=== PATIENT | male | born 1960 | race Caucasian/White ===

== ENCOUNTER 2021-06-03 08:17 | Inpatient (IN) ==
[2021-06-03 10:02] LABS: Basophils # (auto) 0.03 K/uL (0-0.2); Basophils % (auto) 0.4 %; Eosinophils # (auto) 0.03 K/uL (0-0.5); Eosinophils % (auto) 0.4 %; Hematocrit (blood only) 39.7 % (42-52); Hemoglobin 13.5 g/dL (14.0-18.0); Immature Granulocytes # (auto) 0.01 K/uL (0.00-0.02); Immature Granulocytes % (auto) 0.1 %; Lymphocytes # (auto) 0.95 K/uL (1.2-3.4); Lymphocytes % (auto) 13.4 %; Mean Corpuscular Hemoglobin 35.6 pg (25-34); Mean Corpuscular Volume 104.7 fL (80-100); Mean Platelet Volume 10.8 fL (7.4-10.4); Monocytes # (auto) 1.04 K/uL (0.11-0.59); Monocytes % (auto) 14.7 %; Neutrophils # (auto) 5.02 K/uL (1.4-6.5); Platelet Count 183 K/uL (130-400); RDW Coefficient of Variation 13.3 % (11.5-14.5); RDW Standard Deviation 51.3 fL (36.4-46.3); Red Blood Count 3.79 M/uL (4.7-6.1); White Blood Count 7.08 K/uL (4.8-10.8)
[2021-06-03 10:17] LABS: INR 1.3 (0.9-1.1); Partial Thromboplastin Ratio 1.1; Partial Thromboplastin Time 28.6 Seconds (21.0-31.0)
[2021-06-03 10:22] LABS: Alanine Aminotransferase 45 U/L (12-78); Albumin Level 2.4 gm/dl (3.4-5.0); Aspartate Aminotransferase 81 U/L (15-37); BUN Creatinine Ratio 15.4 (10-20); Bilirubin Direct 0.8 mg/dl (0-0.2); Blood Urea Nitrogen 12 mg/dl (7-18); Calcium 8.2 mg/dl (8.5-10.1); Carbon Dioxide 26 mmol/L (21-32); Chloride 106 mmol/L (98-107); Est GFR (African American) 115.7 ml/min; Est GFR (Non-African American) 99.9 ml/min; Glucose 106 mg/dl (70-99); Lipase 198 U/L (73-393); Magnesium 1.8 mg/dl (1.8-2.4); Potassium 3.9 mmol/L (3.5-5.1); Sodium 137 mmol/L (136-145)
--- NOTE | 2021-06-03 10:27 | XRay Report ---
XR chest 1V portable HISTORY: Atypical Chest Pain COMPARISON: Chest 12/07/2007. FINDINGS: There are low lung volumes with mild elevation of the right hemidiaphragm. The heart is mil dly enlarged. No focal lung consolidations to suggest pneumonia. No evidence for pulmonary edema. No pleural fusions. No pneumothorax. IMPRESSION: 1. Mild cardiomegaly. 2. Low lung volumes with mild elevation of the right hemidiaphragm. ACT 112: Negative or not required by law. Electronically signed by: Juan Moreno M.D. 06/03/2021 10:25 AM
[2021-06-03 10:30] LABS: Albumin Globulin Ratio 0.5 (0.9-2); Alkaline Phosphatase 136 U/L (45-117); Bilirubin,Total 1.8 mg/dl (0.2-1); Globulin 4.7 gm/dl (2.5-4.0); NT Pro B Type Natriuretic Pept 81 pg/ml (0-900); Phosphorus 3.2 mg/dl (2.5-4.9); Total Protein 7.1 gm/dl (6.4-8.2); Troponin I < 0.015 ng/ml (0-0.045)
[2021-06-03] MEDS ORDERED: OPTIRAY 320 100ml IV ONE (11:02)
--- NOTE | 2021-06-03 11:55 | CT Scan Report ---
CT abd pelvis IV con only CLINICAL HISTORY: abd pain, distension COMPARISON STUDY: April 08, 2007 TECHNIQUE: A dose lowering technique was utilized adhering to the principles of ALARA. CT DOSE: 2063.00 mGy.cm FINDINGS: Lower chest: Limited evaluation of lung bases shows small left pleural effusion associated with atel ectasis at dependent portion of the right lower lobe. 7 mm pulmonary nodule is seen within the right middle lobe (3/1), unclear if was present during 2007 exam because this area was not included in the [id number]. Liver: Interval development of liver cirrhosis. 0.7 cm hypoattenuating lesion in subcapsular aspect o f the segment 4 of the liver is seen. Gallbladder: Is fluid-filled. No definite gallstones. Gallbladder wall is slightly enhancing. Overall evaluation is limited due to ascites. Spleen: Normal in size and attenuation. Pancreas: Unremarkable. Adrenal glands: Unremarkable. Kidneys: There is symmetric renal cortical enhancement. The kidneys are normal in size without hydron ephrosis.Interval development of 2.1 cm slightly hypoattenuating lesion within anterior mid aspect of the right renal cortex shows heterogeneous appearance of fluid attenuation. Previously seen cystic lesion within superior aspect of the right kidney is no longer visualized shoemaker yojana there is small cortical scarring is seen within this region. No evidence of nephrolithiasis. Pelvic viscera: Urinary bladder is partially decompressed with redemonstration of diffuse thickening of its wall. Prostate gland is not significantly enlarged with coarse dystrophic calcification within its parenchyma. Bowel: Small hiatal hernia is seen. Bowel loops are nondilated. Evaluation is significantly limited d ue to lack of oral contrast and ascites. Appendix is not visualized. Peritoneum: There is no free intra-abdominal gas. Interval development of large ascites and diffuse m esenteric edema. There is extension of the intra-abdominal fluid to the right inguinal hernia ostium of the hernia is measuring 2.6 cm in size. Vasculature: Abdominal aorta is normal in caliber with scattered calcifications of its wall. Adenopathy: No definite retroperitoneal lymphadenopathy seen. Mesenteric lymph nodes are not well see n due to ascites. Skeletal structures: Multilevel degenerative changes of the spine. IMPRESSION: 1. Interval development of liver cirrhosis and ascites with significant amount of fluid collection w ithin abdominal cavity. 2. Questionable hypoattenuating lesion within subcapsular aspect of the liver, incompletely evaluate d on current exam. Further evaluation with liver ultrasound on the nonemergency basis might be consid ered. 3. Interval development of hypoattenuating lesion within left kidney, was not seen on prior study in 2006. Further evaluation with renal ultrasound the nonemergency basis might be considered. 4. 7 mm pulmonary nodule within the right middle lobe. Further evaluation with CT of the chest witho ut IV contrast on nonemergency basis is suggested. 5. Fluid-containing right inguinal hernia. 6. Nondilated loops of bowel, evaluation is suboptimal due to ascites and lack of oral contrast. 7. Redemonstration of diffuse thickening of urinary bladder wall. Prostate gland is not significantl y enlarged. Please correlate above-mentioned findings with laboratory markers of cystitis. 8. Atherosclerosis. 9. The rest of findings as above. ACT 112: Positive. There are findings on this exam that require communication between the performing entity and the patient following Patient Test Result Information Act ([place] Act 112) guidelines. The above report was generated using voice recognition software. It may contain grammatical, syntax o r spelling errors. Electronically signed by: Josefina Teixeira DO 06/03/2021 11:53 AM
[2021-06-03 12:45] LABS: Appearance Urine Clear (Clear); Blood Urine Negative (Negative); Color Urine Dark Yellow; Glucose Urine UA Negative (Negative); Ketones Urine Negative (Negative); Leukocyte Esterase Urine Negative (Negative); Nitrite Urine Negative (Negative); Protein Urine Negative (Negative); Specific Gravity Urine > 1.045 (1.000-1.030); Urobilinogen Urine Negative (Negative); pH Urine 7.5 (4.5-7.5)
[2021-06-03 13:00] LABS: Bilirubin Urine 1+ (Negative)
--- NOTE | 2021-06-03 15:13 | Emergency Department Note ---
Impression & Plan Cirrhosis, Ascites, Transaminitis ED Provider Note NAME: ALONDRA NEAL AGE: 61 SEX: M ARRIVES VIA: Walk-In INFORMANT: Patient, ED PROVIDER(S): J Carlos Ellison MD CHIEF COMPLAINT: Abdominal distension PLAN: Disposition: Admit MEDICAL DECISION MAKING: The patient is a pleasant 61-year-old gentleman, Nauruan-speaking mostly [place] gentleman who presents to the emergency department for evaluation of abdominal distention that per the patient's report happened abruptly over the past several weeks. He reports history of drinking alcohol 2 months ago where he would drink 1-2 bottles of wine in several days but has stopped since then. This was in the setting of his passing away at that time. He reports he attempted to set up an appointment for evaluation but was not scheduled for another 2 months. He denies fevers, chills, pain related to his distention, nausea, vomiting or diarrhea. On arrival the patient is no acute distress, afebrile stable vital signs. His abdomen severely distended with notable ascites. No tenderness to palpation. He has mild bilateral lower extremity edema. Mild increased WOB 2/2 mass effect from abdominal distension. EKG without overt acute ischemia. CXR negative for acute cardiopulmonary process. WBC and platelets within normal limits. H/H 13.5/39.7 without prior values for comparison. INR is 1.3. Chemistry without metabolic acidosis. Total bilirubin 1.8 and direct bilirubin 0.8 with AST 81 and ALT 45, suspicious for alcoholic pattern. Troponin negative/undetectable. BNP within normal limits. Lipase is not elevated. TSH within normal limits. UA without convincing evidence of infection. Blood alcohol was undetectable. COVID-[address] of the abdomen pelvis was performed and demonstrates new evidence of cirrhosis with massive ascites. I did meet with the patient and reviewed his visit and results in detail using the [employer] hand sewer. I did recommend admission for further evaluation however he reported that he could not stay today as he had "things to take care of in his home" but will be able to return on Wednesday. I did explain to the patient that it is important that he follow through with prompt evaluation to initiate treatment to address his symptoms. He reported that he would definitely return on Wednesday. We did agree to proceed with paracentesis given his large volume ascites was giving him notable dyspnea and so this was performed per procedure note and 2 L of yellow-clear fluid was removed. Patient tolerated the procedure well and respiratory effort normalized. Fluid analysis sent at pending. Ultimately however upon meeting with the patient prior to final instructions he did agree to stay after we were able to contact his close friend and neighbor who agreed to help with anything he may need if this may facilitate him agreeing to stay in the hospital. The patient asked that he help to close the windows of his house and then agreed to be admitted. Case was discussed with Reese Rocha, with Dr. [facility] hospitalist who will evaluate the patient for admission. Triage Nursing notes reviewed and agree them. Prior medical records reviewed Vital Signs: reviewed and remarkable for no significant abnormalities Differential diagnosis: Appendicitis, testicular torsion, infections, diverticulitis, UTI, obstruction, mesenteric ischemia, aortic pathology, inflammatory bowel disease, renal colic, PUD, pancreatitis, biliary pathology, hernia, volvulus, constipation, as well as other pathologies. ER treatment provided: See below. Diagnostics interpreted by me: ECG: NSR, 92bpm, no ectopy, RBBB, no overt ST elevation or depression. Cardiac Monitoring: An order for continuous cardiac monitoring was placed and demonstrated NSR, 92bpm, no ectopy. Laboratory studies: See below Imaging studies: See below Consultation(s): Reese Rocha, [facility] HPI: The patient is a pleasant 61-year-old gentleman, Nauruan-speaking mostly [place] gentleman who presents to the emergency department for evaluation of abdominal distention that per the patient's report happened abruptly over the past several weeks. He reports history of drinking alcohol 2 months ago where he would drink 1-2 bottles of wine in several days but has stopped since then. This was in the setting of his passing away at that time. He reports he attempted to set up an appointment for evaluation but was not scheduled for another 2 months. He denies fevers, chills, pain related to his distention, nausea, vomiting or diarrhea. ROS: See above HPI for pertinent positives & negatives. A total of 10 systems reviewed and were otherwise negative. PAST MEDICAL HISTORY:See Below PAST SURGICAL HISTORY:See Below FAMILY HISTORY:See Below SOCIAL HISTORY:See Below HOME MEDICATIONS:See Below ALLERGIES:See Below VITALS:See Below PHYSICAL EXAMINATION: GENERAL: Awake, alert, fatigued-appearing, in no distress HENT: Normocephalic, atraumatic. Oropharynx unremarkable. EYES: Normal conjunctiva. Sclera non-icteric. NECK: Supple. No nuchal rigidity. FROM. No JVD. RESPIRATORY: Clear to auscultation. Mildly dyspneic with mild increase WOB secondary to mass-effect from abdominal distention. no acute distress. CARDIAC: Regular rate, normal rhythm. Extremities warm and well perfused. Pulses equal. ABDOMEN: Severely distended with notable ascites. No tenderness to palpation. No rebound or guarding. No masses. RECTAL: Deferred. MUSCULOSKELETAL: Chest examination reveals no tenderness. The back is symmetrical on inspection without obvious abnormality. There is no CVA tenderness to palpation. No joint edema. LOWER EXTREMITIES: Calves are equal size bilaterally and non-tender. 1+ BLE edema. No discoloration. NEURO: Normal sensorium. No sensory or motor deficits noted. SKIN: No rash or jaundice noted. ED COURSE: Procedures: Paracentesis Indication: New large volume ascites. SOB. Verbal consent was obtained after the risks and benefits were explained, including but not limited to headache, bleeding/clotting, scarring, infection, pain, and bone/joint/nerve damage. At this time, the risks of the procedure are less than the risks of NOT performing the procedure. A time out was taken and the correct patient and site identified. The patient was placed in the seated position. Paracentesis site on the right abdomen was identified with static ultrasound and marked. Site was prepped with chlorhexadine and draped in the standard fashion. Site was anesthetized locally with 1% lidocaine without epinephrine. Peritoneal space was entered with paracentesis needle. Sim ultaneously catheter was carefully advanced into the peritoneal space and needle was withdrawn. 2L of yellow-clear ascites fluid was obtained. Catheter was removed. A bandaid was placed. The patient tolerated the procedure well and there were no complications. J Carlos Ellison MD Past Med/Surg History Medical History Alcoholism Anxiety GERD (gastroesophageal reflux disease) HTN (hypertension) Hyperlipidemia NICO (obstructive sleep apnea) Tobacco abuse, in remission Family History Other Heart disease Social History Smoking Status: Unknown if ever smoked Communication Tools: IPad and Language Line Hose Maker Feels Safe at Home: Yes Allergies Allergies Allergy/AdvReac Type Severity Reaction Status Date / Time No Known Allergies Allergy Unknown Verified 06/03/21 10:23 Home Meds Home Medications Medication Instructions Recorded Confirmed aspirin 81 mg tablet 81 mg PO DAILY 06/03/21 06/03/21 lisinopril 40 mg tablet 40 mg PO DAILY 06/03/21 06/03/21 multivitamin 1 tab PO DAILY 06/03/21 06/03/21 rosuvastatin 20 mg tablet 20 mg PO DAILY 06/03/21 06/03/21 spironolactone 25 mg tablet 25 mg PO DAILY 06/03/21 06/03/21 triamterene 37.5 1 tab PO DAILY 06/03/21 06/03/21 mg-hydrochlorothiazide 25 mg tablet Results & Data (ED) Vital Signs Vital Signs - 24 hr 06/03/21 08:20 06/03/21 10:30 06/03/21 10:54 Temperature 36.8 C Temperature Source Temporal Artery Scan Pulse Rate 102 H 91 H 96 H Pulse Rate [Apical] Pulse Rate from SpO2 Sensor 91 H Respiratory Rate 18 25 H Respiratory Effort / Characteristics Respiratory Depth Blood Pressure 161/88 H 141/91 H Blood Pressure [Right Arm] Blood Pressure Mean 112 107 Blood Pressure Mean [Right Arm] Pulse Oximetry 99 97 97 Oxygen Delivery Method Room Air Room Air Room Air Sepsis Recent Fever Within 48 Hours No Sepsis New/Unexplained Change in Mental Status No Sepsis Action Taken by Nursing No Action Required 06/03/21 12:03 06/03/21 12:04 06/03/21 13:00 Temperature Temperature Source Pulse Rate 87 87 Pulse Rate [Apical] 86 Pulse Rate from SpO2 Sensor 86 Respiratory Rate 22 22 28 H Respiratory Effort / Characteristics Respiratory Depth Blood Pressure 148/103 H 137/81 Blood Pressure [Right Arm] 148/103 H Blood Pressure Mean 118 99 Blood Pressure Mean [Right Arm] 118 Pulse Oximetry 99 99 96 Oxygen Delivery Method Room Air Room Air Room Air Sepsis Recent Fever Within 48 Hours Sepsis New/Unexplained Change in Mental Status Sepsis Action Taken by Nursing 06/03/21 13:30 06/03/21 14:00 06/03/21 15:00 Temperature Temperature Source Pulse Rate 92 H 85 Pulse Rate [Apical] 92 H Pulse Rate from SpO2 Sensor Respiratory Rate 24 26 H 22 Respiratory Effort / Characteristics Non-Labored Respiratory Depth Normal Blood Pressure 135/96 133/85 Blood Pressure [Right Arm] 148/98 H Blood Pressure Mean 109 101 Blood Pressure Mean [Right Arm] 114 Pulse Oximetry 95 97 Oxygen Delivery Method Room Air Room Air Sepsis Recent Fever Within 48 Hours Sepsis New/Unexplained Change in Mental Status Sepsis Action Taken by Nursing 06/03/21 18:06 06/03/21 19:00 06/03/21 21:01 Temperature Temperature Source Pulse Rate 90 Pulse Rate [Apical] Pulse Rate from SpO2 Sensor Respiratory Rate 18 Respiratory Effort / Characteristics Respiratory Depth Blood Pressure 131/97 129/93 Blood Pressure [Right Arm] 124/87 Blood Pressure Mean 108 Blood Pressure Mean [Right Arm] 99 Pulse Oximetry 99 Oxygen Delivery Method Room Air Sepsis Recent Fever Within 48 Hours Sepsis New/Unexplained Change in Mental Status Sepsis Action Taken by Nursing Laboratory Data Attestation: I reviewed the patient's lab results. Result diagrams: 06/03/21 09:50 06/03/21 09:50 Lab Results 06/03/21 06/03/21 06/03/21 Range/Units 09:50 09:50 09:50 WBC 7.08 (4.8-10.8) K/uL RBC 3.79 L (4.7-6.1) M/uL Hgb 13.5 L (14.0-18.0) g/dL Hct 39.7 L (42-52) % MCV 104.7 H (80-100) fL MCH 35.6 H (25-34) pg MCHC 34.0 (32-36) g/dL RDW Std Deviation 51.3 H (36.4-46.3) fL RDW Coeff of Claire 13.3 (11.5-14.5) % Plt Count 183 (130-400) K/uL MPV 10.8 H (7.4-10.4) fL Immature Gran % (Auto) 0.1 % Neut % (Auto) 71.0 % Lymph % (Auto) 13.4 % [place] % (Auto) 14.7 % Eos % (Auto) 0.4 % Baso % (Auto) 0.4 % Neut # (Auto) 5.02 (1.4-6.5) K/uL Lymph # (Auto) 0.95 L (1.2-3.4) K/uL [place] # (Auto) 1.04 H (0.11-0.59) K/uL Eos # (Auto) 0.03 (0-0.5) K/uL Baso # (Auto) 0.03 (0-0.2) K/uL Immature Gran # (Auto) 0.01 (0.00-0.02) K/uL PT 13.0 H (9.0-12.0) Seconds INR 1.3 H (0.9-1.1) APTT 28.6 (21.0-31.0) Seconds PTT Ratio 1.1 Sodium 137 (136-145) mmol/L Potassium 3.9 (3.5-5.1) mmol/L Chloride 106 (98-107) mmol/L Carbon Dioxide 26 (21-32) mmol/L Anion Gap 5.0 (3-11) BUN 12 (7-18) mg/dl Creatinine 0.76 (0.6-1.4) mg/dl Est Cr Clr Drug Dosing Not Reportable Est GFR ( Amer) 115.7 ml/min Est GFR (Non-Af Amer) 99.9 ml/min BUN/Creatinine Ratio 15.4 (10-20) Glucose 106 H (70-99) mg/dl Calcium 8.2 L (8.5-10.1) mg/dl Phosphorus 3.2 (2.5-4.9) mg/dl Magnesium 1.8 (1.8-2.4) mg/dl Total Bilirubin 1.8 H (0.2-1) mg/dl Direct Bilirubin 0.8 H (0-0.2) mg/dl AST 81 H (15-37) U/L ALT 45 (12-78) U/L Alkaline Phosphatase 136 H (45-117) U/L Troponin I < 0.015 (0-0.045) ng/ml NT-Pro-B Natriuret Pep 81 (0-900) pg/ml Total Protein 7.1 (6.4-8.2) gm/dl Albumin 2.4 L (3.4-5.0) gm/dl Globulin 4.7 H (2.5-4.0) gm/dl Albumin/Globulin Ratio 0.5 L (0.9-2) Lipase 198 (73-393) U/L TSH 1.560 (0.300-4.500) uIu/ml Urine Color Urine Appearance (Clear) Urine pH (4.5-7.5) Ur Specific [place] (1.000-1.030) Urine Protein (Negative) Urine Glucose (UA) (Negative) Urine Ketones (Negative) Urine Blood (Negative) Urine Nitrite (Negative) Urine Bilirubin (Negative) Urine Urobilinogen (Negative) Ur Leukocyte Esterase (Negative) Fluid Neutrophils % % Fluid Lymphocytes % % Fluid Eosinophils % % Fluid Basophils % % Fluid Meso/Macro/[place] % % Fluid Comment Peritoneal Color Peritoneal Appearance Peritoneal WBC (0-300) /ul Peritoneal RBC /uL Peritoneal Other Cells % Peritoneal Tot Protein g/dl Peritoneal Albumin g/dl Peritoneal LDH U/L Peritoneal Glucose mg/dl Ethyl Alcohol mg/dL (0-3) mg/dl COVID-19 Eval Order SARS-CoV-2 (PCR) (Negative) 06/03/21 06/03/21 06/03/21 Range/Units 09:50 09:50 09:57 WBC (4.8-10.8) K/uL RBC (4.7-6.1) M/uL Hgb (14.0-18.0) g/dL Hct (42-52) % MCV (80-100) fL MCH (25-34) pg MCHC (32-36) g/dL RDW Std Deviation (36.4-46.3) fL RDW Coeff of Claire (11.5-14.5) % Plt Count (130-400) K/uL MPV (7.4-10.4) fL Immature Gran % (Auto) % Neut % (Auto) % Lymph % (Auto) % [place] % (Auto) % Eos % (Auto) % Baso % (Auto) % Neut # (Auto) (1.4-6.5) K/uL Lymph # (Auto) (1.2-3.4) K/uL [place] # (Auto) (0.11-0.59) K/uL Eos # (Auto) (0-0.5) K/uL Baso # (Auto) (0-0.2) K/uL Immature Gran # (Auto) (0.00-0.02) K/uL PT (9.0-12.0) Seconds INR (0.9-1.1) APTT (21.0-31.0) Seconds PTT Ratio Sodium (136-145) mmol/L Potassium (3.5-5.1) mmol/L Chloride (98-107) mmol/L Carbon Dioxide (21-32) mmol/L Anion Gap (3-11) BUN (7-18) mg/dl Creatinine (0.6-1.4) mg/dl Est Cr Clr Drug Dosing Est GFR ( Amer) ml/min Est GFR (Non-Af Amer) ml/min BUN/Creatinine Ratio (10-20) Glucose (70-99) mg/dl Calcium (8.5-10.1) mg/dl Phosphorus (2.5-4.9) mg/dl Magnesium (1.8-2.4) mg/dl Total Bilirubin (0.2-1) mg/dl Direct Bilirubin (0-0.2) mg/dl AST (15-37) U/L ALT (12-78) U/L Alkaline Phosphatase (45-117) U/L Troponin I (0-0.045) ng/ml NT-Pro-B Natriuret Pep (0-900) pg/ml Total Protein (6.4-8.2) gm/dl Albumin (3.4-5.0) gm/dl Globulin (2.5-4.0) gm/dl Albumin/Globulin Ratio (0.9-2) Lipase (73-393) U/L TSH (0.300-4.500) uIu/ml Urine Color Urine Appearance (Clear) Urine pH (4.5-7.5) Ur Specific [place] (1.000-1.030) Urine Protein (Negative) Urine Glucose (UA) (Negative) Urine Ketones (Negative) Urine Blood (Negative) Urine Nitrite (Negative) Urine Bilirubin (Negative) Urine Urobilinogen (Negative) Ur Leukocyte Esterase (Negative) Fluid Neutrophils % % Fluid Lymphocytes % % Fluid Eosinophils % % Fluid Basophils % % Fluid Meso/Macro/[place] % % Fluid Comment Peritoneal Color Peritoneal Appearance Peritoneal WBC (0-300) /ul Peritoneal RBC /uL Peritoneal Other Cells % Peritoneal Tot Protein g/dl Peritoneal Albumin g/dl Peritoneal LDH U/L Peritoneal Glucose mg/dl Ethyl Alcohol mg/dL < 3.0 (0-3) mg/dl COVID-19 Eval Order Covid19 at [facility] SARS-CoV-2 (PCR) NEGATIVE (Negative) 06/03/21 06/03/21 06/03/21 Range/Units 12:30 16:30 16:30 WBC (4.8-10.8) K/uL RBC (4.7-6.1) M/uL Hgb (14.0-18.0) g/dL Hct (42-52) % MCV (80-100) fL MCH (25-34) pg MCHC (32-36) g/dL RDW Std Deviation (36.4-46.3) fL RDW Coeff of Claire (11.5-14.5) % Plt Count (130-400) K/uL MPV (7.4-10.4) fL Immature Gran % (Auto) % Neut % (Auto) % Lymph % (Auto) % [place] % (Auto) % Eos % (Auto) % Baso % (Auto) % Neut # (Auto) (1.4-6.5) K/uL Lymph # (Auto) (1.2-3.4) K/uL [place] # (Auto) (0.11-0.59) K/uL Eos # (Auto) (0-0.5) K/uL Baso # (Auto) (0-0.2) K/uL Immature Gran # (Auto) (0.00-0.02) K/uL PT (9.0-12.0) Seconds INR (0.9-1.1) APTT (21.0-31.0) Seconds PTT Ratio Sodium (136-145) mmol/L Potassium (3.5-5.1) mmol/L Chloride (98-107) mmol/L Carbon Dioxide (21-32) mmol/L Anion Gap (3-11) BUN (7-18) mg/dl Creatinine (0.6-1.4) mg/dl Est Cr Clr Drug Dosing Est GFR ( Amer) ml/min Est GFR (Non-Af Amer) ml/min BUN/Creatinine Ratio (10-20) Glucose (70-99) mg/dl Calcium (8.5-10.1) mg/dl Phosphorus (2.5-4.9) mg/dl Magnesium (1.8-2.4) mg/dl Total Bilirubin (0.2-1) mg/dl Direct Bilirubin (0-0.2) mg/dl AST (15-37) U/L ALT (12-78) U/L Alkaline Phosphatase (45-117) U/L Troponin I (0-0.045) ng/ml NT-Pro-B Natriuret Pep (0-900) pg/ml Total Protein (6.4-8.2) gm/dl Albumin (3.4-5.0) gm/dl Globulin (2.5-4.0) gm/dl Albumin/Globulin Ratio (0.9-2) Lipase (73-393) U/L TSH (0.300-4.500) uIu/ml Urine Color Dark Yellow Urine Appearance Clear (Clear) Urine pH 7.5 (4.5-7.5) Ur Specific [place] > 1.045 H (1.000-1.030) Urine Protein Negative (Negative) Urine Glucose (UA) Negative (Negative) Urine Ketones Negative (Negative) Urine Blood Negative (Negative) Urine Nitrite Negative (Negative) Urine Bilirubin 1+ H (Negative) Urine Urobilinogen Negative (Negative) Ur Leukocyte Esterase Negative (Negative) Fluid Neutrophils % 25 % Fluid Lymphocytes % 42 % Fluid Eosinophils % 0 % Fluid Basophils % 0 % Fluid Meso/Macro/[place] % 33 % Fluid Comment Peritoneal Color YELLOW Peritoneal Appearance CLEAR Peritoneal WBC 495 H (0-300) /ul Peritoneal RBC < 3000 /uL Peritoneal Other Cells 0.0 % Peritoneal Tot Protein 2.0 g/dl Peritoneal Albumin 0.9 g/dl Peritoneal LDH 97 U/L Peritoneal Glucose 108 mg/dl Ethyl Alcohol mg/dL (0-3) mg/dl COVID-19 Eval Order SARS-CoV-2 (PCR) (Negative) Administered Medications Discontinued Medications Ioversol (Optiray 320 100ml) 93 ml IV ONCE ONE Stop: 06/03/21 11:03 Last Admin: 06/03/21 11:02 Dose: 93 ml Documented by: [id number] Imaging Data Radiologist's Impression: Abdomen/Pelvis CT 06/03/21 09:31 CT abd pelvis IV con only CLINICAL HISTORY: abd pain, distension COMPARISON STUDY: April 08, 2007 TECHNIQUE: A dose lowering technique was utilized adhering to the principles of ALARA. CT DOSE: 2063.00 mGy.cm FINDINGS: Lower chest: Limited evaluation of lung bases shows small left pleural effusion associated with atelectasis at dependent portion of the right lower lobe. 7 mm pulmonary nodule is seen within the right middle lobe (3/1), unclear if was present during 2007 exam because this area was not included in the [id number]. Liver: Interval development of liver cirrhosis. 0.7 cm hypoattenuating lesion in subcapsular aspect of the segment 4 of the liver is seen. Gallbladder: Is fluid-filled. No definite gallstones. Gallbladder wall is slightly enhancing. Overall evaluation is limited due to ascites. Spleen: Normal in size and attenuation. Pancreas: Unremarkable. Adrenal glands: Unremarkable. Kidneys: There is symmetric renal cortical enhancement. The kidneys are normal in size without hydronephrosis.Interval development of 2.1 cm slightly hypoattenuating lesion within anterior mid aspect of the right renal cortex shows heterogeneous appearance of fluid attenuation. Previously seen cystic lesion within superior aspect of the right kidney is no longer visualized however there is small cortical scarring is seen within this region. No evidence of nephrolithiasis. Pelvic viscera: Urinary bladder is partially decompressed with redemonstration of diffuse thickening of its wall. Prostate gland is not significantly enlarged with coarse dystrophic calcification within its parenchyma. Bowel: Small hiatal hernia is seen. Bowel loops are nondilated. Evaluation is significantly limited due to lack of oral contrast and ascites. Appendix is not visualized. Peritoneum: There is no free intra-abdominal gas. Interval development of large ascites and diffuse mesenteric edema. There is extension of the intra-abdominal fluid to the right inguinal hernia ostium of the hernia is measuring 2.6 cm in size. Vasculature: Abdominal aorta is normal in caliber with scattered calcifications of its wall. Adenopathy: No definite retroperitoneal lymphadenopathy seen. Mesenteric lymph nodes are not well seen due to ascites. Skeletal structures: Multilevel degenerative changes of the spine. IMPRESSION: 1. Interval development of liver cirrhosis and ascites with significant amount of fluid collection within abdominal cavity. 2. Questionable hypoattenuating lesion within subcapsular aspect of the liver, incompletely evaluated on current exam. Further evaluation with liver ultrasound on the nonemergency basis might be considered. 3. Interval development of hypoattenuating lesion within left kidney, was not seen on prior study in 2007. Further evaluation with renal ultrasound the nonemergency basis might be considered. 4. 7 mm pulmonary nodule within the right middle lobe. Further evaluation with CT of the chest without IV contrast on nonemergency basis is suggested. 5. Fluid-containing right inguinal hernia. 6. Nondilated loops of bowel, evaluation is suboptimal due to ascites and lack of oral contrast. 7. Redemonstration of diffuse thickening of urinary bladder wall. Prostate gland is not significantly enlarged. Please correlate above-mentioned findings with laboratory markers of cystitis. 8. Atherosclerosis. 9. The rest of findings as above. ACT 112: Positive. There are findings on this exam that require communication between the performing entity and the patient following Patient Test Result Information Act ([place] Act 112) guidelines. The above report was generated using voice recognition software. It may contain grammatical, syntax or spelling errors. Electronically signed by: Josefina Teixeira DO 06/03/2021 11:53 AM Chest X-Ray 06/03/21 09:31 XR chest 1V portable HISTORY: Atypical Chest Pain COMPARISON: Chest 12/07/2007. FINDINGS: There are low lung volumes with mild elevation of the right hem idiaphragm. The heart is mildly enlarged. No focal lung consolidations to suggest pneumonia. No evidence for pulmonary edema. No pleural fusions. No pneumothorax. IMPRESSION: 1. Mild cardiomegaly. 2. Low lung volumes with mild elevation of the right hemidiaphragm. ACT 112: Negative or not required by law. Electronically signed by: Juan Moreno M.D. 06/03/2021 10:25 AM Discharge Plan Visit Data Chief Complaint: Abdominal Pain Stated Complaint: FLUID IN ABDOMEN ED Provider: J Carlos Ellison Discharge Problem: Cirrhosis Patient Disposition: Admitted As Inpatient Condition: Good Prescriptions Prescriptions: No Action multivitamin Tablet 1 tab PO DAILY RF: 0 spironolactone 25 mg tablet 25 mg PO DAILY RF: 0 triamterene-hydrochlorothiazid 37.5-25 mg tablet 1 tab PO DAILY RF: 0 aspirin 81 mg Tablet 81 mg PO DAILY RF: 0 lisinopril 40 mg tablet 40 mg PO DAILY RF: 0 rosuvastatin 20 mg tablet 20 mg PO DAILY RF: 0
[2021-06-03 17:33] LABS: Glucose Peritoneal Fluid 108 mg/dl
[2021-06-03 17:39] LABS: LDH Peritoneal Fluid 97 U/L
[2021-06-03 17:43] LABS: Albumin Peritoneal Fluid 0.9 g/dl
--- NOTE | 2021-06-03 18:56 | History & Physical Report ---
Date of Service June 03, 2021 Assessment & Plan (1) Cirrhosis: History of Present Illness Chief Complaint: Distended abdomen Primary Care Provider: Jovani Chávez MD From ER [id number] male, Tongan-speaking mostly gentleman who presents emergency department for evaluation of abdominal distention that per the patient's report happened abruptly over the past several weeks. He reports history of drinking alcohol 2 months ago where he would drink 1-2 bottles of wine in several days but has stopped since then. This was in the setting of his passing away at that time. He reports he attempted to set up an appointment for evaluation but was not scheduled for another 2 months. He denies fevers, chills, pain related to his distention, nausea, vomiting or diarrhea. He had a paracentesis given his massive ascites was giving him notable dyspnea and so this was performed 2 L of yellow cloudy fluid was removed. PMH-HTN, HLD, Obesity, Alcohol Abuse PSH- Soc- FH- Allergies Allergy/AdvReac Type Severity Reaction Status Date / Time No Known Allergies Allergy Unknown Verified 06/03/21 10:23 Home Medications Medication Instructions Recorded Confirmed Type aspirin 81 mg tablet 81 mg PO DAILY 06/03/21 06/03/21 History lisinopril 40 mg tablet 40 mg PO DAILY 06/03/21 06/03/21 History multivitamin 1 tab PO DAILY 06/03/21 06/03/21 History rosuvastatin 20 mg tablet 20 mg PO DAILY 06/03/21 06/03/21 History spironolactone 25 mg tablet 25 mg PO DAILY 06/03/21 06/03/21 History triamterene 37.5 1 tab PO DAILY 06/03/21 06/03/21 History mg-hydrochlorothiazide 25 mg tablet Past Med/Surg History Medical History Anxiety GERD (gastroesophageal reflux disease) Family History Other Heart disease Social History Smoking Status: Unknown if ever smoked 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 Appetite is Normal Physical Exam Physical Exam: Physical Exam Gen-AAO x 3, NAD, Afebrile Head-NCAT, EOMI, PERRLA, Anicteric Sclera, No Posterior Pharyngeal Erythema Neck-Supple, No JVD, No Thyromegaly, No Masses, No LAD, No Bruits Lungs-Clear to Auscultation Bilaterally, No Rales, No Rhonchi, No Wheezing, No Crepitus Chest-No S4, +S1, +S2, No S3, No Murmurs, No Rubs, No Gallops, No Ectopy Abdomen-Soft, Bowel Sounds Present, Non Tender, Non Distended, No Hepatomegaly, No Splenomegaly, No Palpable Masses, No Rebound, No Rigidity, No Guarding Musculoskeletal-Full Range of Motion Bilaterally, No CVAT Extremities-No Cyanosis, No Clubbing, No Edema Nuero-Cranial Nerves II-XII grossly intact, Motor WNL, DTRs WNL, Strength WNL, Non Focal Psych-Normal Mood Results & Data Results & Data ([facility]) Vital Signs (Past 12 Hours) Vital Signs Temp Pulse Pulse Resp BP BP Pulse Ox 06/03/21 18:06 90 18 131/97 99 06/03/21 15:00 92 H 22 148/98 H 97 06/03/21 14:00 85 26 H 133/85 95 06/03/21 13:30 92 H 24 135/96 06/03/21 13:00 87 28 H 137/81 96 06/03/21 12:04 86 22 148/103 H 99 06/03/21 12:03 87 22 148/103 H 99 06/03/21 10:54 96 H 97 06/03/21 10:30 91 H 25 H 141/91 H 97 06/03/21 08:20 36.8 C 102 H 18 161/88 H 99 Laboratory Results Allergies No Known Allergies Allergy (Unknown, Verified 06/03/21 10:23) Height/Weight/Isolation Weight 124 kg Chemistry 06/03/21 09:50 Sodium 137 Potassium 3.9 Chloride 106 Carbon Dioxide 26 Anion Gap 5.0 BUN 12 Creatinine 0.76 Glucose 106 H Urinalysis 06/03/21 12:30 Urine Color Dark Yellow Urine Appearance Clear Urine pH 7.5 Ur Specific [place] > 1.045 H Urine Protein Negative Urine Glucose (UA) Negative Urine Ketones Negative Urine Blood Negative Urine Nitrite Negative Urine Bilirubin 1+ H Microbiology 06/03/21 16:30 Peritoneal Fluid Gram Stain - Pending 06/03/21 16:30 Peritoneal Fluid Aerobic and Anaerobic Culture - Pending Code Status & VTE Plan Code Status full VTE Prophylaxis Plan VTE Prophylaxis will be ordered: Yes (1) Cirrhosis Ascites presence: with ascites Hepatic cirrhosis type: unspecified hepatic cirrhosis Qualified Code(s): K74.60 - Unspecified cirrhosis of liver; R18.8 - Other ascites
[2021-06-03 19:17] LABS: Appearance Peritoneal Fluid CLEAR; Basophils, Fluid 0 %; Color Peritoneal Fluid YELLOW; Eosinophils, Fluid 0 %; Lymphocytes, Fluid 42 %; Mono,Macrophage,Mesothelial 33 %; Neutrophils, Fluid 25 %; RBC Peritoneal Fluid (A) < 3000 /uL; WBC Peritoneal Fluid (A) 495 /ul (0-300)
--- NOTE | 2021-06-03 20:08 | History & Physical Report ---
Date of Service June 03, 2021 Assessment & Plan (1) Cirrhosis: (2) Elevated LFTs: (3) NICO (obstructive sleep apnea): (4) Anxiety: (5) GERD (gastroesophageal reflux disease): (6) HTN (hypertension): (7) Alcoholism: (8) Depression: (9) Tobacco abuse, in remission: Plan: On alcohol withdrawal precautions, gastroenterology evaluation, hepatitis panel in the morning, follow-up paracentesis in the morning, subcu Lovenox overnight, continue outpatient medications where appropriate. History of Present Illness Chief Complaint: Abdominal pain and distention Primary Care Provider: Jovani Chávez MD From ER [id number] male, Norwegian-speaking mostly gentleman who presents emergency department for evaluation of abdominal distention that per the patient's report happened abruptly over the past several weeks. He reports history of drinking alcohol 2 months ago where he would drink 1-2 bottles of wine in several days but has stopped since then. This was in the setting of his passing away at that time. He reports he attempted to set up an appointment for evaluation but was not scheduled for another 2 months. He denies fevers, chills, pain related to his distention, nausea, vomiting or diarrhea. He had a paracentesis given his massive ascites was giving him notable dyspnea and so this was performed 2 L of yellow cloudy fluid was removed. 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 FH-his mother and father of old age, he has 1 brother and unsure of his health, he has 1 daughter who is healthy Allergies Allergy/AdvReac Type Severity Reaction Status Date / Time No Known Allergies Allergy Unknown Verified 06/03/21 10:23 Home Medications Medication Instructions Recorded Confirmed Type aspirin 81 mg tablet 81 mg PO DAILY 06/03/21 06/03/21 History lisinopril 40 mg tablet 40 mg PO DAILY 06/03/21 06/03/21 History multivitamin 1 tab PO DAILY 06/03/21 06/03/21 History rosuvastatin 20 mg tablet 20 mg PO DAILY 06/03/21 06/03/21 History spironolactone 25 mg tablet 25 mg PO DAILY 06/03/21 06/03/21 History triamterene 37.5 1 tab PO DAILY 06/03/21 06/03/21 History mg-hydrochlorothiazide 25 mg tablet Past Med/Surg History Medical History Anxiety GERD (gastroesophageal reflux disease) Family History Other Heart disease Social History Smoking Status: Unknown if ever smoked 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 Appetite is Normal Physical Exam Physical Exam: Physical Exam Gen-AAO x 3, NAD, Afebrile, Norwegian-speaking only Head-NCAT, EOMI, PERRLA, Anicteric Sclera, No Posterior Pharyngeal Erythema Neck-Supple, No JVD, No Thyromegaly, No Masses, No LAD, No Bruits Lungs-Clear to Auscultation Bilaterally, No Rales, No Rhonchi, No Wheezing, No Crepitus Chest-No S4, +S1, +S2, No S3, No Murmurs, No Rubs, No Gallops, No Ectopy Abdomen-firm, Bowel Sounds Present, mildly tender tender, Distended, No Palpable Masses, No Rebound, No Rigidity, No Guarding Musculoskeletal-Full Range of Motion Bilaterally, No CVAT Extremities-No Cyanosis, No Clubbing, No Edema Nuero-Cranial Nerves II-XII grossly intact, Motor WNL, DTRs WNL, Strength WNL, Non Focal Psych-Normal Mood Results & Data Results & Data ([facility]) Vital Signs (Past 12 Hours) Vital Signs Temp Pulse Pulse Resp BP BP Pulse Ox 06/03/21 19:00 124/87 06/03/21 18:06 90 18 131/97 99 06/03/21 15:00 92 H 22 148/98 H 97 06/03/21 14:00 85 26 H 133/85 95 06/03/21 13:30 92 H 24 135/96 06/03/21 13:00 87 28 H 137/81 96 06/03/21 12:04 86 22 148/103 H 99 06/03/21 12:03 87 22 148/103 H 99 06/03/21 10:54 96 H 97 06/03/21 10:30 91 H 25 H 141/91 H 97 06/03/21 08:20 36.8 C 102 H 18 161/88 H 99 Laboratory Results Current Diagnoses Unspecified cirrhosis of liver (06/03/21) Other ascites (06/03/21) Allergies No Known Allergies Allergy (Unknown, Verified 06/03/21 10:23) Height/Weight/Isolation Weight 124 kg Chemistry 06/03/21 09:50 Sodium 137 Potassium 3.9 Chloride 106 Carbon Dioxide 26 Anion Gap 5.0 BUN 12 Creatinine 0.76 Glucose 106 H Urinalysis 06/03/21 12:30 Urine Color Dark Yellow Urine Appearance Clear Urine pH 7.5 Ur Specific [place] > 1.045 H Urine Protein Negative Urine Glucose (UA) Negative Urine Ketones Negative Urine Blood Negative Urine Nitrite Negative Urine Bilirubin 1+ H Microbiology 06/03/21 16:30 Peritoneal Fluid Gram Stain - Pending 06/03/21 16:30 Peritoneal Fluid Aerobic and Anaerobic Culture - Pending Diagnostic Findings CT Abd IMPRESSION: 1. Interval development of liver cirrhosis and ascites with significant amount of fluid collection within abdominal cavity. 2. Questionable hypoattenuating lesion within subcapsular aspect of the liver, incompletely evaluated on current exam. Further evaluation with liver ultrasound on the nonemergency basis might be considered. 3. Interval development of hypoattenuating lesion within left kidney, was not seen on prior study in 2006. Further evaluation with renal ultrasound the nonemergency basis might be considered. 4. 7 mm pulmonary nodule within the right middle lobe. Further evaluation with CT of the chest without IV contrast on nonemergency basis is suggested. 5. Fluid-containing right inguinal hernia. 6. Nondilated loops of bowel, evaluation is suboptimal due to ascites and lack of oral contrast. 7. Redemonstration of diffuse thickening of urinary bladder wall. Prostate gland is not significantly enlarged. Please correlate above-mentioned findings with laboratory markers of cystitis. 8. Atherosclerosis. Code Status & VTE Plan VTE Prophylaxis Plan VTE Prophylaxis will be ordered: Yes (1) Cirrhosis Ascites presence: with ascites Hepatic cirrhosis type: unspecified hepatic cirrhosis Qualified Code(s): K74.60 - Unspecified cirrhosis of liver; R18.8 - Other ascites
[2021-06-03] MEDS ORDERED: GABAPENTIN 600MG ALCOHOL WITHDRAWAL LOAD PO STA (20:11)
[2021-06-03] MEDS ORDERED: THIAMINE HCL 100 MG in SODIUM CHLORIDE 0.9% 50 ML IV SCH (21:21)
[2021-06-03] MEDS ORDERED: ONDANSETRON INJ 2 MG/ML 2 ML VIAL IV PRN (21:21)
[2021-06-03] MEDS ORDERED: FOLIC ACID 1 MG in SYRINGE 9.8 ML IV SCH (21:21)
[2021-06-03] MEDS ORDERED: POLYETHYLENE (MIRALAX) 17 GM PACK PO PRN (21:21)
[2021-06-03] MEDS ORDERED: GABAPENTIN 600 MG TAB PO STA (21:31)
[2021-06-03] MEDS: PATIENT'S HEIGHT AND/OR WEIGHT NEEDED SCH (22:40)
[2021-06-03] MEDS: THIAMINE HCL 100 MG TAB PO SCH (22:52)
[2021-06-03] MEDS: FOLIC ACID 1 MG TAB PO SCH (22:53)
[2021-06-03] MEDS: ENOXAPARIN INJ 40 MG/0.4 ML SYR SQ SCH (22:53)
[2021-06-04] MEDS: PATIENT'S HEIGHT AND/OR WEIGHT NEEDED SCH ×3 (01:06→01:08)
--- NOTE | 2021-06-04 05:42 | Electrocardiogram Report ---
Test Reason : Blood Pressure : / mmHG Vent. Rate : 092 BPM Atrial Rate : 092 BPM P-R Int : 152 ms QRS Dur : 132 ms QT Int : 412 ms P-R-T Axes : -04 -23 011 degrees QTc Int : 509 ms Normal sinus rhythm Right bundle branch block Inferior infarct , age undetermined Abnormal ECG When compared with ECG of 07-DEC-2007 16:49, Right bundle branch block is now Present Inferior infarct is now Present Confirmed by Yassine Bonilla ([id number]) on 06/04/2021 5:42:42 AM Referred By: REFERRED SELF Confirmed By:Yassine Bonilla
[2021-06-04] MEDS: GABAPENTIN 100 MG CAP PO SCH ×2 (06:37→11:51)
[2021-06-04 07:23] LABS: Hematocrit (blood only) 37.9 % (42-52); Hemoglobin 12.8 g/dL (14.0-18.0); Mean Corpuscular Hemoglobin 35.3 pg (25-34); Mean Corpuscular Hgb Conc 33.8 g/dL (32-36); Mean Corpuscular Volume 104.4 fL (80-100); Mean Platelet Volume 10.4 fL (7.4-10.4); Platelet Count 184 K/uL (130-400); RDW Coefficient of Variation 13.5 % (11.5-14.5); RDW Standard Deviation 50.7 fL (36.4-46.3); Red Blood Count 3.63 M/uL (4.7-6.1); White Blood Count 7.32 K/uL (4.8-10.8)
[2021-06-04 07:37] LABS: INR 1.3 (0.9-1.1)
[2021-06-04] MEDS: THIAMINE HCL 100 MG TAB PO SCH (07:39)
[2021-06-04] MEDS: FOLIC ACID 1 MG TAB PO SCH (07:39)
[2021-06-04 07:57] LABS: Albumin Level 2.2 gm/dl (3.4-5.0); BUN Creatinine Ratio 20.6 (10-20); Calcium 8.1 mg/dl (8.5-10.1); Creatinine Clr Calc Pharmacy 162.6 ml/min; Est GFR (African American) 121.9 ml/min; Est GFR (Non-African American) 105.2 ml/min; Potassium 4.2 mmol/L (3.5-5.1)
[2021-06-04 08:01] LABS: Albumin Globulin Ratio 0.5 (0.9-2); Bilirubin,Total 1.6 mg/dl (0.2-1); Globulin 4.4 gm/dl (2.5-4.0); Total Protein 6.6 gm/dl (6.4-8.2)
--- NOTE | 2021-06-04 09:39 | Gastrointestinal Consultation ---
Date of Consultation June 04, 2021 Assessment & Plan (1) Elevated LFTs: 61 year old male admitted with ascites, abd pain, imaging consistent with cirrhosis ?liver lesion. He notes daily ETOH use, wine 1-2 bottles. Limited support system in the states, just passed from [place], [place] of the country MELD labs Check AFP ABD US OP Liver serology OP EGD Low NA diet, less than 2 g Diagnostic and therapeutic paracentesis no more than 5L before discharge Send cell count, culture, cytology, albumin and protein ETOH cessation ETOH withdrawal protocol No NSAIDs Less than 2 G tylenol Thank you for allowing us to participate in the care of this patient. Please call with any acute changes, questions or concerns. Please see addendum below with additional recommendation from my supervising physician. (2) Cirrhosis: Supervising Physician Co-Signing Physician Notes Consult for cirrhosis and ascites s/p 2 liter tap without sbp. Etiology is likely from alcohol. PE - well nourished male in nad, heent - perrla, abd- obese soft MELD is 10 (TB 1.6, CR 0.7, INR 1.3, NA 137) Agree with further plan of care as per Chel's plan of care. History of Present Illness Reason for Consultation: cirrhosis Requesting Physician: Huan Attending Physician: Liza Pressley, DO History of Present Illness 61 year old [facility] speaking male w/ history of HTN, dyslipidemia admitted w/ abd distention, abd pain x 1-2 weeks. GI asked to evaluate as imaging concerning with cirrhosis. Pt was seen and evaluated. Initial consultation was started with capacity planner services but connect was lost about after 10 minutes and we completed consultation in Spanish. Notes in the past he was told by his PCP he has had liver issues but was never told he had cirrhosis. He denies a family history of liver disease. passed 2 months ago. Has a friend in town but no other support system. Daughter and other family live out of [place]. + ETOH 1-2 bottles of wine daily No liquor No IV/IN drug use CTAP 2020: Interval development of liver cirrhosis and ascites with significant amount of fluid collection within abdominal cavity. Questionable hypoattenuating lesion within subcapsular aspect of the liver, incompletely evaluated on current exam. Further evaluation with liver ultrasound on the nonemergency basis might be considered. Interval development of hypoattenuating lesion within left kidney, was not seen on prior study in 2006. Further evaluation with renal ultrasound the nonemergency basis might be considered. 7 mm pulmonary nodule within the right middle lobe. Further evaluation with CT of the chest without IV contrast on nonemergency basis is suggested. Fluid-containing right inguinal hernia. Nondilated loops of bowel, evaluation is suboptimal due to ascites and lack of oral contrast.Redemonstration of diffuse thickening of urinary bladder wall. Prostate gland is not significantly enlarged. Please correlate above- mentioned findings with laboratory markers of cystitis.Atherosclerosis. The rest of findings as above. Allergies Allergy/AdvReac Type Severity Reaction Status Date / Time No Known Allergies Allergy Unknown Verified 06/03/21 10:23 Home Medications Medication Instructions Recorded Confirmed Type aspirin 81 mg tablet 81 mg PO DAILY 06/03/21 06/03/21 History lisinopril 40 mg tablet 40 mg PO DAILY 06/03/21 06/03/21 History multivitamin 1 tab PO DAILY 06/03/21 06/03/21 History rosuvastatin 20 mg tablet 20 mg PO DAILY 06/03/21 06/03/21 History spironolactone 25 mg tablet 25 mg PO DAILY 06/03/21 06/03/21 History triamterene 37.5 1 tab PO DAILY 06/03/21 06/03/21 History mg-hydrochlorothiazide 25 mg tablet Patient History Medical History Alcoholism Anxiety GERD (gastroesophageal reflux disease) HTN (hypertension) Hyperlipidemia NICO (obstructive sleep apnea) Tobacco abuse, in remission Family History Other Heart disease Social History Smoking Status: Current every day smoker Cigarettes Per Day: 1 pack over 3-4 days; Second Hand Exposure: No; Do You Dip or Chew Tobacco: No; Tobacco Cessation Education Requested by Patient: No Hx Alcohol Use: Yes Alcohol type: wine Hx Substance Use: No Preferred Language: Montenegrin Communication Ability: Effective Communication Tools: IPad and Language Line Coverstitch Machine Operator Coverstitch Machine Operator Required: Yes Current Living Situation: Alone Other Information That Helps Us Care for You: No Feels Safe at Home: Yes Safety Concerns: Feels Safe At This Time Assistive Devices: Glasses Review of Systems Review of Systems: All systems reviewed & are unremarkable except as noted in HPI & below Physical Exam Constitutional: well developed and well nourished; no acute distress Respiratory: normal respiratory effort, lungs clear to auscultation Cardiovascular: Rate/Rhythm: regular rate and regular rhythm Gastrointestinal (Abdomen): Inspection/Auscultation: abdomen normal to inspection, + abdomen distended and normal bowel sounds; no abdominal edema Skin: no rashes, warm and dry Results & Data ([facility]) Vital Signs (Past 12 Hours) Vital Signs Temp Pulse Pulse Resp BP Pulse Ox 06/04/21 07:41 36.8 C 73 18 120/77 98 06/04/21 03:30 74 20 134/87 98 06/04/21 03:18 88 22 98 06/04/21 01:54 100 H 06/03/21 23:00 81 26 H 97 06/03/21 22:29 36.8 C 81 18 160/94 H 97 Laboratory Results 06/04/21 06/04/21 06/04/21 Range/Units 07:02 07:02 07:02 WBC (4.8-10.8) K/uL RBC (4.7-6.1) M/uL Hgb (14.0-18.0) g/dL Hct (42-52) % MCV (80-100) fL MCH (25-34) pg MCHC (32-36) g/dL RDW Std Deviation (36.4-46.3) fL RDW Coeff of Claire (11.5-14.5) % Plt Count (130-400) K/uL MPV (7.4-10.4) fL Immature Gran % (Auto) % Neut % (Auto) % Lymph % (Auto) % [place] % (Auto) % Eos % (Auto) % Baso % (Auto) % Neut # (Auto) (1.4-6.5) K/uL Lymph # (Auto) (1.2-3.4) K/uL [place] # (Auto) (0.11-0.59) K/uL Eos # (Auto) (0-0.5) K/uL Baso # (Auto) (0-0.2) K/uL Immature Gran # (Auto) (0.00-0.02) K/uL PT (9.0-12.0) Seconds INR (0.9-1.1) APTT (21.0-31.0) Seconds PTT Ratio Sodium 137 (136-145) mmol/L Potassium 4.2 (3.5-5.1) mmol/L Chloride 107 (98-107) mmol/L Carbon Dioxide 26 (21-32) mmol/L Anion Gap 4.0 (3-11) BUN 14 (7-18) mg/dl Creatinine 0.67 (0.6-1.4) mg/dl Est Cr Clr Drug Dosing 162.6 Est GFR ( Amer) 121.9 ml/min Est GFR (Non-Af Amer) 105.2 ml/min BUN/Creatinine Ratio 20.6 H (10-20) Glucose 96 (70-99) mg/dl Calcium 8.1 L (8.5-10.1) mg/dl Phosphorus (2.5-4.9) mg/dl Magnesium (1.8-2.4) mg/dl Total Bilirubin 1.6 H (0.2-1) mg/dl Direct Bilirubin (0-0.2) mg/dl AST 61 H (15-37) U/L ALT 40 (12-78) U/L Alkaline Phosphatase 114 (45-117) U/L Troponin I (0-0.045) ng/ml NT-Pro-B Natriuret Pep (0-900) pg/ml Total Protein 6.6 (6.4-8.2) gm/dl Albumin 2.2 L (3.4-5.0) gm/dl Globulin 4.4 H (2.5-4.0) gm/dl Albumin/Globulin Ratio 0.5 L (0.9-2) Lipase (73-393) U/L TSH (0.300-4.500) uIu/ml Urine Color Urine Appearance (Clear) Urine pH (4.5-7.5) Ur Specific [place] (1.000-1.030) Urine Protein (Negative) Urine Glucose (UA) (Negative) Urine Ketones (Negative) Urine Blood (Negative) Urine Nitrite (Negative) Urine Bilirubin (Negative) Urine Urobilinogen (Negative) Ur Leukocyte Esterase (Negative) Fluid Neutrophils % % Fluid Lymphocytes % % Fluid Eosinophils % % Fluid Basophils % % Fluid Meso/Macro/[place] % % Fluid Comment Peritoneal Color Peritoneal Appearance Peritoneal WBC (0-300) /ul Peritoneal RBC /uL Peritoneal Other Cells % Peritoneal Tot Protein g/dl Peritoneal Albumin g/dl Peritoneal LDH U/L Peritoneal Glucose mg/dl Ethyl Alcohol mg/dL (0-3) mg/dl COVID-19 Eval Order SARS-CoV-2 (PCR) (Negative) Hepatitis A IgM Ab Pending Hep Bs Antigen Pending Hep B Core IgM Ab Pending Hepatitis C Antibody Pending 06/04/21 06/04/21 06/03/21 Range/Units 07:02 07:02 16:30 WBC 7.32 (4.8-10.8) K/uL RBC 3.63 L (4.7-6.1) M/uL Hgb 12.8 L (14.0-18.0) g/dL Hct 37.9 L (42-52) % MCV 104.4 H (80-100) fL MCH 35.3 H (25-34) pg MCHC 33.8 (32-36) g/dL RDW Std Deviation 50.7 H (36.4-46.3) fL RDW Coeff of Claire 13.5 (11.5-14.5) % Plt Count 184 (130-400) K/uL MPV 10.4 (7.4-10.4) fL Immature Gran % (Auto) % Neut % (Auto) % Lymph % (Auto) % [place] % (Auto) % Eos % (Auto) % Baso % (Auto) % Neut # (Auto) (1.4-6.5) K/uL Lymph # (Auto) (1.2-3.4) K/uL [place] # (Auto) (0.11-0.59) K/uL Eos # (Auto) (0-0.5) K/uL Baso # (Auto) (0-0.2) K/uL Immature Gran # (Auto) (0.00-0.02) K/uL PT 13.0 H (9.0-12.0) Seconds INR 1.3 H (0.9-1.1) APTT (21.0-31.0) Seconds PTT Ratio Sodium (136-145) mmol/L Potassium (3.5-5.1) mmol/L Chloride (98-107) mmol/L Carbon Dioxide (21-32) mmol/L Anion Gap (3-11) BUN (7-18) mg/dl Creatinine (0.6-1.4) mg/dl Est Cr Clr Drug Dosing Est GFR ( Amer) ml/min Est GFR (Non-Af Amer) ml/min BUN/Creatinine Ratio (10-20) Glucose (70-99) mg/dl Calcium (8.5-10.1) mg/dl Phosphorus (2.5-4.9) mg/dl Magnesium (1.8-2.4) mg/dl Total Bilirubin (0.2-1) mg/dl Direct Bilirubin (0-0.2) mg/dl AST (15-37) U/L ALT (12-78) U/L Alkaline Phosphatase (45-117) U/L Troponin I (0-0.045) ng/ml NT-Pro-B Natriuret Pep (0-900) pg/ml Total Protein (6.4-8.2) gm/dl Albumin (3.4-5.0) gm/dl Globulin (2.5-4.0) gm/dl Albumin/Globulin Ratio (0.9-2) Lipase (73-393) U/L TSH (0.300-4.500) uIu/ml Urine Color Urine Appearance (Clear) Urine pH (4.5-7.5) Ur Specific [place] (1.000-1.030) Urine Protein (Negative) Urine Glucose (UA) (Negative) Urine Ketones (Negative) Urine Blood (Negative) Urine Nitrite (Negative) Urine Bilirubin (Negative) Urine Urobilinogen (Negative) Ur Leukocyte Esterase (Negative) Fluid Neutrophils % % Fluid Lymphocytes % % Fluid Eosinophils % % Fluid Basophils % % Fluid Meso/Macro/[place] % % Fluid Comment Peritoneal Color Peritoneal Appearance Peritoneal WBC (0-300) /ul Peritoneal RBC /uL Peritoneal Other Cells % Peritoneal Tot Protein g/dl Peritoneal Albumin g/dl Peritoneal LDH 97 U/L Peritoneal Glucose 108 mg/dl Ethyl Alcohol mg/dL (0-3) mg/dl COVID-19 Eval Order SARS-CoV-2 (PCR) (Negative) Hepatitis A IgM Ab Hep Bs Antigen Hep B Core IgM Ab Hepatitis C Antibody 06/03/21 06/03/21 06/03/21 Range/Units 16:30 12:30 09:57 WBC (4.8-10.8) K/uL RBC (4.7-6.1) M/uL Hgb (14.0-18.0) g/dL Hct (42-52) % MCV (80-100) fL MCH (25-34) pg MCHC (32-36) g/dL RDW Std Deviation (36.4-46.3) fL RDW Coeff of Claire (11.5-14.5) % Plt Count (130-400) K/uL MPV (7.4-10.4) fL Immature Gran % (Auto) % Neut % (Auto) % Lymph % (Auto) % [place] % (Auto) % Eos % (Auto) % Baso % (Auto) % Neut # (Auto) (1.4-6.5) K/uL Lymph # (Auto) (1.2-3.4) K/uL [place] # (Auto) (0.11-0.59) K/uL Eos # (Auto) (0-0.5) K/uL Baso # (Auto) (0-0.2) K/uL Immature Gran # (Auto) (0.00-0.02) K/uL PT (9.0-12.0) Seconds INR (0.9-1.1) APTT (21.0-31.0) Seconds PTT Ratio Sodium (136-145) mmol/L Potassium (3.5-5.1) mmol/L Chloride (98-107) mmol/L Carbon Dioxide (21-32) mmol/L Anion Gap (3-11) BUN (7-18) mg/dl Creatinine (0.6-1.4) mg/dl Est Cr Clr Drug Dosing Est GFR ( Amer) ml/min Est GFR (Non-Af Amer) ml/min BUN/Creatinine Ratio (10-20) Glucose (70-99) mg/dl Calcium (8.5-10.1) mg/dl Phosphorus (2.5-4.9) mg/dl Magnesium (1.8-2.4) mg/dl Total Bilirubin (0.2-1) mg/dl Direct Bilirubin (0-0.2) mg/dl AST (15-37) U/L ALT (12-78) U/L Alkaline Phosphatase (45-117) U/L Troponin I (0-0.045) ng/ml NT-Pro-B Natriuret Pep (0-900) pg/ml Total Protein (6.4-8.2) gm/dl Albumin (3.4-5.0) gm/dl Globulin (2.5-4.0) gm/dl Albumin/Globulin Ratio (0.9-2) Lipase (73-393) U/L TSH (0.300-4.500) uIu/ml Urine Color Dark Yellow Urine Appearance Clear (Clear) Urine pH 7.5 (4.5-7.5) Ur Specific [place] > 1.045 H (1.000-1.030) Urine Protein Negative (Negative) Urine Glucose (UA) Negative (Negative) Urine Ketones Negative (Negative) Urine Blood Negative (Negative) Urine Nitrite Negative (Negative) Urine Bilirubin 1+ H (Negative) Urine Urobilinogen Negative (Negative) Ur Leukocyte Esterase Negative (Negative) Fluid Neutrophils % 25 % Fluid Lymphocytes % 42 % Fluid Eosinophils % 0 % Fluid Basophils % 0 % Fluid Meso/Macro/[place] % 33 % Fluid Comment Peritoneal Color YELLOW Peritoneal Appearance CLEAR Peritoneal WBC 495 H (0-300) /ul Peritoneal RBC < 3000 /uL Peritoneal Other Cells 0.0 % Peritoneal Tot Protein 2.0 g/dl Peritoneal Albumin 0.9 g/dl Peritoneal LDH U/L Peritoneal Glucose mg/dl Ethyl Alcohol mg/dL < 3.0 (0-3) mg/dl COVID-19 Eval Order SARS-CoV-2 (PCR) (Negative) Hepatitis A IgM Ab Hep Bs Antigen Hep B Core IgM Ab Hepatitis C Antibody 06/03/21 06/03/21 06/03/21 Range/Units 09:50 09:50 09:50 WBC (4.8-10.8) K/uL RBC (4.7-6.1) M/uL Hgb (14.0-18.0) g/dL Hct (42-52) % MCV (80-100) fL MCH (25-34) pg MCHC (32-36) g/dL RDW Std Deviation (36.4-46.3) fL RDW Coeff of Claire (11.5-14.5) % Plt Count (130-400) K/uL MPV (7.4-10.4) fL Immature Gran % (Auto) % Neut % (Auto) % Lymph % (Auto) % [place] % (Auto) % Eos % (Auto) % Baso % (Auto) % Neut # (Auto) (1.4-6.5) K/uL Lymph # (Auto) (1.2-3.4) K/uL [place] # (Auto) (0.11-0.59) K/uL Eos # (Auto) (0-0.5) K/uL Baso # (Auto) (0-0.2) K/uL Immature Gran # (Auto) (0.00-0.02) K/uL PT (9.0-12.0) Seconds INR (0.9-1.1) APTT (21.0-31.0) Seconds PTT Ratio Sodium 137 (136-145) mmol/L Potassium 3.9 (3.5-5.1) mmol/L Chloride 106 (98-107) mmol/L Carbon Dioxide 26 (21-32) mmol/L Anion Gap 5.0 (3-11) BUN 12 (7-18) mg/dl Creatinine 0.76 (0.6-1.4) mg/dl Est Cr Clr Drug Dosing Not Reportable Est GFR ( Amer) 115.7 ml/min Est GFR (Non-Af Amer) 99.9 ml/min BUN/Creatinine Ratio 15.4 (10-20) Glucose 106 H (70-99) mg/dl Calcium 8.2 L (8.5-10.1) mg/dl Phosphorus 3.2 (2.5-4.9) mg/dl Magnesium 1.8 (1.8-2.4) mg/dl Total Bilirubin 1.8 H (0.2-1) mg/dl Direct Bilirubin 0.8 H (0-0.2) mg/dl AST 81 H (15-37) U/L ALT 45 (12-78) U/L Alkaline Phosphatase 136 H (45-117) U/L Troponin I < 0.015 (0-0.045) ng/ml NT-Pro-B Natriuret Pep 81 (0-900) pg/ml Total Protein 7.1 (6.4-8.2) gm/dl Albumin 2.4 L (3.4-5.0) gm/dl Globulin 4.7 H (2.5-4.0) gm/dl Albumin/Globulin Ratio 0.5 L (0.9-2) Lipase 198 (73-393) U/L TSH 1.560 (0.300-4.500) uIu/ml Urine Color Urine Appearance (Clear) Urine pH (4.5-7.5) Ur Specific [place] (1.000-1.030) Urine Protein (Negative) Urine Glucose (UA) (Negative) Urine Ketones (Negative) Urine Blood (Negative) Urine Nitrite (Negative) Urine Bilirubin (Negative) Urine Urobilinogen (Negative) Ur Leukocyte Esterase (Negative) Fluid Neutrophils % % Fluid Lymphocytes % % Fluid Eosinophils % % Fluid Basophils % % Fluid Meso/Macro/[place] % % Fluid Comment Peritoneal Color Peritoneal Appearance Peritoneal WBC (0-300) /ul Peritoneal RBC /uL Peritoneal Other Cells % Peritoneal Tot Protein g/dl Peritoneal Albumin g/dl Peritoneal LDH U/L Peritoneal Glucose mg/dl Ethyl Alcohol mg/dL (0-3) mg/dl COVID-19 Eval Order Covid19 at [facility] SARS-CoV-2 (PCR) NEGATIVE (Negative) Hepatitis A IgM Ab Hep Bs Antigen Hep B Core IgM Ab Hepatitis C Antibody 06/03/21 06/03/21 Range/Units 09:50 09:50 WBC 7.08 (4.8-10.8) K/uL RBC 3.79 L (4.7-6.1) M/uL Hgb 13.5 L (14.0-18.0) g/dL Hct 39.7 L (42-52) % MCV 104.7 H (80-100) fL MCH 35.6 H (25-34) pg MCHC 34.0 (32-36) g/dL RDW Std Deviation 51.3 H (36.4-46.3) fL RDW Coeff of Claire 13.3 (11.5-14.5) % Plt Count 183 (130-400) K/uL MPV 10.8 H (7.4-10.4) fL Immature Gran % (Auto) 0.1 % Neut % (Auto) 71.0 % Lymph % (Auto) 13.4 % [place] % (Auto) 14.7 % Eos % (Auto) 0.4 % Baso % (Auto) 0.4 % Neut # (Auto) 5.02 (1.4-6.5) K/uL Lymph # (Auto) 0.95 L (1.2-3.4) K/uL [place] # (Auto) 1.04 H (0.11-0.59) K/uL Eos # (Auto) 0.03 (0-0.5) K/uL Baso # (Auto) 0.03 (0-0.2) K/uL Immature Gran # (Auto) 0.01 (0.00-0.02) K/uL PT 13.0 H (9.0-12.0) Seconds INR 1.3 H (0.9-1.1) APTT 28.6 (21.0-31.0) Seconds PTT Ratio 1.1 Sodium (136-145) mmol/L Potassium (3.5-5.1) mmol/L Chloride (98-107) mmol/L Carbon Dioxide (21-32) mmol/L Anion Gap (3-11) BUN (7-18) mg/dl Creatinine (0.6-1.4) mg/dl Est Cr Clr Drug Dosing Est GFR ( Amer) ml/min Est GFR (Non-Af Amer) ml/min BUN/Creatinine Ratio (10-20) Glucose (70-99) mg/dl Calcium (8.5-10.1) mg/dl Phosphorus (2.5-4.9) mg/dl Magnesium (1.8-2.4) mg/dl Total Bilirubin (0.2-1) mg/dl Direct Bilirubin (0-0.2) mg/dl AST (15-37) U/L ALT (12-78) U/L Alkaline Phosphatase (45-117) U/L Troponin I (0-0.045) ng/ml NT-Pro-B Natriuret Pep (0-900) pg/ml Total Protein (6.4-8.2) gm/dl Albumin (3.4-5.0) gm/dl Globulin (2.5-4.0) gm/dl Albumin/Globulin Ratio (0.9-2) Lipase (73-393) U/L TSH (0.300-4.500) uIu/ml Urine Color Urine Appearance (Clear) Urine pH (4.5-7.5) Ur Specific [place] (1.000-1.030) Urine Protein (Negative) Urine Glucose (UA) (Negative) Urine Ketones (Negative) Urine Blood (Negative) Urine Nitrite (Negative) Urine Bilirubin (Negative) Urine Urobilinogen (Negative) Ur Leukocyte Esterase (Negative) Fluid Neutrophils % % Fluid Lymphocytes % % Fluid Eosinophils % % Fluid Basophils % % Fluid Meso/Macro/[place] % % Fluid Comment Peritoneal Color Peritoneal Appearance Peritoneal WBC (0-300) /ul Peritoneal RBC /uL Peritoneal Other Cells % Peritoneal Tot Protein g/dl Peritoneal Albumin g/dl Peritoneal LDH U/L Peritoneal Glucose mg/dl Ethyl Alcohol mg/dL (0-3) mg/dl COVID-19 Eval Order SARS-CoV-2 (PCR) (Negative) Hepatitis A IgM Ab Hep Bs Antigen Hep B Core IgM Ab Hepatitis C Antibody (1) Cirrhosis Ascites presence: with ascites Hepatic cirrhosis type: unspecified hepatic cirrhosis Qualified Code(s): K74.60 - Unspecified cirrhosis of liver; R18.8 - Other ascites
[2021-06-04 10:52] LABS: Hepatitis B Surf Ag Rflx Conf Neg (Neg)
[2021-06-04 11:20] LABS: Hepatitis C IgG 13Yrs+Old_Rflx Neg (Neg)
--- NOTE | 2021-06-04 18:36 | Hospitalist Progress Note ---
Date of Service June 04, 2021 Assessment & Plan (1) Alcoholic cirrhosis of liver with ascites: Plan: Heavy drinker, new onset cirrhosis with ascites. S/p 2L paracentesis, SBP ruled out. Give Lasic IV tonight and start oral diruretic therapy in am. Will discuss discharge plans with GI in am. No evidence of encephalopathy. (2) Elevated LFTs: Plan: 2/2 above (3) NICO (obstructive sleep apnea): (4) HTN (hypertension): Plan: at goal , cont current therapy (5) Obesity: (6) DVT prophylaxis: Plan: Lovenox Full Dispo-to home when swelling and labwork improves. Liza Pressley DO [facility] Hospitalist Plan: Hepatic cyst and interval development of a hypoattenuating lesion seen within the left kidney, which was not present on the 2006 study. Repeat renal ultrasound was recommended nonurgently. 7 mm pulmonary nodule within the right middle lobe. Further evaluation with CT of the chest without IV contrast on nonemergency basis is suggested. Admission and Anticipated Discharge Date Admission Date: June 03, 2021 Subjective 61 yo obese man presents with 20kg weight gain over the past 6 weeks. Found to have new onset cirrhosis and ascites. s/p 2L tap, SBP ruled out feels swollen today but denies SOB, cough deneis abdominal pain tolerating PO Entire visit was translated through a video-assisted Italian technical customer support specialist. Review of Systems Review of Systems: At least ten systems were reviewed and negative except as indicated in HPI above. Physical Exam Physical Exam: CONSTITUTIONAL: obese, vitals as above, generally well- appearing EYES: normal conjunctivae, no scleral icterus ENT: external ear and nose normal, MMM NECK: trachea midline RESPIRATORY: clear to auscultation bilaterally, no crackles, rales or wheezes, normal respiratory effort CARDIOVASCULAR: regular rate and rhythm, S1 and 2 heard without murmurs, gallops or rubs, no JVD, no peripheral edema, no carotid bruits CHEST: inspection of chest was normal GASTROINTESTINAL: soft, nontender, protuberant, no guarding, +fluid wave MUSCULOSKELETAL: strength 5/5 throughout, head is normocephalic and atraumatic, neck supple, normal palpation of chest wall without tenderness SKIN: warm and dry, tight swollen skin with trace edema bilaterally NEUROLOGIC: CN 2-12 grossly intact, no sensory deficit, normal cognition, normal speech, no tremor PSYCHIATRIC: alert cooperative and oriented to person, place and time. Results & Data Results & Data ([facility]) Vital Signs (Past 12 Hours) Vital Signs Temp Pulse Pulse Resp BP Pulse Ox 06/04/21 15:34 36.6 C 88 18 129/84 98 06/04/21 14:57 76 06/04/21 11:35 37.5 C 82 20 145/92 H 98 06/04/21 07:41 36.8 C 73 18 120/77 98 Laboratory Results Short CBC 06/04/21 Range/Units 07:02 WBC 7.32 (4.8-10.8) K/uL Hgb 12.8 L (14.0-18.0) g/dL Hct 37.9 L (42-52) % Plt Count 184 (130-400) K/uL BMP 06/04/21 07:02 Sodium 137 Potassium 4.2 Chloride 107 Carbon Dioxide 26 BUN 14 Creatinine 0.67 Glucose 96 Calcium 8.1 L Liver Function 06/04/21 Range/Units 07:02 Total Bilirubin 1.6 H (0.2-1) mg/dl AST 61 H (15-37) U/L ALT 40 (12-78) U/L Alkaline Phosphatase 114 (45-117) U/L Albumin 2.2 L (3.4-5.0) gm/dl Medications Administered Current Inpatient Medications Enoxaparin Sodium (Enoxaparin Inj 40 Mg/0.4 Ml Syr) 40 mg SQ Q24H MARIELLA Stop: 07/03/21 21:59 Last Admin: 06/03/21 22:53 Dose: 40 mg Documented by: Folic Acid (Folic Acid 1 Mg Tab) 1 mg PO QAM MARIELLA Stop: 07/03/21 21:59 Last Admin: 06/04/21 07:39 Dose: 1 mg Documented by: Gabapentin (Gabapentin 600 Mg Tab) 600 mg PO Q24H MARIELLA Stop: 06/05/21 12:01 Gabapentin (Gabapentin 400 Mg Cap) 400 mg PO Q24H MARIELLA Stop: 06/06/21 12:01 Gabapentin (Gabapentin 100 Mg Cap) 200 mg PO Q24H MARIELLA Stop: 06/07/21 12:01 Ondansetron HCl (Ondansetron Inj 2 Mg/Ml 2 Ml Vial) 4 mg IV Q6H PRN PRN Reason: Nausea Stop: 07/03/21 21:20 Polyethylene Glycol (Polyethylene (Miralax) 17 Gm Pack) 17 gm PO DAILY PRN PRN Reason: Constipation Stop: 07/03/21 21:20 Thiamine HCl (Thiamine Hcl 100 Mg Tab) 100 mg PO [facility] Stop: 07/03/21 21:59 Last Admin: 06/04/21 07:39 Dose: 100 mg Documented by:
[2021-06-04] MEDS ORDERED: FUROSEMIDE 20 MG in SYRINGE 0 ML IV ONE (20:30)
[2021-06-04] MEDS: MAGNESIUM OXIDE 400 MG TAB PO SCH (21:01)
[2021-06-04] MEDS ORDERED: MoRPHine SULFATE 2 MG/ML CARP IV STA (21:13)
[2021-06-04] MEDS: ENOXAPARIN INJ 40 MG/0.4 ML SYR SQ SCH (21:35)
[2021-06-05 02:51] LABS: Hepatitis A Antibody IgM NON-REACTIVE (NON-REACTIVE); Hepatitis B Core Antibody IgM NON-REACTIVE (NON-REACTIVE)
[2021-06-05 06:44] LABS: Hematocrit (blood only) 36.3 % (42-52); Hemoglobin 12.3 g/dL (14.0-18.0); Mean Corpuscular Hemoglobin 35.1 pg (25-34); Mean Corpuscular Hgb Conc 33.9 g/dL (32-36); Mean Corpuscular Volume 103.7 fL (80-100); Mean Platelet Volume 10.2 fL (7.4-10.4); Platelet Count 175 K/uL (130-400); RDW Coefficient of Variation 13.4 % (11.5-14.5); White Blood Count 7.15 K/uL (4.8-10.8)
[2021-06-05 07:17] LABS: INR 1.3 (0.9-1.1); Prothrombin Time 13.2 Seconds (9.0-12.0)
[2021-06-05 07:20] LABS: Albumin Level 2.1 gm/dl (3.4-5.0); BUN Creatinine Ratio 21.2 (10-20); Creatinine Clr Calc Pharmacy 166.9 ml/min; Est GFR (African American) 123.4 ml/min; Est GFR (Non-African American) 106.5 ml/min
[2021-06-05 07:25] LABS: Albumin Globulin Ratio 0.5 (0.9-2); Bilirubin,Total 1.3 mg/dl (0.2-1); Globulin 4.1 gm/dl (2.5-4.0); Total Protein 6.2 gm/dl (6.4-8.2)
--- NOTE | 2021-06-05 08:02 | Ultrasound Report ---
ABDOMINAL ULTRASOUND, RIGHT UPPER QUADRANT HISTORY: Abnormal CT. re-evaluate liver lesion. COMPARISON: Abdomen and pelvis CT 06/03/2021. FINDINGS: Pancreas: Obscured by overlying bowel gas. Liver: Nodular contour to the liver consistent with cirrhosis. Heterogeneous echotexture. An 8 mm cys t within the liver corresponds to the CT abnormality. Gallbladder: Diffusely thickened gallbladder wall. Trace sludge suggested within the gallbladder. No gallstones. Negative sonographic Jones's sign. CBD: 4 mm. Right kidney: No hydronephrosis. A 1.2 cm lower pole cyst. Miscellaneous: Moderate ascites. IMPRESSION: 1. Cirrhotic liver with moderate ascites. 2. 8 mm cyst within the liver which corresponds to the CT abnormality. 3. Diffusely thickened gallbladder wall with trace sludge. This is likely due to the patient's edemat ous state. ACT 112: Negative or not required by law. Electronically signed by: Juan Moreno M.D. 06/05/2021 8:01 AM
[2021-06-05] MEDS: MAGNESIUM OXIDE 400 MG TAB PO SCH (08:09)
[2021-06-05] MEDS: FOLIC ACID 1 MG TAB PO SCH (08:09)
[2021-06-05] MEDS: THIAMINE HCL 100 MG TAB PO SCH (08:09)
[2021-06-05] MEDS ORDERED: SPIRONOLACTONE 100 MG TAB PO SCH (09:00)
[2021-06-05] MEDS ORDERED: FUROSEMIDE 40 MG TAB PO SCH (09:00)
[2021-06-05] MEDS ORDERED: GABAPENTIN 600 MG TAB PO SCH (12:00)
--- NOTE | 2021-06-05 15:22 | Discharge Summary ---
Date of Service June 05, 2021 Admission HPI Per Admitting Provider From ER [id number] male, [place]-speaking mostly gentleman who presents emergency department for evaluation of abdominal distention that per the patient's report happened abruptly over the past several weeks. He reports history of drinking alcohol 2 months ago where he would drink 1-2 bottles of wine in several days but has stopped since then. This was in the setting of his passing away at that time. He reports he attempted to set up an appointment for evaluation but was not scheduled for another 2 months. He denies fevers, chills, pain related to his distention, nausea, vomiting or diarrhea. He had a paracentesis given his massive ascites was giving him notable dyspnea and so this was performed 2 L of yellow cloudy fluid was removed. 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 FH-his mother and father of old age, he has 1 brother and unsure of his health, he has 1 daughter who is healthy Admission Exam Per Admitting Provider Physical Exam Gen-AAO x 3, NAD, Afebrile, [place]ian-speaking only Head-NCAT, EOMI, PERRLA, Anicteric Sclera, No Posterior Pharyngeal Erythema Neck-Supple, No JVD, No Thyromegaly, No Masses, No LAD, No Bruits Lungs-Clear to Auscultation Bilaterally, No Rales, No Rhonchi, No Wheezing, No Crepitus Chest-No S4, +S1, +S2, No S3, No Murmurs, No Rubs, No Gallops, No Ectopy Abdomen-firm, Bowel Sounds Present, mildly tender tender, Distended, No Palpable Masses, No Rebound, No Rigidity, No Guarding Musculoskeletal-Full Range of Motion Bilaterally, No CVAT Extremities-No Cyanosis, No Clubbing, No Edema Nuero-Cranial Nerves II-XII grossly intact, Motor WNL, DTRs WNL, Strength WNL, Non Focal Psych-Normal Mood Principal Diagnosis Decompensated new onset cirrhosis Alcohol abuse Tobacco use Discharge Exam CONSTITUTIONAL: obese, vitals as above, generally well-appearing EYES: normal conjunctivae, no scleral icterus ENT: external ear and nose normal, MMM NECK: trachea midline RESPIRATORY: clear to auscultation bilaterally, no crackles, rales or wheezes, normal respiratory effort CARDIOVASCULAR: regular rate and rhythm, S1 and 2 heard without murmurs, gallops or rubs, no JVD, no peripheral edema, no carotid bruits CHEST: inspection of chest was normal GASTROINTESTINAL: soft, nontender, protuberant, no guarding, +fluid wave MUSCULOSKELETAL: strength 5/5 throughout, head is normocephalic and atraumatic, neck supple, normal palpation of chest wall without tenderness SKIN: warm and dry, tight swollen skin with trace edema bilaterally NEUROLOGIC: CN 2-12 grossly intact, no sensory deficit, normal cognition, normal speech, no tremor PSYCHIATRIC: alert cooperative and oriented to person, place and time. Discharge Data Allergies Allergy/AdvReac Type Severity Reaction Status Date / Time No Known Allergies Allergy Unknown Verified 06/03/21 10:23 Consultations 06/03/21 18:03 ED Decision to Admit Stat 06/03/21 21:21 Consult Gastroenterology Routine Ordered Studies Laboratory Results WBC 7.15 K/uL (4.8-10.8) 06/05/21 06:34 RBC 3.50 M/uL (4.7-6.1) L 06/05/21 06:34 Hgb 12.3 g/dL (14.0-18.0) L 06/05/21 06:34 Hct 36.3 % (42-52) L 06/05/21 06:34 MCV 103.7 fL (80-100) H 06/05/21 06:34 MCH 35.1 pg (25-34) H 06/05/21 06:34 MCHC 33.9 g/dL (32-36) 06/05/21 06:34 RDW Std Deviation 50.0 fL (36.4-46.3) H 06/05/21 06:34 RDW Coeff of Claire 13.4 % (11.5-14.5) 06/05/21 06:34 Plt Count 175 K/uL (130-400) 06/05/21 06:34 MPV 10.2 fL (7.4-10.4) 06/05/21 06:34 Immature Gran % (Auto) 0.1 % 06/03/21 09:50 Neut % (Auto) 71.0 % 06/03/21 09:50 Lymph % (Auto) 13.4 % 06/03/21 09:50 [place] % (Auto) 14.7 % 06/03/21 09:50 Eos % (Auto) 0.4 % 06/03/21 09:50 Baso % (Auto) 0.4 % 06/03/21 09:50 Neut # (Auto) 5.02 K/uL (1.4-6.5) 06/03/21 09:50 Lymph # (Auto) 0.95 K/uL (1.2-3.4) L 06/03/21 09:50 [place] # (Auto) 1.04 K/uL (0.11-0.59) H 06/03/21 09:50 Eos # (Auto) 0.03 K/uL (0-0.5) 06/03/21 09:50 Baso # (Auto) 0.03 K/uL (0-0.2) 06/03/21 09:50 Immature Gran # (Auto) 0.01 K/uL (0.00-0.02) 06/03/21 09:50 PT 13.2 Seconds (9.0-12.0) H 06/05/21 06:34 INR 1.3 (0.9-1.1) H 06/05/21 06:34 APTT 28.6 Seconds (21.0-31.0) 06/03/21 09:50 PTT Ratio 1.1 06/03/21 09:50 Sodium 138 mmol/L (136-145) 06/05/21 06:34 Potassium 4.0 mmol/L (3.5-5.1) 06/05/21 06:34 Chloride 108 mmol/L (98-107) H 06/05/21 06:34 Carbon Dioxide 25 mmol/L (21-32) 06/05/21 06:34 Anion Gap 5.0 (3-11) 06/05/21 06:34 BUN 14 mg/dl (7-18) 06/05/21 06:34 Creatinine 0.65 mg/dl (0.6-1.4) 06/05/21 06:34 Est Cr Clr Drug Dosing 166.9 ml/min 06/05/21 06:34 Est GFR ( Amer) 123.4 ml/min 06/05/21 06:34 Est GFR (Non-Af Amer) 106.5 ml/min 06/05/21 06:34 BUN/Creatinine Ratio 21.2 (10-20) H 06/05/21 06:34 Glucose 94 mg/dl (70-99) 06/05/21 06:34 Calcium 8.0 mg/dl (8.5-10.1) L 06/05/21 06:34 Phosphorus 3.2 mg/dl (2.5-4.9) 06/03/21 09:50 Magnesium 1.8 mg/dl (1.8-2.4) 06/03/21 09:50 Total Bilirubin 1.3 mg/dl (0.2-1) H 06/05/21 06:34 Direct Bilirubin 0.8 mg/dl (0-0.2) H 06/03/21 09:50 AST 48 U/L (15-37) H 06/05/21 06:34 ALT 35 U/L (12-78) 06/05/21 06:34 Alkaline Phosphatase 111 U/L (45-117) 06/05/21 06:34 Ammonia 64.0 umol/L (11-32) H 06/05/21 06:34 Troponin I < 0.015 ng/ml (0-0.045) 06/03/21 09:50 NT-Pro-B Natriuret Pep 59 pg/ml (0-900) 06/05/21 06:34 Total Protein 6.2 gm/dl (6.4-8.2) L 06/05/21 06:34 Albumin 2.1 gm/dl (3.4-5.0) L 06/05/21 06:34 Globulin 4.1 gm/dl (2.5-4.0) H 06/05/21 06:34 Albumin/Globulin Ratio 0.5 (0.9-2) L 06/05/21 06:34 Lipase 198 U/L (73-393) 06/03/21 09:50 TSH 1.560 uIu/ml (0.300-4.500) 06/03/21 09:50 Urine Color Dark Yellow 06/03/21 12:30 Urine Appearance Clear (Clear) 06/03/21 12:30 Urine pH 7.5 (4.5-7.5) 06/03/21 12:30 Ur Specific [place] > 1.045 (1.000-1.030) H 06/03/21 12:30 Urine Protein Negative (Negative) 06/03/21 12:30 Urine Glucose (UA) Negative (Negative) 06/03/21 12:30 Urine Ketones Negative (Negative) 06/03/21 12:30 Urine Blood Negative (Negative) 06/03/21 12:30 Urine Nitrite Negative (Negative) 06/03/21 12:30 Urine Bilirubin 1+ (Negative) H 06/03/21 12:30 Urine Urobilinogen Negative (Negative) 06/03/21 12:30 Ur Leukocyte Esterase Negative (Negative) 06/03/21 12:30 Fluid Neutrophils % 25 % 06/03/21 16:30 Fluid Lymphocytes % 42 % 06/03/21 16:30 Fluid Eosinophils % 0 % 06/03/21 16:30 Fluid Basophils % 0 % 06/03/21 16:30 Fluid Meso/Macro/[place] % 33 % 06/03/21 16:30 Fluid Comment 06/03/21 16:30 Peritoneal Color YELLOW 06/03/21 16:30 Peritoneal Appearance CLEAR 06/03/21 16:30 Peritoneal WBC 495 /ul (0-300) H 06/03/21 16:30 Peritoneal RBC < 3000 /uL 06/03/21 16:30 Peritoneal Other Cells 0.0 % 06/03/21 16:30 Peritoneal Tot Protein 2.0 g/dl 06/03/21 16:30 Peritoneal Albumin 0.9 g/dl 06/03/21 16:30 Peritoneal LDH 97 U/L 06/03/21 16:30 Peritoneal Glucose 108 mg/dl 06/03/21 16:30 Ethyl Alcohol mg/dL < 3.0 mg/dl (0-3) 06/03/21 09:57 COVID-19 Eval Order Covid19 at [facility] 06/03/21 09:50 SARS-CoV-2 (PCR) NEGATIVE (Negative) 06/03/21 09:50 Hepatitis A IgM Ab NON-REACTIVE (NON-REACTIVE) 06/04/21 07:02 Hep Bs Antigen Neg (Neg) 06/04/21 07:02 Hep B Core IgM Ab NON-REACTIVE (NON-REACTIVE) 06/04/21 07:02 Hepatitis C Antibody Neg (Neg) 06/04/21 07:02 First/Repeat Specimen Cancelled 06/05/21 06:34 Gestational Age Cancelled 06/05/21 06:34 Estimated Delivery Date Cancelled 06/05/21 06:34 Est Date Determined By Cancelled 06/05/21 06:34 Maternal Race Cancelled 06/05/21 06:34 Maternal Weight Cancelled 06/05/21 06:34 Maternal Diabetes Cancelled 06/05/21 06:34 Number of Fetuses Cancelled 06/05/21 06:34 Maternal Scrn Egg Donor Cancelled 06/05/21 06:34 Donor Age or Cancelled 06/05/21 06:34 AFP Triple Screen Cancelled 06/05/21 06:34 Prev Trisomy 21 Preg Cancelled 06/05/21 06:34 Maternal Serum AFP Cancelled 06/05/21 06:34 AFP MoM Cancelled 06/05/21 06:34 Maternal AFP Interp Cancelled 06/05/21 06:34 Family History NTD Cancelled 06/05/21 06:34 NTD Risk Assessment Cancelled 06/05/21 06:34 Maternal Scrn Comment Cancelled 06/05/21 06:34 Impressions Abdomen/Pelvis CT 06/03/21 09:31 CT abd pelvis IV con only CLINICAL HISTORY: abd pain, distension COMPARISON STUDY: April 08, 2007 TECHNIQUE: A dose lowering technique was utilized adhering to the principles of ALARA. CT DOSE: 2063.00 mGy.cm FINDINGS: Lower chest: Limited evaluation of lung bases shows small left pleural effusion associated with atelectasis at dependent portion of the right lower lobe. 7 mm pulmonary nodule is seen within the right middle lobe (3/1), unclear if was present during 2006 exam because this area was not included in the [id number]. Liver: Interval development of liver cirrhosis. 0.7 cm hypoattenuating lesion in subcapsular aspect of the segment 4 of the liver is seen. Gallbladder: Is fluid-filled. No definite gallstones. Gallbladder wall is slightly enhancing. Overall evaluation is limited due to ascites. Spleen: Normal in size and attenuation. Pancreas: Unremarkable. Adrenal glands: Unremarkable. Kidneys: There is symmetric renal cortical enhancement. The kidneys are normal in size without hydronephrosis.Interval development of 2.1 cm slightly hypo attenuating lesion within anterior mid aspect of the right renal cortex shows heterogeneous appearance of fluid attenuation. Previously seen cystic lesion within superior aspect of the right kidney is no longer visualized however there is small cortical scarring is seen within this region. No evidence of nephrolithiasis. Pelvic viscera: Urinary bladder is partially decompressed with redemonstration of diffuse thickening of its wall. Prostate gland is not significantly enlarged with coarse dystrophic calcification within its parenchyma. Bowel: Small hiatal hernia is seen. Bowel loops are nondilated. Evaluation is significantly limited due to lack of oral contrast and ascites. Appendix is not visualized. Peritoneum: There is no free intra-abdominal gas. Interval development of large ascites and diffuse mesenteric edema. There is extension of the intra-abdominal fluid to the right inguinal hernia ostium of the hernia is measuring 2.6 cm in size. Vasculature: Abdominal aorta is normal in caliber with scattered calcifications of its wall. Adenopathy: No definite retroperitoneal lymphadenopathy seen. Mesenteric lymph nodes are not well seen due to ascites. Skeletal structures: Multilevel degenerative changes of the spine. IMPRESSION: 1. Interval development of liver cirrhosis and ascites with significant amount of fluid collection within abdominal cavity. 2. Questionable hypoattenuating lesion within subcapsular aspect of the liver, incompletely evaluated on current exam. Further evaluation with liver ultrasound on the nonemergency basis might be considered. 3. Interval development of hypoattenuating lesion within left kidney, was not seen on prior study in 2006. Further evaluation with renal ultrasound the nonemergency basis might be considered. 4. 7 mm pulmonary nodule within the right middle lobe. Further evaluation with CT of the chest without IV contrast on nonemergency basis is suggested. 5. Fluid-containing right inguinal hernia. 6. Nondilated loops of bowel, evaluation is suboptimal due to ascites and lack of oral contrast. 7. Redemonstration of diffuse thickening of urinary bladder wall. Prostate gland is not significantly enlarged. Please correlate above-mentioned findings with laboratory markers of cystitis. 8. Atherosclerosis. 9. The rest of findings as above. ACT 112: Positive. There are findings on this exam that require communication between the performing entity and the patient following Patient Test Result Information Act ([place] Act 112) guidelines. The above report was generated using voice recognition software. It may contain grammatical, syntax or spelling errors. Electronically signed by: Josefina Teixeira DO 06/03/2021 11:53 AM Chest X-Ray 06/03/21 09:31 XR chest 1V portable HISTORY: Atypical Chest Pain COMPARISON: Chest 12/07/2007. FINDINGS: There are low lung volumes with mild elevation of the right hemidiaphragm. The heart is mildly enlarged. No focal lung consolidations to suggest pneumonia. No evidence for pulmonary edema. No pleural fusions. No pneumothorax. IMPRESSION: 1. Mild cardiomegaly. 2. Low lung volumes with mild elevation of the right hemidiaphragm. ACT 112: Negative or not required by law. Electronically signed by: Juan Moreno M.D. 06/03/2021 10:25 AM Liver Ultrasound 06/04/21 20:15 ABDOMINAL ULTRASOUND, RIGHT UPPER QUADRANT HISTORY: Abnormal CT. re-evaluate liver lesion. COMPARISON: Abdomen and pelvis CT 06/03/2021. FINDINGS: Pancreas: Obscured by overlying bowel gas. Liver: Nodular contour to the liver consistent with cirrhosis. Heterogeneous echotexture. An 8 mm cyst within the liver corresponds to the CT abnormality. Gallbladder: Diffusely thickened gallbladder wall. Trace sludge suggested within the gallbladder. No gallstones. Negative sonographic Jones's sign. CBD: 4 mm. Right kidney: No hydronephrosis. A 1.2 cm lower pole cyst. Miscellaneous: Moderate ascites. IMPRESSION: 1. Cirrhotic liver with moderate ascites. 2. 8 mm cyst within the liver which corresponds to the CT abnormality. 3. Diffusely thickened gallbladder wall with trace sludge. This is likely due to the patient's edematous state. ACT 112: Negative or not required by law. Electronically signed by: Juan Moreno M.D. 06/05/2021 8:01 AM Hospital Course (1) Alcoholic cirrhosis of liver with ascites: (2) Elevated LFTs: 2/2 above (3) HTN (hypertension): at goal , cont current therapy (4) Obesity: Heavy drinker, Admitted with new onset new onset cirrhosis with ascites. S/p 2L paracentesis, SBP ruled out. CT a/p revealed a liver and kidney cyst and pulmonary nodule-all of which should be followed up as outpatient. Confirmed hepatic cyst on RUQ ultrasound. Echo performed with final reading pending at discharge. He was started on lasix IV for diuresis with improvement clinically and improvement in total bilirubin and LFT levels. INR 1.3. He was discharged on Lasix 40mg daily and spironolactone 100mg PO daily with close followup with primary care for labwork. AFP was pending at time of discharge. All evaluations were performed with the help of a [place] foreclosure field inspector. He verbalized understanding of the importance of strict alcohol cessation at this point. Discharged in stable condition with close primary care followup. Total Time Total Time Spent Total Time Spent (In Minutes): 45 mins Discharge Plan Discharge Items Patient Disposition: Home - Self-Care Reason For Visit: NEW CIRRHOSIS DX, ASCITES Discharge Diagnosis: Decompensated new onset cirrhosis Alcohol abuse Tobacco use Condition on Discharge: Good Activity: Resume your previous activity Non-emergency contact: Primary Care Provider Call non-emergency contact if: you have any medication questions, your symptoms worsen, your pain is not controlled and your pain is worsening Follow-up/Referrals: Jovani Chávez MD [Primary Care Provider] - (Date & Time 06/12/2021 10:40 AM Provider Jovani Chávez MD Department [facility] ) Diet: Low Sodium (2gm) Diet Comment: HIGH PROTEIN, LOW SALT DIET, KEEP FLUIDS RESTRICTED TO <1800ML DAILY Addtl Attending Provider Instructions: Please take all medications as instructed on discharge list below. You are being given two diuretic medications to take together (anytime) once per day. These will make you urinate, but this sensation should calm down over a few days. Please ensure you follow-up wtih Dr. Chávez at the appointment time above so he can order non-fasting blood work to monitor your kidney function and electrolytes. These things can change after starting these medications. As we discussed, in cirrhosis, it is important to have two bowel movements daily. Please use magnesium supplementation or the lactulose provided to achieve this goal. This will help you maintain a normal ammonia level which can build up in cirrhosis. You underwent a liver ultrasound that confirmed a liver cyst. Please discuss further workup of this with Dr. Chávez on follow up. You underwent a heart ultrasound during this admission, also called an echocardiogram. The formal reading on this was not done prior to your discharge. Please touch base with Dr. Chávez regarding the result of this test. You had bloodwork performed, a tumor marker called AFP, which was pending at the time of your discharge. Please touch base with Dr. Chávez regarding the result of this test. It is recommended that you follow-up with [facility] within the next couple of months to monitor how you are doing on the treatment regimen for your liver. Complete alcohol cessation is imperative for good health moving forward!. Please also consider quitting tobacco. It was a pleasure taking care of you! Please call if you have any questions or problems. You can reach a [facility] hospitalist on duty at [facility] 24 hours a day by calling [phone]. Take care of yourself. Liza Pressley, DO [facility] Hospitalist Pending Studies at Discharge: Yes Studies:: AFB, cardiac echo Stand-Alone Forms: My [facility], Smoking Cessation Medications and DC Order Prescriptions: New spironolactone 100 mg Tablet 100 mg PO QAM Qty: 30 RF: 0 furosemide 40 mg Tablet 40 mg PO QAM Qty: 30 RF: 0 lactulose 10 gram/15 mL solution 10 g PO DAILY PRN (Reason: if less than 2 bowel movements daily) Qty: 473 RF: 0 Continued multivitamin Tablet 1 tab PO DAILY RF: 0 aspirin 81 mg Tablet 81 mg PO DAILY RF: 0 lisinopril 40 mg tablet 40 mg PO DAILY RF: 0 rosuvastatin 20 mg tablet 20 mg PO DAILY RF: 0 Discontinued spironolactone 25 mg tablet 25 mg PO DAILY RF: 0 triamterene-hydrochlorothiazid 37.5-25 mg tablet 1 tab PO DAILY RF: 0 Discharge Orders: Discharge Order (Routine); Ordered 06/05/21 Ordered By: Liza Pressley Admission Data Admit Date/Time: 06/03/21 18:25 Attending Provider: Liza Pressley Admit Provider: [place] Primary Care Provider: Jovani Chávez Other Providers: [place] ; Tavo Berry Other Interventions: Discharge Summary Assessment (RN) Last Done: 06/05/21 15:36
[2021-06-06] MEDS ORDERED: GABAPENTIN 400 MG CAP PO SCH (12:00)
[2021-06-07] MEDS ORDERED: GABAPENTIN 100 MG CAP PO SCH (12:00)
== END 2021-06-05 15:45 | disposition home or self-care (01) | DRG 434 ==
LOC: ED 08:17 → SUATTDRO 18:25 → 2N 18:25

== ENCOUNTER 2021-12-28 15:16 | Inpatient (IN) ==
[2021-12-28] MEDS ORDERED: MoRPHine SULFATE 4 MG/ML 1 ML CARP\\VIAL ONE (15:50)
[2021-12-28] MEDS ORDERED: SODIUM CHLORIDE 0.9% 1000ML 1,000 ML IV STA (15:56)
[2021-12-28] MEDS ORDERED: SODIUM CHLORIDE 0.9% 500 ML IV STA (15:56)
[2021-12-28 16:10] LABS: Basophils # (auto) 0.05 K/uL (0-0.2); Basophils % (auto) 0.5 %; Eosinophils # (auto) 0.12 K/uL (0-0.5); Eosinophils % (auto) 1.2 %; Hematocrit (blood only) 46.5 % (42-52); Hemoglobin 16.7 g/dL (14.0-18.0); Immature Granulocytes # (auto) 0.02 K/uL (0.00-0.02); Immature Granulocytes % (auto) 0.2 %; Lymphocytes # (auto) 1.37 K/uL (1.2-3.4); Lymphocytes % (auto) 13.5 %; Mean Corpuscular Hemoglobin 34.9 pg (25-34); Mean Corpuscular Hgb Conc 35.9 g/dL (32-36); Mean Corpuscular Volume 97.1 fL (80-100); Mean Platelet Volume 9.9 fL (7.4-10.4); Monocytes # (auto) 1.27 K/uL (0.11-0.59); Monocytes % (auto) 12.5 %; Neutrophils # (auto) 7.29 K/uL (1.4-6.5); Neutrophils % (auto) 72.1 %; Platelet Count 145 K/uL (130-400); RDW Coefficient of Variation 14.9 % (11.5-14.5); RDW Standard Deviation 52.9 fL (36.4-46.3); Red Blood Count 4.79 M/uL (4.7-6.1); White Blood Count 10.12 K/uL (4.8-10.8)
[2021-12-28 16:14] LABS: iSTAT Creatinine 1.3 mg/dl (0.6-1.3); iSTAT Hemoglobin 17.3 g/dl (14.0-18.0); iSTAT Ionized Calcium 1.19 mmol/l (1.12-1.32); iSTAT Potassium 4.3 mmol/L (3.3-5.0)
[2021-12-28] MEDS ORDERED: OPTIRAY 320 100ml IV ONE (16:19)
[2021-12-28 16:29] LABS: Alanine Aminotransferase 37 U/L (7-52); Albumin Globulin Ratio 1.2 (0.9-2); Albumin Level 4.2 gm/dl (3.4-5.0); Alkaline Phosphatase 133 U/L (34-104); Anion Gap 13 (3-11); Aspartate Aminotransferase 40 U/L (13-39); Bilirubin,Total 1.7 mg/dl (0.2-1.0); Blood Urea Nitrogen 24 mg/dl (6-23); Calcium 10.1 mg/dl (8.5-10.1); Carbon Dioxide 20 mmol/L (21-32); Chloride 105 mmol/L (98-107); Creatinine Clr Calc Pharmacy 75.5 ml/min; Est GFR (African American) 67.3 ml/min; Est GFR (Non-African American) 58.1 ml/min; Globulin 3.5 gm/dl (2.5-4.0); Glucose 114 mg/dl (70-99(Fasting)); Lipase 33 U/L (11-82); Potassium 4.3 mmol/L (3.5-5.1); Sodium 138 mmol/L (136-145); Total Protein 7.7 gm/dl (6.0-8.3)
[2021-12-28 16:32] LABS: Troponin I < 0.03 ng/ml (0-0.04)
[2021-12-28] MEDS: HYDROmorphone INJ 0.5 MG/0.5 ML SYR IV PRN ×4 (16:51→20:07)
--- NOTE | 2021-12-28 16:57 | CT Scan Report ---
CT abd pelvis IV con only CLINICAL HISTORY: diffuse abd pain, hx of recent TIPs, cr 1.3. Cirrhosis. TECHNIQUE: Helical axial images of the abdomen and pelvis were obtained and displayed. Automated dose lowering techniques and/or adjustment according to patient size were utilized for this exam. This e xam was performed with intravenous contrast. COMPARISON: Comparison is made to CT abdomen pelvis 06/03/2021 FINDINGS: Lower chest: Cardiomegaly is again noted. Liver: Nodular contour of the liver is seen compatible with cirrhosis. A TIPS shunt is seen. Gallbladder and biliary tree: No calcified gallstones. Normal caliber wall. No intra- or extrahepatic biliary ductal dilation. Pancreas: Unremarkable, no focal lesions. Spleen: Unremarkable. Adrenals: Unremarkable. Kidneys and ureters: Multiple renal cysts are seen bilaterally. Bladder: Unremarkable. Reproductive organs: Prostatic calcifications are seen which may represent prior hemorrhage or granul omatous disease. Bowel: Diverticulosis is seen without evidence of diverticulitis. The appendix is normal. There is a loop of bowel in the previously noted right inguinal hernia. There is mild bowel wall thickening. No evidence of obstruction is seen. Lymph nodes Retroperitoneal: Subcentimeter shay hepatis nodes are noted. Mesenteric: Unremarkable. Pelvic: Unremarkable. Peritoneum: A small amount of ascites is seen. Vessels: Atherosclerotic calcifications are seen. Abdominal wall: Right inguinal hernia now contains a loop of bowel in addition to fluid. As mentioned above, there is prominence of the bowel wall. Bones: Degenerative changes in the visualized spine. IMPRESSION: 1. In the interval, a loop of bowel has entered the right inguinal hernia. There is bowel wall thick ening and questionable vascular prominence. Although there is no obstruction, an ischemic process can not be excluded, correlation with physical exam is suggested. 2. Cirrhosis and small ascites. TIPS shunt is in place. ACT 112: Negative or not required by law. Electronically signed by: Martell Zaldivar M.D. 12/28/2021 4:55 PM
[2021-12-28 17:34] LABS: Appearance Urine Clear (Clear); Bacteria Urine Automated 2+ (Negative); Bilirubin Urine Negative (Negative); Blood Urine Negative (Negative); Color Urine Yellow; Epithelial Cell Urine Auto 0-5 /lpf (0-5); Glucose Urine UA Negative (Negative); Ketones Urine Negative (Negative); Leukocyte Esterase Urine Trace (Negative); Nitrite Urine Negative (Negative); Protein Urine Negative (Negative); RBC Urine Automated 0-4 /hpf (0-4); Specific Gravity Urine 1.024 (1.000-1.030); Urobilinogen Urine Negative (Negative)
[2021-12-28 18:04] LABS: INR 1.2 (0.9-1.1); Prothrombin Time 12.8 Seconds (9.0-12.0)
--- NOTE | 2021-12-28 18:27 | Emergency Department Note ---
Impression & Plan Incarcerated right inguinal hernia, Generalized abdominal pain, Anticoagulated, Abdominal ascites ED Provider Note INFORMANT: Patient ED PROVIDER(S): Bjorn Vazquez MD CHIEF COMPLAINT: Abdominal pain PLAN: Disposition: Admitted to the OR Condition: Good Outpatient prescription management: none Referral: None MEDICAL DECISION MAKING: Patient presented with acute abdominal pain. Translating service was utilized to help facilitate the evaluation. Patient was treated with IV morphine for symptom control. He received Zofran as well. He was hydrated. I-STAT was performed and was unremarkable. Patient was sent for CT imaging and this was concerning for possible incarceration of right inguinal hernia with findings concerning for vascular compromise. I did attempt reduction at the bedside despite multiple doses of morphine and Dilaudid his pain was still significant. A lactate did return elevated which raises concerns for vascular compromise of the hernia even more. I placed a consultation with Dr. Sewell of general surgery. We did discuss the need for possible emergency surgery and he asked for the patient's anticoagulation to be reversed. I did discuss this with Dr. Jarquin of anticoagulation. She did recommend 2000 units of Kcentra to be given on-call to the OR. The patient was evaluated by Dr. Sewell in the emergency department. He did agree for the need for emergency surgery due to the incarcerated inguinal hernia. Triage Nursing notes reviewed and agree them. Vital Signs: reviewed and remarkable for no significant abnormalities Differential diagnosis: Appendicitis, testicular torsion, infections, diverticulitis, UTI, obstruction, mesenteric ischemia, aortic pathology, inflammatory bowel disease, renal colic, PUD, pancreatitis, biliary pathology, hernia, complication of TIPS, SBP, volvulu s, constipation, as well as other pathologies. Diagnostics interpreted by me: ECG: Twelve-lead ECG reveals a normal sinus rhythm at 77 bpm. Right bundle branch block is present. No ST elevation or depression. No PACs or PVCs. Cardiac Monitoring: Cardiac monitoring ordered by me: The patient was placed on continuous cardiac monitoring and observed. It revealed a normal sinus rhythm at 78 beats per minute without ectopy or evidence of dysrhythmia. Imaging studies: CT scan of the abdomen pelvis is concerning for possible incarceration right inguinal hernia. Mild ascites noted. Note definite bowel obstruction appreciated. I refer you to the EMR for further details. HPI: The patient is a 61 year old male who presents to the Emergency Room with complaints of abdominal pain and nausea. This started a few hours ago and is worsening. The patient also notes the following associated symptoms, pain in the right groin. Patient has a history of umbilical and inguinal hernia was evaluated this week at [facility] for treatment. Patient notes the groin hernia would get larger with standing and then go down. It feels very swollen today and has not gone down. The patient has found norelieving factors. Current pain is rated as 10/10. Patient recently had a TIPS procedure approximately 10 days ago. pt denies LOC, headache, fevers, chills, diaphoresis, visual changes, neck pain, chest pain, breathing difficulties, vomiting, back pain, melena, hematochezia, urinary symptoms, numbness, weakness, lymphadenopathy, rash, or other complaints. ROS: See above HPI for pertinent positives & negatives. A total of 10 systems reviewed and were otherwise negative. PAST MEDICAL HISTORY:See Below , cirrhosis PAST SURGICAL HISTORY:See Below, TIPS procedure FAMILY HISTORY:See Below SOCIAL HISTORY:See Below, smoker HOME MEDICATIONS:See Below ALLERGIES:See Below VITALS:See Below PHYSICAL EXAMINATION: GENERAL: Awake, alert, very uncomfortable-appearing, in moderate distress HENT: Normocephalic, atraumatic. Oropharynx unremarkable. EYES: Normal conjunctiva. Sclera non-icteric. NECK: Inspection normal. Non-tender. Supple. No nuchal rigidity. FROM. No masses. RESPIRATORY: Clear to auscultation. No wheezes. No rales. Normal respiratory effort. CARDIAC: Normal rate. Normal rhythm. No murmurs. No rubs. Extremities warm and well perfused. Pulses equal. No JVD. GI: Soft, non-distended. Generalized tenderness to palpation. No rebound or guarding. Reducible umbilical hernia present. There is a large nonreducible right inguinal hernia present which extends into the scrotum RECTAL: Deferred. MUSCULOSKELETAL: Atraumatic. Chest examination reveals no tenderness. The back is symmetrical on inspection without obvious abnormality. There is no CVA tenderness to palpation. No joint edema. LOWER EXTREMITIES: Calves are equal size bilaterally and non-tender. No edema. No discoloration. NEURO: Normal sensorium. No sensory or motor deficits noted. SKIN: No rash or jaundice noted. CRITICAL CARE: I have personally spent greater than 35 minutes of critical care time in the direct management of this patient. This includes bedside care, interpretation of diagnostic studies, and testing, discussion with consultants, patient, and other required patient management activities. These minutes are in excess of all separately billable procedures. Bjorn Vazquez MD Past Med/Surg History Medical History (Updated 12/28/21 @ 20:47 by Juan Gibson MD) Anxiety Cirrhosis GERD (gastroesophageal reflux disease) Hyperlipidemia Hypertension Right bundle branch block Surgical History History of colonoscopy x3 History of surgery of liver TIPS procedure 12/19/2021 History of surgery on arm torn ligament repair History of varicose vein stripping Family History Other Heart disease Social History Smoking Status: Current every day smoker Tobacco Type: Cigarettes Cigarettes Per Day: 3; Second Hand Exposure: No; Hx Alcohol Use: No Hx Substance Use: No Preferred Language: Moroccan Communication Ability: Effective Communication Tools: IPad Chief Clerk Required: No Beliefs That Will Affect Care: None marital status: Current Living Situation: Alone Feels Safe at Home: Yes Assistive Devices: None and Glasses Allergies Allergies Allergy/AdvReac Type Severity Reaction Status Date / Time No Known Allergies Allergy Unknown Verified 12/28/21 17:37 Home Meds Home Medications Medication Instructions Recorded Confirmed multivitamin 1 tab PO DAILY 06/03/21 12/28/21 diclofenac sodium 1 % topical gel 2 g TOPICAL QID PRN 07/04/21 12/28/21 albumin, human 25 % 25 % 25 g IV WK 12/28/21 12/28/21 intravenous solution furosemide 40 mg tablet 40 mg PO BID 12/28/21 12/28/21 lactulose 10 gram/15 mL oral 15 ml PO TID 12/28/21 12/28/21 solution rosuvastatin 20 mg tablet 20 mg PO DAILY 12/28/21 12/28/21 spironolactone 100 mg tablet 100 mg PO BID 12/28/21 12/28/21 Previous Rx's Medication Instructions Recorded apixaban 2.5 mg tablet (Eliquis) 2.5 mg PO BID #60 tab 07/08/21 Results & Data (ED) Vital Signs Vital Signs - 24 hr 12/28/21 15:24 12/28/21 15:35 12/28/21 15:40 Temperature 36.5 C Temperature Source Oral Pulse Rate 77 76 78 Pulse Rate from SpO2 Sensor 76 Respiratory Rate 12 20 17 Respiratory Effort / Characteristics Non-Labored Spontaneous Respiratory Depth Normal Respiratory Pattern Regular Blood Pressure 139/75 Blood Pressure Mean 96 Blood Pressure Position Sitting Pulse Oximetry 100 100 Oxygen Delivery Method Room Air Room Air Room Air Sepsis Recent Fever Within 48 Hours No Sepsis New/Unexplained Change in Mental Status No Sepsis Action Taken by Nursing No Action Required 12/28/21 15:50 12/28/21 16:00 12/28/21 16:08 Temperature Temperature Source Pulse Rate 78 78 Pulse Rate from SpO2 Sensor 78 Respiratory Rate 16 15 Respiratory Effort / Characteristics Respiratory Depth Respiratory Pattern Blood Pressure 141/71 H Blood Pressure Mean 94 Blood Pressure Position Pulse Oximetry 97 Oxygen Delivery Method Room Air Room Air Room Air Sepsis Recent Fever Within 48 Hours Sepsis New/Unexplained Change in Mental Status Sepsis Action Taken by Nursing 12/28/21 16:10 12/28/21 16:26 12/28/21 16:27 Temperature Temperature Source Pulse Rate 78 81 81 Pulse Rate from SpO2 Sensor 78 81 81 Respiratory Rate 16 21 15 Respiratory Effort / Characteristics Respiratory Depth Respiratory Pattern Blood Pressure 145/77 H Blood Pressure Mean 99 Blood Pressure Position Pulse Oximetry 100 100 100 Oxygen Delivery Method Room Air Room Air Room Air Sepsis Recent Fever Within 48 Hours Sepsis New/Unexplained Change in Mental Status Sepsis Action Taken by Nursing 12/28/21 16:30 12/28/21 16:40 12/28/21 16:50 Temperature Temperature Source Pulse Rate 80 80 81 Pulse Rate from SpO2 Sensor 80 80 81 Respiratory Rate 18 25 H 18 Respiratory Effort / Characteristics Respiratory Depth Respiratory Pattern Blood Pressure 139/77 Blood Pressure Mean 97 Blood Pressure Position Pulse Oximetry 99 100 100 Oxygen Delivery Method Room Air Room Air Room Air Sepsis Recent Fever Within 48 Hours Sepsis New/Unexplained Change in Mental Status Sepsis Action Taken by Nursing 12/28/21 17:00 12/28/21 17:10 12/28/21 17:20 Temperature Temperature Source Pulse Rate 81 81 83 Pulse Rate from SpO2 Sensor 80 81 84 Respiratory Rate 20 18 18 Respiratory Effort / Characteristics Respiratory Depth Respiratory Pattern Blood Pressure 138/73 Blood Pressure Mean 94 Blood Pressure Position Pulse Oximetry 99 100 99 Oxygen Delivery Method Room Air Room Air Room Air Sepsis Recent Fever Within 48 Hours Sepsis New/Unexplained Change in Mental Status Sepsis Action Taken by Nursing 12/28/21 17:30 12/28/21 17:40 12/28/21 17:50 Temperature Temperature Source Pulse Rate 84 83 82 Pulse Rate from SpO2 Sensor 83 83 83 Respiratory Rate 18 16 16 Respiratory Effort / Characteristics Respiratory Depth Respiratory Pattern Blood Pressure 141/83 H Blood Pressure Mean 102 Blood Pressure Position Pulse Oximetry 98 99 97 Oxygen Delivery Method Room Air Room Air Room Air Sepsis Recent Fever Within 48 Hours Sepsis New/Unexplained Change in Mental Status Sepsis Action Taken by Nursing 12/28/21 18:00 12/28/21 18:10 12/28/21 18:20 Temperature Temperature Source Pulse Rate 82 85 81 Pulse Rate from SpO2 Sensor 82 85 82 Respiratory Rate 15 16 13 Respiratory Effort / Characteristics Respiratory Depth Respiratory Pattern Blood Pressure 134/72 Blood Pressure Mean 92 Blood Pressure Position Pulse Oximetry 97 96 99 Oxygen Delivery Method Room Air Room Air Room Air Sepsis Recent Fever Within 48 Hours Sepsis New/Unexplained Change in Mental Status Sepsis Action Taken by Nursing 12/28/21 18:30 12/28/21 18:40 12/28/21 18:50 Temperature Temperature Source Pulse Rate 88 88 85 Pulse Rate from SpO2 Sensor 89 Respiratory Rate 20 15 14 Respiratory Effort / Characteristics Respiratory Depth Respiratory Pattern Blood Pressure 144/88 H Blood Pressure Mean 106 Blood Pressure Position Pulse Oximetry 100 Oxygen Delivery Method Room Air Room Air Room Air Sepsis Recent Fever Within 48 Hours Sepsis New/Unexplained Change in Mental Status Sepsis Action Taken by Nursing 12/28/21 19:00 12/28/21 19:01 12/28/21 19:10 Temperature Temperature Source Pulse Rate 84 83 80 Pulse Rate from SpO2 Sensor Respiratory Rate 13 13 14 Respiratory Effort / Characteristics Respiratory Depth Respiratory Pattern Blood Pressure 119/74 Blood Pressure Mean 89 Blood Pressure Position Pulse Oximetry Oxygen Delivery Method Room Air Room Air Room Air Sepsis Recent Fever Within 48 Hours Sepsis New/Unexplained Change in Mental Status Sepsis Action Taken by Nursing 12/28/21 19:20 12/28/21 19:30 12/28/21 19:40 Temperature Temperature Source Pulse Rate 78 82 78 Pulse Rate from SpO2 Sensor Respiratory Rate 12 16 23 Respiratory Effort / Characteristics Respiratory Depth Respiratory Pattern Blood Pressure 114/72 Blood Pressure Mean 86 Blood Pressure Position Pulse Oximetry Oxygen Delivery Method Room Air Room Air Room Air Sepsis Recent Fever Within 48 Hours Sepsis New/Unexplained Change in Mental Status Sepsis Action Taken by Nursing 12/28/21 19:50 12/28/21 20:00 12/28/21 20:10 Temperature Temperature Source Pulse Rate 76 78 78 Pulse Rate from SpO2 Sensor Respiratory Rate 12 12 12 Respiratory Effort / Characteristics Respiratory Depth Respiratory Pattern Blood Pressure 113/59 L Blood Pressure Mean 77 Blood Pressure Position Pulse Oximetry Oxygen Delivery Method Room Air Room Air Room Air Sepsis Recent Fever Within 48 Hours Sepsis New/Unexplained Change in Mental Status Sepsis Action Taken by Nursing 12/28/21 20:20 Temperature Temperature Source Pulse Rate Pulse Rate from SpO2 Sensor Respiratory Rate Respiratory Effort / Characteristics Respiratory Depth Respiratory Pattern Blood Pressure Blood Pressure Mean Blood Pressure Position Pulse Oximetry Oxygen Delivery Method Room Air Sepsis Recent Fever Within 48 Hours Sepsis New/Unexplained Change in Mental Status Sepsis Action Taken by Nursing Laboratory Data Result diagrams: 12/28/21 16:00 12/28/21 16:00 Lab Results 12/28/21 12/28/21 12/28/21 Range/Units 16:00 16:00 16:00 WBC 10.12 (4.8-10.8) K/uL RBC 4.79 (4.7-6.1) M/uL Hgb 16.7 (14.0-18.0) g/dL POC Hgb (14.0-18.0) g/dl Hct 46.5 (42-52) % POC Hct (42-52) % MCV 97.1 (80-100) fL MCH 34.9 H (25-34) pg MCHC 35.9 (32-36) g/dL RDW Std Deviation 52.9 H (36.4-46.3) fL RDW Coeff of Claire 14.9 H (11.5-14.5) % Plt Count 145 (130-400) K/uL MPV 9.9 (7.4-10.4) fL Immature Gran % (Auto) 0.2 % Neut % (Auto) 72.1 % Lymph % (Auto) 13.5 % [place] % (Auto) 12.5 % Eos % (Auto) 1.2 % Baso % (Auto) 0.5 % Neut # (Auto) 7.29 H (1.4-6.5) K/uL Lymph # (Auto) 1.37 (1.2-3.4) K/uL [place] # (Auto) 1.27 H (0.11-0.59) K/uL Eos # (Auto) 0.12 (0-0.5) K/uL Baso # (Auto) 0.05 (0-0.2) K/uL Immature Gran # (Auto) 0.02 (0.00-0.02) K/uL PT Cancelled INR Cancelled POC Sodium (135-144) mmol/L Sodium 138 (136-145) mmol/L POC Potassium (3.3-5.0) mmol/L Potassium 4.3 (3.5-5.1) mmol/L POC Chloride (101-112) mmol/L Chloride 105 (98-107) mmol/L Carbon Dioxide 20 L (21-32) mmol/L POC Total CO2 (24-31) mmol/L Anion Gap 13 H (3-11) POC Anion Gap (16-25) mmol/L POC BUN (7-18) mg/dl BUN 24 H (6-23) mg/dl Creatinine 1.33 (0.6-1.4) mg/dl POC Creatinine (0.6-1.3) mg/dl Est Cr Clr Drug Dosing 75.5 ml/min Est GFR ( Amer) 67.3 ml/min Est GFR (Non-Af Amer) 58.1 ml/min BUN/Creatinine Ratio 18.0 (10-20) Glucose 114 H (70-99(Fasting)) mg/dl POC Glucose (other) (70-99) mg/dl Lactate (0.4-2.0) mmol/L Calcium 10.1 (8.5-10.1) mg/dl POC Ioniz Calcium Nohelia (1.12-1.32) mmol/l Total Bilirubin 1.7 H (0.2-1.0) mg/dl AST 40 H (13-39) U/L ALT 37 (7-52) U/L Alkaline Phosphatase 133 H (34-104) U/L Troponin I < 0.03 (0-0.04) ng/ml Total Protein 7.7 (6.0-8.3) gm/dl Albumin 4.2 (3.4-5.0) gm/dl Globulin 3.5 (2.5-4.0) gm/dl Albumin/Globulin Ratio 1.2 (0.9-2) Lipase 33 (11-82) U/L Urine Color Urine Appearance (Clear) Urine pH (4.5-7.5) Ur Specific [place] (1.000-1.030) Urine Protein (Negative) Urine Glucose (UA) (Negative) Urine Ketones (Negative) Urine Blood (Negative) Urine Nitrite (Negative) Urine Bilirubin (Negative) Urine Urobilinogen (Negative) Ur Leukocyte Esterase (Negative) Urine WBC (Auto) (0-5) /hpf Urine RBC (Auto) (0-4) /hpf U Hyaline Cast (Auto) (0-5) /lpf U Epithel Cells (Auto) (0-5) /lpf Urine Bacteria (Auto) (Negative) SARS-CoV-2, RNA, NAAT (NEGATIVE) 12/28/21 12/28/21 12/28/21 Range/Units 16:00 17:18 17:45 WBC (4.8-10.8) K/uL RBC (4.7-6.1) M/uL Hgb (14.0-18.0) g/dL POC Hgb 17.3 (14.0-18.0) g/dl Hct (42-52) % POC Hct 51 (42-52) % MCV (80-100) fL MCH (25-34) pg MCHC (32-36) g/dL RDW Std Deviation (36.4-46.3) fL RDW Coeff of Claire (11.5-14.5) % Plt Count (130-400) K/uL MPV (7.4-10.4) fL Immature Gran % (Auto) % Neut % (Auto) % Lymph % (Auto) % [place] % (Auto) % Eos % (Auto) % Baso % (Auto) % Neut # (Auto) (1.4-6.5) K/uL Lymph # (Auto) (1.2-3.4) K/uL [place] # (Auto) (0.11-0.59) K/uL Eos # (Auto) (0-0.5) K/uL Baso # (Auto) (0-0.2) K/uL Immature Gran # (Auto) (0.00-0.02) K/uL PT INR POC Sodium 141 (135-144) mmol/L Sodium (136-145) mmol/L POC Potassium 4.3 (3.3-5.0) mmol/L Potassium (3.5-5.1) mmol/L POC Chloride 107 (101-112) mmol/L Chloride (98-107) mmol/L Carbon Dioxide (21-32) mmol/L POC Total CO2 22 L (24-31) mmol/L Anion Gap (3-11) POC Anion Gap 17.0 (16-25) mmol/L POC BUN 29 H (7-18) mg/dl BUN (6-23) mg/dl Creatinine (0.6-1.4) mg/dl POC Creatinine 1.3 (0.6-1.3) mg/dl Est Cr Clr Drug Dosing ml/min Est GFR ( Amer) ml/min Est GFR (Non-Af Amer) ml/min BUN/Creatinine Ratio (10-20) Glucose (70-99(Fasting)) mg/dl POC Glucose (other) 117 H (70-99) mg/dl Lactate (0.4-2.0) mmol/L Calcium (8.5-10.1) mg/dl POC Ioniz Calcium Nohelia 1.19 (1.12-1.32) mmol/l Total Bilirubin (0.2-1.0) mg/dl AST (13-39) U/L ALT (7-52) U/L Alkaline Phosphatase (34-104) U/L Troponin I (0-0.04) ng/ml Total Protein (6.0-8.3) gm/dl Albumin (3.4-5.0) gm/dl Globulin (2.5-4.0) gm/dl Albumin/Globulin Ratio (0.9-2) Lipase (11-82) U/L Urine Color Yellow Urine Appearance Clear (Clear) Urine pH 6.0 (4.5-7.5) Ur Specific [place] 1.024 (1.000-1.030) Urine Protein Negative (Negative) Urine Glucose (UA) Negative (Negative) Urine Ketones Negative (Negative) Urine Blood Negative (Negative) Urine Nitrite Negative (Negative) Urine Bilirubin Negative (Negative) Urine Urobilinogen Negative (Negative) Ur Leukocyte Esterase Trace H (Negative) Urine WBC (Auto) 1-5 (0-5) /hpf Urine RBC (Auto) 0-4 (0-4) /hpf U Hyaline Cast (Auto) 1-5 (0-5) /lpf U Epithel Cells (Auto) 0-5 (0-5) /lpf Urine Bacteria (Auto) 2+ H (Negative) SARS-CoV-2, RNA, NAAT NEGATIVE (NEGATIVE) 12/28/21 12/28/21 Range/Units 17:46 17:46 WBC (4.8-10.8) K/uL RBC (4.7-6.1) M/uL Hgb (14.0-18.0) g/dL POC Hgb (14.0-18.0) g/dl Hct (42-52) % POC Hct (42-52) % MCV (80-100) fL MCH (25-34) pg MCHC (32-36) g/dL RDW Std Deviation (36.4-46.3) fL RDW Coeff of Claire (11.5-14.5) % Plt Count (130-400) K/uL MPV (7.4-10.4) fL Immature Gran % (Auto) % Neut % (Auto) % Lymph % (Auto) % [place] % (Auto) % Eos % (Auto) % Baso % (Auto) % Neut # (Auto) (1.4-6.5) K/uL Lymph # (Auto) (1.2-3.4) K/uL [place] # (Auto) (0.11-0.59) K/uL Eos # (Auto) (0-0.5) K/uL Baso # (Auto) (0-0.2) K/uL Immature Gran # (Auto) (0.00-0.02) K/uL PT 12.8 H INR 1.2 H POC Sodium (135-144) mmol/L Sodium (136-145) mmol/L POC Potassium (3.3-5.0) mmol/L Potassium (3.5-5.1) mmol/L POC Chloride (101-112) mmol/L Chloride (98-107) mmol/L Carbon Dioxide (21-32) mmol/L POC Total CO2 (24-31) mmol/L Anion Gap (3-11) POC Anion Gap (16-25) mmol/L POC BUN (7-18) mg/dl BUN (6-23) mg/dl Creatinine (0.6-1.4) mg/dl POC Creatinine (0.6-1.3) mg/dl Est Cr Clr Drug Dosing ml/min Est GFR ( Amer) ml/min Est GFR (Non-Af Amer) ml/min BUN/Creatinine Ratio (10-20) Glucose (70-99(Fasting)) mg/dl POC Glucose (other) (70-99) mg/dl Lactate 2.1 H* (0.4-2.0) mmol/L Calcium (8.5-10.1) mg/dl POC Ioniz Calcium Nohelia (1.12-1.32) mmol/l Total Bilirubin (0.2-1.0) mg/dl AST (13-39) U/L ALT (7-52) U/L Alkaline Phosphatase (34-104) U/L Troponin I (0-0.04) ng/ml Total Protein (6.0-8.3) gm/dl Albumin (3.4-5.0) gm/dl Globulin (2.5-4.0) gm/dl Albumin/Globulin Ratio (0.9-2) Lipase (11-82) U/L Urine Color Urine Appearance (Clear) Urine pH (4.5-7.5) Ur Specific [place] (1.000-1.030) Urine Protein (Negative) Urine Glucose (UA) (Negative) Urine Ketones (Negative) Urine Blood (Negative) Urine Nitrite (Negative) Urine Bilirubin (Negative) Urine Urobilinogen (Negative) Ur Leukocyte Esterase (Negative) Urine WBC (Auto) (0-5) /hpf Urine RBC (Auto) (0-4) /hpf U Hyaline Cast (Auto) (0-5) /lpf U Epithel Cells (Auto) (0-5) /lpf Urine Bacteria (Auto) (Negative) SARS-CoV-2, RNA, NAAT (NEGATIVE) Administered Medications Hydromorphone HCl (Hydromorphone Inj 0.5 Mg/0.5 Ml Syr) 0.5 mg IV Q15M PRN PRN Reason: Pain Stop: 01/11/22 15:55 Last Admin: 12/28/21 20:07 Dose: 0.5 mg Documented by: [id number] Admin: 12/28/21 18:29 Dose: 0.5 mg Documented by: [id number] Admin: 12/28/21 17:21 Dose: 0.5 mg Documented by: [id number] Admin: 12/28/21 16:51 Dose: 0.5 mg Documented by: [id number] Sodium Chloride (Nss 1000ml) 1,000 mls @ 125 mls/hr IV .Q8H STA Stop: 12/28/21 23:55 Last Admin: 12/28/21 17:24 Dose: 125 mls/hr Documented by: [id number] Discontinued Medications Sodium Chloride (Nss) 500 mls @ 999 mls/hr IV .Q31M STA Stop: 12/28/21 16:26 Last Infusion: 12/28/21 17:35 Dose: 0 mls/hr Documented by: [id number] Admin: 12/28/21 16:51 Dose: 999 mls/hr Documented by: [id number] Cefazolin Sodium (Ancef 2000mg) 2,000 mg in 15 mls @ 3.75 mls/min IV ONCE ONE Stop: 12/28/21 21:20 Last Admin: 12/28/21 21:05 Dose: 3.75 mls/min Documented by: [id number] Ioversol (Optiray 320 100ml) 95 ml IV ONCE ONE Stop: 12/28/21 16:20 Last Admin: 12/28/21 16:20 Dose: 95 ml Documented by: [id number] Morphine Sulfate (Morphine Sulfate 4 Mg/Ml 1 Ml Carp\Vial) Confirm Administered Dose 4 mg .ROUTE .STK-MED ONE Stop: 12/28/21 15:51 Last Admin: 12/28/21 15:52 Dose: 4 mg Documented by: [id number] Imaging Data Radiologist's Impression: Abdomen/Pelvis CT 12/28/21 16:09 CT abd pelvis IV con only CLINICAL HISTORY: diffuse abd pain, hx of recent TIPs, cr 1.3. Cirrhosis. TECHNIQUE: Helical axial images of the abdomen and pelvis were obtained and di splayed. Automated dose lowering techniques and/or adjustment according to patient size were utilized for this exam. This exam was performed with intravenous contrast. COMPARISON: Comparison is made to CT abdomen pelvis 06/03/2021 FINDINGS: Lower chest: Cardiomegaly is again noted. Liver: Nodular contour of the liver is seen compatible with cirrhosis. A TIPS shunt is seen. Gallbladder and biliary tree: No calcified gallstones. Normal caliber wall. No intra- or extrahepatic biliary ductal dilation. Pancreas: Unremarkable, no focal lesions. Spleen: Unremarkable. Adrenals: Unremarkable. Kidneys and ureters: Multiple renal cysts are seen bilaterally. Bladder: Unremarkable. Reproductive organs: Prostatic calcifications are seen which may represent prior hemorrhage or granulomatous disease. Bowel: Diverticulosis is seen without evidence of diverticulitis. The appendix is normal. There is a loop of bowel in the previously noted right inguinal hernia. There is mild bowel wall thickening. No evidence of obstruction is seen. Lymph nodes Retroperitoneal: Subcentimeter shay hepatis nodes are noted. Mesenteric: Unremarkable. Pelvic: Unremarkable. Peritoneum: A small amount of ascites is seen. Vessels: Atherosclerotic calcifications are seen. Abdominal wall: Right inguinal hernia now contains a loop of bowel in addition to fluid. As mentioned above, there is prominence of the bowel wall. Bones: Degenerative changes in the visualized spine. IMPRESSION: 1. In the interval, a loop of bowel has entered the right inguinal hernia. There is bowel wall thickening and questionable vascular prominence. Although there is no obstruction, an ischemic process cannot be excluded, correlation with physical exam is suggested. 2. Cirrhosis and small ascites. TIPS shunt is in place. ACT 112: Negative or not required by law. Electronically signed by: Martell Zaldivar M.D. 12/28/2021 4:55 PM Discharge Plan Visit Data Chief Complaint: Nausea ED Provider: Bjorn Vazquez Discharge Problem: Incarcerated right inguinal hernia, Generalized abdominal pain, Anticoagulated, Abdominal ascites Discharge Instructions Interventions: ED Discharge Assessment Last Done: 12/28/21 20:20
[2021-12-28] MEDS ORDERED: PROTHROMBIN COMP CONC- KCENTRA 2,000 UNITS in SYRINGE 0 ML IV STA (18:30)
[2021-12-28] MEDS ORDERED: DC ALL ANTICOAGULANTS ONE (18:30)
[2021-12-28] MEDS ORDERED: PROTHROMBIN COMP CONC- KCENTRA 2,000 UNITS in SYRINGE 0 ML IV SCH (18:30)
--- NOTE | 2021-12-28 19:27 | History & Physical Report ---
Date of Service December 28, 2021 Assessment & Plan (1) Alcoholic cirrhosis of liver with ascites: Plan: Admit to surgery keep n.p.o. 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 to reverse this Plan on open right inguinal hernia repair, possible mesh, possible bowel resection, possible laparotomy Consent was obtained risks were discussed including bleeding, infection, recurrence, chronic pain, seroma/hematoma formation, anastomotic leak He is at high risk for complications due to his liver cirrhosis and being on anticoagulation (2) Incarcerated right inguinal hernia: (3) Anticoagulated: History of Present Illness Chief Complaint: Right groin pain Primary Care Provider: Jovani Chávez MD This is a 61-year-old male presents the emergency department with a known right inguinal hernia that became more painful after lunch today. He is Malagasy- speaking and the HPI was taken using a multimedia coordinator. He states after eating lunch today he had worsening swelling and pain in his right groin. He denies any nausea and vomiting. He had a bowel movement yesterday and is not currently passing any flatus. He did have a TIPS procedure for his cirrhosis 10 days ago and had a paracentesis draining 800 cc of ascites 2 days ago. He rates the pain as 8 out of 10 with radiation into the scrotum worse with palpation relieved by nothing. He denies any hernia repair in the past. He does take Eliquis twice daily. He is a current drinker and smoker drinking 1-2 alcoholic beverages daily. Allergies Allergy/AdvReac Type Severity Reaction Status Date / Time No Known Allergies Allergy Unknown Verified 12/28/21 17:37 Home Medications Medication Instructions Recorded Confirmed Type multivitamin 1 tab PO DAILY 06/03/21 12/28/21 History diclofenac sodium 1 % topical gel 2 g TOPICAL QID PRN 07/04/21 12/28/21 History apixaban 2.5 mg tablet (Eliquis) 2.5 mg PO BID #60 tab 07/08/21 12/28/21 Rx albumin, human 25 % 25 % 25 g IV WK 12/28/21 12/28/21 History intravenous solution furosemide 40 mg tablet 40 mg PO BID 12/28/21 12/28/21 History lactulose 10 gram/15 mL oral 15 ml PO TID 12/28/21 12/28/21 History solution rosuvastatin 20 mg tablet 20 mg PO DAILY 12/28/21 12/28/21 History spironolactone 100 mg tablet 100 mg PO BID 12/28/21 12/28/21 History Past Med/Surg History Medical History Anxiety Cirrhosis GERD (gastroesophageal reflux disease) Hyperlipidemia Hypertension Surgical History History of colonoscopy x3 History of surgery of liver TIPS procedure 12/19/2021 History of surgery on arm torn ligament repair History of varicose vein stripping Family History Other Heart disease Social History Smoking Status: Current every day smoker Tobacco Type: Cigarettes Cigarettes Per Day: 3; Second Hand Exposure: No; Hx Alcohol Use: No Hx Substance Use: No Preferred Language: Malagasy Communication Ability: Effective Communication Tools: IPad Experimental Welder Required: No Beliefs That Will Affect Care: None marital status: Current Living Situation: Alone Feels Safe at Home: Yes Assistive Devices: None and Glasses Review of Systems Constitutional: no fever and no chills Eyes: no blind spots and no worsening vision Ear, Nose, Mouth, Throat: no ear pain and no hearing loss Respiratory: no cough and no dyspnea Cardiovascular: no chest pain and no dyspnea on exertion Gastrointestinal: + abdominal pain and + constipation; no nausea, no vomiting and no melena Genitourinary: no dysuria Musculoskeletal: no back pain and no neck pain Integumentary: no acne, no boil and no non-healing lesions Neurologic: no headache(s) Psychiatric: no behavioral changes and no depression Hematologic / Lymphatic: Positive Eliquis Physical Exam Constitutional: WD/WN, vitals as above Eyes: PERRL, conjunctivae normal, anicteric sclerae ENMT: external ear and nose normal, oropharynx normal Neck: trachea midline, no thyromegaly Respiratory: normal respiratory effort, lungs clear to auscultation Cardiovascular: RRR, no murmur, no edema Gastrointestinal (Abdomen): Inspection/Auscultation: + visible herniation; + abdomen abnormal to inspection and abdomen not distended Percussion/Palpation: + abdomen tender (Right inguinal region), abdomen soft and + hernia (Incarcerated right inguinal without skin changes) Musculoskeletal: no cyanosis or clubbing, extremities motor strength 5/5 Skin: no rashes, warm and dry Neurologic: PERRL, EOMI, accommodation nl, no face palsy, no dysarthria Psychiatric: A+Ox3, euthymic affect Results & Data Results & Data ([facility]) Vital Signs (Past 12 Hours) Vital Signs Temp Pulse Resp BP Pulse Ox 12/28/21 18:30 88 20 144/88 H 100 12/28/21 18:20 81 13 99 12/28/21 18:10 85 16 96 12/28/21 18:00 82 15 134/72 97 12/28/21 17:50 82 16 97 12/28/21 17:40 83 16 99 12/28/21 17:30 84 18 141/83 H 98 12/28/21 17:20 83 18 99 12/28/21 17:10 81 18 100 12/28/21 17:00 81 20 138/73 99 12/28/21 16:50 81 18 100 12/28/21 16:40 80 25 H 100 12/28/21 16:30 80 18 139/77 99 12/28/21 16:27 81 15 145/77 H 100 12/28/21 16:26 81 21 100 12/28/21 16:10 78 16 100 12/28/21 16:00 78 15 141/71 H 97 12/28/21 15:50 78 16 12/28/21 15:40 78 17 12/28/21 15:35 76 20 100 12/28/21 15:24 36.5 C 77 12 139/[address] abd pelvis IV con only CLINICAL HISTORY: diffuse abd pain, hx of recent TIPs, cr 1.3. Cirrhosis. TECHNIQUE: Helical axial images of the abdomen and pelvis were obtained and displayed. Automated dose lowering techniques and/or adjustment according to patient size were utilized for this exam. This exam was performed with intravenous contrast. COMPARISON: Comparison is made to CT abdomen pelvis 06/03/2021 FINDINGS: Lower chest: Cardiomegaly is again noted. Liver: Nodular contour of the liver is seen compatible with cirrhosis. A TIPS shunt is seen. Gallbladder and biliary tree: No calcified gallstones. Normal caliber wall. No intra- or extrahepatic biliary ductal dilation. Pancreas: Unremarkable, no focal lesions. Spleen: Unremarkable. Adrenals: Unremarkable. Kidneys and ureters: Multiple renal cysts are seen bilaterally. Bladder: Unremarkable. Reproductive organs: Prostatic calcifications are seen which may represent prior hemorrhage or granulomatous disease. Bowel: Diverticulosis is seen without evidence of diverticulitis. The appendix is normal. There is a loop of bowel in the previously noted right inguinal hernia. There is mild bowel wall thickening. No evidence of obstruction is seen. Lymph nodes Retroperitoneal: Subcentimeter shay hepatis nodes are noted. Mesenteric: Unremarkable. Pelvic: Unremarkable. Peritoneum: A small amount of ascites is seen. Vessels: Atherosclerotic calcifications are seen. Abdominal wall: Right inguinal hernia now contains a loop of bowel in addition to fluid. As mentioned above, there is prominence of the bowel wall. Bones: Degenerative changes in the visualized spine. IMPRESSION: 1. In the interval, a loop of bowel has entered the right inguinal hernia. There is bowel wall thickening and questionable vascular prominence. Although there is no obstruction, an ischemic process cannot be excluded, correlation with physical exam is suggested. 2. Cirrhosis and small ascites. TIPS shunt is in place. PG Care Time/CCT Total # of Minutes Spent Total Time Spent with Patient: Total time spent is greater than 50% in coordination of care (as documented) at patient's floor/unit and/or counseling patient: Coding Level of Care Code 90420 Initial Inpt Care Lvl 3 Diagnoses Alcoholic cirrhosis of liver with ascites K70.31 Incarcerated right inguinal hernia K40.30 Anticoagulated Z79.01
[2021-12-28] MEDS ORDERED: BUPIVACAINE/EPINEPHRINE 0.25% 1:200,000 30 ML VIAL ONE (19:56)
[2021-12-28] MEDS ORDERED: fentaNYL citrate 100 MCG/2 ML VIAL ONE (20:17)
[2021-12-28] MEDS ORDERED: PROPOFOL IV EMULSION 10 MG/ML 20 ML VIAL IV ONE (20:17)
[2021-12-28] MEDS ORDERED: ROCURONIUM BROMIDE 10 MG/ML 5 ML VIAL IV ONE (20:22)
[2021-12-28] MEDS ORDERED: SUCCINYLCHOLINE CHLORIDE 20 MG/ML 10 ML VIAL IV ONE (20:22)
[2021-12-28] MEDS ORDERED: ONDANSETRON INJ 2 MG/ML 2 ML VIAL ONE (20:23)
[2021-12-28] MEDS ORDERED: NEOSTIGMINE METHYLSULFATE 1 MG/ML 10ML VIAL ONE (20:23)
[2021-12-28] MEDS ORDERED: DEXAMETHASONE SOD INJ 4 MG/ML VIAL ONE (20:23)
[2021-12-28] MEDS ORDERED: GLYCOPYRROLATE 0.2 MG/ML VIAL ONE (20:23)
[2021-12-28] MEDS ORDERED: LIDOCAINE 2% 2 ML VIAL/AMP(20MG/ML) INFIL ONE (20:23)
[2021-12-28] MEDS ORDERED: ePHEDrine sulfate 50 MG/ML AMP IV PRN (20:42)
[2021-12-28] MEDS ORDERED: ATROPINE SULFATE 0.1 MG/ML 10ML SYR IV PRN (20:42)
[2021-12-28] MEDS ORDERED: HYDROmorphone INJ 1 MG/ML SYRINGE IV PRN (20:42)
[2021-12-28] MEDS ORDERED: LABETALOL HCL IV 5 MG/ML 20ML IV PRN (20:42)
[2021-12-28] MEDS ORDERED: MEPERIDINE HCL 25 MG/ML CARP/VIAL IV PRN (20:42)
[2021-12-28] MEDS ORDERED: ONDANSETRON INJ 2 MG/ML 2 ML VIAL IV PRN (20:42)
[2021-12-28] MEDS ORDERED: PHENYLEPHRINE 100MCG/ML 5ML SYR IV PRN (20:42)
[2021-12-28] MEDS ORDERED: fentaNYL citrate 100 MCG/2 ML VIAL IV PRN (20:42)
--- NOTE | 2021-12-28 20:46 | Anesthesiology Consultation ---
Date of Service December 28, 2021 Assessment & Plan (1) Encounter for pre-operative examination: Chart Review Chart Review: Acceptable Risk for Surgery (necessary) and Patient NOT seen in Pre Admission Testing Consults Requested none History Surgery Operation Date: 12/28/21 19:00 Proposed Procedures p Incarcerated Right Inguinal Hernia Repair, possible bowel resection, possible mesh - Ezequiel Sewell, Height/Weight Height: 6 ft 1 in Weight: 103.2 kg Allergies Allergy/AdvReac Type Severity Reaction Status Date / Time No Known Allergies Allergy Unknown Verified 12/28/21 17:37 Medications Home Medications Medication Instructions Recorded Confirmed Last Taken multivitamin 1 tab PO DAILY 06/03/21 12/28/21 12/25/21 09:00 diclofenac sodium 1 % topical gel 2 g TOPICAL QID PRN 07/04/21 12/28/21 Unknown apixaban 2.5 mg tablet (Eliquis) 2.5 mg PO BID #60 tab 07/08/21 12/28/21 12/25/21 09:00 albumin, human 25 % 25 % 25 g IV WK 12/28/21 12/28/21 Unknown intravenous solution furosemide 40 mg tablet 40 mg PO BID 12/28/21 12/28/21 Unknown lactulose 10 gram/15 mL oral 15 ml PO TID 12/28/21 12/28/21 Unknown solution rosuvastatin 20 mg tablet 20 mg PO DAILY 12/28/21 12/28/21 Unknown spironolactone 100 mg tablet 100 mg PO BID 12/28/21 12/28/21 Unknown Active Medications Generic Name Dose Route Start Last Admin Trade Name Freq PRN Reason Stop Dose Admin Hydromorphone HCl 0.5 mg 12/28/21 15:56 12/28/21 20:07 Hydromorphone Inj 0.5 Mg/0.5 Ml Syr IV 01/11/22 15:55 0.5 mg Q15M PRN Administration Pain Sodium Chloride 1,000 mls @ 125 mls/hr 12/28/21 15:56 12/28/21 17:24 Nss 1000ml IV 12/28/21 23:55 125 mls/hr .Q8H STA Administration NPO Date Last Intake of Fluids: 12/28/21 Time Last Intake of Fluids: 04:00 Date Last Intake of Solids: 12/28/21 Time Last Intake of Solids: 04:00 Past Medical History Medical History (Updated 12/28/21 @ 20:47 by Juan Gibson MD) Anxiety Cirrhosis GERD (gastroesophageal reflux disease) Hyperlipidemia Hypertension Right bundle branch block Past Family History Family History Other Heart disease Past Surgical History Surgical History History of colonoscopy x3 History of surgery of liver TIPS procedure 12/19/2021 History of surgery on arm torn ligament repair History of varicose vein stripping Social History Smoking Status: Current every day smoker tobacco type: cigarettes Smoking cigarettes per day: 3 Hx Alcohol Use: No Alcohol type: wine alcohol intake frequency: a few times a week Hx Substance Use: No Physical Exam Vital Signs Last Vital Signs Temp 36.5 C 12/28/21 15:24 Pulse 78 12/28/21 20:10 Resp 12 12/28/21 20:10 BP 113/59 L 12/28/21 20:00 Pulse Ox 100 12/28/21 18:30 Testing Laboratory Results 12/28/21 16:00 12/28/21 16:00 PT 12.8 Seconds (9.0-12.0) H 12/28/21 17:46 INR 1.2 (0.9-1.1) H 12/28/21 17:46 Urine Color Yellow 12/28/21 17:18 Urine Appearance Clear (Clear) 12/28/21 17:18 Urine pH 6.0 (4.5-7.5) 12/28/21 17:18 Ur Specific Dillon 1.024 (1.000-1.030) 12/28/21 17:18 Urine Protein Negative (Negative) 12/28/21 17:18 Urine Glucose (UA) Negative (Negative) 12/28/21 17:18 Urine Ketones Negative (Negative) 12/28/21 17:18 Urine Nitrite Negative (Negative) 12/28/21 17:18 Ur Leukocyte Esterase Trace (Negative) H 12/28/21 17:18 Urine WBC (Auto) 1-5 /hpf (0-5) 12/28/21 17:18 Urine RBC (Auto) 0-4 /hpf (0-4) 12/28/21 17:18 U Hyaline Cast (Auto) 1-5 /lpf (0-5) 12/28/21 17:18 U Epithel Cells (Auto) 0-5 /lpf (0-5) 12/28/21 17:18 Urine Bacteria (Auto) 2+ (Negative) H 12/28/21 17:18 12/28/21 16:00 POC Glucose (other) 117 H Electrocardiogram Date: 12/28/21 Findings: + NSR @ (77) and + RBBB Other Testing CT abd pelvis IV con only CLINICAL HISTORY: diffuse abd pain, hx of recent TIPs, cr 1.3. Cirrhosis. TECHNIQUE: Helical axial images of the abdomen and pelvis were obtained and displayed. Automated dose lowering techniques and/or adjustment according to patient size were utilized for this exam. This exam was performed with intra venous contrast. COMPARISON: Comparison is made to CT abdomen pelvis 06/03/2021 FINDINGS: Lower chest: Cardiomegaly is again noted. Liver: Nodular contour of the liver is seen compatible with cirrhosis. A TIPS shunt is seen. Gallbladder and biliary tree: No calcified gallstones. Normal caliber wall. No intra- or extrahepatic biliary ductal dilation. Pancreas: Unremarkable, no focal lesions. Spleen: Unremarkable. Adrenals: Unremarkable. Kidneys and ureters: Multiple renal cysts are seen bilaterally. Bladder: Unremarkable. Reproductive organs: Prostatic calcifications are seen which may represent prior hemorrhage or granulomatous disease. Bowel: Diverticulosis is seen without evidence of diverticulitis. The appendix is normal. There is a loop of bowel in the previously noted right inguinal hernia. There is mild bowel wall thickening. No evidence of obstruction is seen. Lymph nodes Retroperitoneal: Subcentimeter shay hepatis nodes are noted. Mesenteric: Unremarkable. Pelvic: Unremarkable. Peritoneum: A small amount of ascites is seen. Vessels: Atherosclerotic calcifications are seen. Abdominal wall: Right inguinal hernia now contains a loop of bowel in addition to fluid. As mentioned above, there is prominence of the bowel wall. Bones: Degenerative changes in the visualized spine. IMPRESSION: 1. In the interval, a loop of bowel has entered the right inguinal hernia. There is bowel wall thickening and questionable vascular prominence. Although there is no obstruction, an ischemic process cannot be excluded, correlation with physical exam is suggested. 2. Cirrhosis and small ascites. TIPS shunt is in place. ACT 112: Negative or not required by law. Electronically signed by: Martell Zaldivar M.D. 12/28/2021 4:55 PM
[2021-12-28] MEDS ORDERED: ceFAZolin 330 MG/ML 1 GM VIAL ONE (21:05)
[2021-12-28] MEDS ORDERED: ceFAZolin 2000MG 2,000 MG/15 ML SYR IV ONE (21:17)
[2021-12-28] MEDS ORDERED: PHENYLEPHRINE 100MCG/ML 5ML SYR ONE (21:23)
[2021-12-28] MEDS ORDERED: ePHEDrine sulfate 50 MG/ML SYR ONE (21:24)
--- NOTE | 2021-12-28 23:00 | Post Operative Brief Note ---
PG Immediate Post Op with CF Date of Surgery December 28, 2021 Pre & Post Diagnosis Operation Date: 12/28/21 19:00 Pre-Op Diagnosis: Incarcerated right inguinal hernia Post-Op Diagnosis: Incarcerated right inguinal hernia I identified the patient and participated in the time-out.: Yes Procedure Operation Date: 12/28/21 19:00 Actual Procedures p Open Incarcerated Right inguinal hernia repair with mesh (Right) - Ezequiel Sewell DO Surgeon Ezequiel Sewell DO Deputy Bailiff Rico Kat PA-C Estimated Blood Loss 20 Findings See Below Large incarcerated indirect right inguino-scrotal hernia Specimens Specimen Description: permanent specimen: A) Cord Lipoma B) Hernia Sac Drains Grire Catheter Anesthesia Type General Complications none Disposition Disposition: Recovery Room
--- NOTE | 2021-12-28 23:01 | History & Physical Report ---
Date of Service December 28, 2021 Assessment & Plan (1) Incarcerated right inguinal hernia: Plan: Status post emergent repair Patient slightly uncomfortable postop. alcoholic cirrhosis status post TIPS, no overt decompensation hypertension, stable hyperlipidemia on statin Rx lung nodule, stable size at 7 mm per outpatient pulmonology note from last year. History superficial DVT on Eliquis (patient has completed more than 1 year of treatment, treatment initiated July 2020) prediabetes, hemoglobin A1c of 6.2 2018 chronic venous insufficiency on diuretic Rx ongoing tobacco abuse GMF Postop hernia repair management as per general surgery Hold home diuretic until patient euvolemic, gentle IV hydration Consider discontinuing Eliquis on discharge given completed duration of treatment of more than 1 year (Will request AM provider to discuss with patient PCP.) Update hemoglobin A1c Nicotine patch as needed DVT prophylaxis. SCDs as per postop orders Recommend Lovenox 40 mg subcutaneous daily if Eliquis not to be restarted after discussion with patient's PCP. Full code Text document was generated using [employer] voice recognition software. It may contain grammatical or spelling errors. Kindly contact undersigned for clarification of any documentation item in question. History of Present Illness Chief Complaint: Abdominal pain Primary Care Provider: Jovani Chávez MD History obtained from General Surgery provider and records. Limited history from patient secondary to postop sedation and language barrier. Medical history significant for alcoholic cirrhosis status post TIPS, hypertension, hyperlipidemia, lung nodule, history superficial DVT on Eliquis, prediabetes, chronic venous insufficiency, past alcohol abuse, ongoing tobacco abuse. Last confinement [facility] December 2021 for overnight observation post elective TIPS procedure by IR. 4-month history of right-sided groin pain and swelling. Large right inguinal hernia on PCP exam. Patient seen by G surgery outpatient last week for evaluation of right inguinal and umbilical hernia. Lumps reducible at time of exam. Hernia repair at tertiary center recommended only on emergent basis such as incarceration due to patient's comorbidities as per documentation. Today, patient noted worsening right inguinal hernia pain after lunch. Last BM was yesterday. Patient consulted ER for worsening symptoms. Patient underwent emergent surgery for incarcerated right inguinal hernia. Kcentra administered preop prior to surgery in light of Eliquis intake. Hospitalist service requested to admit patient by General Surgery postop due to patient's chronic medical conditions. Patient unable to answer questions regarding chest pain, shortness of breath, new cough symptoms. Medical History as above Extensive superficial venous thrombus left graft saphenous vein during [facility] ER visit July 2021. No prior clot history as per records. Patient discharged on Eliquis Rx. 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 Allergies Allergy/AdvReac Type Severity Reaction Status Date / Time No Known Allergies Allergy Unknown Verified 12/28/21 17:37 Home Medications Medication Instructions Recorded Confirmed Type multivitamin 1 tab PO DAILY 06/03/21 12/28/21 History diclofenac sodium 1 % topical gel 2 g TOPICAL QID PRN 07/04/21 12/28/21 History apixaban 2.5 mg tablet (Eliquis) 2.5 mg PO BID #60 tab 07/08/21 12/28/21 Rx albumin, human 25 % 25 % 25 g IV WK 12/28/21 12/28/21 History intravenous solution furosemide 40 mg tablet 40 mg PO BID 12/28/21 12/28/21 History lactulose 10 gram/15 mL oral 15 ml PO TID 12/28/21 12/28/21 History solution rosuvastatin 20 mg tablet 20 mg PO DAILY 12/28/21 12/28/21 History spironolactone 100 mg tablet 100 mg PO BID 12/28/21 12/28/21 History Past Med/Surg History Medical History (Updated 12/28/21 @ 20:47 by Juan Gibson MD) Anxiety Cirrhosis GERD (gastroesophageal reflux disease) Hyperlipidemia Hypertension Right bundle branch block Surgical History History of colonoscopy x3 History of surgery of liver TIPS procedure 12/19/2021 History of surgery on arm torn ligament repair History of varicose vein stripping Family History Other Heart disease Social History Smoking Status: Current every day smoker Tobacco Type: Cigarettes Cigarettes Per Day: 3; Second Hand Exposure: No; Hx Alcohol Use: No Hx Substance Use: No Preferred Language: Nepalese Communication Ability: Effective Communication Tools: IPad Lesson Instructor Required: No Beliefs That Will Affect Care: None marital status: Current Living Situation: Alone Feels Safe at Home: Yes Assistive Devices: None and Glasses Review of Systems Review of Systems: Could not be reliably obtained secondary to sedation Physical Exam Physical Exam: GENERAL: uncomfortable, obese, obtunded, no respiratory distress SKIN: Normal color, warm HEENT: [place] palpebral conjunctivae, no ptosis, dry buccal mucosa NECK : Supple, short neck, no tenderness CHEST : Decreased breath sounds, occasional expiratory wheezes, no tenderness HEART : RRR, no obvious murmurs ABDOMEN: Some distention, minimal RLQ tenderness EXTREMITIES : Minimal LE swelling, no LE tenderness,no other conspicuous defo rmities noted NEUROLOGIC : Obtunded, no facial asymmetry, no other gross focality Results & Data Results & Data ([facility]) Vital Signs (Past 12 Hours) Vital Signs Temp Pulse Resp BP Pulse Ox 12/28/21 20:10 78 12 12/28/21 20:00 78 12 113/59 L 12/28/21 19:50 76 12 12/28/21 19:40 78 23 12/28/21 19:30 82 16 114/72 12/28/21 19:20 78 12 12/28/21 19:10 80 14 12/28/21 19:01 83 13 119/74 12/28/21 19:00 84 13 12/28/21 18:50 85 14 12/28/21 18:40 88 15 12/28/21 18:30 88 20 144/88 H 100 12/28/21 18:20 81 13 99 12/28/21 18:10 85 16 96 12/28/21 18:00 82 15 134/72 97 12/28/21 17:50 82 16 97 12/28/21 17:40 83 16 99 12/28/21 17:30 84 18 141/83 H 98 12/28/21 17:20 83 18 99 12/28/21 17:10 81 18 100 12/28/21 17:00 81 20 138/73 99 12/28/21 16:50 81 18 100 12/28/21 16:40 80 25 H 100 12/28/21 16:30 80 18 139/77 99 12/28/21 16:27 81 15 145/77 H 100 12/28/21 16:26 81 21 100 12/28/21 16:10 78 16 100 12/28/21 16:00 78 15 141/71 H 97 12/28/21 15:50 78 16 12/28/21 15:40 78 17 12/28/21 15:35 76 20 100 12/28/21 15:24 36.5 C 77 12 139/75 100 Laboratory Results Laboratory Results WBC 10.12 K/uL (4.8-10.8) 12/28/21 16:00 RBC 4.79 M/uL (4.7-6.1) 12/28/21 16:00 Hgb 16.7 g/dL (14.0-18.0) 12/28/21 16:00 POC Hgb 17.3 g/dl (14.0-18.0) 12/28/21 16:00 Hct 46.5 % (42-52) 12/28/21 16:00 POC Hct 51 % (42-52) 12/28/21 16:00 MCV 97.1 fL (80-100) 12/28/21 16:00 MCH 34.9 pg (25-34) H 12/28/21 16:00 MCHC 35.9 g/dL (32-36) 12/28/21 16:00 RDW Std Deviation 52.9 fL (36.4-46.3) H 12/28/21 16:00 RDW Coeff of Claire 14.9 % (11.5-14.5) H 12/28/21 16:00 Plt Count 145 K/uL (130-400) 12/28/21 16:00 MPV 9.9 fL (7.4-10.4) 12/28/21 16:00 Immature Gran % (Auto) 0.2 % 12/28/21 16:00 Neut % (Auto) 72.1 % 12/28/21 16:00 Lymph % (Auto) 13.5 % 12/28/21 16:00 Jones % (Auto) 12.5 % 12/28/21 16:00 Eos % (Auto) 1.2 % 12/28/21 16:00 Baso % (Auto) 0.5 % 12/28/21 16:00 Neut # (Auto) 7.29 K/uL (1.4-6.5) H 12/28/21 16:00 Lymph # (Auto) 1.37 K/uL (1.2-3.4) 12/28/21 16:00 Jones # (Auto) 1.27 K/uL (0.11-0.59) H 12/28/21 16:00 Eos # (Auto) 0.12 K/uL (0-0.5) 12/28/21 16:00 Baso # (Auto) 0.05 K/uL (0-0.2) 12/28/21 16:00 Immature Gran # (Auto) 0.02 K/uL (0.00-0.02) 12/28/21 16:00 PT 12.8 Seconds (9.0-12.0) H 12/28/21 17:46 INR 1.2 (0.9-1.1) H 12/28/21 17:46 POC Sodium 141 mmol/L (135-144) 12/28/21 16:00 Sodium 138 mmol/L (136-145) 12/28/21 16:00 POC Potassium 4.3 mmol/L (3.3-5.0) 12/28/21 16:00 Potassium 4.3 mmol/L (3.5-5.1) 12/28/21 16:00 POC Chloride 107 mmol/L (101-112) 12/28/21 16:00 Chloride 105 mmol/L (98-107) 12/28/21 16:00 Carbon Dioxide 20 mmol/L (21-32) L 12/28/21 16:00 POC Total CO2 22 mmol/L (24-31) L 12/28/21 16:00 Anion Gap 13 (3-11) H 12/28/21 16:00 POC Anion Gap 17.0 mmol/L (16-25) 12/28/21 16:00 POC BUN 29 mg/dl (7-18) H 12/28/21 16:00 BUN 24 mg/dl (6-23) H 12/28/21 16:00 Creatinine 1.33 mg/dl (0.6-1.4) 12/28/21 16:00 POC Creatinine 1.3 mg/dl (0.6-1.3) 12/28/21 16:00 Est Cr Clr Drug Dosing 75.5 ml/min 12/28/21 16:00 Est GFR ( Amer) 67.3 ml/min 12/28/21 16:00 Est GFR (Non-Af Amer) 58.1 ml/min 12/28/21 16:00 BUN/Creatinine Ratio 18.0 (10-20) 12/28/21 16:00 Glucose 114 mg/dl (70-99(Fasting)) H 12/28/21 16:00 POC Glucose (other) 117 mg/dl (70-99) H 12/28/21 16:00 Lactate 2.1 mmol/L (0.4-2.0) H* 12/28/21 17:46 Calcium 10.1 mg/dl (8.5-10.1) 12/28/21 16:00 POC Ioniz Calcium [place]hel[place] 1.19 mmol/l (1.12-1.32) 12/28/21 16:00 Total Bilirubin 1.7 mg/dl (0.2-1.0) H 12/28/21 16:00 AST 40 U/L (13-39) H 12/28/21 16:00 ALT 37 U/L (7-52) 12/28/21 16:00 Alkaline Phosphatase 133 U/L (34-104) H 12/28/21 16:00 Troponin I < 0.03 ng/ml (0-0.04) 12/28/21 16:00 Total Protein 7.7 gm/dl (6.0-8.3) 12/28/21 16:00 Albumin 4.2 gm/dl (3.4-5.0) 12/28/21 16:00 Globulin 3.5 gm/dl (2.5-4.0) 12/28/21 16:00 Albumin/Globulin Ratio 1.2 (0.9-2) 12/28/21 16:00 Lipase 33 U/L (11-82) 12/28/21 16:00 Urine Color Yellow 12/28/21 17:18 Urine Appearance Clear (Clear) 12/28/21 17:18 Urine pH 6.0 (4.5-7.5) 12/28/21 17:18 Ur Specific [place] 1.024 (1.000-1.030) 12/28/21 17:18 Urine Protein Negative (Negative) 12/28/21 17:18 Urine Glucose (UA) Negative (Negative) 12/28/21 17:18 Urine Ketones Negative (Negative) 12/28/21 17:18 Urine Blood Negative (Negative) 12/28/21 17:18 Urine Nitrite Negative (Negative) 12/28/21 17:18 Urine Bilirubin Negative (Negative) 12/28/21 17:18 Urine Urobilinogen Negative (Negative) 12/28/21 17:18 Ur Leukocyte Esterase Trace (Negative) H 12/28/21 17:18 Urine WBC (Auto) 1-5 /hpf (0-5) 12/28/21 17:18 Urine RBC (Auto) 0-4 /hpf (0-4) 12/28/21 17:18 U Hyaline Cast (Auto) 1-5 /lpf (0-5) 12/28/21 17:18 U Epithel Cells (Auto) 0-5 /lpf (0-5) 12/28/21 17:18 Urine Bacteria (Auto) 2+ (Negative) H 12/28/21 17:18 SARS-CoV-2, RNA, NAAT NEGATIVE (NEGATIVE) 12/28/21 17:45 Impressions Abdomen/Pelvis CT 12/28/21 16:09 CT abd pelvis IV con only CLINICAL HISTORY: diffuse abd pain, hx of recent TIPs, cr 1.3. Cirrhosis. TECHNIQUE: Helical axial images of the abdomen and pelvis were obtained and displayed. Automated dose lowering techniques and/or adjustment according to patient size were utilized for this exam. This exam was performed with intravenous contrast. COMPARISON: Comparison is made to CT abdomen pelvis 06/03/2021 FINDINGS: Lower chest: Cardiomegaly is again noted. Liver: Nodular contour of the liver is seen compatible with cirrhosis. A TIPS shunt is seen. Gallbladder and biliary tree: No calcified gallstones. Normal caliber wall. No intra- or extrahepatic biliary ductal dilation. Pancreas: Unremarkable, no focal lesions. Spleen: Unremarkable. Adrenals: Unremarkable. Kidneys and ureters: Multiple renal cysts are seen bilaterally. Bladder: Unremarkable. Reproductive organs: Prostatic calcifications are seen which may represent prior hemorrhage or granulomatous disease. Bowel: Diverticulosis is seen without evidence of diverticulitis. The appendix is normal. There is a loop of bowel in the previously noted right inguinal hernia. There is mild bowel wall thickening. No evidence of obstruction is seen. Lymph nodes Retroperitoneal: Subcentimeter shay hepatis nodes are noted. Mesenteric: Unremarkable. Pelvic: Unremarkable. Peritoneum: A small amount of ascites is seen. Vessels: Atherosclerotic calcifications are seen. Abdominal wall: Right inguinal hernia now contains a loop of bowel in addition to fluid. As mentioned above, there is prominence of the bowel wall. Bones: Degenerative changes in the visualized spine. IMPRESSION: 1. In the interval, a loop of bowel has entered the right inguinal hernia. There is bowel wall thickening and questionable vascular prominence. Although there is no obstruction, an ischemic process cannot be excluded, correlation with physical exam is suggested. 2. Cirrhosis and small ascites. TIPS shunt is in place. ACT 112: Negative or not required by law. Electronically signed by: Martell Zaldivar M.D. 12/28/2021 4:55 PM Diagnostic Findings Chest x-ray as per my interpretation atelectasis
--- NOTE | 2021-12-28 23:02 | Operative Report ---
PG Post Operative Report Pre & Post Diagnosis Operation Date: 12/28/21 19:00 Pre-Op Diagnosis: Incarcerated right inguinal hernia Post-Op Diagnosis: Incarcerated Indirect right inguino-scrotal hernia I identified the patient and participated in the time-out.: Yes Procedure Operation Date: 12/28/21 19:00 Actual Procedures p Open Incarcerated Right inguinal hernia repair with mesh (Right) - Ezequiel Sewell DO Surgeon Ezequiel Sewell DO Soldering Machine Feeder Rico Kat PA-C Estimated Blood Loss 20 Findings See Below Large Incarcerated Right indirect inguino-scrotal hernia Specimens Cord lipoma and hernia sac to pathology Drains None Anesthesia Type General Complications none Disposition Disposition: Recovery Room Indications 61 yo male with history of cirrhosis with an incarcerated right inguinal hernia Description of Procedure The patient was brought to the operating room and placed in the supine position. At this time he underwent General endotracheal anesthesia without any problems. His right groin was prepped and draped in the usual sterile fashion. He was given appropriate pre-operative antibiotics. His right inguinal hernia had spontaneously reduced upon induction of general anesthesia. A timeout was called. The procedure was verified as Open right inguinal hernia repair, possib le mesh, possible bowel resection, possible laparotomy. Surgical, anesthesia and nursing teams agreed and the procedure was begun. Using the traditional landmarks of the ASIS and pubic tubercle, a transverse incision was made over the midportion of the inguinal canal using a #15 blade scalpel after injection of 0.25% Marcaine with epinephrine to anesthetize the skin. The incision was carried down the the external oblique aponeurosis with electrocautery which was cleared off of any tissue. The external oblique aponeurosis was then incised using a #15 blade scalpel and opened inferiomedially through the external inguinal ring with Metzenbaum scissors taking care not to injure the ilioinguinal nerve. It was then opened superiolaterally as well. The posterior aspect of the external oblique was cleared bluntly and the spermatic cord was encircled at the pubic tubercle with a [place] drain. At this time a a large indirect inguinal scrotal hernia was noted. This was bluntly from the cord structures. The distal end of the hernia sac was then transected using electrocautery and left in place. Straw-colored ascites was then suctioned out of the hernia sac as thoroughly as possible. A high ligation of the remaining hernia sac was performed using an 0 Vicryl suture. The hernia sac was then passed off the specimen. A cord lipoma was excised and tied off using 2-0 Vicr yl, then passed off as specimen. A flat keyhole mesh was then sutured to the pubic tubercle medially, shelving edge of the inguinal ligament inferiorly and the conjoint tendon superiorly using simple interrupted 2-0 PDS. The tails of the mesh were loosely overlapped recreating the internal inguinal ring leaving adequate room for the cord structures to pass. The Maggie drain was removed. The incision was irrigated until clear. Hemostasis was achieved using electrocautery. Hemostasis was complete. At this time the external oblique aponeurosis was closed using a running 2-0 Vicryl taking care not to injure any structures beneath. Dinh's fascia was closed using interrupted 3-0 Vicryl and the skin was closed using 4-0 Monocryl in a running subcuticular fashion. Needle and sponge counts were correct x 2. Steri-strips and dressing were applied. Gentle traction was placed on the testicle to ensure its location in the scrotum. The patient was then awakened from anesthesia having remained stable throughout the entire case and transported to PACU in stable condition. The physician civil engineering assistant was present and scrubbed for the entirety of the case. He was essential in positioning prepping and draping the patient, retraction and exposure, closure of the incision and placement of the dressing. I attest to the content of the Intraoperative Record and any orders documented therein. Any exceptions are noted below.
[2021-12-28] MEDS ORDERED: LACTATED RINGER'S 1,000 ML IV SCH (23:16)
[2021-12-28] MEDS ORDERED: LACTATED RINGER'S 1,000 ML IV ONE (23:17)
[2021-12-28] MEDS ORDERED: XOPENEX/ATROVENT 1.25mg/0.5MG NEB COMBO NEB STA (23:41)
[2021-12-28] MEDS ORDERED: LEVALBUTEROL 1.25MG/0.5ML NEB INH STA (23:54)
[2021-12-28] MEDS ORDERED: IPRATROPIUM BROMIDE NEB SOLN 0.02% 2.5 ML VIAL INH STA (23:54)
--- NOTE | 2021-12-29 00:14 | Anesthesiology Progress Note ---
Date of Service December 29, 2021 Anesthesia Post Procedure Vital Signs Vital Signs: Temp Pulse Pulse Resp BP BP Pulse Ox 12/28/21 23:50 36.0 C L 86 13 128/75 98 12/28/21 23:45 35.7 C L 80 10 L 105/66 99 12/28/21 23:40 35.9 C L 68 12 132/82 99 12/28/21 23:35 70 11 L 141/72 H 98 12/28/21 23:30 85 12 134/87 97 12/28/21 23:25 78 10 L 135/83 100 12/28/21 23:20 35.4 C L 63 16 134/85 99 12/28/21 23:15 35.4 C L 85 12 137/77 99 12/28/21 20:10 78 12 12/28/21 20:00 78 12 113/59 L 12/28/21 19:50 76 12 12/28/21 19:40 78 23 12/28/21 19:30 82 16 114/72 12/28/21 19:20 78 12 12/28/21 19:10 80 14 12/28/21 19:01 83 13 119/74 12/28/21 19:00 84 13 12/28/21 18:50 85 14 12/28/21 18:40 88 15 12/28/21 18:30 88 20 144/88 H 100 12/28/21 18:20 81 13 99 12/28/21 18:10 85 16 96 12/28/21 18:00 82 15 134/72 97 12/28/21 17:50 82 16 97 12/28/21 17:40 83 16 99 12/28/21 17:30 84 18 141/83 H 98 12/28/21 17:20 83 18 99 12/28/21 17:10 81 18 100 12/28/21 17:00 81 20 138/73 99 12/28/21 16:50 81 18 100 12/28/21 16:40 80 25 H 100 12/28/21 16:30 80 18 139/77 99 12/28/21 16:27 81 15 145/77 H 100 12/28/21 16:26 81 21 100 12/28/21 16:10 78 16 100 12/28/21 16:00 78 15 141/71 H 97 12/28/21 15:50 78 16 03/27/22 15:40 78 17 12/28/21 15:35 76 20 100 12/28/21 15:24 36.5 C 77 12 139/75 100 Pain Intensity Abdomen: Pain Intensity: 2 Transfer of Care Handoff Completed per policy Notes Mental Status: alert / awake / arousable Patient Amnestic to Procedure: Yes Nausea / Vomiting: adequately controlled Pain: adequately controlled Airway Patency, RR, SpO2: stable & adequate BP & HR: stable & adequate Hydration State: stable & adequate Anesthetic Complications: no major complications apparent and Pt Satisfied with anesthetic care
[2021-12-29] MEDS ORDERED: ACETAMINOPHEN 325 MG TAB PO PRN (00:42)
[2021-12-29] MEDS ORDERED: ONDANSETRON INJ 2 MG/ML 2 ML VIAL IV PRN (00:42)
[2021-12-29] MEDS ORDERED: MoRPHine SULFATE 4 MG/ML 1 ML CARP\\VIAL IV PRN (00:42)
[2021-12-29 01:03] LABS: Basophils # (auto) 0.02 K/uL (0-0.2); Basophils % (auto) 0.2 %; Eosinophils # (auto) 0.01 K/uL (0-0.5); Eosinophils % (auto) 0.1 %; Hematocrit (blood only) 41.5 % (42-52); Hemoglobin 14.7 g/dL (14.0-18.0); Immature Granulocytes # (auto) 0.03 K/uL (0.00-0.02); Immature Granulocytes % (auto) 0.2 %; Lymphocytes # (auto) 0.55 K/uL (1.2-3.4); Lymphocytes % (auto) 4.2 %; Mean Corpuscular Hemoglobin 34.4 pg (25-34); Mean Corpuscular Hgb Conc 35.4 g/dL (32-36); Mean Corpuscular Volume 97.2 fL (80-100); Mean Platelet Volume 9.2 fL (7.4-10.4); Monocytes # (auto) 0.38 K/uL (0.11-0.59); Monocytes % (auto) 2.9 %; Neutrophils % (auto) 92.4 %; Platelet Count 126 K/uL (130-400); RDW Coefficient of Variation 14.8 % (11.5-14.5); RDW Standard Deviation 52.3 fL (36.4-46.3); Red Blood Count 4.27 M/uL (4.7-6.1); White Blood Count 13.09 K/uL (4.8-10.8)
[2021-12-29] MEDS ORDERED: traMADol HCL 50 MG TABLET PO PRN (01:10)
[2021-12-29] MEDS ORDERED: PROMETHAZINE HCL 12.5 MG in SODIUM CHLORIDE 0.9% 50 ML IV PRN (01:11)
[2021-12-29 01:22] LABS: Albumin Globulin Ratio 1.2 (0.9-2); Albumin Level 3.5 gm/dl (3.4-5.0); BUN Creatinine Ratio 21.6 (10-20); Bilirubin,Total 1.4 mg/dl (0.2-1.0); Calcium 9.5 mg/dl (8.5-10.1); Creatinine Clr Calc Pharmacy 90.4 ml/min; Est GFR (African American) 83.8 ml/min; Est GFR (Non-African American) 72.3 ml/min; Potassium 4.9 mmol/L (3.5-5.1); Total Protein 6.5 gm/dl (6.0-8.3)
--- NOTE | 2021-12-29 07:05 | XRay Report ---
XR chest 1V portable HISTORY: 61 years-old Male wheeze acute shortness of breath COMPARISON: CT abdomen and pelvis of same day, chest radiograph 08/27/2021 TECHNIQUE: Portable AP view of the chest FINDINGS: The cardiac silhouette is enlarged. No pneumothorax, pleural effusion, airspace consolidation or over t pulmonary edema. The bones of the chest appear grossly intact. IMPRESSION: No acute process. ACT 112: Negative or not required by law. The above report was generated using voice recognition software. It may contain grammatical, syntax o r spelling errors. Electronically signed by: Jm Blair M.D. 12/29/2021 7:04 AM
[2021-12-29 07:34] LABS: Estimated Average Glucose 120 mg/dl; Hemoglobin A1C 5.8 % (4.5-5.6)
[2021-12-29] MEDS: MULTIVITAMIN TAB PO SCH (08:32)
[2021-12-29] MEDS ORDERED: ROSUVASTATIN CALCIUM 20 MG TAB PO SCH (09:00)
[2021-12-29 09:25] LABS: BUN Creatinine Ratio 20.7 (10-20); Calcium 9.2 mg/dl (8.5-10.1); Est GFR (African American) 75.5 ml/min; Est GFR (Non-African American) 65.1 ml/min; Potassium 4.8 mmol/L (3.5-5.1)
--- NOTE | 2021-12-29 09:28 | Surgery Progress Note ---
Date of Service December 29, 2021 Assessment & Plan (1) Incarcerated right inguinal hernia: Plan: POD 1 hernia repair advance diet po analgesics continue to hold Eliquis seen with Dr. Sewell Admission and Anticipated Discharge Date Admission Date: December 28, 2021 Supervising Physician Co-Signing Physician Notes I personally saw and examined the patient with Lusi Fabian PA-C and agree with the assessment and plan. 61-year-old male postoperative day 1 open right inguinal hernia repair for incarcerated inguinal hernia, history of liver cirrhosis status post TIPS 2 weeks ago He is doing well postoperatively and tolerating clears Can advance diet as tolerated as there was no signs of obstruction on CT or in the operating room Continue to hold Eliquis for now If he continues to progress well he may be stable for discharge tomorrow Subjective no c/o Physical Exam Gastrointestinal (Abdomen): Inspection/Auscultation: + abdominal surgical incision (clean, dry dressing); abdomen not distended Results & Data ([facility]) Vital Signs (Past 12 Hours) Vital Signs Temp Pulse Pulse Resp BP Pulse Ox 12/29/21 07:50 36.7 C 77 18 103/66 97 12/29/21 03:31 36.8 C 79 20 106/67 96 12/29/21 02:29 36.5 C 80 16 99/64 L 97 12/29/21 01:40 76 14 104/68 96 12/29/21 01:03 36.7 C 83 20 108/69 96 12/29/21 00:30 36.8 C 85 12 114/71 98 12/28/21 23:55 36.1 C L 61 12 119/75 12/28/21 23:50 36.0 C L 86 13 128/75 98 12/28/21 23:45 35.7 C L 80 10 L 105/66 99 12/28/21 23:40 35.9 C L 68 12 132/82 99 12/28/21 23:35 70 11 L 141/72 H 98 12/28/21 23:30 85 12 134/87 97 12/28/21 23:25 78 10 L 135/83 100 12/28/21 23:20 35.4 C L 63 16 134/85 99 12/28/21 23:15 35.4 C L 85 12 137/77 99 PG Care Time/CCT Total # of Minutes Spent Total Time Spent with Patient: Total time spent is greater than 50% in coordination of care (as documented) at patient's floor/unit and/or counseling patient: Coding Level of Care Code None Diagnoses Incarcerated right inguinal hernia K40.30
[2021-12-29] MEDS: oxyCODONE HCL IR 5 MG TAB (IMMEDIATE RELEASE) PO PRN ×3 (11:41→22:02)
--- NOTE | 2021-12-29 12:16 | Electrocardiogram Report ---
Test Reason : Blood Pressure : / mmHG Vent. Rate : 077 BPM Atrial Rate : 077 BPM P-R Int : 178 ms QRS Dur : 140 ms QT Int : 468 ms P-R-T Axes : 012 -11 034 degrees QTc Int : 529 ms Normal sinus rhythm Right bundle branch block Abnormal ECG When compared with ECG of 07-JUL-2021 19:50, QRS duration has increased Borderline criteria for Lateral infarct are no longer Present Criteria for Inferior infarct are no longer Present Confirmed by Uche Bella ([id number]) on 12/29/2021 12:15:52 PM Referred By: REFERRED SELF Confirmed By:Uche Bella
--- NOTE | 2021-12-29 16:06 | Hospitalist Progress Note ---
Date of Service December 29, 2021 Assessment & Plan (1) Incarcerated right inguinal hernia: Plan: 61-year-old gentleman with PMH of hernia repair, alcoholic cirrhosis s/p TIPS (December 2021), HTN, HLD, lung nodule, superficial DVT on eliquis, prediabetes, chronic venous insufficiency s/p varicose vein surgery, past alcohol use, ongoing tobacco abuse presented to our ED 12/28 w/ c/o worsening right inguinal hernia pain after lunch. He is being managed for the following: #. Incarcerated indirect right inguino - scrotal hernia 4-month history of right-sided groin pain and swelling. Large right inguinal hernia on PCP exam. [place] [facility] [place] for evaluation of right inguinal and umbilical hernia --> reducible at the time per records. Presented with worsening right inguinal hernia pain after lunch on the day of arrival. Kcentra administered preop prior to surgery in light of Eliquis intake. Status post emergent open incarcerated right inguinal hernia repair with mesh by Dr. Ezequiel Sewell on 12/28/21. Postop hernia repair management as per general surgery --> Pain Mx, Diet, Anticoagulation. Pt reports pain under control, no BM after Sx. Reports eating Ok Caution w/ BP meds. Monitor vitals. #. Other chronic medical conditions: alcoholic cirrhosis status post TIPS (no overt decompensation), HTN, HLD, Lung nodule, Pre diabetes, Ongoing tobacco use C/w or resume home meds as and when appropriate lung nodule, stable size at 7 mm per outpatient pulmonology note from last year. Nicotine patch as needed SSI insulin when appropriate. #. History superficial DVT On Eliquis for around 5 months (07/2021) Resume eliquis when cleared by Sx. DVT prophylaxis. SCDs, Eliquis when cleared by Sx. Full code Disposition: likely zhang, when cleared by Surgery. Admission and Anticipated Discharge Date Admission Date: December 28, 2021 Subjective Patient seen and examined as a follow-up of incarcerated indirect right inguinal scrotal hernia status post open incarcerated right inguinal hernia repair with mesh by Dr. Ezequiel Sewell on 12/28/21. Patient was sitting up in bed, on room air, NAD, no new acute events overnight. Patient denies moving bowel after the surgery, reports eating okay, reports belly pain under control, denies headache/dizziness/chest pain/palpitation/acute changes in his bladder habits/other review of symptoms. Physical Exam Physical Exam: GENERAL: Alert and oriented x3. NAD, on RA. HEENT: No pallor, no icterus. Pupils equal, round and reactive to light. Oral mucosa moist. NECK: No JVD, no neck masses. HEART: S1 and S2 heard. Regular rate and rhythm. No murmur, no gallop. RESPIRATORY SYSTEM: Normal AP diameter. No accessory muscle use. No wheezing, no crackles. ABDOMEN: Soft, bowel sounds present, nontender, no distention. Umbilical hernia noted, clean dressing w/o soakage. CENTRAL NERVOUS SYSTEM: No facial droop. Speech is clear. Obeys simple commands. Moves extremities. EXTREMITIES: No edema, BLE Chr skin changes Results & Data Results & Data ([facility]) Vital Signs (Past 12 Hours) Vital Signs Temp Pulse Resp BP Pulse Ox 12/29/21 14:37 36.7 C 84 17 96/55 L 97 12/29/21 11:44 36.7 C 83 17 103/64 98 12/29/21 07:50 36.7 C 77 18 103/66 97
[2021-12-29] MEDS ORDERED: SODIUM CHLORIDE 0.9% 1000ML 1,000 ML IV ONE (19:22)
[2021-12-30] MEDS: oxyCODONE HCL IR 5 MG TAB (IMMEDIATE RELEASE) PO PRN ×3 (03:36→19:26)
[2021-12-30 07:38] LABS: Hematocrit (blood only) 35.5 % (42-52); Hemoglobin 12.2 g/dL (14.0-18.0); Mean Corpuscular Hemoglobin 33.3 pg (25-34); Mean Corpuscular Hgb Conc 34.4 g/dL (32-36); Mean Platelet Volume 9.7 fL (7.4-10.4); Platelet Count 111 K/uL (130-400); RDW Coefficient of Variation 14.7 % (11.5-14.5); RDW Standard Deviation 52.2 fL (36.4-46.3); Red Blood Count 3.66 M/uL (4.7-6.1); White Blood Count 15.12 K/uL (4.8-10.8)
[2021-12-30 08:08] LABS: BUN Creatinine Ratio 26.5 (10-20); Calcium 8.8 mg/dl (8.5-10.1); Creatinine Clr Calc Pharmacy 98.4 ml/min; Est GFR (African American) 92.8 ml/min; Est GFR (Non-African American) 80.1 ml/min; Magnesium 1.6 mg/dl (1.7-2.4); Phosphorus 3.8 mg/dl (2.5-4.9); Potassium 4.4 mmol/L (3.5-5.1)
[2021-12-30] MEDS: ROSUVASTATIN CALCIUM 10 MG TAB PO SCH (08:21)
[2021-12-30] MEDS: MULTIVITAMIN TAB PO SCH (08:21)
[2021-12-30] MEDS: MAGNESIUM SULFATE / D5W 1 GM/100 ML BAG IV SCH ×2 (09:30→11:35)
--- NOTE | 2021-12-30 09:36 | Surgery Progress Note ---
Date of Service December 30, 2021 Assessment & Plan (1) Incarcerated right inguinal hernia: Plan: Doing well postoperatively and tolerating a diet His pain is controlled He is stable for discharge home and can resume his Eliquis tomorrow morning He will follow-up with me in 2 weeks (2) Anticoagulated: (3) Abdominal ascites: Admission and Anticipated Discharge Date Admission Date: December 28, 2021 Subjective Patient seen and examined. He is eating without issue. Pain under control. Afebrile. Review of Systems Constitutional: no fever and no chills Eyes: no blind spots and no worsening vision Ear, Nose, Mouth, Throat: no ear pain and no hearing loss Respiratory: no cough and no dyspnea Cardiovascular: no chest pain and no dyspnea on exertion Gastrointestinal: + abdominal pain and + constipation; no nausea, no vomiting and no melena Genitourinary: no dysuria Musculoskeletal: no back pain and no neck pain Integumentary: no acne, no boil and no non-healing lesions Neurologic: no headache(s) Psychiatric: no behavioral changes and no depression Hematologic / Lymphatic: Positive Eliquis Physical Exam Gastrointestinal (Abdomen): Inspection/Auscultation: + abdominal surgical incision (clean, dry dressing); abdomen not distended Results & Data ([facility]) Vital Signs (Past 12 Hours) Vital Signs Temp Pulse Resp BP Pulse Ox 12/30/21 07:30 36.6 C 82 22 95/59 L 98 12/29/21 22:03 37.2 C 81 16 97/58 L 96 PG Care Time/CCT Total # of Minutes Spent Total Time Spent with Patient: Total time spent is greater than 50% in coordination of care (as documented) at patient's floor/unit and/or counseling patient: Coding Level of Care Code None Diagnoses Incarcerated right inguinal hernia K40.30 Anticoagulated Z79.01 Abdominal ascites R18.8
[2021-12-30] MEDS ORDERED: LACTULOSE SYRUP 20 GM/30 ML UDC PO ONE (12:31)
--- NOTE | 2021-12-30 13:45 | Hospitalist Progress Note ---
Date of Service December 30, 2021 Assessment & Plan (1) Incarcerated right inguinal hernia: Plan: 61-year-old gentleman with PMH of hernia repair, alcoholic cirrhosis s/p TIPS (December 2021), HTN, HLD, lung nodule, superficial DVT on eliquis, prediabetes, chronic venous insufficiency s/p varicose vein surgery, past alcohol use, ongoing tobacco abuse presented to our ED 12/28 w/ c/o worsening right inguinal hernia pain after lunch. He is being managed for the following: #. Incarcerated indirect right inguino - scrotal hernia 4-month history of right-sided groin pain and swelling. Large right inguinal hernia on PCP exam. [place] [facility] [place] for evaluation of right inguinal and umbilical hernia --> reducible at the time per records. Presented with worsening right inguinal hernia pain after lunch on the day of arrival. Kcentra administered preop prior to surgery in light of Eliquis intake. Status post emergent open incarcerated right inguinal hernia repair with mesh by Dr. Ezequiel Sewell on 12/28/21. Postop hernia repair management as per general surgery --> Pain Mx, Diet.OK to DC from their POV, resume anticoagulation zhang AM, f/u w/ them in 2 weeks. Pt reports pain under control, no BM after Sx. Reports eating Ok. Resuming home lactulose. Caution w/ BP meds. Monitor vitals. BP running on lower side. WBC elevated but procal negative, f/u CBC tomorrow. Pt afebrile continue to monitor, reassess tomorrow. #. Other chronic medical conditions: alcoholic cirrhosis status post TIPS (no overt decompensation), HTN, HLD, Lung nodule, Pre diabetes, Ongoing tobacco use C/w or resume home meds as and when appropriate lung nodule, stable size at 7 mm per outpatient pulmonology note from last year. Nicotine patch as needed SSI insulin when appropriate. #. History superficial DVT On Eliquis for around 5 months (07/2021) Resume eliquis tomorrow AM per Sx. DVT prophylaxis. SCDs, Eliquis when cleared by Sx. Full code Disposition: Likely DC zhang. Admission and Anticipated Discharge Date Admission Date: December 28, 2021 Subjective Patient seen and examined as a follow-up of incarcerated indirect right inguinal scrotal hernia status post open incarcerated right inguinal hernia repair with mesh by Dr. Ezequiel Sewell on 12/28/21. Patient was sitting up in bed, on room air, NAD, no new acute events overnight. Patient denies moving bowel after the surgery, reports eating okay, reports belly pain under control and is exacerbated by movement, denies headache/dizziness/chest pain/palpitation/acute changes in his bladder habits/other review of symptoms. Pt is running low blood pressure, his aldactone and lasix not able to be resumed so far. His eliquis to be resumed tomorrow per Sx. Pt asking for "liquid laxative" he takes at home. Will start his home lactulose. Talked with patient via fire patrol for around more than 20 minutes, answered all questions and he voiced understanding and agreeable to plan of care. Physical Exam Physical Exam: GENERAL: Alert and oriented x3. NAD, on RA. HEENT: No pallor, no icterus. Pupils equal, round and reactive to light. Oral mucosa moist. NECK: No JVD, no neck masses. HEART: S1 and S2 heard. Regular rate and rhythm. No murmur, no gallop. RESPIRATORY SYSTEM: Normal AP diameter. No accessory muscle use. No wheezing, no crackles. ABDOMEN: Soft, bowel sounds present, nontender, no distention. Umbilical hernia noted, clean dressing w/o soakage lower belly noted. Tender in the operative area. CENTRAL NERVOUS SYSTEM: No facial droop. Speech is clear. Obeys simple commands. Moves extremities. EXTREMITIES: No edema, BLE Chr skin changes Results & Data Results & Data ([facility]) Vital Signs (Past 12 Hours) Vital Signs Temp Pulse Resp BP Pulse Ox 12/30/21 07:30 36.6 C 82 22 95/59 L 98
[2021-12-30] MEDS: POLYETHYLENE (MIRALAX) 17 GM PACK PO SCH (13:50)
[2021-12-30] MEDS: LACTULOSE SYRUP 10 GM/15 ML BTL 960 ML PO SCH ×2 (14:40→19:50)
[2021-12-31] MEDS: oxyCODONE HCL IR 5 MG TAB (IMMEDIATE RELEASE) PO PRN ×3 (02:50→17:50)
[2021-12-31 07:57] LABS: Hematocrit (blood only) 35.3 % (42-52); Hemoglobin 12.5 g/dL (14.0-18.0); Mean Corpuscular Hemoglobin 34.1 pg (25-34); Mean Corpuscular Hgb Conc 35.4 g/dL (32-36); Mean Corpuscular Volume 96.2 fL (80-100); Mean Platelet Volume 9.8 fL (7.4-10.4); Platelet Count 120 K/uL (130-400); RDW Coefficient of Variation 14.9 % (11.5-14.5); RDW Standard Deviation 52.2 fL (36.4-46.3); Red Blood Count 3.67 M/uL (4.7-6.1); White Blood Count 13.29 K/uL (4.8-10.8)
[2021-12-31 08:26] LABS: BUN Creatinine Ratio 24.7 (10-20); Calcium 8.6 mg/dl (8.5-10.1); Creatinine Clr Calc Pharmacy 107.9 ml/min; Est GFR (African American) 103.8 ml/min; Est GFR (Non-African American) 89.5 ml/min; Magnesium 1.7 mg/dl (1.7-2.4); Potassium 4.2 mmol/L (3.5-5.1)
[2021-12-31] MEDS: LACTULOSE SYRUP 10 GM/15 ML BTL 960 ML PO SCH (11:22)
[2021-12-31] MEDS: MULTIVITAMIN TAB PO SCH (11:22)
[2021-12-31] MEDS: ROSUVASTATIN CALCIUM 10 MG TAB PO SCH (11:23)
[2021-12-31] MEDS: POLYETHYLENE (MIRALAX) 17 GM PACK PO SCH (11:23)
--- NOTE | 2021-12-31 11:47 | Surgery Progress Note ---
Date of Service December 31, 2021 Assessment & Plan (1) Incarcerated right inguinal hernia: Plan: POD#3 WBC 13 (15), VSS, afebrile Incision c/d/i Tolerating diet. Pain controlled Okay for discharge from our standpoint to home May resume Eliquis today F/U in clinic w/ Dr. Sewell in 1-2 weeks Pt seen/examined with Dr. Sewell Admission and Anticipated Discharge Date Admission Date: December 28, 2021 Subjective Patient feeling well. Using master scheduler. Tolerating diet, pain controlled. Physical Exam Physical Exam: awake/alert Gastrointestinal (Abdomen): incision c/d/i, no signs of infection. Results & Data ([facility]) Vital Signs (Past 12 Hours) Vital Signs Temp Pulse Resp BP Pulse Ox 12/31/21 07:43 36.6 C 72 16 105/66 97 PG Care Time/CCT Total # of Minutes Spent Total Time Spent with Patient: Total time spent is greater than 50% in coordination of care (as documented) at patient's floor/unit and/or counseling patient: Coding Level of Care Code None Diagnoses Incarcerated right inguinal hernia K40.30
[2021-12-31] MEDS ORDERED: LACTULOSE SYRUP 10 GM/15 ML BTL 960 ML PO SCH (14:00)
[2021-12-31] MEDS ORDERED: AMOXICILLIN 500 MG CAP PO SCH (15:00)
--- NOTE | 2021-12-31 15:42 | Hospitalist Progress Note ---
Date of Service December 31, 2021 Assessment & Plan (1) Incarcerated right inguinal hernia: Plan: 61-year-old gentleman with PMH of hernia repair, alcoholic cirrhosis s/p TIPS (December 2021), HTN, HLD, lung nodule, superficial DVT on eliquis, prediabetes, chronic venous insufficiency s/p varicose vein surgery, past alcohol use, ongoing tobacco abuse presented to our ED 12/28 w/ c/o worsening right inguinal hernia pain after lunch. He is being managed for the following: #. Incarcerated indirect right inguino - scrotal hernia - s/p emergent open incarcerated right inguinal hernia repair with mesh by Dr. Ezequiel Sewell on 12/28/21. Kcentra administered preop prior to surgery in light of Eliquis intake. - Seen by surgery- doing well, okay for discharge from surgical point- okay to resume eliquis. Activities per surgery. #. Alcoholic cirrhosis status post TIPS (no overt decompensation)- states he gets regular paracentesis. On lasix and aldactone. On lactulose which has been resumed. Will resume lasix and aldactone at lower dose with hold parameters as allowed by BP # Lung nodule- lung nodule, stable size at 7 mm per outpatient pulmonology note from last year. #. History superficial DVT- on eliquis since 07/2021. F/u with PCP for further management # Enterococcal UTI- sensitive to Pcn. Will start on amoxcillin D1/7. DVT prophylaxis. Eliquis Full code Disposition: Pending OT evaluation. Patient lives by himself at home. Admission and Anticipated Discharge Date Admission Date: December 28, 2021 Subjective Seen and examined at bedside with help of [place] pharmaceutical analyst over iPad. Pain is controlled. He is concerned if he has any infection. He states he has been ambulating okay but he can not put the socks on. He has not tried to dress or undress himself. He lives by himself at home after his a year ago from cancer. Tolerating regular diet without issues. Having regular bowel movements. No nausea, vomiting or fever. Physical Exam Physical Exam: General: Lying comfortably in bed, not in distress, on room air HEENT: EOMI, GENESIS, MMM Chest: Clear breath sounds bilaterally, no wheezes or crackles CVS: Regular rate and rhythm, normal heart sounds, no murmur Abdomen: Soft, non tender, not distended, normal bowel sounds, umbilical hernia + Right groin incision dry intact with some dry blood stain- no signs of infection Neuro: Awake, alert, oriented, conversing well, non focal Extremities: No cyanosis, clubbing or edema Results & Data Results & Data ([facility]) Vital Signs (Past 12 Hours) Vital Signs Temp Pulse Resp BP BP Pulse Ox 12/31/21 15:01 36.8 C 80 18 98/64 L 98 12/31/21 07:43 36.6 C 72 16 105/66 97 Laboratory Results Short CBC 12/31/21 Range/Units 07:35 WBC 13.29 H (4.8-10.8) K/uL Hgb 12.5 L (14.0-18.0) g/dL Hct 35.3 L (42-52) % Plt Count 120 L (130-400) K/uL BMP 12/31/21 07:35 Sodium 132 L Potassium 4.2 Chloride 104 Carbon Dioxide 23 BUN 23 Creatinine 0.93 Glucose 121 H Calcium 8.6 Medications Administered Current Inpatient Medications Acetaminophen (Acetaminophen 325 Mg Tab) 325 mg PO Q6H PRN PRN Reason: Mild Pain Stop: 01/28/22 00:41 Last Admin: 12/29/21 19:47 Dose: 325 mg Documented by: Amoxicillin (Amoxicillin 500 Mg Cap) 500 mg PO BIDM [facility] Stop: 01/05/22 14:59 Promethazine HCl 12.5 mg/ (Sodium Chloride) 50.5 mls @ 202 mls/hr IV Q6H PRN PRN Reason: Nausea And Vomiting Stop: 01/28/22 01:10 Lactulose (Lactulose Syrup 10 Gm/15 Ml Btl 960 Ml) 15 gm PO TID [facility] Stop: 01/29/22 13:59 Last Admin: 12/31/21 14:40 Dose: 15 gm Documented by: Morphine Sulfate (Morphine Sulfate 4 Mg/Ml 1 Ml Carp\Vial) 3 mg IV Q3H PRN PRN Reason: Pain Stop: 01/12/22 00:41 Multivitamins (Multivitamin Tab) 1 tab PO DAILY MARIELLA Stop: 01/28/22 08:59 Last Admin: 12/31/21 11:22 Dose: 1 tab Documented by: Ondansetron HCl (Ondansetron Inj 2 Mg/Ml 2 Ml Vial) 4 mg IV Q6H PRN PRN Reason: Nausea And Vomiting Stop: 01/28/22 00:41 Oxycodone HCl (Oxycodone Hcl Ir 5 Mg Tab (Immediate Release)) 5 mg PO Q4H PRN PRN Reason: Pain Stop: 01/12/22 09:23 Last Admin: 12/31/21 11:25 Dose: 5 mg Documented by: Polyethylene Glycol (Polyethylene (Miralax) 17 Gm Pack) 17 gm PO DAILY MARIELLA Stop: 01/29/22 12:44 Last Admin: 12/31/21 11:23 Dose: 17 gm Documented by: Rosuvastatin Calcium (Rosuvastatin Calcium 10 Mg Tab) 20 mg PO DAILY MARIELLA Stop: 01/29/22 08:59 Last Admin: 12/31/21 11:23 Dose: 20 mg Documented by: Tramadol HCl (Tramadol Hcl 50 Mg Tablet) 25 - 50 mg PO Q4H PRN PRN Reason: Pain Stop: 01/28/22 01:09 Last Admin: 12/29/21 08:32 Dose: 50 mg Documented by:
[2021-12-31] MEDS ORDERED: FUROSEMIDE 20 MG TAB PO SCH (17:00)
--- NOTE | 2021-12-31 17:51 | Discharge Summary ---
Date of Service December 31, 2021 Admission HPI Per Admitting Provider History obtained from General Surgery provider and records. Limited history from patient secondary to postop sedation and language barrier. Medical history significant for alcoholic cirrhosis status post TIPS, hyperten jose, hyperlipidemia, lung nodule, history superficial DVT on Eliquis, prediabetes, chronic venous insufficiency, past alcohol abuse, ongoing tobacco abuse. Last confinement [facility] December 2021 for overnight observation post elective TIPS procedure by IR. 4-month history of right-sided groin pain and swelling. Large right inguinal hernia on PCP exam. Patient seen by G surgery outpatient last week for evaluation of right inguinal and umbilical hernia. Lumps reducible at time of exam. Hernia repair at tertiary center recommended only on emergent basis such as incarceration due to patient's comorbidities as per documentation. Today, patient noted worsening right inguinal hernia pain after lunch. Last BM was yesterday. Patient consulted ER for worsening symptoms. Patient underwent emergent surgery for incarcerated right inguinal hernia. Kcentra administered preop prior to surgery in light of Eliquis intake. Hospitalist service requested to admit patient by General Surgery postop due to patient's chronic medical conditions. Patient unable to answer questions regarding chest pain, shortness of breath, new cough symptoms. Medical History as above Extensive superficial venous thrombus left graft saphenous vein during [facility] ER visit July 2021. No prior clot history as per records. Patient discharged on Eliquis Rx. 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 Admission Exam Per Admitting Provider GENERAL: uncomfortable, obese, obtunded, no respiratory distress SKIN: Normal color, warm HEENT: [place] palpebral conjunctivae, no ptosis, dry buccal mucosa NECK : Supple, short neck, no tenderness CHEST : Decreased breath sounds, occasional expiratory wheezes, no tenderness HEART : RRR, no obvious murmurs ABDOMEN: Some distention, minimal RLQ tenderness EXTREMITIES : Minimal LE swelling, no LE tenderness,no other conspicuous deformities noted NEUROLOGIC : Obtunded, no facial asymmetry, no other gross focality Principal Diagnosis Incarcerated indirect right inguinal hernia Discharge Exam General: Lying comfortably in bed, not in distress, on room air HEENT: EOMI, GENESIS, MMM Chest: Clear breath sounds bilaterally, no wheezes or crackles CVS: Regular rate and rhythm, normal heart sounds, no murmur Abdomen: Soft, non tender, not distended, normal bowel sounds, umbilical hernia + Right groin incision dry intact with some dry blood stain- no signs of infection Neuro: Awake, alert, oriented, conversing well, non focal Extremities: No cyanosis, clubbing or edema Discharge Data Allergies Allergy/AdvReac Type Severity Reaction Status Date / Time No Known Allergies Allergy Unknown Verified 12/28/21 17:37 Consultations 12/28/21 18:54 ED Decision to Admit Stat 12/29/21 10:34 Consult General Surgery Routine Procedures Performed Operation Date: 12/28/21 19:00 Actual Procedures p Incarcerated Right Inguinal Hernia Repair with mesh(Right) - Ezequiel Sewell, Ordered Studies 12/28/21 16:09 CT abd pelvis IV con only Stat Hospital Course (1) Incarcerated right inguinal hernia: 61-year-old gentleman with PMH of hernia repair, alcoholic cirrhosis s/p TIPS (December 2021), HTN, HLD, lung nodule, superficial DVT on eliquis, prediabetes, chronic venous insufficiency s/p varicose vein surgery, past alcohol use, ongoing tobacco abuse presented to our ED 12/28 w/ c/o worsening right inguinal hernia pain after lunch. He was managed for the following: #. Incarcerated indirect right inguino - scrotal hernia - s/p emergent open incarcerated right inguinal hernia repair with mesh by Dr. Ezequiel Sewell on 12/28/21. Kcentra administered preop prior to surgery in light of Eliquis intake. - Seen by surgery- doing well, okay for discharge from surgical point- okay to resume eliquis. Activities per surgery. Tolerating diet well, had BM, ambulating without issues. F/u with surgery in 2 weeks. #. Alcoholic cirrhosis status post TIPS (no overt decompensation)- states he gets regular paracentesis. Continue home lactulose, lasix, aldactone. F/u with his planning associate # Lung nodule- lung nodule, stable size at 7 mm per outpatient pulmonology note from last year.F/u with pulmonology #. History superficial DVT- on eliquis since 07/2021. Continue. F/u with PCP for further management # Enterococcal UTI- sensitive to Pcn. Being discharged on a course of amoxcillin. Patient has been ambulating fine without issues. Consulted OT but patient was anxious to leave and did not want to wait for OT. He is also not sure if he would want people coming at his home and is concerned about cost too. He states he has neighbors and friends who will help him with his groceries, meals and other help as needed while he recovers from his surgery. He is comfortable and stable for discharge. Total Time Total Time Spent Total Time Spent (In Minutes): 45 Discharge Plan Discharge Items Patient Disposition: Home - Self-Care Reason For Visit: HERNIA Discharge Diagnosis: Repair incarcerated right inguinal hernia Activity: As commented below Lifting: No more than 10 pounds Bathing Comment: ok to shower Exercise/Sports: Wait until after follow-up appointment Driving/Machine Use: in 1 week Non-emergency contact: Surgeon Call non-emergency contact if: you have any medication questions, your pain is not controlled, you have a fever, your temperature is above 101.5 and your wound has increased redness Follow-up/Referrals: Ezequiel Sewell DO [Physician] - 01/12/22 8:30 am (Please call to make an appointment in 2 weeks) Jovani Chávez MD [Primary Care Provider] - 01/05/22 9:00 am (Date & Time 01/05/2022 9:00 AM Provider Jovani Chávez MD Department Family Practice [facility] ) Diet: Regular Addtl Attending Provider Instructions: We have started you on amoxicillin twice daily for the urine infection. cupola tapper from the pharmacy. You can resume your home medications from tomorrow Follow up with the surgeon and family doctor Pending Studies at Discharge: No Stand-Alone Forms: My [employer], Smoking Cessation Medications and DC Order Prescriptions: New oxycodone-acetaminophen [Percocet] 5-325 mg tablet 1 - 2 tab PO Q4H PRN (Reason: pain, initial therapy, max 6 daily) Qty: 15 RF: 0 amoxicillin 875 mg tablet 875 mg PO BID Qty: 14 RF: 0 Continued diclofenac sodium 1 % Gel 2 g TOPICAL QID PRN (Reason: Pain) RF: 0 albumin, human 25 % 25 % Parenteral Solution 25 g IV WK RF: 0 rosuvastatin 20 mg Tablet 20 mg PO DAILY RF: 0 furosemide 40 mg tablet 40 mg PO BID RF: 0 spironolactone 100 mg tablet 100 mg PO BID RF: 0 lactulose 10 gram/15 mL solution 15 ml PO TID RF: 0 multivitamin Tablet 1 tab PO DAILY RF: 0 Eliquis 2.5 mg tablet 2.5 mg PO BID Qty: 60 RF: 0 Discharge Orders: Discharge Order (Routine); Ordered 12/31/21 Ordered By: Zheng Knott Admission Data Admit Date/Time: 12/28/21 23:05 Attending Provider: Ezequiel Sewell Admit Provider: Harman Burkett Primary Care Provider: Jovani Chávez Other Providers: Zheng Knott
[2021-12-31] MEDS ORDERED: SPIRONOLACTONE 25 MG TAB PO SCH (21:00)
[2021-12-31] MEDS ORDERED: APIXABAN 2.5 MG TAB PO SCH (21:00)
== END 2021-12-31 18:50 | disposition home or self-care (01) | DRG 351 ==
LOC: ED 15:16 → ASU 20:20 → 3N 23:05 → SUATTDRO 23:05 → 3N 12-30 20:16

== ENCOUNTER 2023-11-11 22:48 | Inpatient (IN) ==
[2023-11-12 00:11] LABS: INR 1.2 (0.9-1.1); Partial Thromboplastin Time 28 Seconds (21-31); Prothrombin Time 13.5 Seconds (9.0-12.0)
[2023-11-12 00:20] LABS: Albumin Globulin Ratio 0.9 (0.9-2); Albumin Level 2.8 gm/dl (3.4-5.0); Basophils # (auto) 0.06 K/uL (0.00-0.20); Basophils % (auto) 0.7 %; Bilirubin,Total 2.2 mg/dl (0.2-1.0); Calcium 8.4 mg/dl (8.6-10.3); Creatinine Clr Calc Pharmacy 110.4 ml/min; Eosinophils # (auto) 0.02 K/uL (0.00-0.50); Eosinophils % (auto) 0.2 %; Est GFR (African American) 106.5 ml/min; Est GFR (Non-African American) 91.9 ml/min; Globulin 3.2 gm/dl (2.5-4.0); Hematocrit (blood only) 22.9 % (42.0-52.0); Hemoglobin 7.6 g/dl (14.0-18.0); Immature Granulocytes # (auto) 0.03 K/uL (0.01-0.20); Immature Granulocytes % (auto) 0.3 %; Lymphocytes # (auto) 0.65 K/uL (1.20-3.40); Lymphocytes % (auto) 7.5 %; Magnesium 1.9 mg/dl (1.7-2.4); Mean Corpuscular Hemoglobin 37.4 pg (25.0-34.0); Mean Corpuscular Hgb Conc 33.2 g/dL (32.0-36.0); Mean Corpuscular Volume 112.8 fL (80.0-100.0); Mean Platelet Volume 9.7 fL (9.4-12.4); Monocytes # (auto) 0.68 K/uL (0.11-0.59); Monocytes % (auto) 7.9 %; Neutrophils # (auto) 7.17 K/uL (1.40-6.50); Neutrophils % (auto) 83.4 %; Platelet Count 161 K/uL (130-400); Potassium 3.9 mmol/L (3.5-5.1); RDW Coefficient of Variation 15.4 % (11.5-14.5); Red Blood Count 2.03 M/uL (4.70-6.10); White Blood Count 8.61 K/ul (4.8-10.8)
[2023-11-12 00:29] LABS: Troponin I High Sensitivity 56.5 pg/ml (0-20)
[2023-11-12] MEDS ORDERED: SODIUM CHLORIDE 0.9% 250 ML IV PRN (00:29)
[2023-11-12 00:36] LABS: Thyroid Stimulating Hormone 0.725 uIu/ml (0.300-4.500)
[2023-11-12 00:43] LABS: Macrocytosis Present
[2023-11-12] MEDS: cefTRIAXone SODIUM 2,000 MG/50 ML BAG IV STA (02:05)
[2023-11-12] MEDS: THIAMINE HCL 100 MG in SYRINGE 9 ML IV STA (02:19)
[2023-11-12] MEDS: PANTOprazole 80 MG in DEXTROSE 5% 100 ML IV STA (02:20)
[2023-11-12] MEDS: LACTULOSE SYRUP 30 GM/45 ML UDP PO STA ×2 (02:52→05:48)
[2023-11-12 02:54] LABS: Troponin I High Sensitivity 91.6 pg/ml (0-20)
--- NOTE | 2023-11-12 03:52 | CT Scan Report ---
Exam(s): CT HEAD Without Contrast EXAM: CT Head Without Intravenous Contrast CLINICAL HISTORY: Reason for exam: trauma. TECHNIQUE: Axial computed tomography images of the head/brain without intravenous contrast. CTDI is 37.32 mGy and DLP is 624.41 mGy-cm. Automated exposure control was utilized for the study. A dose lowering technique was utilized adhering to the principles of ALARA. COMPARISON: Comparison made to prior head CT from October 22, 2023. FINDINGS: Brain: Unremarkable. No hemorrhage. No significant white matter disease. No edema. There is a tiny calcification in a right posterior frontal lobe sulcus. Ventricles: Moderate ventriculomegaly Bones/joints: Unremarkable. No acute fracture. Soft tissues: Unremarkable. Sinuses: Unremarkable as visualized. No acute sinusitis. Mastoid air cells: Unremarkable as visualized. No mastoid effusion. IMPRESSION: No evidence of acute intracranial pathology. Electronically signed by: Griselda Lozano MD 11/12/23 03:51 AM
--- NOTE | 2023-11-12 04:12 | History & Physical Report ---
Date of Service November 12, 2023 Assessment & Plan (1) Decompensated hepatic cirrhosis: Plan: hx alcoholic cirrhosis status post TIPS Hepatic encephalopathy UGIB, PUD/GERD/ portal hypertensive gastropathy as per records Acute on chronic anemia secondary to UGIB Troponin elevation secondary to illness, tachycardia on admission Abdominal distention/pain rule out SBP, pancreatitis hypertension, BP on the lower side hyperlipidemia on statin Rx Alcoholic hepatitis, good prognosis with computed Maddrey DF score of 9 point History superficial DVT on Eliquis DM2 diet-controlled, well-controlled as of hemoglobin A1c of 5.04 April 2023 Functional disability, patient neighbors have concerns regarding patient ability to live independently ongoing tobacco/alcohol abuse. Medical telemetry Facilitate lactulose IV PPI for UGIB Add NSAID to patient allergy list IV ceftriaxone for SBP prophylaxis in the setting of UGIB in a cirrhotic patient GI consult re: UGIB, hepatic encephalopathy N.p.o. until patient seen by GI in anticipation of endoscopy. Follow H&H, transfuse PRBC if hemoglobin less than 7 and or for symptomatic anemia CT abdomen pelvis Re: Abdominal distention/pain in a cirrhotic patient Diagnostic/therapeutic paracentesis if ascites noted on exam Follow troponin, TTE if with progression CARMELA S at risk protocol, DT precautions ISS BG goal 1 10-1 40, update hemoglobin A1c PT OT eval once medically stable Social service re: possible placement if patient amenable Important for patient to understand with help of [place] precision layout worker importance of alcohol cessation, requisite care for chronic liver disease, likely need for supervised care on discharge. Palliative care consultation to discuss goals of care may be an option if patient refuses to comply with recommendations. Nicotine patch as needed DVT prophylaxis. SCDs RE UGIB Full code Text document was generated using [employer] voice recognition software. It may contain grammatical or spelling errors. Kindly contact undersigned for clarification of any documentation item in question. History of Present Illness Chief Complaint: Confusion as per patient neighbor Primary Care Provider: Jovani Chávez MD History obtained from patient neighbors, ED provider and records. Limited history from patient secondary to patient confusion and language barrier. Medical history significant for alcoholic cirrhosis status post TIPS, PUD/GERD as per records, hypertension, hyperlipidemia, NICO, lung nodule, past history superficial DVT status post Eliquis, DM2 diet-controlled, chronic venous insufficiency, chronic anemia (baseline hemoglobin 9-10 following [facility] confinement last month), ongoing tobacco/alcohol abuse. Last [facility] confinement December 2021 for incarcerated right inguinal hernia status post surgery. Recent [facility] [place] October 23-2023 under Trauma Surgery service for multiple left rib fractures/head trauma/right periorbital hematoma/thoracolumbar compression fracture/right humeral fracture secondary to fall at home in the setting of alcohol abuse following [facility] ER transfer. No operative intervention for bony injuries. Sling recommended for right shoulder injury. Brimonidine recommended by ophthalmology service for elevated IOP of the right eye posttrauma. P Patient completed amoxicillin Rx for Enterococcus UTI. Outpatient [facility] PCP follow-up last November 02. Patient mentioned dark tarry stools as per documentation. Patient unable to follow-up with [facility] specialist due to lack of transportation. PCP to arrange for follow-up with local specialists. Outpatient case packer and sealer recommended home health due to patient having no one to help him at home. Office of Aging quality audit representative present during visit due to concerns for patient need for protective services. Patient complaining of achy abdominal pain since last week as per neighbor. Increasing abdominal distention as per neighbor. Not sure if patient taking ibuprofen prescribed by PCP. Patient falling at home as per neighbor. Patient noted to be increasingly confused the last couple of days. Neighbor not sure if patient taking home meds like he should. Patient found by neighbor at home last night on the ground. Patient lethargic. Patient unable to answer questions regarding headache, chest pain, SOB, abdominal pain. Heme positive melanotic stools documented at the ER. 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, [employer] of [employer] [facility], lives alone, closest family is neighbor Allergies Allergy/AdvReac Type Severity Reaction Status Date / Time ibuprofen AdvReac Intermediate ugib Verified 11/12/23 05:57 Home Medications Medication Instructions Recorded Confirmed Type diclofenac sodium 1 % topical gel 2 - 4 g topical QID PRN Pain 07/04/21 11/12/23 History lactulose 10 gram/15 mL oral 15 ml PO TID 12/28/21 11/12/23 History solution sildenafil 100 mg tablet 50 - 100 mg PO DAILY PRN Sexual 10/22/23 11/12/23 History Activity bacitracin zinc 500 unit/gram 1 applic topical DAILY 11/12/23 11/12/23 History topical ointment brimonidine 0.2 % eye drops 1 drp OPR BID 11/12/23 11/12/23 History carisoprodol 350 mg tablet 350 mg PO Q6H PRN MUSCLE SPASMS 11/12/23 11/12/23 History docusate sodium 100 mg capsule 100 mg PO BID 11/12/23 11/12/23 History ibuprofen 600 mg tablet 600 mg PO TID 11/12/23 11/12/23 History oxycodone 5 mg tablet 5 mg PO Q4H PRN Pain 11/12/23 11/12/23 History pantoprazole 20 mg tablet,delayed 20 mg PO DAILY 11/12/23 11/12/23 History release vit no.95-ferrous 1 tab PO DAILY 11/12/23 11/12/23 History fumarate 28 mg-folic acid 800 mcg tablet () Past Med/Surg History Medical History Right bundle branch block Hypertension Hyperlipidemia Depression Alcoholism Tobacco abuse, in remission HTN (hypertension) NICO (obstructive sleep apnea) GERD (gastroesophageal reflux disease) Anxiety Elevated LFTs Anxiety GERD (gastroesophageal reflux disease) Cirrhosis Surgical History H/O right inguinal hernia repair (12/28/21) Open Incarcerated Right inguinal hernia repair with mesh (Right) - Ezequiel Sewell DO 12/28/2021 History of varicose vein stripping History of surgery on arm torn ligament repair History of colonoscopy x3 History of surgery of liver TIPS procedure 12/19/2021 Family History Other Heart disease Social History Smoking Status: Current every day smoker Tobacco Type: Cigarettes Cigarettes Per Day: 4; Second Hand Exposure: No; Do You Dip or Chew Tobacco: No; Hx Alcohol Use: Yes Alcohol type: wine Hx Substance Use: No Preferred Language: Rwandan Communication Ability: Effective Communication Tools: IPad Locker Attendant Required: Yes Beliefs That Will Affect Care: None marital status: Current Living Situation: Alone Feels Safe at Home: Yes Safety Concerns: Feels Safe At This Time Assistive Devices: None Review of Systems Review of Systems: Could not be reliably obtained secondary to obtunded state Physical Exam Physical Exam: GENERAL: obese, obtunded, no respiratory distress SKIN: Pallor, warm HEENT: Pale palpebral conjunctivae, no ptosis, dry buccal mucosa NECK : Supple, short neck, no tenderness CHEST : Decreased breath sounds, minimal left chest wall tenderness tenderness HEART : RRR, no obvious murmurs ABDOMEN: Some distention, minimal epigastric tenderness EXTREMITIES : Minimal LE swelling, no LE tenderness, RUE sling NEUROLOGIC : Obtunded, no facial asymmetry, gait and stance not assessed Results & Data Results & Data Vital Signs (Past 12 Hours) Vital Signs Temp Pulse Pulse Resp BP BP Pulse Ox 11/12/23 03:32 80 11/12/23 03:30 79 23 108/59 L 100 11/12/23 03:00 98 H 19 134/68 100 11/12/23 02:30 84 16 116/61 98 11/12/23 02:13 81 16 106/65 100 11/12/23 02:00 87 15 99 11/12/23 02:00 81 20 99 11/12/23 01:00 85 14 96 11/12/23 00:17 88 20 125/73 99 11/12/23 00:16 95 H 16 125/73 100 11/11/23 23:52 94 H 16 100 11/11/23 23:52 100 11/11/23 23:33 82 11/11/23 23:02 36.8 C 18 113/64 96 11/11/23 22:42 108 H 20 99 O2 Del Method 11/12/23 03:32 11/12/23 03:30 11/12/23 03:00 11/12/23 02:30 11/12/23 02:13 11/12/23 02:00 11/12/23 02:00 Room Air 11/12/23 01:00 11/12/23 00:17 Room Air 11/12/23 00:16 11/11/23 23:52 Room Air 11/11/23 23:52 Room Air 11/11/23 23:33 11/11/23 23:02 Room Air 11/11/23 22:42 Room Air Laboratory Results Laboratory Results WBC 8.61 K/ul (4.8-10.8) 11/11/23 23:20 RBC 2.03 M/uL (4.70-6.10) L 11/11/23 23:20 Hgb 7.6 g/dl (14.0-18.0) L 11/11/23 23:20 Hct 22.9 % (42.0-52.0) L 11/11/23 23:20 MCV 112.8 fL (80.0-100.0) H 11/11/23 23:20 MCH 37.4 pg (25.0-34.0) H 11/11/23 23:20 MCHC 33.2 g/dL (32.0-36.0) 11/11/23 23:20 RDW Std Deviation 64.0 fL (36.4-46.3) H 11/11/23 23:20 RDW Coeff of Claire 15.4 % (11.5-14.5) H 11/11/23 23:20 Plt Count 161 K/uL (130-400) 11/11/23 23:20 MPV 9.7 fL (9.4-12.4) 11/11/23 23:20 Immature Gran % (Auto) 0.3 % 11/11/23 23:20 Neut % (Auto) 83.4 % 11/11/23 23:20 Lymph % (Auto) 7.5 % 11/11/23 23:20 Harmon % (Auto) 7.9 % 11/11/23 23:20 Eos % (Auto) 0.2 % 11/11/23 23:20 Baso % (Auto) 0.7 % 11/11/23 23:20 Neut # (Auto) 7.17 K/uL (1.40-6.50) H 11/11/23 23:20 Lymph # (Auto) 0.65 K/uL (1.20-3.40) L 11/11/23 23:20 Harmon # (Auto) 0.68 K/uL (0.11-0.59) H 11/11/23 23:20 Eos # (Auto) 0.02 K/uL (0.00-0.50) 11/11/23 23:20 Baso # (Auto) 0.06 K/uL (0.00-0.20) 11/11/23 23:20 Immature Gran # (Auto) 0.03 K/uL (0.01-0.20) 11/11/23 23:20 Macrocytosis Present 11/11/23 23:20 PT 13.5 Seconds (9.0-12.0) H 11/11/23 23:20 INR 1.2 (0.9-1.1) H 11/11/23 23:20 APTT 28 Seconds (21-31) 11/11/23 23:20 PTT Ratio 1.0 11/11/23 23:20 Sodium 137 mmol/L (136-145) 11/11/23 23:20 Potassium 3.9 mmol/L (3.5-5.1) 11/11/23 23:20 Chloride 108 mmol/L (98-107) H 11/11/23 23:20 Carbon Dioxide 19 mmol/L (21-32) L 11/11/23 23:20 Anion Gap 10 (3-11) 11/11/23 23:20 BUN 18 mg/dl (6-23) 11/11/23 23:20 Creatinine 0.90 mg/dl (0.6-1.4) 11/11/23 23:20 Est Cr Clr Drug Dosing 110.4 ml/min 11/11/23 23:20 Est GFR ( Amer) 106.5 ml/min 11/11/23 23:20 Est GFR (Non-Af Amer) 91.9 ml/min 11/11/23 23:20 BUN/Creatinine Ratio 20.0 (10-20) 11/11/23 23:20 Glucose 130 mg/dl (70-99(Fasting)) H 11/11/23 23:20 Calcium 8.4 mg/dl (8.6-10.3) L 11/11/23 23:20 Magnesium 1.9 mg/dl (1.7-2.4) 11/11/23 23:20 Total Bilirubin 2.2 mg/dl (0.2-1.0) H 11/11/23 23:20 AST 45 U/L (13-39) H 11/11/23 23:20 ALT 31 U/L (7-52) 11/11/23 23:20 Alkaline Phosphatase 133 U/L (34-104) H 11/11/23 23:20 Ammonia 149.0 umol/L (18-72) H 11/12/23 02:10 Total Creatine Kinase 107 U/L (30-223) 11/11/23 23:20 Troponin I High Sens 91.6 pg/ml (0-20) H* D 11/12/23 02:10 Total Protein 6.0 gm/dl (6.0-8.3) 11/11/23 23:20 Albumin 2.8 gm/dl (3.4-5.0) L 11/11/23 23:20 Globulin 3.2 gm/dl (2.5-4.0) 11/11/23 23:20 Albumin/Globulin Ratio 0.9 (0.9-2) 11/11/23 23:20 TSH 0.725 uIu/ml (0.300-4.500) 11/11/23 23:20 Ethyl Alcohol mg/dL < 10.0 mg/dl (<10.0) 11/12/23 02:10 Blood Type O Positive 11/11/23 23:20 Antibody Screen NEGATIVE 11/11/23 23:20 Crossmatch See Detail 11/11/23 23:[address] 11/12/23 01:17 Exam(s): CT HEAD Without Contrast EXAM: CT Head Without Intravenous Contrast CLINICAL HISTORY: Reason for exam: trauma. TECHNIQUE: Axial computed tomography images of the head/brain without intravenous contrast. CTDI is 37.32 mGy and DLP is 624.41 mGy-cm. Automated exposure control was utilized for the study. A dose lowering technique was utilized adhering to the principles of ALARA. COMPARISON: Comparison made to prior head CT from October 22, 2023. FINDINGS: Brain: Unremarkable. No hemorrhage. No significant white matter disease. No edema. There is a tiny calcification in a right posterior frontal lobe sulcus. Ventricles: Moderate ventriculomegaly Bones/joints: Unremarkable. No acute fracture. Soft tissues: Unremarkable. Sinuses: Unremarkable as visualized. No acute sinusitis. Mastoid air cells: Unremarkable as visualized. No mastoid effusion. IMPRESSION: No evidence of acute intracranial pathology. Electronically signed by: Griselda Lozano MD 11/12/23 03:51 AM Diagnostic Findings EKG as per my interpretation : Rate 90, NSR, normal axis, RBBB, T wave abnormalities inferior leads
[2023-11-12] MEDS ORDERED: PROMETHAZINE HCL 12.5 MG in SODIUM CHLORIDE 0.9% 50 ML IV PRN (04:19)
[2023-11-12] MEDS: OPTIRAY 320 500ml IV ONE (04:40)
--- NOTE | 2023-11-12 04:49 | Emergency Department Note ---
Impression & Plan AMS (altered mental status), Fall ED Provider Note CHIEF COMPLAINT: Syncope, found down HISTORY OF PRESENT ILLNESS: This 63-year-old male patient past medical history of recent fall with rib fractures and right humeral head fracture, transferred to [facility] and admitted. Patient discharged home to self. Presents to the emergency department after being found down. The patient did not require any CPR or medications. He is awake, but not cooperative with speech or assembler tester. He does speak Venezuelan primarily. He does live at home by himself, neighbors with the first to find him. REVIEW OF SYSTEMS: A review of systems was performed with positives and pertinent negatives listed in the history of present illness. 10 systems were reviewed and are otherwise negative. ALLERGIES: see below MEDICATIONS: see below PMH: see below SOCIAL HISTORY: see below DDx: Marianela-Whitten tear, esophagitis, peptic ulcer disease, variceal bleed, gastritis, as well as other pathologies. PHYSICAL EXAM: Vital signs reviewed. General: Well-appearing 63-year-old male, in no significant distress. HEENT: No scleral icterus, PERRLA, neck supple. moist mucous membranes Cardiovascular: Regular rate and rhythm, no extra sounds. Pulmonary: Clear to auscultation bilaterally, normal work of breathing. Abdomen: Soft, nontender, nondistended, positive bowel sounds. Musculoskeletal: Right arm malpositioned in a sling. Atraumatic, no peripheral edema. Rectal: Grossly positive blood with small clots. Normal rectal mucosa Neurologic: Patient somnolent but arousable. Speaks in Venezuelan, but seems to respond to Swiss. Does not converse with the [place]an assembler tester. Cranial nerves II through XII are grossly intact. Withdraws to painful stimuli. Skin: Warm, dry, no rash EMERGENCY DEPARTMENT COURSE/MDM: This patient was evaluated and appeared to be in no significant distress. IV access was obtained and laboratory work was drawn. The patient was placed on the telemetry monitor and noted to be in a NSR. Patient was very difficult to examine, seemingly not responding verbally. It is difficult to know if this is related to his speech/language issue or medical etiology such as an intracranial process or metabolic derangement. The language line was used for interpretation however patient was only intermittently responding. CT imaging of the head was performed and is negative for acute intracranial process. Patient's laboratory work is notable for a hemoglobin of 7.6. Stool guaiac was performed and is positive. Patient was typed and crossed for 2 units of PRBCs to hold. Case was discussed with Dr. Francois of the hospitalist service for further management. MONITORING: Patient was placed on the telemetry monitor and noted to be in normal sinus rhythm at 84 bpm. EKG: To my interpretation reveals normal sinus rhythm [address] segments. Right bundle branch block with QTc of 533. No PVC, no PAC. RADIOLOGY: Chest x-ray to my interpretation reveals no focal lung consolidation or failure. Possible cardiomegaly. Otherwise refer to radiology's over read. Head CT to my interpretation reveals no evidence of acute intracranial abnormality. Otherwise defer to radiology's over read. DISPOSITION: Admission Past Med/Surg History Medical History Right bundle branch block Hypertension Hyperlipidemia Depression Alcoholism Tobacco abuse, in remission HTN (hypertension) NICO (obstructive sleep apnea) GERD (gastroesophageal reflux disease) Anxiety Elevated LFTs Anxiety GERD (gastroesophageal reflux disease) Cirrhosis Surgical History H/O right inguinal hernia repair (12/28/21) Open Incarcerated Right inguinal hernia repair with mesh (Right) - Ezequiel Sewell, 12/28/2021 History of varicose vein stripping History of surgery on arm torn ligament repair History of colonoscopy x3 History of surgery of liver TIPS procedure 12/19/2021 Family History Other Heart disease Social History Smoking Status: Current every day smoker Tobacco Type: Cigarettes Cigarettes Per Day: 4; Second Hand Exposure: No; Do You Dip or Chew Tobacco: No; Hx Alcohol Use: Yes Alcohol type: wine Hx Substance Use: No Preferred Language: Venezuelan Communication Ability: Effective Communication Tools: Other 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: Yes Beliefs That Will Affect Care: None marital status: Current Living Situation: Alone Feels Safe at Home: Yes Safety Concerns: Feels Safe At This Time Assistive Devices: None Allergies Allergies Allergy/AdvReac Type Severity Reaction Status Date / Time ibuprofen AdvReac Intermediate ugib Verified 11/12/23 05:57 Home Meds Home Medications Medication Instructions Recorded Confirmed diclofenac sodium 1 % topical gel 2 - 4 g topical QID PRN Pain 07/04/21 11/12/23 lactulose 10 gram/15 mL oral 15 ml PO TID 12/28/21 11/12/23 solution sildenafil 100 mg tablet 50 - 100 mg PO DAILY PRN Sexual 10/22/23 11/12/23 Activity bacitracin zinc 500 unit/gram 1 applic topical DAILY 11/12/23 11/12/23 topical ointment brimonidine 0.2 % eye drops 1 drp OPR BID 11/12/23 11/12/23 carisoprodol 350 mg tablet 350 mg PO Q6H PRN MUSCLE SPASMS 11/12/23 11/12/23 docusate sodium 100 mg capsule 100 mg PO BID 11/12/23 11/12/23 ibuprofen 600 mg tablet 600 mg PO TID 11/12/23 11/12/23 oxycodone 5 mg tablet 5 mg PO Q4H PRN Pain 11/12/23 11/12/23 pantoprazole 20 mg tablet,delayed 20 mg PO DAILY 11/12/23 11/12/23 release vit no.95-ferrous 1 tab PO DAILY 11/12/23 11/12/23 fumarate 28 mg-folic acid 800 mcg tablet () Results & Data (ED) Vital Signs Vital Signs - 24 hr 11/11/23 22:42 11/11/23 23:02 11/11/23 23:33 Temperature 36.8 C Temperature Source Oral Pulse Rate 82 Pulse Rate [Apical] 108 H Pulse Rate from SpO2 Sensor Pulse Rhythm Respiratory Rate 20 18 Respiratory Effort / Characteristics Non-Labored Spontaneous Non-Labored Spontaneous Respiratory Depth Normal Normal Respiratory Pattern Regular Blood Pressure 113/64 Blood Pressure [Right Arm] Blood Pressure Mean 80 Blood Pressure Mean [Right Arm] Pulse Oximetry 99 96 Oxygen Delivery Method Room Air Room Air Sepsis Recent Fever Within 48 Hours No Sepsis New/Unexplained Change in Mental Status Yes Sepsis Action Taken by Nursing No Action Required 11/11/23 23:52 11/11/23 23:52 11/12/23 00:16 Temperature Temperature Source Pulse Rate 94 H 95 H Pulse Rate [Apical] Pulse Rate from SpO2 Sensor 95 H Pulse Rhythm Regular Respiratory Rate 16 16 Respiratory Effort / Characteristics Respiratory Depth Respiratory Pattern Blood Pressure 125/73 Blood Pressure [Right Arm] Blood Pressure Mean 90 Blood Pressure Mean [Right Arm] Pulse Oximetry 100 100 100 Oxygen Delivery Method Room Air Room Air Sepsis Recent Fever Within 48 Hours Sepsis New/Unexplained Change in Mental Status Sepsis Action Taken by Nursing 11/12/23 00:17 11/12/23 01:00 11/12/23 02:00 Temperature Temperature Source Pulse Rate 85 Pulse Rate [Apical] 88 81 Pulse Rate from SpO2 Sensor 85 Pulse Rhythm Respiratory Rate 20 14 20 Respiratory Effort / Characteristics Non-Labored Spontaneous Non-Labored Spontaneous Respiratory Depth Normal Normal Respiratory Pattern Blood Pressure Blood Pressure [Right Arm] 125/73 Blood Pressure Mean Blood Pressure Mean [Right Arm] 90 Pulse Oximetry 99 96 99 Oxygen Delivery Method Room Air Room Air Sepsis Recent Fever Within 48 Hours Sepsis New/Unexplained Change in Mental Status Sepsis Action Taken by Nursing 11/12/23 02:00 11/12/23 02:13 11/12/23 02:30 Temperature Temperature Source Pulse Rate 87 81 84 Pulse Rate [Apical] Pulse Rate from SpO2 Sensor 85 81 83 Pulse Rhythm Respiratory Rate 15 16 16 Respiratory Effort / Characteristics Respiratory Depth Respiratory Pattern Blood Pressure 106/65 116/61 Blood Pressure [Right Arm] Blood Pressure Mean 78 79 Blood Pressure Mean [Right Arm] Pulse Oximetry 99 100 98 Oxygen Delivery Method Sepsis Recent Fever Within 48 Hours Sepsis New/Unexplained Change in Mental Status Sepsis Action Taken by Nursing 11/12/23 03:00 11/12/23 03:30 11/12/23 03:32 Temperature Temperature Source Pulse Rate 98 H 79 80 Pulse Rate [Apical] Pulse Rate from SpO2 Sensor 99 H 79 Pulse Rhythm Respiratory Rate 19 23 Respiratory Effort / Characteristics Respiratory Depth Respiratory Pattern Blood Pressure 134/68 108/59 L Blood Pressure [Right Arm] Blood Pressure Mean 90 75 Blood Pressure Mean [Right Arm] Pulse Oximetry 100 100 Oxygen Delivery Method Sepsis Recent Fever Within 48 Hours Sepsis New/Unexplained Change in Mental Status Sepsis Action Taken by Shelter Medications Current Medication List: was personally reviewed by me Laboratory Data Attestation: I reviewed the patient's lab results. 11/15/23 05:27 11/15/23 05:27 Lab Results 11/11/23 11/12/23 Range/Units 23:20 02:10 WBC 8.61 (4.8-10.8) K/ul RBC 2.03 L (4.70-6.10) M/uL Hgb 7.6 L (14.0-18.0) g/dl Hct 22.9 L (42.0-52.0) % MCV 112.8 H (80.0-100.0) fL MCH 37.4 H (25.0-34.0) pg MCHC 33.2 (32.0-36.0) g/dL RDW Std Deviation 64.0 H (36.4-46.3) fL RDW Coeff of Claire 15.4 H (11.5-14.5) % Plt Count 161 (130-400) K/uL MPV 9.7 (9.4-12.4) fL Immature Gran % (Auto) 0.3 % Neut % (Auto) 83.4 % Lymph % (Auto) 7.5 % Irion % (Auto) 7.9 % Eos % (Auto) 0.2 % Baso % (Auto) 0.7 % Neut # (Auto) 7.17 H (1.40-6.50) K/uL Lymph # (Auto) 0.65 L (1.20-3.40) K/uL Irion # (Auto) 0.68 H (0.11-0.59) K/uL Eos # (Auto) 0.02 (0.00-0.50) K/uL Baso # (Auto) 0.06 (0.00-0.20) K/uL Immature Gran # (Auto) 0.03 (0.01-0.20) K/uL Macrocytosis Present PT 13.5 H (9.0-12.0) Seconds INR 1.2 H (0.9-1.1) APTT 28 (21-31) Seconds PTT Ratio 1.0 Sodium 137 (136-145) mmol/L Potassium 3.9 (3.5-5.1) mmol/L Chloride 108 H (98-107) mmol/L Carbon Dioxide 19 L (21-32) mmol/L Anion Gap 10 (3-11) BUN 18 (6-23) mg/dl Creatinine 0.90 (0.6-1.4) mg/dl Est Cr Clr Drug Dosing 110.4 ml/min Est GFR ( Amer) 106.5 ml/min Est GFR (Non-Af Amer) 91.9 ml/min BUN/Creatinine Ratio 20.0 (10-20) Glucose 130 H (70-99(Fasting)) mg/dl Calcium 8.4 L (8.6-10.3) mg/dl Magnesium 1.9 (1.7-2.4) mg/dl Total Bilirubin 2.2 H (0.2-1.0) mg/dl AST 45 H (13-39) U/L ALT 31 (7-52) U/L Alkaline Phosphatase 133 H (34-104) U/L Ammonia 149.0 H (18-72) umol/L Total Creatine Kinase 107 170 (30-223) U/L Troponin I High Sens 56.5 H* 91.6 H* D (0-20) pg/ml Total Protein 6.0 (6.0-8.3) gm/dl Albumin 2.8 L (3.4-5.0) gm/dl Globulin 3.2 (2.5-4.0) gm/dl Albumin/Globulin Ratio 0.9 (0.9-2) Lipase 17 (11-82) U/L TSH 0.725 (0.300-4.500) uIu/ml Ethyl Alcohol mg/dL < 10.0 (<10.0) mg/dl Blood Type O Positive Antibody Screen NEGATIVE Crossmatch See Detail Administered Medications Acetaminophen (Acetaminophen 500 Mg Tab) 500 mg PO Q6H PRN PRN Reason: fever/pain Stop: 12/12/23 04:18 Last Admin: 11/14/23 16:05 Dose: 500 mg Documented By: Admin: 11/13/23 11:29 Dose: 500 mg Documented By: TERRI Bacitracin (Bacitracin Oint 14 Gm Tube) 1 appln TOP DAILY [facility] Stop: 12/12/23 08:59 Last Admin: 11/14/23 08:43 Dose: 1 appln Documented By: Admin: 11/13/23 08:02 Dose: 1 appln Documented By: Admin: 11/12/23 07:54 Dose: 1 appln Documented By: FRANCES Brimonidine Tartrate (Brimonidine Tartrate 0.2% 5ml) 1 drops OPR BID [facility] Stop: 12/12/23 08:59 Last Admin: 11/14/23 19:57 Dose: 1 drops Documented By: Admin: 11/14/23 08:43 Dose: 1 drops Documented By: Admin: 11/13/23 20:45 Dose: 1 drops Documented By: Admin: 11/13/23 08:01 Dose: 1 drops Documented By: Admin: 11/12/23 21:37 Dose: 1 drops Documented By: Admin: 11/12/23 07:53 Dose: 1 drops Documented By: FRANCES Docusate Sodium (Docusate Sodium 100 Mg Cap) 100 mg PO BID [facility] Stop: 12/12/23 08:59 Last Admin: 11/14/23 19:57 Dose: 100 mg Documented By: Admin: 11/14/23 08:45 Dose: Not Given Documented By: Admin: 11/13/23 20:46 Dose: Not Given Documented By: Admin: 11/13/23 08:01 Dose: 100 mg Documented By: Admin: 11/12/23 21:37 Dose: 100 mg Documented By: Admin: 11/12/23 08:09 Dose: Not Given Documented By: FRANCES Folic Acid (Folic Acid 1 Mg Tab) 1 mg PO QAM [facility] Stop: 12/12/23 08:59 Last Admin: 11/14/23 08:44 Dose: 1 mg Documented By: Admin: 11/13/23 08:01 Dose: 1 mg Documented By: Admin: 11/12/23 08:09 Dose: Not Given Documented By: FRANCES Ceftriaxone Sodium 2,000 mg/ (Dextrose) 50 mls @ 100 mls/hr IV Q24H MARIELLA; Protocol Stop: 11/23/23 05:59 Last Infusion: 11/15/23 06:07 Dose: Infused Documented By: Admin: 11/15/23 05:31 Dose: 100 mls/hr Documented By: Infusion: 11/14/23 06:32 Dose: Infused Documented By: Admin: 11/14/23 05:55 Dose: 100 mls/hr Documented By: Infusion: 11/13/23 07:41 Dose: Infused Documented By: Admin: 11/13/23 06:32 Dose: 100 mls/hr Documented By: ENRIKE Octreotide Acetate 500 mcg/ (Sodium Chloride) 100.5 mls @ 10.05 mls/hr IV .Q10H [facility] Stop: 12/12/23 11:59 Last Admin: 11/15/23 02:36 Dose: 50.25 mcg/hr, 10.1 mls/hr Documented By: Infusion: 11/15/23 02:36 Dose: Infused Documented By: Admin: 11/14/23 16:50 Dose: 50.25 mcg/hr, 10.1 mls/hr Documented By: Infusion: 11/14/23 16:48 Dose: Infused Documented By: Admin: 11/14/23 06:31 Dose: 50.25 mcg/hr, 10.1 mls/hr Documented By: Infusion: 11/14/23 06:31 Dose: Infused Documented By: Admin: 11/13/23 22:34 Dose: 50.25 mcg/hr, 10.1 mls/hr Documented By: Infusion: 11/13/23 22:34 Dose: Infused Documented By: Admin: 11/13/23 13:32 Dose: 50.25 mcg/hr, 10.1 mls/hr Documented By: Infusion: 11/13/23 10:30 Dose: Infused Documented By: Admin: 11/13/23 00:34 Dose: 50 mcg/hr, 10.1 mls/hr Documented By: Infusion: 11/13/23 00:34 Dose: Infused Documented By: Admin: 11/12/23 14:59 Dose: 50 mcg/hr, 10.1 mls/hr Documented By: ABBY Pantoprazole Sodium 40 mg/ (Dextrose) 100 mls @ 20 mls/hr IV Q5H [facility] Stop: 12/13/23 18:59 Last Admin: 11/15/23 05:32 Dose: 8 mg/hr, 20 mls/hr Documented By: Infusion: 11/15/23 05:28 Dose: Infused Documented By: Admin: 11/15/23 00:28 Dose: 8 mg/hr, 20 mls/hr Documented By: Infusion: 11/15/23 00:28 Dose: Infused Documented By: Admin: 11/14/23 19:59 Dose: 8 mg/hr, 20 mls/hr Documented By: Infusion: 11/14/23 19:59 Dose: Infused Documented By: Admin: 11/14/23 15:57 Dose: 8 mg/hr, 20 mls/hr Documented By: Infusion: 11/14/23 15:14 Dose: Infused Documented By: Admin: 11/14/23 09:31 Dose: 8 mg/hr, 20 mls/hr Documented By: Infusion: 11/14/23 09:31 Dose: Infused Documented By: Admin: 11/14/23 04:40 Dose: 8 mg/hr, 20 mls/hr Documented By: Infusion: 11/14/23 04:40 Dose: Infused Documented By: Admin: 11/14/23 00:03 Dose: 8 mg/hr, 20 mls/hr Documented By: Infusion: 11/14/23 00:03 Dose: Infused Documented By: Admin: 11/13/23 20:35 Dose: 8 mg/hr, 20 mls/hr Documented By: CHARIS Insulin Aspart (Insulin Aspart Per Unit Charge) 0 units SC ACHS [facility] Stop: 12/13/23 18:14 Last Admin: 11/14/23 21:13 Dose: Not Given Documented By: Admin: 11/14/23 17:46 Dose: Not Given Documented By: Admin: 11/14/23 12:39 Dose: Not Given Documented By: Admin: 11/14/23 08:42 Dose: 2 units Documented By: TERRI Co-signed By: YANG Admin: 11/13/23 20:47 Dose: Not Given Documented By: CHARIS Co-signed By: RON Admin: 11/13/23 18:23 Dose: Not Given Documented By: TERRI Lactulose (Lactulose Syrup 30 Gm/45 Ml Udp) 30 gm PO TID [facility] Stop: 12/12/23 08:59 Last Admin: 11/14/23 19:58 Dose: 30 gm Documented By: Admin: 11/14/23 15:57 Dose: 30 gm Documented By: Admin: 11/14/23 08:44 Dose: 30 gm Documented By: Admin: 11/13/23 20:45 Dose: Not Given Documented By: Admin: 11/13/23 13:36 Dose: Not Given Documented By: Admin: 11/13/23 08:02 Dose: 30 gm Documented By: Admin: 11/12/23 21:37 Dose: 30 gm Documented By: Admin: 11/12/23 15:00 Dose: 30 gm Documented By: Admin: 11/12/23 09:10 Dose: 30 gm Documented By: FRANCES Magnesium Oxide (Magnesium Oxide 400 Mg Tab) 400 mg PO BID [facility] Stop: 12/14/23 08:59 Last Admin: 11/14/23 19:57 Dose: 400 mg Documented By: Admin: 11/14/23 11:05 Dose: 400 mg Documented By: TERRI Multivitamins (Multivitamin Tab) 1 tab PO QAM [facility] Stop: 12/12/23 08:59 Last Admin: 11/14/23 08:44 Dose: 1 tab Documented By: Admin: 11/13/23 08:01 Dose: 1 tab Documented By: Admin: 11/12/23 08:09 Dose: Not Given Documented By: FRANCES Oxycodone HCl (Oxycodone Hcl Ir 5 Mg Tab (Immediate Release)) 5 mg PO Q4H PRN PRN Reason: Pain Stop: 11/26/23 04:18 Last Admin: 11/14/23 04:49 Dose: 5 mg Documented By: Admin: 11/13/23 18:23 Dose: 5 mg Documented By: TERRI Rifaximin (Rifaximin 550 Mg Tablet) 550 mg PO BID [facility] Stop: 12/13/23 20:59 Last Admin: 11/14/23 19:58 Dose: 550 mg Documented By: Admin: 11/14/23 08:45 Dose: 550 mg Documented By: Admin: 11/13/23 20:43 Dose: 550 mg Documented By: CHARIS Thiamine HCl (Thiamine Hcl 100 Mg Tab) 100 mg PO QAM [facility] Stop: 12/13/23 08:59 Last Admin: 11/14/23 08:44 Dose: 100 mg Documented By: Admin: 11/13/23 08:01 Dose: 100 mg Documented By: TERRI Discontinued Medications Ceftriaxone Sodium (Rocephin) 2,000 mg in 50 mls @ 100 mls/hr IV NOW STA Stop: 11/12/23 02:16 Last Infusion: 11/12/23 02:23 Dose: Infused Documented By: Admin: 11/12/23 02:05 Dose: 100 mls/hr Documented By: GREY Pantoprazole Sodium 80 mg/ (Dextrose) 120 mls @ 480 mls/hr IV ONE STA Stop: 11/12/23 02:01 Last Infusion: 11/12/23 02:40 Dose: Infused Documented By: Admin: 11/12/23 02:20 Dose: 480 mls/hr Documented By: LUIS Thiamine HCl 100 mg/ Syringe 10 mls @ 2 mls/min IV NOW STA Stop: 11/12/23 01:58 Last Admin: 11/12/23 02:19 Dose: 2 mls/min Documented By: LUIS Lorazepam 1 mg/ Syringe 1 mls @ 2 mls/min IV ONE PRN; Protocol PRN Reason: EtoH Withdrawal AWSS 6-10 Last Admin: 11/12/23 07:53 Dose: 2 mls/min Documented By: FRANCES Albumin Human (Albumin 25%) 25 gm in 100 mls @ 50 mls/hr IV ONE STA Stop: 11/12/23 06:24 Last Infusion: 11/12/23 07:37 Dose: Infused Documented By: Admin: 11/12/23 05:48 Dose: 50 mls/hr Documented By: DONNA Pantoprazole Sodium 40 mg/ (Syringe) 10 mls @ 5 mls/min IV BID [facility] Stop: 12/12/23 08:59 Last Admin: 11/13/23 13:32 Dose: Not Given Documented By: Admin: 11/12/23 21:38 Dose: 5 mls/min Documented By: Admin: 11/12/23 09:10 Dose: 5 mls/min Documented By: FRANCES Pantoprazole Sodium 80 mg/ (Dextrose) 120 mls @ 480 mls/hr IV NOW ONE Stop: 11/13/23 18:59 Last Infusion: 11/13/23 22:30 Dose: Infused Documented By: Admin: 11/13/23 19:36 Dose: 480 mls/hr Documented By: TERRI Magnesium Sulfate/Dextrose (Magnesium Sulfate / D5w) 1 gm in 100 mls @ 50 mls/hr IV ONE ONE Stop: 11/14/23 10:52 Last Infusion: 11/14/23 13:40 Dose: Infused Documented By: Admin: 11/14/23 11:06 Dose: 50 mls/hr Documented By: TERRI Insulin Aspart (Insulin Aspart Per Unit Charge) 0 units SC Q6 [facility] Stop: 12/12/23 05:59 Last Admin: 11/13/23 17:50 Dose: Not Given Documented By: Admin: 11/13/23 13:37 Dose: 3 units Documented By: TERRI Co-signed By: EMY Admin: 11/13/23 06:36 Dose: Not Given Documented By: Admin: 11/13/23 00:33 Dose: Not Given Documented By: Admin: 11/12/23 18:18 Dose: Not Given Documented By: Admin: 11/12/23 12:04 Dose: Not Given Documented By: Admin: 11/12/23 06:00 Dose: Not Given Documented By: DONNA Co-signed By: PEARL Ioversol (Optiray 320 500ml) 100 ml IV ONCE ONE Stop: 11/12/23 04:40 Last Admin: 11/12/23 04:40 Dose: 82 ml Documented By: KAREN Lactulose (Lactulose Syrup 30 Gm/45 Ml Udp) 30 gm PO NOW STA Stop: 11/12/23 02:36 Last Admin: 11/12/23 02:52 Dose: 30 gm Documented By: GREY Lactulose (Lactulose Syrup 30 Gm/45 Ml Udp) 30 gm PO NOW STA Stop: 11/12/23 04:19 Last Admin: 11/12/23 05:48 Dose: 30 gm Documented By: DONNA Lactulose (Lactulose 200gm/700ml Wtr Enema) 200 gm TX Q8H [facility] Stop: 12/12/23 09:29 Last Admin: 11/13/23 10:30 Dose: Not Given Documented By: Admin: 11/13/23 01:47 Dose: Not Given Documented By: Admin: 11/12/23 18:18 Dose: 200 gm Documented By: Admin: 11/12/23 10:36 Dose: Not Given Documented By: FRANCES Pantoprazole Sodium (Pantoprazole 40 Mg Tab) 40 mg PO DAILY [facility] Stop: 12/12/23 08:59 Last Admin: 11/13/23 08:01 Dose: 40 mg Documented By: Admin: 11/12/23 07:54 Dose: Not Given Documented By: FRANCES Imaging Data Radiologist's Impression: Head CT 11/12/23 01:17 Exam(s): CT HEAD Without Contrast EXAM: CT Head Without Intravenous Contrast CLINICAL HISTORY: Reason for exam: trauma. TECHNIQUE: Axial computed tomography images of the head/brain without intravenous contrast. CTDI is 37.32 mGy and DLP is 624.41 mGy-cm. Automated exposure control was utilized for the study. A dose lowering technique was utilized adhering to the principles of ALARA. COMPARISON: Comparison made to prior head CT from October 22, 2023. FINDINGS: Brain: Unremarkable. No hemorrhage. No significant white matter disease. No edema. There is a tiny calcification in a right posterior frontal lobe sulcus. Ventricles: Moderate ventriculomegaly Bones/joints: Unremarkable. No acute fracture. Soft tissues: Unremarkable. Sinuses: Unremarkable as visualized. No acute sinusitis. Mastoid air cells: Unremarkable as visualized. No mastoid effusion. IMPRESSION: No evidence of acute intracranial pathology. Electronically signed by: Griselda Lozano MD 11/12/23 03:51 AM CXR IMPRESSION: 1. Cardiomegaly without acute process. 2. Partially imaged comminuted and displaced right humeral fracture redemonstrated. Discharge Plan Visit Data Chief Complaint: Fall ED Provider: Tere Pereyra Discharge Problem: AMS (altered mental status), Fall Patient Disposition: Admitted As Inpatient Discharge Instructions Interventions: ED Discharge Assessment Last Done: 11/12/23 05:40 Discharge Problem: AMS (altered mental status) Qualifiers: Altered mental status type: somnolence Qualified Code(s): R40.0 - Somnolence Fall Qualifiers: Encounter type: initial encounter Qualified Code(s): W19.XXXA - Unspecified fall, initial encounter
[2023-11-12] MEDS ORDERED: DEXTROSE 50% 50 ML SYRINGE IV PRN (05:38)
[2023-11-12] MEDS ORDERED: GLUCOSE 40% GEL 15 GM TUBE PO PRN (05:38)
[2023-11-12] MEDS ORDERED: GLUCAGON FOR INJ 1 MG VIAL SQ PRN (05:38)
[2023-11-12] MEDS ORDERED: CARBOHYDRATES FOR HYPOGLYCEMIA PO PRN (05:38)
[2023-11-12] MEDS ORDERED: GLUCOSE 10 TAB/TUBE PO PRN (05:38)
[2023-11-12] MEDS: ALBUMIN 25% 25 GM/100 ML VIAL IV STA (05:48)
[2023-11-12] MEDS: INSULIN ASPART PER UNIT CHARGE SC SCH (06:00)
[2023-11-12 06:41] LABS: Albumin Globulin Ratio 0.9 (0.9-2); Albumin Level 2.5 gm/dl (3.4-5.0); BUN Creatinine Ratio 23.7 (10-20); Bilirubin,Total 1.8 mg/dl (0.2-1.0); Creatinine Clr Calc Pharmacy 130.7 ml/min; Est GFR (African American) 114.1 ml/min; Est GFR (Non-African American) 98.5 ml/min; Globulin 2.9 gm/dl (2.5-4.0); Potassium 3.7 mmol/L (3.5-5.1); Total Protein 5.4 gm/dl (6.0-8.3)
[2023-11-12 06:47] LABS: Hematocrit (blood only) 20.6 % (42.0-52.0); Mean Platelet Volume 9.9 fL (9.4-12.4); Platelet Count 155 K/uL (130-400); RDW Standard Deviation 59.6 fL (36.4-46.3); Red Blood Count 1.89 M/uL (4.70-6.10); White Blood Count 7.99 K/ul (4.8-10.8)
[2023-11-12 06:50] LABS: Troponin I High Sensitivity 91.9 pg/ml (0-20)
--- NOTE | 2023-11-12 06:56 | XRay Report ---
XR chest 1V not portable HISTORY: 63 years-old Male Weakness acute weakness. Acute chest trauma status post fall COMPARISON: 10/22/2023 TECHNIQUE: AP view of the chest FINDINGS: Partially imaged comminuted and displaced right proximal humeral fracture redemonstrated. Cardiomedia stinal and hilar silhouettes are unchanged. No pneumothorax, pleural effusion or airspace consolidati on. Bones appear otherwise grossly intact. IMPRESSION: 1. Cardiomegaly without acute process. 2. Partially imaged comminuted and displaced right humeral fracture redemonstrated. ACT 112: Negative or not required by law. The above report was generated using voice recognition software. It may contain grammatical, syntax o r spelling errors. Electronically signed by: Jm Blair M.D. 11/12/2023 6:54 AM
--- NOTE | 2023-11-12 06:58 | CT Scan Report ---
Exam(s): CT ABDOMEN + PELVIS With Contrast IV Amt: 82 ML OPTIRAY 320 EXAM: CT Abdomen and Pelvis With Intravenous Contrast CLINICAL HISTORY: Reason for exam: abd pain. TECHNIQUE: Axial computed tomography images of the abdomen and pelvis with intravenous contrast. CTDI is 38.87 mGy and DLP is 2039.97 mGy-cm. Automated exposure control was utilized for the study. A dose lowering technique was utilized adhering to the principles of ALARA. CONTRAST: Patient received 82 ML OPTIRAY 320 of IV contrast COMPARISON: CT Abdomen Pelvis dated 10/22/2023, CT Abdomen Pelvis dated june 23 2023 FINDINGS: Lung bases: Unremarkable. No mass. No consolidation. ABDOMEN: Liver: Cirrhotic morphology of the liver. TIPS in situ. Gallbladder and bile ducts: Unremarkable. No calcified stones. No ductal dilation. Pancreas: Unremarkable. No mass. No ductal dilation. Spleen: Unremarkable. No splenomegaly. Adrenals: Unremarkable. No mass. Kidneys and ureters: Unremarkable. No solid mass. No hydronephrosis. Stomach and bowel: No evidence of bowel obstruction. Colonic diverticulosis. No evidence of diverticulitis. PELVIS: Appendix: Normal appendix. Bladder: Unremarkable. No mass. Reproductive: Prostatic calcifications. ABDOMEN and PELVIS: Intraperitoneal space: Unremarkable. No free air. No significant fluid collection. Bones/joints: T11 and L1 compression fractures, unchanged from prior study March 22, 2024, but new from prior study June 23, 2023. Consider collation of point tenderness. There is further concern, consider MRI. No dislocation. Soft tissues: Diastases recti with midline fat-containing umbilical hernia. Vasculature: Atherosclerotic disease. No abdominal aortic aneurysm. Lymph nodes: Unremarkable. No enlarged lymph nodes. IMPRESSION: 1. Cirrhotic morphology of the liver. TIPS in situ. 2. T11 and L1 compression fractures, unchanged from prior study March 22, 2024, but new from prior study June 23, 2023. Consider collation of point tenderness. There is further concern, consider MRI. 3. No other acute findings. 4. Incidental findings as described. Electronically signed by: Lloyd Hernandez MD 11/12/23 06:58 AM
[2023-11-12 07:32] LABS: Base Excess VBG -2.8 mEq/L; HCO3 VBG 20 mmol/L; Oxygen Saturation VBG 85.9 %; PCO2 VBG 27 mmHg (38-50); PO2 VBG 52 mmHg; pH VBG 7.48 (7.36-7.41)
[2023-11-12 07:35] LABS: Basophils % (auto) 1.3 %; Eosinophils # (auto) 0.09 K/uL (0.00-0.50); Eosinophils % (auto) 1.1 %; Immature Granulocytes # (auto) 0.09 K/uL (0.01-0.20); Immature Granulocytes % (auto) 1.1 %; Lymphocytes # (auto) 1.41 K/uL (1.20-3.40); Lymphocytes % (auto) 17.6 %; Monocytes # (auto) 0.88 K/uL (0.11-0.59); Neutrophils # (auto) 5.42 K/uL (1.40-6.50); Neutrophils % (auto) 67.9 %; Polychromasia 1+
[2023-11-12] MEDS: oxyCODONE HCL IR 5 MG TAB (IMMEDIATE RELEASE) PO PRN (07:52)
[2023-11-12] MEDS: BRIMONIDINE TARTRATE 0.2% 5ML OPR SCH (07:53)
[2023-11-12] MEDS: MULTIVITAMIN TAB PO SCH (07:53)
[2023-11-12] MEDS: FOLIC ACID 1 MG TAB PO SCH (07:53)
[2023-11-12] MEDS: DOCUSATE SODIUM 100 MG CAP PO SCH (07:53)
[2023-11-12] MEDS: LORazepam 1 MG in SYRINGE 0.5 ML IV PRN (07:53)
[2023-11-12] MEDS: PANTOprazole 40 MG TAB PO SCH (07:54)
[2023-11-12] MEDS: BACITRACIN OINT 14 GM TUBE TOP SCH (07:54)
[2023-11-12] MEDS ORDERED: BACITRACIN OINT 14 GM TUBE TOP SCH (09:00)
[2023-11-12] MEDS: PANTOprazole 40 MG in SYRINGE 0 ML IV SCH (09:10)
[2023-11-12] MEDS: LACTULOSE SYRUP 30 GM/45 ML UDP PO SCH (09:10)
--- NOTE | 2023-11-12 09:11 | Gastrointestinal Consultation ---
Date of Consultation November 12, 2023 Assessment & Plan (1) Decompensated hepatic cirrhosis: (2) AMS (altered mental status): (3) Anemia: Pt is a 63 yo male w ETOH cirrhosis (MELD 11), complicated by refractory ascites s/p TIPS placement who was brought to ED after found on ground at home. He displayed DT symptoms, w AMS. He was found to be anemic w heme positive stools on exam but no longer having overt gi bleeding symptoms since admission. - Lactulose enema q8h SD - If awake and alert, may resume PO Lactulose (titrate dose for goal BM 3-5x a day),xifaxan 550mg BID - IVF support - Protonix 40mg IV BID - Octreotide IV gtt - Ceftriaxone 1g IV - Given AMS, no next of kin, DTs, and no overt GI bleeding, will defer EGD exam at this time. Continue to monitor, transfuse w PRBC for goal Hgb >7. Supervising Physician Co-Signing Physician Notes I saw and evaluated the patient, we were asked to see this patient as he presented with confusion, patient does have a known history of cirrhosis and required TIPS placement for control of refractory ascites. The patient did suffer from a fracture after a fall and was treated at [facility], discharge medications did include use of narcotics. Today the patient is unable to give much historical information as he does appear to be somulent. Patient was reported to have heme positive stools but there is no reported melena after presentation to the hospital. There is also been no report of hematemesis coffee-ground emesis or hematochezia. Given this and his present mental status we will hold on endoscopic evaluation as it does not appear that he has overt gastrointestinal bleeding. Recommendations No plan for urgent endoscopy Treat encephalopathy with lactulose enemas, rifaximin 550 mg twice daily and oral lactulose Octreotide drip for 72 hours Broad-spectrum antibiotic 40 mg twice daily History of Present Illness Reason for Consultation: UGI bleed, hepatic encephalopathy Requesting Physician: Dr. Blaire Garcia Attending Physician: Dr. Janel Khalil History of Present Illness Pt is stuporous, mumbling words and would not follow command. Japanese slumber room attendant used. Per RN, he was having DT symptoms and just received Ativan 1mg. Chart reviewed as below: Pt w PMHx of ETOH cirrhosis complicated by ascites s/p TIPS, PUD, GERD, HTN, HLD, NICO, DVT previously on Eliquis, DM II, venous insufficiency, chronic anemia, lung nodule, tobacco and ETOH abuses. He was ground into ED after found on the ground by neighbor. He had been c/o achy abd pain and also became increasing confused & lethargic. He was recently admitted at [facility] s/p fall w multiple ribs fracture, head trauma, periorbital hematoma, thoracolumbar compression fracture, R humerus fracture. Labs showed anemia w Hgb of 7 (baseline 12). Stools heme positive but no further melena per RN nor hematemesis/coffee ground emesis. Plt 155, INR 1.2. LFTs: Tbili 1.8, AST 43, ALT 27, Alk phos 116, Ammonia 149, Lipase 17, Troponin 17, ETOH <10. Last EGD 09/2023: esophagitis, portal hypertensive gastropathy CXR: 1. Cardiomegaly without acute process. 2. Partially imaged comminuted and displaced right humeral fracture redemonstrated. Head CT: negative Abd/pelvis CT: 1. Cirrhotic morphology of the liver. TIPS in situ. 2. T11 and L1 compression fractures, unchanged from prior study March 22, 2024, but new from prior study June 23, 2023. Consider collation of point tenderness. There is further concern, consider MRI. 3. No other acute findings. Allergies Allergy/AdvReac Type Severity Reaction Status Date / Time ibuprofen AdvReac Intermediate ugib Verified 11/12/23 05:57 Home Medications Medication Instructions Recorded Confirmed Type diclofenac sodium 1 % topical gel 2 - 4 g topical QID PRN Pain 07/04/21 11/12/23 History lactulose 10 gram/15 mL oral 15 ml PO TID 12/28/21 11/12/23 History solution sildenafil 100 mg tablet 50 - 100 mg PO DAILY PRN Sexual 10/22/23 11/12/23 History Activity bacitracin zinc 500 unit/gram 1 applic topical DAILY 11/12/23 11/12/23 History topical ointment brimonidine 0.2 % eye drops 1 drp OPR BID 11/12/23 11/12/23 History carisoprodol 350 mg tablet 350 mg PO Q6H PRN MUSCLE SPASMS 11/12/23 11/12/23 History docusate sodium 100 mg capsule 100 mg PO BID 11/12/23 11/12/23 History ibuprofen 600 mg tablet 600 mg PO TID 11/12/23 11/12/23 History oxycodone 5 mg tablet 5 mg PO Q4H PRN Pain 11/12/23 11/12/23 History pantoprazole 20 mg tablet,delayed 20 mg PO DAILY 11/12/23 11/12/23 History release vit no.95-ferrous 1 tab PO DAILY 11/12/23 11/12/23 History fumarate 28 mg-folic acid 800 mcg tablet () Patient History Medical History Right bundle branch block Hypertension Hyperlipidemia Depression Alcoholism Tobacco abuse, in remission HTN (hypertension) NICO (obstructive sleep apnea) GERD (gastroesophageal reflux disease) Anxiety Elevated LFTs Anxiety GERD (gastroesophageal reflux disease) Cirrhosis Surgical History H/O right inguinal hernia repair (12/28/21) Open Incarcerated Right inguinal hernia repair with mesh (Right) - Ezequiel Sewell, DO 12/28/2021 History of varicose vein stripping History of surgery on arm torn ligament repair History of colonoscopy x3 History of surgery of liver TIPS procedure 12/19/2021 Family History Other Heart disease Social History Smoking Status: Current every day smoker Tobacco Type: Cigarettes Cigarettes Per Day: 4; Second Hand Exposure: No; Do You Dip or Chew Tobacco: No; Hx Alcohol Use: Yes Alcohol type: wine Hx Substance Use: No Preferred Language: Japanese Communication Ability: Effective Communication Tools: IPad Clinical Laboratory Director Required: Yes Beliefs That Will Affect Care: None marital status: Current Living Situation: Alone Feels Safe at Home: Yes Safety Concerns: Feels Safe At This Time Assistive Devices: None Review of Systems Review of Systems: Unobtainable due to cognitive status and Unobtainable due to reduced consciousness Physical Exam Constitutional: + altered mental status and + lethargic ENMT: external ear and nose normal, oropharynx normal Respiratory: Diminished lung sounds Cardiovascular: RRR, no murmur, no edema Gastrointestinal (Abdomen): normal bowel sounds, soft, nontender, no hepatosplenomegaly Skin: no rashes, warm and dry no jaundice Psychiatric: Stuporous, confusd Lymphatic: no lymphedema Results & Data Vital Signs (Past 12 Hours) Vital Signs Temp Pulse Pulse Resp BP BP Pulse Ox 11/12/23 08:36 84 11/12/23 06:07 77 16 133/85 98 11/12/23 03:32 80 11/12/23 03:30 79 23 108/59 L 100 11/12/23 03:00 98 H 19 134/68 100 11/12/23 02:30 84 16 116/61 98 11/12/23 02:13 81 16 106/65 100 11/12/23 02:00 87 15 99 11/12/23 02:00 81 20 99 11/12/23 01:00 85 14 96 11/12/23 00:17 88 20 125/73 99 11/12/23 00:16 95 H 16 125/73 100 11/11/23 23:52 94 H 16 100 11/11/23 23:52 100 11/11/23 23:33 82 11/11/23 23:02 36.8 C 18 113/64 96 11/11/23 22:42 108 H 20 99 O2 Del Method 11/12/23 08:36 11/12/23 06:07 Room Air 11/12/23 03:32 11/12/23 03:30 11/12/23 03:00 11/12/23 02:30 11/12/23 02:13 11/12/23 02:00 11/12/23 02:00 Room Air 11/12/23 01:00 11/12/23 00:17 Room Air 11/12/23 00:16 11/11/23 23:52 Room Air 11/11/23 23:52 Room Air 11/11/23 23:33 11/11/23 23:02 Room Air 11/11/23 22:42 Room Air Laboratory Results Laboratory Results - last 24 hr 11/11/23 11/12/23 11/12/23 23:20 02:10 05:39 WBC 8.61 7.99 RBC 2.03 L 1.89 L Hgb 7.6 L 7.0 L Hct 22.9 L 20.6 L* MCV 112.8 H 109.0 H MCH 37.4 H 37.0 H MCHC 33.2 34.0 RDW Std Deviation 64.0 H 59.6 H RDW Coeff of Claire 15.4 H 15.0 H Plt Count 161 155 MPV 9.7 9.9 Immature Gran % (Auto) 0.3 1.1 Neut % (Auto) 83.4 67.9 Lymph % (Auto) 7.[address] [facility] % (Auto) 7.9 11.0 Eos % (Auto) 0.2 1.1 Baso % (Auto) 0.7 1.3 Neut # (Auto) 7.17 H 5.42 Lymph # (Auto) 0.[address] [facility] # (Auto) 0.68 H 0.88 H Eos # (Auto) 0.02 0.09 Baso # (Auto) 0.06 0.10 Immature Gran # (Auto) 0.03 0.09 Polychromasia 1+ Macrocytosis Present PT 13.5 H INR 1.2 H APTT 28 PTT Ratio 1.0 VBG pH VBG pCO2 VBG pO2 VBG HCO3 VBG O2 Saturation VBG Base Excess Sodium 137 139 Potassium 3.9 3.7 Chloride 108 H 112 H Carbon Dioxide 19 L 21 Anion Gap 10 6 BUN 18 18 Creatinine 0.90 0.76 Est Cr Clr Drug Dosing 110.4 130.7 Est GFR ( Amer) 106.5 114.1 Est GFR (Non-Af Amer) 91.9 98.5 BUN/Creatinine Ratio 20.0 23.7 H Glucose 130 H 123 H POC Glucose Estimat Average Glucose Hemoglobin A1c Calcium 8.4 L 8.0 L Magnesium 1.9 Total Bilirubin 2.2 H 1.8 H AST 45 H 43 H ALT 31 27 Alkaline Phosphatase 133 H 116 H Ammonia 149.0 H Total Creatine Kinase 107 170 Troponin I High Sens 56.5 H* 91.6 H* D 91.9 H* Total Protein 6.0 5.4 L Albumin 2.8 L 2.5 L Globulin 3.2 2.9 Albumin/Globulin Ratio 0.9 0.9 Lipase 17 TSH 0.725 Ethyl Alcohol mg/dL < 10.0 Blood Type O Positive Antibody Screen NEGATIVE Crossmatch See Detail 11/12/23 11/12/23 11/12/23 05:51 07:22 07:26 WBC RBC Hgb Hct MCV MCH MCHC RDW Std Deviation RDW Coeff of Claire Plt Count MPV Immature Gran % (Auto) Neut % (Auto) Lymph % (Auto) [facility] % (Auto) Eos % (Auto) Baso % (Auto) Neut # (Auto) Lymph # (Auto) [facility] # (Auto) Eos # (Auto) Baso # (Auto) Immature Gran # (Auto) Polychromasia Macrocytosis PT INR APTT PTT Ratio VBG pH 7.48 H VBG pCO2 27 L VBG pO2 52 VBG HCO3 20 VBG O2 Saturation 85.9 VBG Base Excess -2.8 Sodium Potassium Chloride Carbon Dioxide Anion Gap BUN Creatinine Est Cr Clr Drug Dosing Est GFR ( Amer) Est GFR (Non-Af Amer) BUN/Creatinine Ratio Glucose POC Glucose 139 H 138 H Estimat Average Glucose Pending Hemoglobin A1c Pending Calcium Magnesium Total Bilirubin AST ALT Alkaline Phosphatase Ammonia Total Creatine Kinase Troponin I High Sens Total Protein Albumin Globulin Albumin/Globulin Ratio Lipase TSH Ethyl Alcohol mg/dL Blood Type Antibody Screen Crossmatch Diagnostic Findings Exam(s): CT ABDOMEN + PELVIS With Contrast IV Amt: 82 ML OPTIRAY 320 EXAM: CT Abdomen and Pelvis With Intravenous Contrast CLINICAL HISTORY: Reason for exam: abd pain. TECHNIQUE: Axial computed tomography images of the abdomen and pelvis with intravenous contrast. CTDI is 38.87 mGy and DLP is 2039.97 mGy-cm. Automated exposure control was utilized for the study. A dose lowering technique was utilized adhering to the principles of ALARA. CONTRAST: Patient received 82 ML OPTIRAY 320 of IV contrast COMPARISON: CT Abdomen Pelvis dated 10/22/2023, CT Abdomen Pelvis dated june 23 2023 FINDINGS: Lung bases: Unremarkable. No mass. No consolidation. ABDOMEN: Liver: Cirrhotic morphology of the liver. TIPS in situ. Gallbladder and bile ducts: Unremarkable. No calcified stones. No ductal dilation. Pancreas: Unremarkable. No mass. No ductal dilation. Spleen: Unremarkable. No splenomegaly. Adrenals: Unremarkable. No mass. Kidneys and ureters: Unremarkable. No solid mass. No hydronephrosis. Stomach and bowel: No evidence of bowel obstruction. Colonic diverticulosis. No evidence of diverticulitis. PELVIS: Appendix: Normal appendix. Bladder: Unremarkable. No mass. Reproductive: Prostatic calcifications. ABDOMEN and PELVIS: Intraperitoneal space: Unremarkable. No free air. No significant fluid collection. Bones/joints: T11 and L1 compression fractures, unchanged from prior study March 22, 2024, but new from prior study June 23, 2023. Consider collation of point tenderness. There is further concern, consider MRI. No dislocation. Soft tissues: Diastases recti with midline fat-containing umbilical hernia. Vasculature: Atherosclerotic disease. No abdominal aortic aneurysm. Lymph nodes: Unremarkable. No enlarged lymph nodes. IMPRESSION: 1. Cirrhotic morphology of the liver. TIPS in situ. 2. T11 and L1 compression fractures, unchanged from prior study March 22, 2024, but new from prior study June 23, 2023. Consider collation of point tenderness. There is further concern, consider MRI. 3. No other acute findings. 4. Incidental findings as describ
--- NOTE | 2023-11-12 10:04 | Communication Note ---
Date of Service: November 12, 2023 Pt was seen laying in bed, unarousable on the floor in 256. Per nursing he has been like that after receiving Ativan in the ED. Some concern that he might be going through active alcohol withdrawal, active AWSS protocol with Ativan ordered. For further management, please see History and Physical from the same date of service.
[2023-11-12] MEDS: LACTULOSE 200GM/700ML WTR ENEMA PR SCH (10:36)
--- NOTE | 2023-11-12 11:02 | Electrocardiogram Report ---
Test Reason : Blood Pressure : / mmHG Vent. Rate : 091 BPM Atrial Rate : 091 BPM P-R Int : 160 ms QRS Dur : 138 ms QT Int : 434 ms P-R-T Axes : 031 084 080 degrees QTc Int : 533 ms Normal sinus rhythm Right bundle branch block Abnormal ECG When compared with ECG of 22-OCT-2023 18:40, QRS duration has increased Confirmed by Harris Sewell ([id number]) on 11/12/2023 11:02:15 AM Referred By: REFERRED SELF Confirmed By:Harris Sewell
[2023-11-12 13:06] LABS: Hematocrit (blood only) 23.4 % (42.0-52.0); Hemoglobin 7.6 g/dl (14.0-18.0)
[2023-11-12] MEDS: OCTREOTIDE ACETATE 500 MCG in 0.9 % SODIUM CHLORIDE 100 ML IV SCH (14:59)
[2023-11-12] MEDS ORDERED: Ativan IV Alcohol Withdrawal--Active Protocol IV PRN (17:48)
[2023-11-12] MEDS ORDERED: LORazepam 2 MG in SYRINGE 1 ML IV PRN (17:48)
[2023-11-12] MEDS ORDERED: LORazepam 3 MG in SYRINGE 1.5 ML IV PRN (17:48)
[2023-11-12] MEDS ORDERED: LORazepam 1 MG in SYRINGE 0.5 ML IV PRN (17:48)
[2023-11-12] MEDS ORDERED: Nursing to Pharmacy Communication SCH (23:15)
[2023-11-13] MEDS: cefTRIAXone SODIUM 2,000 MG in DEXTROSE 5 % MINI-B 50 ML IV SCH (06:32)
[2023-11-13] MEDS: THIAMINE HCL 100 MG TAB PO SCH (08:01)
--- NOTE | 2023-11-13 09:12 | Hospitalist Progress Note ---
Date of Service November 13, 2023 Assessment & Plan (1) Decompensated hepatic cirrhosis: Plan hx alcoholic cirrhosis status post TIPS Hepatic encephalopathy UGIB, PUD/GERD/ portal hypertensive gastropathy Continue lactulose, xifaxan added per GI recs IV PPI for UGIB, transitioned to protonix drip on 11/13 per reports that pt having more bloody BMs Add NSAID to patient allergy list IV ceftriaxone for SBP prophylaxis in the setting of UGIB in a cirrhotic patient GI consult re: UGIB, hepatic encephalopathy- appreciate recs -EGD on Wednesday 11/15 Alcoholic hepatitis good prognosis with computed Maddrey DF score of 9 point Acute on chronic anemia secondary to UGIB Continue to monitor H and H and transfuse as needed Troponin elevation secondary to illness tachycardia on admission EKG with NSR, RBBB Doubt ACS, trend trop until downtrending hypertension BP on the lower side Continue to monitor hyperlipidemia on statin Rx History superficial DVT on Eliquis DM2 diet-controlled well-controlled as of hemoglobin A1c of 5.04 April 2023 ISS per protocol Functional disability patient neighbors have concerns regarding patient ability to live independently CM assistance appreciated ongoing tobacco/alcohol abuse Encourage cessation, nicotine patch Diet: low sodium DVT prophylaxis. SCDs RE UGIB Full code Admission and Anticipated Discharge Date Admission Date: November 12, 2023 Subjective Pt was seen in the AM. Used Polish phone particle board supervisor via phone per James Espinal. More awake and alert today. Pt states that he passed out at home while watching tv. Denies recent alcohol use, states that his last use was 3 months ago despite an elevated alcohol level in chart from october. States that left shoulder hurts. Per Nursing pt having bloody bowel movements. Review of Systems Review of Systems: All systems reviewed & are unremarkable except as noted in Subjective Physical Exam Physical Exam: General: Alert, oriented. No acute distress Skin: No noted rashes or bruises Psych: Appropriate mood and affect Neuro: No gross deficits HEENT: NC/AT Chest: Nontender to palpation. CV: RRR Resp: Breath sounds clear bilaterally, no increased effort of breathing. Abdomen: Soft, nontender, nondistended. Extremities: cannot move left arm Results & Data Results & Data Vital Signs (Past 12 Hours) Vital Signs Temp Pulse Pulse Resp BP Pulse Ox O2 Del Method 11/13/23 08:15 37.2 C 76 20 152/84 H 99 Room Air 11/13/23 03:49 36.7 C 83 18 142/76 H 98 Room Air 11/12/23 23:21 36.9 C 79 18 132/79 99 Room Air 11/12/23 23:00 82
[2023-11-13 09:36] LABS: Basophils # (auto) 0.12 K/uL (0.00-0.20); Basophils % (auto) 1.8 %; Hematocrit (blood only) 23.8 % (42.0-52.0); Hemoglobin 7.7 g/dl (14.0-18.0); Immature Granulocytes # (auto) 0.02 K/uL (0.01-0.20); Immature Granulocytes % (auto) 0.3 %; Lymphocytes # (auto) 1.63 K/uL (1.20-3.40); Lymphocytes % (auto) 24.4 %; Mean Corpuscular Hgb Conc 32.4 g/dL (32.0-36.0); Mean Corpuscular Volume 114.4 fL (80.0-100.0); Mean Platelet Volume 9.8 fL (9.4-12.4); Neutrophils % (auto) 58.5 %; Platelet Count 158 K/uL (130-400); RDW Coefficient of Variation 15.7 % (11.5-14.5); RDW Standard Deviation 65.1 fL (36.4-46.3); Red Blood Count 2.08 M/uL (4.70-6.10); White Blood Count 6.67 K/ul (4.8-10.8)
[2023-11-13 09:48] LABS: Albumin Level 2.9 gm/dl (3.4-5.0); BUN Creatinine Ratio 18.2 (10-20); Bilirubin,Total 2.3 mg/dl (0.2-1.0); Calcium 8.2 mg/dl (8.6-10.3); Creatinine Clr Calc Pharmacy 113.7 ml/min; Est GFR (African American) 107.5 ml/min; Est GFR (Non-African American) 92.7 ml/min; Magnesium 1.7 mg/dl (1.7-2.4); Phosphorus 3.7 mg/dl (2.5-4.9); Potassium 3.9 mmol/L (3.5-5.1); Total Protein 5.9 gm/dl (6.0-8.3)
--- NOTE | 2023-11-13 09:53 | Gastroenterology Progress Note ---
Date of Service November 13, 2023 Assessment & Plan (1) AMS (altered mental status): Plan: Seems to be much more awake. Would switch to oral lactulose. H/H are stable. Will let primary GI team decide about need for EGD on Wednesday unless conditions change room attendant the weekend Admission and Anticipated Discharge Date Admission Date: November 12, 2023 Subjective Not somnolent today, communicative but language problem is there. H/H are stable for now Physical Exam Constitutional: WD/WN, vitals as above Results & Data Vital Signs (Past 12 Hours) Vital Signs Temp Pulse Pulse Resp BP Pulse Ox O2 Del Method 11/13/23 08:15 37.2 C 76 20 152/84 H 99 Room Air 11/13/23 03:49 36.7 C 83 18 142/76 H 98 Room Air 11/12/23 23:21 36.9 C 79 18 132/79 99 Room Air 11/12/23 23:00 82
[2023-11-13 09:57] LABS: Macrocytosis Present; Polychromasia 2+
[2023-11-13 10:02] LABS: INR 1.3 (0.9-1.1); Prothrombin Time 14.3 Seconds (9.0-12.0)
[2023-11-13] MEDS: ACETAMINOPHEN 500 MG TAB PO PRN (11:29)
[2023-11-13] MEDS: INSULIN ASPART PER UNIT CHARGE SC SCH (18:23)
[2023-11-13] MEDS ORDERED: PANTOPRAZOLE BOLUS/DRIP IV STA (18:24)
[2023-11-13] MEDS: PANTOprazole 80 MG in DEXTROSE 5% 100 ML IV ONE (19:36)
[2023-11-13] MEDS: PANTOprazole 40 MG in DEXTROSE 5% MINI-B 100 ML IV SCH (20:35)
[2023-11-13] MEDS: rifAXIMin 550 MG TABLET PO SCH (20:43)
[2023-11-14 06:28] LABS: Hematocrit (blood only) 22.4 % (42.0-52.0); Hemoglobin 7.7 g/dl (14.0-18.0); Mean Corpuscular Hemoglobin 38.3 pg (25.0-34.0); Mean Corpuscular Hgb Conc 34.4 g/dL (32.0-36.0); Mean Corpuscular Volume 111.4 fL (80.0-100.0); Mean Platelet Volume 9.8 fL (9.4-12.4); Platelet Count 150 K/uL (130-400); RDW Standard Deviation 61.1 fL (36.4-46.3); Red Blood Count 2.01 M/uL (4.70-6.10); White Blood Count 6.21 K/ul (4.8-10.8)
[2023-11-14 06:49] LABS: INR 1.4 (0.9-1.1); Prothrombin Time 15.1 Seconds (9.0-12.0)
[2023-11-14 07:01] LABS: Albumin Level 2.7 gm/dl (3.4-5.0); BUN Creatinine Ratio 18.5 (10-20); Calcium 7.8 mg/dl (8.6-10.3); Creatinine Clr Calc Pharmacy 122.8 ml/min; Est GFR (African American) 111.2 ml/min; Est GFR (Non-African American) 95.9 ml/min; Globulin 2.8 gm/dl (2.5-4.0); Magnesium 1.6 mg/dl (1.7-2.4); Phosphorus 3.4 mg/dl (2.5-4.9); Potassium 3.6 mmol/L (3.5-5.1); Total Protein 5.5 gm/dl (6.0-8.3)
[2023-11-14 07:15] LABS: Troponin I High Sensitivity 18.1 pg/ml (0-20)
[2023-11-14] MEDS: MAGNESIUM OXIDE 400 MG TAB PO SCH (11:05)
[2023-11-14] MEDS: MAGNESIUM SULFATE / D5W 1 GM/100 ML BAG IV ONE (11:06)
--- NOTE | 2023-11-14 11:58 | Hospitalist Progress Note ---
Date of Service November 14, 2023 Assessment & Plan (1) Decompensated hepatic cirrhosis: Plan Pt is a 63yoM with PMHx significant for alcoholic cirrhosis status post TIPS, PUD/GERD as per records, hypertension, hyperlipidemia, NICO, lung nodule, past history superficial DVT status post Eliquis, DM2 diet-controlled, chronic venous insufficiency, chronic anemia (baseline hemoglobin 9-10 following [facility] confinement last month), ongoing tobacco/alcohol abuse presenting with altered mental status. Hepatic encephalopathy hx alcoholic cirrhosis status post TIPS Pt presenting after being confused for days POA, found on the ground and lethargic by neighbor the day of presentation Ammonia level of 149 on admission, downtrended to 99. Continue lactulose, xifaxan added per GI recs, follow ammonia UGIB PUD/GERD/portal hypertensive gastropathy Noted bloody stools in the ED on admission IV PPI for UGIB, transitioned to protonix drip on 11/13 per reports that pt having more bloody BMs Add NSAID to patient allergy list, reportedly pt was recently prescribed ibuprofen IV ceftriaxone for SBP prophylaxis in the setting of UGIB in a cirrhotic patient GI consult re: UGIB, hepatic encephalopathy- appreciate recs -EGD on Wednesday 11/15 Alcoholic hepatitis good prognosis with computed Maddrey DF score of 9 point follows with [facility] specialists Acute on chronic anemia Acute blood loss anemia secondary to UGIB Hgb has been stable ~7.5 Continue to monitor H and H and transfuse as needed Troponin elevation secondary to illness tachycardia on admission EKG with NSR, RBBB Doubt ACS, trend trop until downtrending hypertension Has not yet been hypertensive Continue to monitor hyperlipidemia on statin Rx History superficial DVT on Eliquis DM2 diet-controlled well-controlled as of hemoglobin A1c of 5.04 April 2023 ISS per protocol Functional disability patient neighbors have concerns regarding patient ability to live independently Reportedly active with Adult Protective Services for self neglect CM assistance appreciated ongoing tobacco/alcohol abuse Encourage cessation, nicotine patch Diet: clears,low sodium DVT prophylaxis. SCDs RE UGIB Full code Admission and Anticipated Discharge Date Admission Date: November 12, 2023 Subjective Pt was seen in the AM. Used Mauritanian phone rn relief charge via phone per James Espinal. Still alert today. Discussion of treatment and course. Pt expressing that he wants to go home and there is someone to care for him at home. Review of Systems Review of Systems: All systems reviewed & are unremarkable except as noted in Subjective Physical Exam Physical Exam: General: Alert, oriented. No acute distress Skin: No noted rashes or bruises Psych: Appropriate mood and affect Neuro: No gross deficits HEENT: NC/AT Chest: Nontender to palpation. CV: RRR Resp: Breath sounds clear bilaterally, no increased effort of breathing. Abdomen: Soft, nontender, nondistended. Extremities: cannot move left arm Results & Data Results & Data Vital Signs (Past 12 Hours) Vital Signs Temp Pulse Pulse Resp BP Pulse Ox O2 Del Method 11/14/23 07:50 36.5 C 56 L 18 130/79 99 Room Air 11/14/23 05:57 56 L 11/14/23 04:00 36.7 C 64 18 155/88 H 99 Room Air
[2023-11-14 22:07] LABS: EAG mmol/L 4.2 mmol/L; HA1C 4.3 (<5.7)
[2023-11-15 06:09] LABS: Hematocrit (blood only) 23.5 % (42.0-52.0); Hemoglobin 7.8 g/dl (14.0-18.0); Mean Corpuscular Hemoglobin 37.9 pg (25.0-34.0); Mean Corpuscular Hgb Conc 33.2 g/dL (32.0-36.0); Mean Corpuscular Volume 114.1 fL (80.0-100.0); Platelet Count 150 K/uL (130-400); RDW Coefficient of Variation 15.4 % (11.5-14.5); RDW Standard Deviation 63.1 fL (36.4-46.3); Red Blood Count 2.06 M/uL (4.70-6.10); White Blood Count 5.71 K/ul (4.8-10.8)
[2023-11-15 06:26] LABS: Albumin Globulin Ratio 0.9 (0.9-2); Albumin Level 2.7 gm/dl (3.4-5.0); Bilirubin,Total 2.4 mg/dl (0.2-1.0); Creatinine Clr Calc Pharmacy 107.8 ml/min; Est GFR (African American) 102.3 ml/min; Est GFR (Non-African American) 88.3 ml/min; Globulin 3.1 gm/dl (2.5-4.0); Magnesium 1.7 mg/dl (1.7-2.4); Phosphorus 2.9 mg/dl (2.5-4.9); Potassium 3.6 mmol/L (3.5-5.1); Total Protein 5.8 gm/dl (6.0-8.3)
[2023-11-15 06:32] LABS: INR 1.4 (0.9-1.1); Prothrombin Time 15.1 Seconds (9.0-12.0)
--- NOTE | 2023-11-15 10:47 | Discharge Summary ---
Discharge Summary Date of Service November 15, 2023 Notes For Next Care Provider Pt left against medical advice Medication Changes From Visit None Admission HPI Per Admitting Provider History obtained from patient neighbors, ED provider and records. Limited history from patient secondary to patient confusion and language barrier. Medical history significant for alcoholic cirrhosis status post TIPS, PUD/GERD as per records, hypertension, hyperlipidemia, NICO, lung nodule, past history superficial DVT status post Eliquis, DM2 diet-controlled, chronic venous insufficiency, chronic anemia (baseline hemoglobin 9-10 following [facility] confinement last month), ongoing tobacco/alcohol abuse. Last [facility] confinement December 2021 for incarcerated right inguinal hernia status post surgery. Recent [facility] Domenico confinement October 23-2023 under Trauma Surgery service for multiple left rib fractures/head trauma/right periorbital hematoma/thoracolumbar compression fracture/right humeral fracture secondary to fall at home in the setting of alcohol abuse following [facility] ER transfer. No operative intervention for bony injuries. Sling recommended for right shoulder injury. Brimonidine recommended by ophthalmology service for elevated IOP of the right eye posttrauma. P Patient completed amoxicillin Rx for Enterococcus UTI. Outpatient [facility] PCP follow-up last November 02. Patient mentioned dark tarry stools as per documentation. Patient unable to follow-up with [facility] specialist due to lack of transportation. PCP to arrange for follow-up with local specialists. Outpatient casework manager recommended home health due to patient having no one to help him at home. [employer] chemical sales representative present during visit due to concerns for patient need for protective services. Patient complaining of achy abdominal pain since last week as per neighbor. Increasing abdominal distention as per neighbor. Not sure if patient taking ibuprofen prescribed by PCP. Patient falling at home as per neighbor. Patient noted to be increasingly confused the last couple of days. Neighbor not sure if patient taking home meds like he should. Patient found by neighbor at home last night on the ground. Patient lethargic. Patient unable to answer questions regarding headache, chest pain, SOB, abdominal pain. Heme positive melanotic stools documented at the ER. 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, [employer] of [employer], lives alone, closest family is neighbor Admission Exam Per Admitting Provider GENERAL: obese, obtunded, no respiratory distress SKIN: Pallor, warm HEENT: Pale palpebral conjunctivae, no ptosis, dry buccal mucosa NECK : Supple, short neck, no tenderness CHEST : Decreased breath sounds, minimal left chest wall tenderness tenderness HEART : RRR, no obvious murmurs ABDOMEN: Some distention, minimal epigastric tenderness EXTREMITIES : Minimal LE swelling, no LE tenderness, RUE sling NEUROLOGIC : Obtunded, no facial asymmetry, gait and stance not assessed Principal Dx & Hospital Course #1 = Principal Diagnosis (1) Decompensated hepatic cirrhosis: Plan Pt is a 63yoM with PMHx significant for alcoholic cirrhosis status post TIPS, PUD/GERD as per records, hypertension, hyperlipidemia, NICO, lung nodule, past history superficial DVT status post Eliquis, DM2 diet-controlled, chronic venous insufficiency, chronic anemia (baseline hemoglobin 9-10 following [facility] confinement last month), ongoing tobacco/alcohol abuse presenting with altered mental status. Pt left AMA on day of discharge 11/15. Hepatic encephalopathy hx alcoholic cirrhosis status post TIPS Pt presenting after being confused for days POA, found on the ground and lethargic by neighbor the day of presentation Ammonia level of 149 on admission, downtrended to 99. Continue lactulose, xifaxan added per GI recs GI was consulted with the following recommendations -recommended pt continue outpatient diuretic, lactulose and PPI at outpt dosing -recommended outpt followup with DARIUS Hopper for continued cirrhosis management. Lethargy and LOC per pt likely in setting of acute hepatic encephalopathy GI and pcp followup after discharge UGIB PUD/GERD/portal hypertensive gastropathy Noted bloody stools in the ED on admission IV PPI for UGIB, transitioned to protonix drip on 11/13 per reports that pt having more bloody BMs NSAID added to patient allergy list, reportedly pt was recently prescribed ibuprofen IV ceftriaxone given for SBP prophylaxis in the setting of UGIB in a cirrhotic patient GI consult re: UGIB, hepatic encephalopathy, recommendations below. -EGD was planned per GI for Wednesday 11/15 -Per GI, no EGD needed, outpatient followup -recommended pt continue outpatient diuretic, lactulose and PPI at outpt dosing -recommended outpt followup with GI Chel Hopper for continued cirrhosis management. Alcoholic hepatitis good prognosis with computed Maddrey DF score of 9 points follows with [facility] specialists Acute on chronic anemia Acute blood loss anemia secondary to UGIB Hgb has been stable ~7.5 Continue to monitor H and H treat accordingly. Troponin elevation secondary to illness tachycardia on admission EKG with NSR, RBBB Doubt ACS, trend trop until downtrending hypertension Has not yet been hypertensive Continue to monitor hyperlipidemia on statin Rx, continue History superficial DVT previously on Eliquis, not currently DM2 diet-controlled well-controlled as of hemoglobin A1c of 5.04 April 2023 ISS per protocol Functional disability patient neighbors have concerns regarding patient ability to live independently Reportedly active with Adult Protective Services for self neglect Will need to be notified of discharge per CM. ongoing tobacco/alcohol abuse Encourage cessation, nicotine patch Discharge Exam General: Alert, oriented. No acute distress Skin: No noted rashes or bruises Psych: Appropriate mood and affect Neuro: No gross deficits HEENT: NC/AT Chest: Nontender to palpation. CV: RRR Resp: Breath sounds clear bilaterally, no increased effort of breathing. Abdomen: Soft, nontender, nondistended. Extremities: cannot move left arm Updated Medication List Medication Instructions Recorded Confirmed Type diclofenac sodium 1 % topical gel 2 - 4 g topical QID PRN Pain 07/04/21 11/12/23 History lactulose 10 gram/15 mL oral 15 ml PO TID 12/28/21 11/12/23 History solution sildenafil 100 mg tablet 50 - 100 mg PO DAILY PRN Sexual 10/22/23 11/12/23 History Activity bacitracin zinc 500 unit/gram 1 applic topical DAILY 11/12/23 11/12/23 History topical ointment brimonidine 0.2 % eye drops 1 drp OPR BID 11/12/23 11/12/23 History carisoprodol 350 mg tablet 350 mg PO Q6H PRN MUSCLE SPASMS 11/12/23 11/12/23 History docusate sodium 100 mg capsule 100 mg PO BID 11/12/23 11/12/23 History ibuprofen 600 mg tablet 600 mg PO TID 11/12/23 11/12/23 History oxycodone 5 mg tablet 5 mg PO Q4H PRN Pain 11/12/23 11/12/23 History pantoprazole 20 mg tablet,delayed 20 mg PO DAILY 11/12/23 11/12/23 History release vit no.95-ferrous 1 tab PO DAILY 11/12/23 11/12/23 History fumarate 28 mg-folic acid 800 mcg tablet () Hospital Stay Data Consultations 11/12/23 01:45 ED Decision to Admit Stat 11/12/23 05:40 Consult Gastroenterology Routine Procedures Performed Operation Date: 11/12/23 17:05 <No data on this case meets the specified criteria> Diagnostic Imagining Performed 11/12/23 01:17 CT head/brain wo con Stat 11/12/23 03:40 CT Abd and Pelvis [CT abd pelvis IV con only] Stat Chest X-Ray 11/11/23 23:52 XR chest 1V not portable HISTORY: 63 years-old Male Weakness acute weakness. Acute chest trauma status post fall COMPARISON: 10/22/2023 TECHNIQUE: AP view of the chest FINDINGS: Partially imaged comminuted and displaced right proximal humeral fracture redemonstrated. Cardiomediastinal and hilar silhouettes are unchanged. No pneumothorax, pleural effusion or airspace consolidation. Bones appear otherwise grossly intact. IMPRESSION: 1. Cardiomegaly without acute process. 2. Partially imaged comminuted and displaced right humeral fracture redemonstrated. ACT 112: Negative or not required by law. The above report was generated using voice recognition software. It may contain grammatical, syntax or spelling errors. Electronically signed by: Jm Blair M.D. 11/12/2023 6:[address] 11/12/23 01:17 Exam(s): CT HEAD Without Contrast EXAM: CT Head Without Intravenous Contrast CLINICAL HISTORY: Reason for exam: trauma. TECHNIQUE: Axial computed tomography images of the head/brain without intravenous contrast. CTDI is 37.32 mGy and DLP is 624.41 mGy-cm. Automated exposure control was utilized for the study. A dose lowering technique was utilized adhering to the principles of ALARA. COMPARISON: Comparison made to prior head CT from October 22, 2023. FINDINGS: Brain: Unremarkable. No hemorrhage. No significant white matter disease. No edema. There is a tiny calcification in a right posterior frontal lobe sulcus. Ventricles: Moderate ventriculomegaly Bones/joints: Unremarkable. No acute fracture. Soft tissues: Unremarkable. Sinuses: Unremarkable as visualized. No acute sinusitis. Mastoid air cells: Unremarkable as visualized. No mastoid effusion. IMPRESSION: No evidence of acute intracranial pathology. Electronically signed by: Griselda Lozano MD 11/12/23 03:51 AM Abdomen/Pelvis CT 11/12/23 03:40 Exam(s): CT ABDOMEN + PELVIS With Contrast IV Amt: 82 ML OPTIRAY 320 EXAM: CT Abdomen and Pelvis With Intravenous Contrast CLINICAL HISTORY: Reason for exam: abd pain. TECHNIQUE: Axial computed tomography images of the abdomen and pelvis with intravenous contrast. CTDI is 38.87 mGy and DLP is 2039.97 mGy-cm. Automated exposure control was utilized for the study. A dose lowering technique was utilized adhering to the principles of ALARA. CONTRAST: Patient received 82 ML OPTIRAY 320 of IV contrast COMPARISON: CT Abdomen Pelvis dated 10/22/2023, CT Abdomen Pelvis dated june 23 2023 FINDINGS: Lung bases: Unremarkable. No mass. No consolidation. ABDOMEN: Liver: Cirrhotic morphology of the liver. TIPS in situ. Gallbladder and bile ducts: Unremarkable. No calcified stones. No ductal dilation. Pancreas: Unremarkable. No mass. No ductal dilation. Spleen: Unremarkable. No splenomegaly. Adrenals: Unremarkable. No mass. Kidneys and ureters: Unremarkable. No solid mass. No hydronephrosis. Stomach and bowel: No evidence of bowel obstruction. Colonic diverticulosis. No evidence of diverticulitis. PELVIS: Appendix: Normal appendix. Bladder: Unremarkable. No mass. Reproductive: Prostatic calcifications. ABDOMEN and PELVIS: Intraperitoneal space: Unremarkable. No free air. No significant fluid collection. Bones/joints: T11 and L1 compression fractures, unchanged from prior study March 22, 2024, but new from prior study June 23, 2023. Consider collation of point tenderness. There is further concern, consider MRI. No dislocation. Soft tissues: Diastases recti with midline fat-containing umbilical hernia. Vasculature: Atherosclerotic disease. No abdominal aortic aneurysm. Lymph nodes: Unremarkable. No enlarged lymph nodes. IMPRESSION: 1. Cirrhotic morphology of the liver. TIPS in situ. 2. T11 and L1 compression fractures, unchanged from prior study March 22, 2024, but new from prior study June 23, 2023. Consider collation of point tenderness. There is further concern, consider MRI. 3. No other acute findings. 4. Incidental findings as described. Electronically signed by: Lloyd Hernandez MD 11/12/23 06:58 AM Pending Results Patient Have Any Pending Studies at Discharge: No Total Time Total Time Spent Total Time Spent (In Minutes): > 30 minutes
--- NOTE | 2023-11-15 11:56 | Gastroenterology Progress Note ---
Date of Service November 15, 2023 Assessment & Plan (1) Anemia: Plan At this time, no clear indication for EGD (no gross GI bleeding), BUN normal. Had recent EGD w/o varices though did have portal hypertensive gastropathy. Pt clearly doesn't agree to EGD. Recommend OP GI f/u w Chel Hopper for continued cirrhosis management. Discussed importance of complete/permanent ETOH abstention. Continue return to OP diuretic, lactulose and PPI dosing. GI will sign off. Admission and Anticipated Discharge Date Admission Date: November 12, 2023 Supervising Physician Co-Signing Physician Notes I have seen and examined the patient and agree with PE and plan as documented. Subjective 63 yr old male w ETOH cirrhosis follows gisell Hopper in the OP setting seen most recently last week. Cirrhosis complicated by ascites post TIPs. He was admitted to [facility] last month for a fall associated w ETOH. Denies any ETOH use and most recent lab on admission was (-) for blood ETOH. Most recent EGD Sep 2023 w esophagitis portal hypertensive gastropathy, no varices. OP notes say no hx of hep enceph but was admitted for mental status changes, now back to baseline on lactulose. Dx tap on arrival w/o evidence of SBP (WBCs 480 but 0% neutrophils). DF 16 (if was drinking recently, and ETOH is present - no steroids/Trental are indicated) GI consulted for anemia w a baseline of 9-10 in October before his fall to 7.6 on admission on 11/11 to 7.8 today. Occult stool (+) during this admission. We set up the Portuguese language interpretive service. He denies any gross GI bleeding or any abd pain. He is very clear that he wants to go home today and that he does not agree to undergo EGD today. Review of Systems Review of Systems: ROS: Gen: Denies weakness, fevers, weight loss Eyes: No eye redness, or pain, no recent vision changes Resp: No SOB, no cough Cardio: No palpitations/irregular beats, no chest pain GI: As per HPI, otherwise (-) : Denies pain on urination Skin: No jaundice, itching or new rashes Physical Exam Constitutional: WD/WN, vitals as above Eyes: PERRL, conjunctivae normal, anicteric sclerae ENMT: external ear and nose normal, oropharynx normal Neck: trachea midline, no thyromegaly Respiratory: normal respiratory effort, lungs clear to auscultation Cardiovascular: RRR, no murmurs, mild bilat lower leg edema Gastrointestinal (Abdomen): Mild/Moderate ascites, + Umbilical hernia, non tender. Soft. Musculoskeletal: no cyanosis or clubbing, extremities motor strength 5/5 Skin: no rashes, warm and dry Neurologic: PERRL, EOMI, accommodation nl, no face palsy, no dysarthria No asterix Psychiatric: mildly agitated (about wanting to go home and not wanting EGD) but very alert, oriented to person/place time, able to carry out a detailed conversation; logical thought process Results & Data Vital Signs (Past 12 Hours) Vital Signs Temp Pulse Pulse Resp BP Pulse Ox O2 Del Method 11/15/23 08:50 Room Air 11/15/23 07:40 36.7 C 56 L 18 136/78 100 Room Air 11/15/23 07:23 67 11/15/23 04:08 36.6 C 61 16 147/82 H 100 Room Air Laboratory Results WBC 5, Hb 7, Hct 23, Plts 150, PT 15, INR 1.4, Na 137, K 3.6, Cl 100, BUN 13, Cr 0.89, glucose 119,. T BIli 2.4, AST 52, ALT 32, Alk Phos 120. Diagnostic Findings CTAP w IV 11/12/23: 1. Cirrhotic morphology of the liver. TIPS in situ. 2. T11 and L1 compression fractures, unchanged from prior study March 22, 2024, but new from prior study June 23, 2023. Consider collation of point tenderness. There is further concern, consider MRI. 3. No other acute findings. 4. Incidental findings as described. Head CT 11/12/23: No evidence of acute intracranial pathology.
--- NOTE | 2023-11-22 09:30 | Coding Query ---
CODING QUERY To promote full compliance with coding requirements relating to patient care, provider participation is requested in all cases of golf ball trimmer uncertainty. Please assist us with the question(s) below: Coding Question(s): There is documentation in the record, starting on the H&P, and on the Discharge Summary of, "IV ceftriaxone given for SBP prophylaxis in the setting of UGIB in a cirrhotic patient", and also documentation on the 11/15 GI Progress Note of, "Dx tap on arrival w/o evidence of SBP (WBCs 480 but 0% neutrophils)". Please specify below, in your clinical opinion, regarding SBP: ( ) SBP is possible Spontaneous Bacterial Peritonitis, that was possible and treated and/or monitored during this admission ( ) SBP is possible Spontaneous Bacterial Peritonitis that is Ruled-Out completely ( x ) SBP is Other: Please Specify prophylaxis Physician's Response(s): Thank you Betsy Riggins Principal Diagnosis: "that condition established after study, to be chiefly responsible for occasioning the admission of the patient to the hospital for care." Co-Existing Principal Diagnosis: "when two or more diagnoses equally meet the criteria for principal diagnosis as determined by the circumstances of admission, diagnostic work up, and/or therapy provided, and the Alphabetic Index, Tabular List, or another coding guideline does not provide sequencing direction, any one of the diagnoses may be sequenced first." "When the physician has documented what appears to be a current diagnosis in the body of the record, but has not included the diagnosis in the final diagnostic statement, the physician should be asked whether the diagnosis should be added." (Source Coding [facility] 2 QTR90. p3-4) HAVEND
--- NOTE | 2023-11-22 10:27 | Coding Query ---
CODING QUERY To promote full compliance with coding requirements relating to patient care, provider participation is requested in all cases of car porter uncertainty. Please assist us with the question(s) below: Coding Question(s): The Discharge Summary documents, "Lethargy and LOC per pt likely in setting of acute hepatic encephalopathy". Please specify below, in your clinical opinion: (x ) There was, upon admission, likely LOC, meaning Loss of Consciousness, most likely due to Acute Hepatic Encephalopathy ( ) There was likely No LOC, meaning loss of consciousness, and this is only the opinion of the patient, that I don't agree with ( ) Other: Please Specify Physician's Response(s): Thank you Betsy Riggins Principal Diagnosis: "that condition established after study, to be chiefly responsible for occasioning the admission of the patient to the hospital for care." Co-Existing Principal Diagnosis: "when two or more diagnoses equally meet the criteria for principal diagnosis as determined by the circumstances of admission, diagnostic work up, and/or therapy provided, and the Alphabetic Index, Tabular List, or another coding guideline does not provide sequencing direction, any one of the diagnoses may be sequenced first." "When the physician has documented what appears to be a current diagnosis in the body of the record, but has not included the diagnosis in the final diagnostic statement, the physician should be asked whether the diagnosis should be added." (Source Coding Clinic 2 QTR90. p3-4) THIAGO
== END 2023-11-15 11:47 | disposition left against medical advice (07) | DRG 377 ==
LOC: ED 22:48 → EDINP 11-12 04:14 → 2W 11-12 05:40

== ENCOUNTER 2023-11-30 10:29 | Inpatient (IN) ==
--- NOTE | 2023-11-30 11:17 | Emergency Department Note ---
Impression & Plan Acute hepatic encephalopathy, AMS (altered mental status), Anemia ED Provider Note NAME: ALONDRA NEAL AGE: 63 SEX: M : 1960 ARRIVES VIA: Ambulance INFORMANT: Patient ED PROVIDER(S): Jad Covington DO CHIEF COMPLAINT: AMS HPI: Patient is a 63-year-old male with a past medical history of altered mental status, alcohol abuse, cirrhosis with ascites who presents to the ER following a welfare check from office of aging. They called the police who stopped in and here he was found on the ground again. He was found altered. Not following commands. Burglar Alarm Operator was used but all the gentleman could say was that he has pain. History is otherwise unobtainable. Additional history was provided by EMS to nursing staff noting that they have been called out multiple times for falls and today he was confused unable to take care of himself. ADDITIONAL HISTORY OBTAINED: Per HPI Chronic Medical/Social Conditions Affecting Care: Per HPI PAST MEDICAL HISTORY:See Below PAST SURGICAL HISTORY:See Below FAMILY HISTORY:See Below SOCIAL HISTORY:See Below HOME MEDICATIONS:See Below ALLERGIES:See Below VITALS:See Below PHYSICAL EXAMINATION: GENERAL: Sitting up in bed, disheveled, eyes closed HEAD: NC/AT EYE EXAM: normal conjunctiva. PERRL and EOM's grossly intact. OROPHARYNX: no exudate, no erythema, lips, buccal mucosa, and tongue normal and mucous membranes are moist NECK: supple, no nuchal rigidity, no adenopathy, non-tender CHEST: Bruising throughout the chest LUNGS: Clear to auscultation. Normal chest wall mechanics HEART: no murmurs, S1 normal and S2 normal ABDOMEN: abdomen soft, non-tender, normo-active bowel sounds, no masses, no rebound or guarding. BACK: Back is symmetrical on inspection and there is no deformity, no midline tenderness, no CVA tenderness. SKIN: no rashes and no bruising UPPER EXTREMITIES: Pain on palpation of right humeral head. No tenderness throughout the elbow or forearm. Radial pulse 2 out of 4. No tenderness throughout the entire left upper extremity on palpation. LOWER EXTREMITIES: No tenderness on palpation of bilateral lower extremities. NEURO EXAM: Awakens to sternal rub moans and states pain, moves all extremities but unable to state name, place or date of MEDICAL DECISION MAKING: Patient is a 63-year-old male who presents ER for the above-stated complaint. IV was established blood work is obtained. External records were reviewed. Labs show no significant leukocytosis. Mild anemia at 9.7 which is actually improved from his baseline of 7. INR 1.2. BMP was unremarkable. Mag slightly low at 1.6. T. bili at 1.7. Ammonia significantly elevated at 120. Trope negative. UA was clean. Alcohol negative. Patient responds to a sternal rub but is otherwise laying in bed sleeping. Due to his mental state CT of the head chest abdomen pelvis was obtained. Did show multiple rib fractures which do appear to be old and thoracic spine fractures. This will need to be evaluated and followed up on as an inpatient although based on his recent transfer this does appear to be all old. X-ray of the right humerus does show humeral head fracture. This can be followed up on as an inpatient by orthopedics and will defer to the hospitalist. Did order lactulose enema. He was also given thiamine, folate as well due to his history of alcohol abuse. Consults/Care Managements Discussions: Per [facility] Triage Nursing notes reviewed. Limited review of prior medical records performed Vital Signs: reviewed and remarkable for no significant abnormalities Differential diagnosis: Differential diagnoses includes but is not limited to toxic, metabolic, infectious, traumatic, cardiac, neurologic, hematologic, psychiatric and inflammatory etiologies. ER treatment provided: See below Diagnostics interpreted by me include EKG and cardiac monitoring as listed below: -Cardiac Monitoring: An order was placed for continuous cardiac monitoring. The monitor shows a rate of 90 with sinus rhythm. -ECG: Sinus tachycardia rate of 111 Normal axis No PVCs Right bundle branch block T wave inversions in septal leads QTc 516 -Laboratory studies:Interpreted by me as stated above in MDM and shown below. Imaging studies: Xrays: As interpreted by me: X-ray of the right shoulder shows right humeral head fracture CTs show: CT trauma scan as described above Procedures:none Critical Care: None Past Med/Surg History Medical History Hepatic encephalopathy Right bundle branch block Hypertension Hyperlipidemia Depression Alcoholism Tobacco abuse, in remission HTN (hypertension) NICO (obstructive sleep apnea) GERD (gastroesophageal reflux disease) Anxiety Elevated LFTs Anxiety GERD (gastroesophageal reflux disease) Cirrhosis Surgical History H/O right inguinal hernia repair (12/28/21) Open Incarcerated Right inguinal hernia repair with mesh (Right) - Ezequiel Sewell DO 12/28/2021 History of varicose vein stripping History of surgery on arm torn ligament repair History of colonoscopy x3 History of surgery of liver TIPS procedure 12/19/2021 Family History Other Heart disease Social History Smoking Status: Unknown if ever smoked Tobacco Type: Cigarettes Cigarettes Per Day: 4; Second Hand Exposure: No; Do You Dip or Chew Tobacco: No; Hx Alcohol Use: Yes Alcohol type: wine Hx Substance Use: No Preferred Language: Other Communication Ability: Effective Communication Tools: Language Line Burglar Alarm Operator Burglar Alarm Operator Required: Yes Beliefs That Will Affect Care: None marital status: Current Living Situation: Alone Feels Safe at Home: Yes Assistive Devices: None Allergies Allergies Allergy/AdvReac Type Severity Reaction Status Date / Time ibuprofen AdvReac Intermediate ugib Verified 11/12/23 05:57 Home Meds Home Medications Medication Instructions Recorded Confirmed diclofenac sodium 1 % topical gel 2 - 4 g topical QID PRN Pain 07/04/21 11/30/23 lactulose 10 gram/15 mL oral 15 ml PO TID 12/28/21 11/30/23 solution sildenafil 100 mg tablet 50 - 100 mg PO DAILY PRN Sexual 10/22/23 11/30/23 Activity bacitracin zinc 500 unit/gram 1 applic topical DAILY 11/12/23 11/30/23 topical ointment brimonidine 0.2 % eye drops 1 drp OPR BID 11/12/23 11/30/23 carisoprodol 350 mg tablet 350 mg PO Q6H PRN MUSCLE SPASMS 11/12/23 11/30/23 docusate sodium 100 mg capsule 100 mg PO BID 11/12/23 11/30/23 oxycodone 5 mg tablet 5 mg PO Q4H PRN Pain 11/12/23 11/30/23 pantoprazole 20 mg tablet,delayed 20 mg PO DAILY 11/12/23 11/30/23 release vit no.95-ferrous 1 tab PO DAILY 11/12/23 11/30/23 fumarate 28 mg-folic acid 800 mcg tablet () Results & Data (ED) Vital Signs Vital Signs - 24 hr 11/30/23 10:55 11/30/23 11:00 11/30/23 11:04 Temperature 36.8 C Temperature Source Oral Pulse Rate 91 H 90 92 H Pulse Rate [Apical] Pulse Rhythm Regular Pulse Rhythm [Apical] Pulse Strength [Apical] Respiratory Rate 18 17 Respiratory Effort / Characteristics Non-Labored Spontaneous Respiratory Depth Normal Respiratory Pattern Blood Pressure 105/87 Blood Pressure [Right Arm] Blood Pressure Mean 93 Blood Pressure Mean [Right Arm] Blood Pressure Position [Right Arm] Pulse Oximetry 97 96 Oxygen Delivery Method Room Air Room Air Sepsis Recent Fever Within 48 Hours No Sepsis New/Unexplained Change in Mental Status N/A Sepsis Action Taken by Nursing No Action Required 11/30/23 11:27 11/30/23 14:29 11/30/23 15:16 Temperature 36.8 C Temperature Source Temporal Artery Scan Pulse Rate 88 Pulse Rate [Apical] 90 90 Pulse Rhythm Pulse Rhythm [Apical] Regular Regular Pulse Strength [Apical] Normal Normal Respiratory Rate 17 19 Respiratory Effort / Characteristics Non-Labored Spontaneous Non-Labored Spontaneous Respiratory Depth Normal Normal Respiratory Pattern Regular Regular Blood Pressure Blood Pressure [Right Arm] 148/89 H Blood Pressure Mean Blood Pressure Mean [Right Arm] 108 Blood Pressure Position [Right Arm] Semi-fowlers Pulse Oximetry 96 92 Oxygen Delivery Method Room Air Room Air Sepsis Recent Fever Within 48 Hours Sepsis New/Unexplained Change in Mental Status Sepsis Action Taken by Nursing Laboratory Data 11/30/23 11:05 11/30/23 11:05 Lab Results 11/30/23 11/30/23 11/30/23 Range/Units 11:05 11:20 11: WBC 6.08 (4.8-10.8) K/ul RBC 2.73 L (4.70-6.10) M/uL Hgb 9.7 L (14.0-18.0) g/dl Hct 30.2 L (42.0-52.0) % MCV 110.6 H (80.0-100.0) fL MCH 35.5 H (25.0-34.0) pg MCHC 32.1 (32.0-36.0) g/dL RDW Std Deviation 59.0 H (36.4-46.3) fL RDW Coeff of Claire 14.4 (11.5-14.5) % Plt Count 164 (130-400) K/uL MPV 9.6 (9.4-12.4) fL Immature Gran % (Auto) 0.3 % Neut % (Auto) 69.7 % Lymph % (Auto) 15.3 % [place] % (Auto) 12.7 % Eos % (Auto) 0.8 % Baso % (Auto) 1.2 % Neut # (Auto) 4.24 (1.40-6.50) K/uL Lymph # (Auto) 0.93 L (1.20-3.40) K/uL [place] # (Auto) 0.77 H (0.11-0.59) K/uL Eos # (Auto) 0.05 (0.00-0.50) K/uL Baso # (Auto) 0.07 (0.00-0.20) K/uL Immature Gran # (Auto) 0.02 (0.01-0.20) K/uL Polychromasia 1+ Macrocytosis Present PT 13.5 H (9.0-12.0) Seconds INR 1.2 H (0.9-1.1) Sodium 142 (136-145) mmol/L Potassium 4.1 (3.5-5.1) mmol/L Chloride 114 H (98-107) mmol/L Carbon Dioxide 21 (21-32) mmol/L Anion Gap 7 (3-11) BUN 12 (6-23) mg/dl Creatinine 0.65 (0.6-1.4) mg/dl Est Cr Clr Drug Dosing 162.5 ml/min Est GFR ( Amer) 121.7 ml/min Est GFR (Non-Af Amer) 105.0 ml/min BUN/Creatinine Ratio 18.5 (10-20) Glucose 107 H (70-99(Fasting)) mg/dl Calcium 8.8 (8.6-10.3) mg/dl Phosphorus 3.5 (2.5-4.9) mg/dl Magnesium 1.6 L (1.7-2.4) mg/dl Total Bilirubin 1.7 H (0.2-1.0) mg/dl AST 35 (13-39) U/L ALT 23 (7-52) U/L Alkaline Phosphatase 189 H (34-104) U/L Ammonia 120.0 H (18-72) umol/L Total Creatine Kinase 151 (30-223) U/L Troponin I High Sens 16.9 (0-20) pg/ml Total Protein 6.5 (6.0-8.3) gm/dl Albumin 3.1 L (3.4-5.0) gm/dl Globulin 3.4 (2.5-4.0) gm/dl Albumin/Globulin Ratio 0.9 (0.9-2) Lipase 22 (11-82) U/L Vitamin B12 906 (180-914) pg/ml Urine Color Yellow Urine Appearance Clear (Clear) Urine pH 7.5 (4.5-7.5) Ur Specific [place] 1.007 (1.000-1.030) Urine Protein Negative (Negative) Urine Glucose (UA) Negative (Negative) Urine Ketones Negative (Negative) Urine Blood Negative (Negative) Urine Nitrite Negative (Negative) Urine Bilirubin Negative (Negative) Urine Urobilinogen Negative (Negative) Ur Leukocyte Esterase Trace H (Negative) Urine WBC (Auto) 1-5 (0-5) /hpf Urine RBC (Auto) 0-4 (0-4) /hpf U Hyaline Cast (Auto) 1-5 (0-5) /lpf U Epithel Cells (Auto) 0-5 (0-5) /lpf Urine Bacteria (Auto) Negative (Negative) Ethyl Alcohol mg/dL < 10.0 (<10.0) mg/dl Administered Medications Discontinued Medications Thiamine HCl 100 mg/ Syringe 10 mls @ 2 mls/min IV NOW STA Stop: 11/30/23 13:04 Last Admin: 11/30/23 13:29 Dose: 2 mls/min Documented By: FRAN Folic Acid 1 mg/ Syringe 10 mls @ 5 mls/min IV NOW STA Stop: 11/30/23 13:01 Last Admin: 11/30/23 13:29 Dose: 5 mls/min Documented By: FRAN Ioversol (Optiray 320 500ml) 90 ml IV ONCE ONE Stop: 11/30/23 12:53 Last Admin: 11/30/23 12:52 Dose: 90 ml Documented By: YUE Imaging Data Radiologist's Impression: Abdomen/Pelvis CT 11/30/23 11:15 CT SCAN OF THE ABDOMEN AND PELVIS WITH IV CONTRAST CLINICAL HISTORY: Trauma. COMPARISON STUDY: Abdominal CT dated 11/12/2023. TECHNIQUE: Following the IV administration of 90 cc of Optiray 320, CT scan of the abdomen and pelvis is performed from the lung bases to the proximal femora. Images are reviewed in the axial, sagittal, and coronal planes. IV contrast was administered without complication. A dose lowering technique was utilized adhering to the principles of ALARA. The examination is degraded by motion artifact, as well as by streak artifact from the arms which could not be elevated above the abdomen. FINDINGS: Lung bases: The heart is top normal in size noting trace pericardial effusion. The coronary arteries are densely calcified. A 5 mm right middle lobe pulmonary nodule is similar to previous. There is bibasilar scarring/atelectasis. No airspace consolidation or large pleural effusion is identified. There is a small hiatal hernia. Esophageal varices are noted. Liver: The contrast-enhanced liver is cirrhotic in morphology and heterogeneous in attenuation. There is nodularity of the hepatic surface contour and hypertrophy of the left lobe. A 1.4 cm cyst is noted in the left lobe. There is no intrahepatic biliary ductal dilatation. The hepatic veins and portal veins are patent. A TIPS catheter is in place end appears patent. Gallbladder: There are calcified gallstones with no CT evidence of acute cholecystitis. Spleen: The spleen is mildly enlarged measuring 13.5 cm in length. Pancreas: Unremarkable. Adrenal glands: Unremarkable. Kidneys: The contrast enhanced kidneys are normal in size and without hydronephrosis. The kidneys enhance symmetrically. A 2.4 cm cyst is noted on the left. A 1.4 cm cyst is seen in the right lower pole. Abdominal vasculature: The abdominal aorta is normal in course and caliber noting moderate atherosclerotic calcification. Bowel: There is mild colonic diverticulosis without CT evidence of acute diverticulitis. No bowel obstruction is seen. A small duodenal diverticulum is incidentally noted. The appendix is well-visualized and normal. Peritoneum: There is no intraperitoneal free air or abdominal ascites. There is a large fat-containing umbilical hernia. Lymphadenopathy: None. Pelvic viscera: The prostate gland is diminutive and heterogeneous. The bladder wall is thickened/trabeculated indicating chronic outlet obstruction. Skeletal structures: The skeletal structures are osteopenic. Mild compression injuries of T11 and L1 are unchanged. These may be subacute. There is mild lumbosacral spondylosis. There is a subacute/healing left posterior 8th an left lateral 10th rib fractures. Additional chronic/healed rib fractures are noted bilaterally. No lytic or blastic lesions are seen. IMPRESSION: 1. There is no evidence of solid organ injury in the abdomen or pelvis. 2. The liver is cirrhotic in morphology and heterogeneous in attenuation. 3. Cholelithiasis. 4. There are subacute left-sided rib fractures and mild subacute appearing lumbar compression deformities. These are similar to previous. 5. Colonic diverticulosis without CT evidence of acute diverticulitis. 6. Additional findings as above. ACT 112: Negative or not required by law. Electronically signed by: Ruben Go M.D. 11/30/2023 1:[address] 11/30/23 11:15 CT OF THE CERVICAL SPINE WITHOUT CONTRAST CLINICAL HISTORY: Trauma COMPARISON STUDY: Cervical spine CT October 22, 2023. TECHNIQUE: Helical axial images of the cervical spine were obtained without IV contrast. Sagittal and coronal reconstructions were viewed. Automated exposure control was utilized for the study. A dose lowering technique was utilized adhering to the principles of ALARA. FINDINGS: Alignment of the cervical spine is anatomic. Vertebral body heights are maintained. No acute cervical spine fracture or subluxation is present. There is no prevertebral edema. Facet joints are intact. Moderate multilevel degenerative disc disease and facet arthrosis is present. IMPRESSION: No acute cervical spine fracture or subluxation. ACT 112: Negative or not required by law. Electronically signed by: Stefan Metzger M.D. 11/30/2023 1:[address] 11/30/23 11:15 CT chest diagnostic w con CLINICAL HISTORY: Trauma TECHNIQUE: Multidetector row helical CT of the chest was performed with intravenous contrast. Coronal and sagittal reformations were obtained. Automated dose lowering techniques and/or adjustment according to patient size were utilized for this exam. Comparison: Comparison is made to CT chest 10/22/2023 FINDINGS: Lungs and pleura: Normal. Heart and pericardium: Heart size is normal. No pericardial effusion. Vessels: The pulmonary trunk is enlarged measuring 33 mm. Moderate atherosclerotic disease is seen. Mediastinum and chester: Unremarkable. Chest wall and lower neck: Unremarkable. Abdomen: Unremarkable. Bones: There is a comminuted fracture of the right humerus which is partially visualized. Acute compression fractures of the T7 and T11 vertebral bodies without involvement of the posterior elements. IMPRESSION: Acute comminuted fracture of the right humerus and compression deformities of the T7 and T11 vertebral bodies. ACT 112: Negative or not required by law. Electronically signed by: Martell Zaldivar M.D. 11/30/2023 1:[address] 11/30/23 11:15 CT SCAN OF THE BRAIN WITHOUT IV CONTRAST CLINICAL HISTORY: Trauma. COMPARISON STUDY: CT of the brain dated 11/12/2023. TECHNIQUE: Unenhanced axial CT scan of the brain is performed from the vertex to the skull base. A dose lowering technique was utilized adhering to the principles of ALARA. The skull base was scanned twice due to motion artifact. FINDINGS: Brain parenchyma: There is age-related involutional change noting mild microangiopathic disease. There is no hemorrhage, mass effect, or evidence of acute territorial ischemia by CT criteria. Eric-white matter differentiation is preserved. No extra-axial fluid collection is seen. Ventricles, sulci, cisterns: Prominent secondary to involutional change. Intracranial vasculature: There is atherosclerotic calcification of the cavernous carotid and vertebral arteries. Calvarium: There is no depressed calvarial fracture. Sinuses and mastoids: The visualized paranasal sinuses are clear. The mastoid air cells are well pneumatized. Orbits: The bony orbits are grossly intact. IMPRESSION: There is no hemorrhage, mass effect, or evidence of acute territorial ischemia by CT criteria. ACT 112: Negative or not required by law. Electronically signed by: Ruben Go M.D. 11/30/2023 1:09 PM Humerus X-Ray 11/30/23 14:16 XR humerus RT 2V CLINICAL HISTORY: r shoulder pain TECHNIQUE: 2 radiographic views of the right humerus were obtained. Comparison: Comparison is made to shoulder radiograph 10/22/2023 FINDINGS: Comminuted fracture of the humeral neck is seen with displacement and impaction. The visualized portion of the shoulder and elbow joints are unremarkable. Soft tissue swelling is seen. IMPRESSION: Comminuted fracture of the humeral neck with displacement and impaction. ACT 112: Negative or not required by law. Electronically signed by: Martell Zaldivar M.D. 11/30/2023 2:53 PM Discharge Plan Visit Data Chief Complaint: Fall ED Provider: Jad Covington Discharge Problem: Acute hepatic encephalopathy, AMS (altered mental status), Anemia Forms Stand Alone Forms: [facility] Prescriptions Prescriptions: No Action diclofenac sodium 1 % Gel 2 - 4 g TOPICAL QID PRN (Reason: Pain) Rx Instructions: 2 GRAMS FOR SMALLER JOINTS, THEN 4 GRAMS FOR LARGER JOINTS. lactulose 10 gram/15 mL solution 15 ml PO TID sildenafil 100 mg Tablet 50 - 100 mg PO DAILY PRN (Reason: Sexual Activity) Rx Instructions: TAKE 1/2 OR 1 TAB 1-4 HRS PRIOR TO INTERCOURSE, NO MORE THAN 1 DOSE IN 24 HOURS. carisoprodol 350 mg Tablet 350 mg PO Q6H PRN (Reason: MUSCLE SPASMS) bacitracin zinc 500 unit/gram ointment 1 applic TOPICAL DAILY Rx Instructions: APPLY TO KNEE ABRASIONS pantoprazole 20 mg tablet,delayed release (DR/EC) 20 mg PO DAILY brimonidine 0.2 % drops 1 drp OPR BID docusate sodium 100 mg capsule 100 mg PO BID oxycodone 5 mg tablet 5 mg PO Q4H PRN (Reason: Pain) PNV cmb#95-ferrous fumarate-FA [] 28 mg iron- 800 mcg Tablet 1 tab PO DAILY Referrals Referrals: Jovani Chávez MD [Primary Care Provider] - Discharge Problem: AMS (altered mental status) Qualifiers: Altered mental status type: unspecified Qualified Code(s): R41.82 - Altered mental status, unspecified Anemia Qualifiers: Anemia type: unspecified type Qualified Code(s): D64.9 - Anemia, unspecified
[2023-11-30 11:31] LABS: Basophils # (auto) 0.07 K/uL (0.00-0.20); Basophils % (auto) 1.2 %; Eosinophils # (auto) 0.05 K/uL (0.00-0.50); Eosinophils % (auto) 0.8 %; Hematocrit (blood only) 30.2 % (42.0-52.0); Hemoglobin 9.7 g/dl (14.0-18.0); Immature Granulocytes # (auto) 0.02 K/uL (0.01-0.20); Immature Granulocytes % (auto) 0.3 %; Lymphocytes # (auto) 0.93 K/uL (1.20-3.40); Lymphocytes % (auto) 15.3 %; Mean Corpuscular Hemoglobin 35.5 pg (25.0-34.0); Mean Corpuscular Hgb Conc 32.1 g/dL (32.0-36.0); Mean Corpuscular Volume 110.6 fL (80.0-100.0); Mean Platelet Volume 9.6 fL (9.4-12.4); Monocytes # (auto) 0.77 K/uL (0.11-0.59); Monocytes % (auto) 12.7 %; Neutrophils # (auto) 4.24 K/uL (1.40-6.50); Neutrophils % (auto) 69.7 %; Platelet Count 164 K/uL (130-400); RDW Coefficient of Variation 14.4 % (11.5-14.5); Red Blood Count 2.73 M/uL (4.70-6.10); White Blood Count 6.08 K/ul (4.8-10.8)
[2023-11-30 11:41] LABS: Appearance Urine Clear (Clear); Bacteria Urine Automated Negative (Negative); Bilirubin Urine Negative (Negative); Blood Urine Negative (Negative); Color Urine Yellow; Epithelial Cell Urine Auto 0-5 /lpf (0-5); Glucose Urine UA Negative (Negative); Ketones Urine Negative (Negative); Leukocyte Esterase Urine Trace (Negative); Nitrite Urine Negative (Negative); Protein Urine Negative (Negative); RBC Urine Automated 0-4 /hpf (0-4); Specific Gravity Urine 1.007 (1.000-1.030); Urobilinogen Urine Negative (Negative); pH Urine 7.5 (4.5-7.5)
[2023-11-30 11:52] LABS: INR 1.2 (0.9-1.1); Prothrombin Time 13.5 Seconds (9.0-12.0)
[2023-11-30 12:05] LABS: Potassium 4.1 mmol/L (3.5-5.1)
[2023-11-30 12:12] LABS: Macrocytosis Present; Polychromasia 1+
[2023-11-30 12:19] LABS: Albumin Globulin Ratio 0.9 (0.9-2); Albumin Level 3.1 gm/dl (3.4-5.0); BUN Creatinine Ratio 18.5 (10-20); Bilirubin,Total 1.7 mg/dl (0.2-1.0); Calcium 8.8 mg/dl (8.6-10.3); Creatinine Clr Calc Pharmacy 162.5 ml/min; Est GFR (African American) 121.7 ml/min; Globulin 3.4 gm/dl (2.5-4.0); Total Protein 6.5 gm/dl (6.0-8.3); Troponin I High Sensitivity 16.9 pg/ml (0-20)
[2023-11-30] MEDS: OPTIRAY 320 500ml IV ONE (12:52)
--- NOTE | 2023-11-30 13:11 | CT Scan Report ---
CT SCAN OF THE BRAIN WITHOUT IV CONTRAST CLINICAL HISTORY: Trauma. COMPARISON STUDY: CT of the brain dated 11/12/2023. TECHNIQUE: Unenhanced axial CT scan of the brain is performed from the vertex to the skull base. A do se lowering technique was utilized adhering to the principles of ALARA. The skull base was scanned tw ice due to motion artifact. FINDINGS: Brain parenchyma: There is age-related involutional change noting mild microangiopathic disease. Ther e is no hemorrhage, mass effect, or evidence of acute territorial ischemia by CT criteria. Eric-white matter differentiation is preserved. No extra-axial fluid collection is seen. Ventricles, sulci, cisterns: Prominent secondary to involutional change. Intracranial vasculature: There is atherosclerotic calcification of the cavernous carotid and vertebr al arteries. Calvarium: There is no depressed calvarial fracture. Sinuses and mastoids: The visualized paranasal sinuses are clear. The mastoid air cells are well pneu matized. Orbits: The bony orbits are grossly intact. IMPRESSION: There is no hemorrhage, mass effect, or evidence of acute territorial ischemia by CT [facility]. ACT 112: Negative or not required by law. Electronically signed by: Ruben Go M.D. 11/30/2023 1:09 PM
--- NOTE | 2023-11-30 13:12 | CT Scan Report ---
CT OF THE CERVICAL SPINE WITHOUT CONTRAST CLINICAL HISTORY: Trauma COMPARISON STUDY: Cervical spine CT October 22, 2023. TECHNIQUE: Helical axial images of the cervical spine were obtained without IV contrast. Sagittal a nd coronal reconstructions were viewed. Automated exposure control was utilized for the study. A do se lowering technique was utilized adhering to the principles of ALARA. FINDINGS: Alignment of the cervical spine is anatomic. Vertebral body heights are maintained. No acut e cervical spine fracture or subluxation is present. There is no prevertebral edema. Facet joints are intact. Moderate multilevel degenerative disc disease and facet arthrosis is present. IMPRESSION: No acute cervical spine fracture or subluxation. ACT 112: Negative or not required by law. Electronically signed by: Stefan Metzger M.D. 11/30/2023 1:11 PM
--- NOTE | 2023-11-30 13:12 | CT Scan Report ---
CT chest diagnostic w con CLINICAL HISTORY: Trauma TECHNIQUE: Multidetector row helical CT of the chest was performed with intravenous contrast. Coronal and sagittal reformations were obtained. Automated dose lowering techniques and/or adjustment accord ing to patient size were utilized for this exam. Comparison: Comparison is made to CT chest 10/22/2023 FINDINGS: Lungs and pleura: Normal. Heart and pericardium: Heart size is normal. No pericardial effusion. Vessels: The pulmonary trunk is enlarged measuring 33 mm. Moderate atherosclerotic disease is seen. Mediastinum and chester: Unremarkable. Chest wall and lower neck: Unremarkable. Abdomen: Unremarkable. Bones: There is a comminuted fracture of the right humerus which is partially visualized. Acute compr ession fractures of the T7 and T11 vertebral bodies without involvement of the posterior elements. IMPRESSION: Acute comminuted fracture of the right humerus and compression deformities of the T7 and T11 vertebra l bodies. ACT 112: Negative or not required by law. Electronically signed by: Martell Zaldivar M.D. 11/30/2023 1:11 PM
[2023-11-30] MEDS: FOLIC ACID 1 MG in SYRINGE 9.8 ML IV STA (13:29)
[2023-11-30] MEDS: THIAMINE HCL 100 MG in SYRINGE 9 ML IV STA (13:29)
--- NOTE | 2023-11-30 13:31 | CT Scan Report ---
CT SCAN OF THE ABDOMEN AND PELVIS WITH IV CONTRAST CLINICAL HISTORY: Trauma. COMPARISON STUDY: Abdominal CT dated 11/12/2023. TECHNIQUE: Following the IV administration of 90 cc of Optiray 320, CT scan of the abdomen and pelvi s is performed from the lung bases to the proximal femora. Images are reviewed in the axial, sagittal , and coronal planes. IV contrast was administered without complication. A dose lowering technique wa s utilized adhering to the principles of ALARA. The examination is degraded by motion artifact, as we ll as by streak artifact from the arms which could not be elevated above the abdomen. FINDINGS: Lung bases: The heart is top normal in size noting trace pericardial effusion. The coronary arteries are densely calcified. A 5 mm right middle lobe pulmonary nodule is similar to previous. There is bib asilar scarring/atelectasis. No airspace consolidation or large pleural effusion is identified. There is a small hiatal hernia. Esophageal varices are noted. Liver: The contrast-enhanced liver is cirrhotic in morphology and heterogeneous in attenuation. There is nodularity of the hepatic surface contour and hypertrophy of the left lobe. A 1.4 cm cyst is note d in the left lobe. There is no intrahepatic biliary ductal dilatation. The hepatic veins and portal veins are patent. A TIPS catheter is in place end appears patent. Gallbladder: There are calcified gallstones with no CT evidence of acute cholecystitis. Spleen: The spleen is mildly enlarged measuring 13.5 cm in length. Pancreas: Unremarkable. Adrenal glands: Unremarkable. Kidneys: The contrast enhanced kidneys are normal in size and without hydronephrosis. The kidneys enh ance symmetrically. A 2.4 cm cyst is noted on the left. A 1.4 cm cyst is seen in the right lower pole . Abdominal vasculature: The abdominal aorta is normal in course and caliber noting moderate atheroscle rotic calcification. Bowel: There is mild colonic diverticulosis without CT evidence of acute diverticulitis. No bowel obs truction is seen. A small duodenal diverticulum is incidentally noted. The appendix is well-visualiz ed and normal. Peritoneum: There is no intraperitoneal free air or abdominal ascites. There is a large fat-containin g umbilical hernia. Lymphadenopathy: None. Pelvic viscera: The prostate gland is diminutive and heterogeneous. The bladder wall is thickened/tra beculated indicating chronic outlet obstruction. Skeletal structures: The skeletal structures are osteopenic. Mild compression injuries of T11 and L1 are unchanged. These may be subacute. There is mild lumbosacral spondylosis. There is a subacute/heal ing left posterior 8th an left lateral 10th rib fractures. Additional chronic/healed rib fractures ar e noted bilaterally. No lytic or blastic lesions are seen. IMPRESSION: 1. There is no evidence of solid organ injury in the abdomen or pelvis. 2. The liver is cirrhotic in morphology and heterogeneous in attenuation. 3. Cholelithiasis. 4. There are subacute left-sided rib fractures and mild subacute appearing lumbar compression deformi ties. These are similar to previous. 5. Colonic diverticulosis without CT evidence of acute diverticulitis. 6. Additional findings as above. ACT 112: Negative or not required by law. Electronically signed by: Ruben Go M.D. 11/30/2023 1:29 PM
--- NOTE | 2023-11-30 14:40 | History & Physical Report ---
Date of Service November 30, 2023 Assessment & Plan (1) Hepatic encephalopathy: (2) Decompensated hepatic cirrhosis: (3) AMS (altered mental status): (4) HTN (hypertension): (5) NICO (obstructive sleep apnea): (6) GERD (gastroesophageal reflux disease): (7) Hyperlipidemia: Plan Mr. Davidson is a 63-year-old Tajik/German speaking male presented to the [facility] today after a welfare check was done at home by the police he was found down suspecting hepatic encephalopathy with known alcoholism. Additional past medical history includes alcoholic cirrhosis of liver with ascites, obesity, HTN, HLD, NICO with CPAP, venous insufficiency following vascular, and GERD. No leukocytosis, ammonia level 120, negative troponin and CK levels. Alcohol level less than 10, potassium 4.1 otherwise electrolytes unremarkable. Lipase 22. Patient was recently admitted to [facility] after a mechanical fall on 10/23/2023 he apparently slipped on wet ground in his garage and struck his head with right periorbital ecchymosis. At that time he was hypothermic and hypotensive with an elevated lactate and CK levels with EtOH level greater than 200 troponin mid 40s. Cervical spine CT negative, abdominal pelvis CT negative for ascites. Chest CT: Acute comminuted fracture of the right humerus and compression deformities of the T7 and T11 vertebral bodies, negative for PE Head CT negative for ICH, subdural hematoma or midline shift. Humerus x-ray: Comminuted fracture of the humeral neck with displacement and impaction. MELD score 10. Patient unable to participate in review of systems as he is nearly obtunded. He does moan with turning and is able to say 'yes' to having pain with the ux interaction designer phone but otherwise no meaningful conversation. Patient was incontinent when he entered the room. Patient tender with right arm and tender with abdominal palpation. LLE greater than RLE. Venous Doppler October 2023 negative for DVT. Patient will be admitted for further evaluation and management of his hepatic encephalopathy. Goal for 2-4 stools per day and if no improvement consider Rifaximin. Will consult GI for involvement and evaluation. For humeral head fracture will involve orthopedics. Case management to be involved for c onsideration of placement. AMS likely secondary to Hepatic encephalopathy: Decompensated hepatic cirrhosis: Acute - admit to PCU Ammonia level 120; will recheck in a.m. MELD score calculated at 10 Takes lactulose 15 mL 3 times daily; started on lactulose 30 with a goal of 2-4 stools If no improvement consider rifaximin Abdomen pelvis CT without signs of ascites or abscess AWSS scale ordered Administer Ativan 1 mg IV once and reassess tremulous Check urine, blood cultures Tremulus on exam; will add AWSS scale with known alcohol use; Administer Ativan 1 mg IV once Folate and Thiamine IV administered in ED; add banana bag x1 continue thiamine and folate daily Alcohol level < 10; check UDS to complete Seizure, fall, aspiration protocols in place Will check VBG; CO2 21 on BMP GI consultation for further evaluation Humerus fracture: acute Humerus x-ray: Comminuted fracture of the humeral neck with displacement and impaction. T7 and T11 comminuted fractures; suspect related to last admission October 2023 Orthopedics consult placed Morphine 1 mg IV every 4 as needed HTN: Chronic Not appear to be on any daily beta-blockers or antihypertensive medications NICO: Chronic Will obtain ABG to assess for severity of acidosis GERD: Chronic Takes pantoprazole; continue switch p.o. to IV Disposition: PCP:Dr. Chávez CODE STATUS: Full code VTE prophylaxis: Teds and SCDs for now I spent a total of 87 minutes coordinating, documenting, and providing care for this patient excluding time spent in the performance of separately billed services. All of the aforementioned completed while collaborating with the assigned attending physician for a full treatment plan. Please see their addendum for further details. History of Present Illness Chief Complaint: [facility] Primary Care Provider: Jovani Chávez MD Mr. Davidson is a 63-year-old Tajik/German speaking male presented to the [facility] today after a welfare check was done at home by the police he was found down suspecting hepatic encephalopathy with known alcoholism. Additional past medical history includes alcoholic cirrhosis of liver with ascites, obesity, HTN, HLD, NICO with CPAP, venous insufficiency following vascular, and GERD. No leukocytosis, ammonia level 120, negative troponin and CK levels. Alcohol level less than 10, potassium 4.1 otherwise electrolytes unremarkable. Lipase 22. Cervical spine CT negative, abdominal pelvis CT negative for ascites. Chest CT: Acute comminuted fracture of the right humerus and compression deformities of the T7 and T11 vertebral bodies, negative for PE. Head CT negative for ICH, subdural hematoma or midline shift. Humerus x-ray: Comminuted fracture of the humeral neck with displacement and impaction. Patient was recently admitted to [facility] after a mechanical fall on 10/23/2023 he apparently slipped on wet ground in his garage and struck his head with right periorbital ecchymosis. At that time he was hypothermic and hypotensive with an elevated lactate and CK levels with EtOH level greater than 200 troponin mid 40s. MELD score 10. Patient unable to participate in review of systems as he is obtunded. He does moan with turning and is able to say yes to having pain with the ux interaction designer phone but otherwise no meaningful conversation. Patient was incontinent when he entered the room. Patient tender with right arm and tender with abdominal palpation. LLE greater than RLE. Venous Doppler October 2023 negative for DVT. I was able to talk with his friend and neighbor Manuel nguyen to have durable medical power of attorney lawyer stated that yesterday when he was home from work; he saw the patient had walked across the street and was mumbling and stating that he needed help. He had trouble with his utensils and had a hard time holding a cup to his mouth. He wears on a split level house. He is unemployed and applied for disability. He has a medical bed in his room from when his about three years ago. In general, prior to that he was a tidy person and very respectful. Since last year, he has declined considerably. He has become more disheveled. He has one daughter who lives in [facility]. He came to [facility] in the . He does not have any friends in the area. Patient will be admitted for further evaluation and management of his hepatic encephalopathy. Goal for 2-4 stools per day and if no improvement consider Rifaximin. Will consult GI for involvement and evaluation. For humeral head fracture will involve orthopedics. Case management to be involved for consideration of placement. Has been working with [employer] of [employer]; does not have any meals on wheels or services. Allergies Allergy/AdvReac Type Severity Reaction Status Date / Time ibuprofen AdvReac Intermediate ugib Verified 11/12/23 05:57 Home Medications Medication Instructions Recorded Confirmed Type diclofenac sodium 1 % topical gel 2 - 4 g topical QID PRN Pain 07/04/21 11/30/23 History lactulose 10 gram/15 mL oral 15 ml PO TID 12/28/21 11/30/23 History solution sildenafil 100 mg tablet 50 - 100 mg PO DAILY PRN Sexual 10/22/23 11/30/23 History Activity bacitracin zinc 500 unit/gram 1 applic topical DAILY 11/12/23 11/30/23 History topical ointment brimonidine 0.2 % eye drops 1 drp OPR BID 11/12/23 11/30/23 History carisoprodol 350 mg tablet 350 mg PO Q6H PRN MUSCLE SPASMS 11/12/23 11/30/23 History docusate sodium 100 mg capsule 100 mg PO BID 11/12/23 11/30/23 History oxycodone 5 mg tablet 5 mg PO Q4H PRN Pain 11/12/23 11/30/23 History pantoprazole 20 mg tablet,delayed 20 mg PO DAILY 11/12/23 11/30/23 History release vit no.95-ferrous 1 tab PO DAILY 11/12/23 11/30/23 History fumarate 28 mg-folic acid 800 mcg tablet () Past Med/Surg History Medical History (Updated 11/30/23 @ 19:54 by Manan Dooley MD) Proximal humerus fracture Hepatic encephalopathy Right bundle branch block Hypertension Hyperlipidemia Depression Alcoholism Tobacco abuse, in remission HTN (hypertension) NICO (obstructive sleep apnea) GERD (gastroesophageal reflux disease) Anxiety Elevated LFTs Anxiety GERD (gastroesophageal reflux disease) Cirrhosis Surgical History H/O right inguinal hernia repair (12/28/21) Open Incarcerated Right inguinal hernia repair with mesh (Right) - Ezequiel Sewell, 12/28/2021 History of varicose vein stripping History of surgery on arm torn ligament repair History of colonoscopy x3 History of surgery of liver TIPS procedure 12/19/2021 Family History Other Heart disease Social History Smoking Status: Unknown if ever smoked Tobacco Type: Cigarettes Cigarettes Per Day: 4; Second Hand Exposure: No; Do You Dip or Chew Tobacco: No; Hx Alcohol Use: Yes Alcohol type: wine Hx Substance Use: No Preferred Language: Other Communication Ability: Effective Communication Tools: Language Line Painter Assistant Painter Assistant Required: Yes Beliefs That Will Affect Care: None marital status: Current Living Situation: Alone Feels Safe at Home: Yes Assistive Devices: None Review of Systems Review of Systems: Unobtainable due to cognitive status Physical Exam Physical Exam: Neuro: AAOx1, does respond to tactile and verbal stimuli; however, very limited ROS and just answering yes to some questions; unsure of reliability. PERRLA, no aphagia, memory changes, unable to assess CN HEENT: head normocephalic, atraumatic, moist mucus membranes CV: S1/S2, (-) M/G/R, (-) edema, cap refill < 3 seconds Resp: Lungs decreased. On RA GI: Abdomen large, soft, (-) guarding (-) rebound tenderness, Ax4 bowel sounds, (-) CVA tenderness Musculoskeletal: Unable to assess strength due to decreased consciousness. LLE > RLE increase in size. Skin: (-) rashes , (-) erythema. Psych: unable to assess; agitated with moving Results & Data Results & Data Vital Signs (Past 12 Hours) Vital Signs Temp Pulse Pulse Resp BP BP Pulse Ox 11/30/23 11:27 36.8 C 90 17 148/89 H 96 11/30/23 11:04 92 H 11/30/23 11:00 90 17 96 11/30/23 10:55 36.8 C 91 H 18 105/87 97 O2 Del Method 11/30/23 11:27 Room Air 11/30/23 11:04 11/30/23 11:00 Room Air 11/30/23 10:55 Room Air Laboratory Results Short CBC 11/30/23 Range/Units 11:05 WBC 6.08 (4.8-10.8) K/ul Hgb 9.7 L (14.0-18.0) g/dl Hct 30.2 L (42.0-52.0) % Plt Count 164 (130-400) K/uL BMP 11/30/23 11:05 Sodium 142 Potassium 4.1 Chloride 114 H Carbon Dioxide 21 BUN 12 Creatinine 0.65 Glucose 107 H Calcium 8.8 Cardiac Enzymes 11/30/23 Range/Units 11:05 Total Creatine Kinase 151 (30-223) U/L Liver Function 11/30/23 Range/Units 11:05 Total Bilirubin 1.7 H (0.2-1.0) mg/dl AST 35 (13-39) U/L ALT 23 (7-52) U/L Alkaline Phosphatase 189 H (34-104) U/L Albumin 3.1 L (3.4-5.0) gm/dl Urine 11/30/23 Range/Units 11:20 Urine Color Yellow Urine Appearance Clear (Clear) Urine pH 7.5 (4.5-7.5) Ur Specific [place] 1.007 (1.000-1.030) Urine Protein Negative (Negative) Urine Glucose (UA) Negative (Negative) Diagnostic Findings Abdomen/Pelvis CT 11/30/23 11:15 CT SCAN OF THE ABDOMEN AND PELVIS WITH IV CONTRAST CLINICAL HISTORY: Trauma. COMPARISON STUDY: Abdominal CT dated 11/12/2023. TECHNIQUE: Following the IV administration of 90 cc of Optiray 320, CT scan of the abdomen and pelvis is performed from the lung bases to the proximal femora. Images are reviewed in the axial, sagittal, and coronal planes. IV contrast was administered without complication. A dose lowering technique was utilized adhering to the principles of ALARA. The examination is degraded by motion artifact, as well as by streak artifact from the arms which could not be elevated above the abdomen. FINDINGS: Lung bases: The heart is top normal in size noting trace pericardial effusion. The coronary arteries are densely calcified. A 5 mm right middle lobe pulmonary nodule is similar to previous. There is bibasilar scarring/atelectasis. No airspace consolidation or large pleural effusion is identified. There is a small hiatal hernia. Esophageal varices are noted. Liver: The contrast-enhanced liver is cirrhotic in morphology and heterogeneous in attenuation. There is nodularity of the hepatic surface contour and hypertrophy of the left lobe. A 1.4 cm cyst is noted in the left lobe. There is no intrahepatic biliary ductal dilatation. The hepatic veins and portal veins are patent. A TIPS catheter is in place end appears patent. Gallbladder: There are calcified gallstones with no CT evidence of acute cholecystitis. Spleen: The spleen is mildly enlarged measuring 13.5 cm in length. Pancreas: Unremarkable. Adrenal glands: Unremarkable. Kidneys: The contrast enhanced kidneys are normal in size and without hydronephrosis. The kidneys enhance symmetrically. A 2.4 cm cyst is noted on the left. A 1.4 cm cyst is seen in the right lower pole. Abdominal vasculature: The abdominal aorta is normal in course and caliber noting moderate atherosclerotic calcification. Bowel: There is mild colonic diverticulosis without CT evidence of acute diverticulitis. No bowel obstruction is seen. A small duodenal diverticulum is incidentally noted. The appendix is well-visualized and normal. Peritoneum: There is no intraperitoneal free air or abdominal ascites. There is a large fat-containing umbilical hernia. Lymphadenopathy: None. Pelvic viscera: The prostate gland is diminutive and heterogeneous. The bladder wall is thickened/trabeculated indicating chronic outlet obstruction. Skeletal structures: The skeletal structures are osteopenic. Mild compression injuries of T11 and L1 are unchanged. These may be subacute. There is mild lumbosacral spondylosis. There is a subacute/healing left posterior 8th an left lateral 10th rib fractures. Additional chronic/healed rib fractures are noted bilaterally. No lytic or blastic lesions are seen. IMPRESSION: 1. There is no evidence of solid organ injury in the abdomen or pelvis. 2. The liver is cirrhotic in morphology and heterogeneous in attenuation. 3. Cholelithiasis. 4. There are subacute left-sided rib fractures and mild subacute appearing lumbar compression deformities. These are similar to previous. 5. Colonic diverticulosis without CT evidence of acute diverticulitis. 6. Additional findings as above. ACT 112: Negative or not required by law. Electronically signed by: Ruben Go M.D. 11/30/2023 1:[address] 11/30/23 11:15 CT OF THE CERVICAL SPINE WITHOUT CONTRAST CLINICAL HISTORY: Trauma COMPARISON STUDY: Cervical spine CT October 22, 2023. TECHNIQUE: Helical axial images of the cervical spine were obtained without IV contrast. Sagittal and coronal reconstructions were viewed. Automated exposure control was utilized for the study. A dose lowering technique was utilized adhering to the principles of ALARA. FINDINGS: Alignment of the cervical spine is anatomic. Vertebral body heights are maintained. No acute cervical spine fracture or subluxation is present. There is no prevertebral edema. Facet joints are intact. Moderate multilevel degenerative disc disease and facet arthrosis is present. IMPRESSION: No acute cervical spine fracture or subluxation. ACT 112: Negative or not required by law. Electronically signed by: Stefan Metzger M.D. 11/30/2023 1:[address] 11/30/23 11:15 CT chest diagnostic w con CLINICAL HISTORY: Trauma TECHNIQUE: Multidetector row helical CT of the chest was performed with intravenous contrast. Coronal and sagittal reformations were obtained. Automated dose lowering techniques and/or adjustment according to patient size were util ized for this exam. Comparison: Comparison is made to CT chest 10/22/2023 FINDINGS: Lungs and pleura: Normal. Heart and pericardium: Heart size is normal. No pericardial effusion. Vessels: The pulmonary trunk is enlarged measuring 33 mm. Moderate atherosclerotic disease is seen. Mediastinum and chester: Unremarkable. Chest wall and lower neck: Unremarkable. Abdomen: Unremarkable. Bones: There is a comminuted fracture of the right humerus which is partially visualized. Acute compression fractures of the T7 and T11 vertebral bodies without involvement of the posterior elements. IMPRESSION: Acute comminuted fracture of the right humerus and compression deformities of the T7 and T11 vertebral bodies. ACT 112: Negative or not required by law. Electronically signed by: Martell Zaldivar M.D. 11/30/2023 1:[address] 11/30/23 11:15 CT SCAN OF THE BRAIN WITHOUT IV CONTRAST CLINICAL HISTORY: Trauma. COMPARISON STUDY: CT of the brain dated 11/12/2023. TECHNIQUE: Unenhanced axial CT scan of the brain is performed from the vertex to the skull base. A dose lowering technique was utilized adhering to the principles of ALARA. The skull base was scanned twice due to motion artifact. FINDINGS: Brain parenchyma: There is age-related involutional change noting mild microangiopathic disease. There is no hemorrhage, mass effect, or evidence of acute territorial ischemia by CT criteria. Eric-white matter differentiation is preserved. No extra-axial fluid collection is seen. Ventricles, sulci, cisterns: Prominent secondary to involutional change. Intracranial vasculature: There is atherosclerotic calcification of the cavernous carotid and vertebral arteries. Calvarium: There is no depressed calvarial fracture. Sinuses and mastoids: The visualized paranasal sinuses are clear. The mastoid air cells are well pneumatized. Orbits: The bony orbits are grossly intact. IMPRESSION: There is no hemorrhage, mass effect, or evidence of acute territorial ischemia by CT criteria. ACT 112: Negative or not required by law. Electronically signed by: Ruben oG M.D. 11/30/2023 1:09 PM Code Status & VTE Plan Code Status Full code in the event of cardiac respiratory arrest VTE Prophylaxis Plan VTE Prophylaxis will be ordered: Yes Supervising Physician Co-Signing Physician Notes I have seen and discussed the case with the collaborating NAREN. I agree with the above H&P. I have reviewed and confirmed the patients medical history, the findings on physical examination, and the patients diagnosis and treatment plan with Shilpa ZHANG and agree with the information documented. In short, Mr. Davidson is a israeli speaking gentleman admitted for encephalopathy, thought to be secondary to hepatic decompensation. Multiple falls recently. Recent right humerus fracture. Lives alone, no family. Support from neighbor--spoken to at length by above VICENTE. Exam notable for encephalopathic, lethargic gentleman, maintaining airway no apparent distress. abdomen soft, notable umbilical hernia, no fluid shift. Plan to utilize lactulose enema, AWSS for hepatic encephalopathy. Infectious work up. No signs of bleed or ascites. IV PPI. Ortho consult. Rest of plan as above. I have reviewed the advanced practitioner's documentation, and I agree with, and take responsibility for the plan of care I spent a total of 35 minutes coordinating, documenting, and providing care for this patient excluding time spent in the performance of separately billed services. All of the aforementioned completed outside of collaborating with above advanced practitioner for a full treatment plan. (3) AMS (altered mental status) Altered mental status type: somnolence Qualified Code(s): R40.0 - Somnolence
[2023-11-30] MEDS ORDERED: ONDANSETRON INJ 2 MG/ML 2 ML VIAL IV PRN (14:46)
[2023-11-30] MEDS ORDERED: POLYETHYLENE (MIRALAX) 17 GM PACK PO PRN (14:46)
[2023-11-30] MEDS ORDERED: MAGNESIUM HYDROXIDE SUSP 30 ML UDC PO PRN (14:46)
--- NOTE | 2023-11-30 14:55 | XRay Report ---
XR humerus RT 2V CLINICAL HISTORY: r shoulder pain TECHNIQUE: 2 radiographic views of the right humerus were obtained. Comparison: Comparison is made to shoulder radiograph 10/22/2023 FINDINGS: Comminuted fracture of the humeral neck is seen with displacement and impaction. The visualized porti on of the shoulder and elbow joints are unremarkable. Soft tissue swelling is seen. IMPRESSION: Comminuted fracture of the humeral neck with displacement and impaction. ACT 112: Negative or not required by law. Electronically signed by: Martell Zaldivar M.D. 11/30/2023 2:53 PM
[2023-11-30] MEDS ORDERED: LORazepam 1 MG in SYRINGE 0.5 ML IV PRN (14:56)
[2023-11-30] MEDS ORDERED: MoRPHine SULFATE 2 MG/ML CARP IV PRN ×2 (15:03→22:43)
[2023-11-30 15:12] LABS: Magnesium 1.6 mg/dl (1.7-2.4)
[2023-11-30 15:18] LABS: Phosphorus 3.5 mg/dl (2.5-4.9)
[2023-11-30] MEDS: LACTULOSE SYRUP 30 GM/45 ML UDP PO STA (16:25)
[2023-11-30] MEDS: MULTI-VITAMIN INFUSION 10 ML, THIAMINE HCL 100 MG, FOLIC ACID 1 MG in SODIUM CHLORIDE 0... IV ONE (16:29)
[2023-11-30] MEDS: MAGNESIUM SULFATE / D5W 1 GM/100 ML BAG IV SCH (18:27)
[2023-11-30] MEDS: LACTULOSE 200GM/700ML WTR ENEMA PR STA (18:27)
[2023-11-30 18:50] LABS: Appearance Urine Clear (Clear); Bacteria Urine Automated Negative (Negative); Bilirubin Urine Negative (Negative); Blood Urine 2+ (Negative); Cast Urine Automated 0 /lpf (0-5); Color Urine Yellow; Glucose Urine UA Negative (Negative); Ketones Urine Negative (Negative); Leukocyte Esterase Urine Trace (Negative); Nitrite Urine Negative (Negative); Protein Urine Negative (Negative); Specific Gravity Urine 1.024 (1.000-1.030); Urobilinogen Urine Negative (Negative); pH Urine 7.5 (4.5-7.5)
--- NOTE | 2023-11-30 19:48 | Orthopedic Consultation ---
Date of Consultation November 30, 2023 Assessment & Plan (1) Proximal humerus fracture: IMPRESSION: Right Proximal Humerus fracture, comminuted, impacted, healing, DOI 10/22/2023 PLAN: Recommend non-operative treatment at this time: Ice 20 min TID No heavy lifting more than coffee cup Please [facility] Will need [facility] x-rays To consider sling for comfort once more alert. Continue care per primary service. Present on Admission?: Yes History of Present Illness Reason for Consultation: Right proximal humerus fracture Requesting Physician: Yan Dooley MD Attending Physician: Quita Pelaez MD History of Present Illness Obtained from H&P and previous visits as patient obtunded. Mr. Davidson is a 63-year-old [place]/Maur[place] speaking male presented to the [facility] today after a welfare check was done at home by the police he was found down suspecting hepatic encephalopathy with known alcoholism. Additional past medical history includes alcoholic cirrhosis of liver with ascites, obesity, HTN, HLD, NICO with CPAP, venous insufficiency following vascular, and GERD. No leukocytosis, ammonia level 120, negative troponin and CK levels. Alcohol level less than 10, potassium 4.1 otherwise electrolytes unremarkable. Lipase 22. Patient was recently admitted to [facility] after a mechanical fall on 10/22/2023 he apparently slipped on wet ground in his garage and struck his head with right periorbital ecchymosis. At that time he was hypothermic He was found to have a comminuted fracture of the humeral neck with displacement and impaction. Unsure of proximal humerus fracture treatment since being treated in [place]. Allergies Allergy/AdvReac Type Severity Reaction Status Date / Time ibuprofen AdvReac Intermediate ugib Verified 11/12/23 05:57 Home Medications Medication Instructions Recorded Confirmed Type diclofenac sodium 1 % topical gel 2 - 4 g topical QID PRN Pain 07/04/21 11/30/23 History lactulose 10 gram/15 mL oral 15 ml PO TID 12/28/21 11/30/23 History solution sildenafil 100 mg tablet 50 - 100 mg PO DAILY PRN Sexual 10/22/23 11/30/23 History Activity bacitracin zinc 500 unit/gram 1 applic topical DAILY 11/12/23 11/30/23 History topical ointment brimonidine 0.2 % eye drops 1 drp OPR BID 11/12/23 11/30/23 History carisoprodol 350 mg tablet 350 mg PO Q6H PRN MUSCLE SPASMS 11/12/23 11/30/23 History docusate sodium 100 mg capsule 100 mg PO BID 11/12/23 11/30/23 History oxycodone 5 mg tablet 5 mg PO Q4H PRN Pain 11/12/23 11/30/23 History pantoprazole 20 mg tablet,delayed 20 mg PO DAILY 11/12/23 11/30/23 History release vit no.95-ferrous 1 tab PO DAILY 11/12/23 11/30/23 History fumarate 28 mg-folic acid 800 mcg tablet () Patient History Medical History (Updated 11/30/23 @ 19:54 by Manan Dooley MD) Proximal humerus fracture Hepatic encephalopathy Right bundle branch block Hypertension Hyperlipidemia Depression Alcoholism Tobacco abuse, in remission HTN (hypertension) NICO (obstructive sleep apnea) GERD (gastroesophageal reflux disease) Anxiety Elevated LFTs Anxiety GERD (gastroesophageal reflux disease) Cirrhosis Surgical History H/O right inguinal hernia repair (12/28/21) Open Incarcerated Right inguinal hernia repair with mesh (Right) - Ezequiel Sewell DO 12/28/2021 History of varicose vein stripping History of surgery on arm torn ligament repair History of colonoscopy x3 History of surgery of liver TIPS procedure 12/19/2021 Family History Other Heart disease Social History Smoking Status: Unknown if ever smoked Tobacco Type: Cigarettes Cigarettes Per Day: 4; Second Hand Exposure: No; Do You Dip or Chew Tobacco: No; Hx Alcohol Use: Yes Alcohol type: wine Hx Substance Use: No Preferred Language: Other Communication Ability: Effective Communication Tools: Language 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 RUE: 2+ radial pulse. Unable to assess sensation or strength due to his mental status. + Bruising upper arm and pec. Arm held at his side, elbow flexed 90 degrees. Results & Data Vital Signs (Past 12 Hours) Vital Signs Temp Pulse Pulse Resp BP BP Pulse Ox 11/30/23 18:36 11/30/23 18:00 88 22 160/85 H 99 11/30/23 17:31 75 14 162/94 H 100 11/30/23 17:00 95 H 16 172/94 H 99 11/30/23 16:30 97 H 22 168/102 H 99 11/30/23 16:18 20 164/108 H 100 11/30/23 16:00 95 H 16 100 11/30/23 15:30 84 15 161/93 H 100 11/30/23 15:16 88 11/30/23 15:14 88 20 165/86 H 100 11/30/23 15:03 92 H 18 171/85 H 100 11/30/23 14:29 90 19 92 11/30/23 14:01 97 H 20 157/91 H 100 11/30/23 11:27 36.8 C 90 17 148/89 H 96 11/30/23 11:04 92 H 11/30/23 11:00 90 17 96 11/30/23 10:55 36.8 C 91 H 18 105/87 97 Pulse Ox O2 Del Method O2 Del Method 11/30/23 18:36 99 Room Air 11/30/23 18:00 Room Air 11/30/23 17:31 Room Air 11/30/23 17:00 Room Air 11/30/23 16:30 Room Air 11/30/23 16:18 Room Air 11/30/23 16:00 Room Air 11/30/23 15:30 Room Air 11/30/23 15:16 11/30/23 15:14 Room Air 11/30/23 15:03 Room Air 11/30/23 14:29 Room Air 11/30/23 14:01 Room Air 11/30/23 11:27 Room Air 11/30/23 11:04 11/30/23 11:00 Room Air 11/30/23 10:55 Room Air Laboratory Results Laboratory Results WBC 6.08 K/ul (4.8-10.8) 11/30/23 11:05 RBC 2.73 M/uL (4.70-6.10) L 11/30/23 11:05 Hgb 9.7 g/dl (14.0-18.0) L 11/30/23 11:05 Hct 30.2 % (42.0-52.0) L 11/30/23 11:05 MCV 110.6 fL (80.0-100.0) H 11/30/23 11:05 MCH 35.5 pg (25.0-34.0) H 11/30/23 11:05 MCHC 32.1 g/dL (32.0-36.0) 11/30/23 11:05 RDW Std Deviation 59.0 fL (36.4-46.3) H 11/30/23 11:05 RDW Coeff of Claire 14.4 % (11.5-14.5) 11/30/23 11:05 Plt Count 164 K/uL (130-400) 11/30/23 11:05 MPV 9.6 fL (9.4-12.4) 11/30/23 11:05 Immature Gran % (Auto) 0.3 % 11/30/23 11:05 Neut % (Auto) 69.7 % 11/30/23 11:05 Lymph % (Auto) 15.3 % 11/30/23 11:05 Ada % (Auto) 12.7 % 11/30/23 11:05 Eos % (Auto) 0.8 % 11/30/23 11:05 Baso % (Auto) 1.2 % 11/30/23 11:05 Neut # (Auto) 4.24 K/uL (1.40-6.50) 11/30/23 11:05 Lymph # (Auto) 0.93 K/uL (1.20-3.40) L 11/30/23 11:05 Ada # (Auto) 0.77 K/uL (0.11-0.59) H 11/30/23 11:05 Eos # (Auto) 0.05 K/uL (0.00-0.50) 11/30/23 11:05 Baso # (Auto) 0.07 K/uL (0.00-0.20) 11/30/23 11:05 Immature Gran # (Auto) 0.02 K/uL (0.01-0.20) 11/30/23 11:05 Polychromasia 1+ 11/30/23 11:05 Macrocytosis Present 11/30/23 11:05 PT 13.5 Seconds (9.0-12.0) H 11/30/23 11:05 INR 1.2 (0.9-1.1) H 11/30/23 11:05 Sodium 142 mmol/L (136-145) 11/30/23 11:05 Potassium 4.1 mmol/L (3.5-5.1) 11/30/23 11:05 Chloride 114 mmol/L (98-107) H 11/30/23 11:05 Carbon Dioxide 21 mmol/L (21-32) 11/30/23 11:05 Anion Gap 7 (3-11) 11/30/23 11:05 BUN 12 mg/dl (6-23) 11/30/23 11:05 Creatinine 0.65 mg/dl (0.6-1.4) 11/30/23 11:05 Est Cr Clr Drug Dosing 162.5 ml/min 11/30/23 11:05 Est GFR ( Amer) 121.7 ml/min 11/30/23 11:05 Est GFR (Non-Af Amer) 105.0 ml/min 11/30/23 11:05 BUN/Creatinine Ratio 18.5 (10-20) 11/30/23 11:05 Glucose 107 mg/dl (70-99(Fasting)) H 11/30/23 11:05 Calcium 8.8 mg/dl (8.6-10.3) 11/30/23 11:05 Phosphorus 3.5 mg/dl (2.5-4.9) 11/30/23 11:05 Magnesium 1.6 mg/dl (1.7-2.4) L 11/30/23 11:05 Total Bilirubin 1.7 mg/dl (0.2-1.0) H 11/30/23 11:05 AST 35 U/L (13-39) 11/30/23 11:05 ALT 23 U/L (7-52) 11/30/23 11:05 Alkaline Phosphatase 189 U/L (34-104) H 11/30/23 11:05 Ammonia 120.0 umol/L (18-72) H 11/30/23 11:27 Total Creatine Kinase 151 U/L (30-223) 11/30/23 11:05 Troponin I High Sens 16.9 pg/ml (0-20) 11/30/23 11:05 Total Protein 6.5 gm/dl (6.0-8.3) 11/30/23 11:05 Albumin 3.1 gm/dl (3.4-5.0) L 11/30/23 11:05 Globulin 3.4 gm/dl (2.5-4.0) 11/30/23 11:05 Albumin/Globulin Ratio 0.9 (0.9-2) 11/30/23 11:05 Lipase 22 U/L (11-82) 11/30/23 11:05 Vitamin B12 906 pg/ml (180-914) 11/30/23 11:27 Urine Color Yellow 11/30/23 18:37 Urine Appearance Clear (Clear) 11/30/23 18:37 Urine pH 7.5 (4.5-7.5) 11/30/23 18:37 Ur Specific Douglas 1.024 (1.000-1.030) 11/30/23 18:37 Urine Protein Negative (Negative) 11/30/23 18:37 Urine Glucose (UA) Negative (Negative) 11/30/23 18:37 Urine Ketones Negative (Negative) 11/30/23 18:37 Urine Blood 2+ (Negative) H 11/30/23 18:37 Urine Nitrite Negative (Negative) 11/30/23 18:37 Urine Bilirubin Negative (Negative) 11/30/23 18:37 Urine Urobilinogen Negative (Negative) 11/30/23 18:37 Ur Leukocyte Esterase Trace (Negative) H 11/30/23 18:37 Urine WBC (Auto) 10-30 /hpf (0-5) H 11/30/23 18:37 Urine RBC (Auto) 10-30 /hpf (0-4) H 11/30/23 18:37 U Hyaline Cast (Auto) 0 /lpf (0-5) 11/30/23 18:37 U Epithel Cells (Auto) 5-10 /lpf (0-5) H 11/30/23 18:37 Urine Bacteria (Auto) Negative (Negative) 11/30/23 18:37 Ethyl Alcohol mg/dL < 10.0 mg/dl (<10.0) 11/30/23 11:27 Impressions Abdomen/Pelvis CT 11/30/23 11:15 CT SCAN OF THE ABDOMEN AND PELVIS WITH IV CONTRAST CLINICAL HISTORY: Trauma. COMPARISON STUDY: Abdominal CT dated 11/12/2023. TECHNIQUE: Following the IV administration of 90 cc of Optiray 320, CT scan of the abdomen and pelvis is performed from the lung bases to the proximal femora. Images are reviewed in the axial, sagittal, and coronal planes. IV contrast was administered without complication. A dose lowering technique was utilized adhering to the principles of ALARA. The examination is degraded by motion artifact, as well as by streak artifact from the arms which could not be elevated above the abdomen. FINDINGS: Lung bases: The heart is top normal in size noting trace pericardial effusion. The coronary arteries are densely calcified. A 5 mm right middle lobe pulmonary nodule is similar to previous. There is bibasilar scarring/atelectasis. No airspace consolidation or large pleural effusion is identified. There is a small hiatal hernia. Esophageal varices are noted. Liver: The contrast-enhanced liver is cirrhotic in morphology and heterogeneous in attenuation. There is nodularity of the hepatic surface contour and hypertrophy of the left lobe. A 1.4 cm cyst is noted in the left lobe. There is no intrahepatic biliary ductal dilatation. The hepatic veins and portal veins are patent. A TIPS catheter is in place end appears patent. Gallbladder: There are calcified gallstones with no CT evidence of acute cholecystitis. Spleen: The spleen is mildly enlarged measuring 13.5 cm in length. Pancreas: Unremarkable. Adrenal glands: Unremarkable. Kidneys: The contrast enhanced kidneys are normal in size and without hydronephrosis. The kidneys enhance symmetrically. A 2.4 cm cyst is noted on the left. A 1.4 cm cyst is seen in the right lower pole. Abdominal vasculature: The abdominal aorta is normal in course and caliber noting moderate atherosclerotic calcification. Bowel: There is mild colonic diverticulosis without CT evidence of acute diverticulitis. No bowel obstruction is seen. A small duodenal diverticulum is incidentally noted. The appendix is well-visualized and normal. Peritoneum: There is no intraperitoneal free air or abdominal ascites. There is a large fat-containing umbilical hernia. Lymphadenopathy: None. Pelvic viscera: The prostate gland is diminutive and heterogeneous. The bladder wall is thickened/trabeculated indicating chronic outlet obstruction. Skeletal structures: The skeletal structures are osteopenic. Mild compression injuries of T11 and L1 are unchanged. These may be subacute. There is mild lumbosacral spondylosis. There is a subacute/healing left posterior 8th an left lateral 10th rib fractures. Additional chronic/healed rib fractures are noted bilaterally. No lytic or blastic lesions are seen. IMPRESSION: 1. There is no evidence of solid organ injury in the abdomen or pelvis. 2. The liver is cirrhotic in morphology and heterogeneous in attenuation. 3. Cholelithiasis. 4. There are subacute left-sided rib fractures and mild subacute appearing lumbar compression deformities. These are similar to previous. 5. Colonic diverticulosis without CT evidence of acute diverticulitis. 6. Additional findings as above. ACT 112: Negative or not required by law. Electronically signed by: Ruben Go M.D. 11/30/2023 1:[address] 11/30/23 11:15 CT OF THE CERVICAL SPINE WITHOUT CONTRAST CLINICAL HISTORY: Trauma COMPARISON STUDY: Cervical spine CT October 22, 2023. TECHNIQUE: Helical axial images of the cervical spine were obtained without IV contrast. Sagittal and coronal reconstructions were viewed. Automated exposure control was utilized for the study. A dose lowering technique was utilized adhe ring to the principles of ALARA. FINDINGS: Alignment of the cervical spine is anatomic. Vertebral body heights are maintained. No acute cervical spine fracture or subluxation is present. There is no prevertebral edema. Facet joints are intact. Moderate multilevel degenerative disc disease and facet arthrosis is present. IMPRESSION: No acute cervical spine fracture or subluxation. ACT 112: Negative or not required by law. Electronically signed by: Stefan Metzger M.D. 11/30/2023 1:[address] 11/30/23 11:15 CT chest diagnostic w con CLINICAL HISTORY: Trauma TECHNIQUE: Multidetector row helical CT of the chest was performed with intravenous contrast. Coronal and sagittal reformations were obtained. Automated dose lowering techniques and/or adjustment according to patient size were utilized for this exam. Comparison: Comparison is made to CT chest 10/22/2023 FINDINGS: Lungs and pleura: Normal. Heart and pericardium: Heart size is normal. No pericardial effusion. Vessels: The pulmonary trunk is enlarged measuring 33 mm. Moderate atherosclerotic disease is seen. Mediastinum and chester: Unremarkable. Chest wall and lower neck: Unremarkable. Abdomen: Unremarkable. Bones: There is a comminuted fracture of the right humerus which is partially visualized. Acute compression fractures of the T7 and T11 vertebral bodies without involvement of the posterior elements. IMPRESSION: Acute comminuted fracture of the right humerus and compression deformities of the T7 and T11 vertebral bodies. ACT 112: Negative or not required by law. Electronically signed by: Martell Zaldivar M.D. 11/30/2023 1:[address] 11/30/23 11:15 CT SCAN OF THE BRAIN WITHOUT IV CONTRAST CLINICAL HISTORY: Trauma. COMPARISON STUDY: CT of the brain dated 11/12/2023. TECHNIQUE: Unenhanced axial CT scan of the brain is performed from the vertex to the skull base. A dose lowering technique was utilized adhering to the principles of ALARA. The skull base was scanned twice due to motion artifact. FINDINGS: Brain parenchyma: There is age-related involutional change noting mild microangiopathic disease. There is no hemorrhage, mass effect, or evidence of acute territorial ischemia by CT criteria. Eric-white matter differentiation is preserved. No extra-axial fluid collection is seen. Ventricles, sulci, cisterns: Prominent secondary to involutional change. Intracranial vasculature: There is atherosclerotic calcification of the cavernous carotid and vertebral arteries. Calvarium: There is no depressed calvarial fracture. Sinuses and mastoids: The visualized paranasal sinuses are clear. The mastoid air cells are well pneumatized. Orbits: The bony orbits are grossly intact. IMPRESSION: There is no hemorrhage, mass effect, or evidence of acute territorial ischemia by CT criteria. ACT 112: Negative or not required by law. Electronically signed by: Ruben Go M.D. 11/30/2023 1:09 PM Humerus X-Ray 11/30/23 14:16 XR humerus RT 2V CLINICAL HISTORY: r shoulder pain TECHNIQUE: 2 radiographic views of the right humerus were obtained. Comparison: Comparison is made to shoulder radiograph 10/22/2023 FINDINGS: Comminuted fracture of the humeral neck is seen with displacement and impaction. The visualized portion of the shoulder and elbow joints are unremarkable. Soft tissue swelling is seen. IMPRESSION: Comminuted fracture of the humeral neck with displacement and impaction. ACT 112: Negative or not required by law. Electronically signed by: Martell Zaldivar M.D. 11/30/2023 2:53 PM
[2023-11-30 20:05] LABS: Amphetamines+Metham, Urine Neg (Neg); Barbiturates, Urine Neg (Neg); Benzodiazepine, Urine Neg (Neg); Cocaine, Urine Neg (Neg); MDMA (Ecstacy), Urine Neg (Neg); Marijuana, Urine Neg (Neg); Methadone, Urine Neg (Neg); Opiate, Urine Neg (Neg); Phencyclidine, Urine Neg (Neg)
[2023-11-30 20:35] LABS: Base Excess VBG -0.2 mEq/L; HCO3 VBG 23 mmol/L; Oxygen Saturation VBG < 60.0 %; PCO2 VBG 31 mmHg (38-50); PO2 VBG 40 mmHg; pH VBG 7.47 (7.36-7.41)
[2023-11-30] MEDS ORDERED: LACTULOSE 200GM/700ML WTR ENEMA PR SCH (21:00)
[2023-11-30] MEDS: PANTOprazole 20 MG in SYRINGE 0 ML IV SCH (21:10)
[2023-11-30] MEDS: LACTULOSE 200GM/700ML WTR ENEMA PR SCH (21:11)
--- NOTE | 2023-11-30 21:25 | Ultrasound Report ---
ULTRASOUND BILATERAL LOWER EXTREMITY VENOUS CLINICAL HISTORY: Lower extremity edema. COMPARISON STUDY: Left lower extremity venous ultrasound dated 07/07/2021 TECHNIQUE: Real-time, grayscale, and color Doppler sonography of the deep veins of the right and left lower extremity was performed from the inguinal crease to the calf. Compression and augmentation wer e utilized. FINDINGS: There is no sonographic evidence of deep venous thrombosis identified in the right or left lower extremity. The common femoral, superficial femoral, and popliteal veins are patent and normally compressible bilaterally. The greater saphenous vein and the profunda femoris vein at the junction w ith the common femoral vein are clear in both legs. The visualized calf veins are patent bilaterally. IMPRESSION: There is no sonographic evidence of deep venous thrombosis identified in the right or lef t lower extremity. ACT 112: Negative or not required by law. Electronically signed by: Ruben Go M.D. 11/30/2023 9:22 PM
[2023-11-30] MEDS: oxyCODONE HCL IR 5 MG TAB (IMMEDIATE RELEASE) PO PRN (23:17)
[2023-11-30] MEDS: LACTULOSE SYRUP 30 GM/45 ML UDP PO SCH (23:36)
[2023-12-01 07:06] LABS: Hematocrit (blood only) 27.3 % (42.0-52.0); Mean Corpuscular Hemoglobin 36.4 pg (25.0-34.0); Mean Corpuscular Volume 110.5 fL (80.0-100.0); Mean Platelet Volume 9.7 fL (9.4-12.4); Platelet Count 146 K/uL (130-400); RDW Coefficient of Variation 14.5 % (11.5-14.5); RDW Standard Deviation 59.4 fL (36.4-46.3); Red Blood Count 2.47 M/uL (4.70-6.10); White Blood Count 5.84 K/ul (4.8-10.8)
[2023-12-01 07:24] LABS: Albumin Globulin Ratio 0.9 (0.9-2); Albumin Level 2.8 gm/dl (3.4-5.0); BUN Creatinine Ratio 13.9 (10-20); Bilirubin,Total 1.7 mg/dl (0.2-1.0); Calcium 8.5 mg/dl (8.6-10.3); Creatinine Clr Calc Pharmacy 143.7 ml/min; Est GFR (African American) 116.7 ml/min; Est GFR (Non-African American) 100.7 ml/min; Magnesium 1.8 mg/dl (1.7-2.4); Potassium 3.7 mmol/L (3.5-5.1); Total Protein 5.8 gm/dl (6.0-8.3)
--- NOTE | 2023-12-01 07:46 | Orthopedic Progress Note ---
Date of Service December 01, 2023 Assessment & Plan (1) Proximal humerus fracture: Plan: IMPRESSION: Right Proximal Humerus fracture, comminuted, impacted, healing, DOI 10/22/2023 PLAN: Recommend non-operative treatment at this time: Ice 20 min TID No heavy lifting more than coffee cup Please obtain medical records from stay at [facility] Check shoulder x-rays To consider sling for comfort once more alert. Continue care per primary service. Present on Admission?: Yes Admission and Anticipated Discharge Date Admission Date: November 30, 2023 Subjective Right shoulder pain Physical Exam Physical Exam: Patient's mental status improved. Follows instructions slowly. RUE: 2+ radial pulse. Sensation to light touch intact distally. Motor to Median, Radial, Ulnar, AIN, PIN, Musculocutaneous intact, unable to cross fingers. + Bruising upper arm and pec. Arm held a t his side, elbow flexed 90 degrees. + TTP proximal shoulder Results & Data Vital Signs (Past 12 Hours) Vital Signs Temp Pulse Pulse Resp BP BP Pulse Ox 12/01/23 03:36 36.8 C 78 18 122/70 96 11/30/23 22:30 36.4 C L 95 H 18 172/80 H 100 11/30/23 22:27 36.4 C L 95 H 17 172/80 H 100 11/30/23 22:24 88 11/30/23 22:00 89 21 100 11/30/23 22:00 177/103 H 11/30/23 21:30 89 15 99 11/30/23 21:30 161/90 H 11/30/23 21:00 36.8 C 11/30/23 21:00 87 15 100 11/30/23 21:00 148/83 H 11/30/23 20:30 87 15 100 11/30/23 20:30 163/96 H 11/30/23 20:00 87 16 100 11/30/23 20:00 161/97 H 11/30/23 19:59 93 H 18 100 11/30/23 19:59 174/98 H 11/30/23 19:59 89 17 174/98 H 100 O2 Del Method 12/01/23 03:36 Room Air 11/30/23 22:30 Room Air 11/30/23 22:27 Room Air 11/30/23 22:24 11/30/23 22:00 Room Air 11/30/23 22:00 11/30/23 21:30 Room Air 11/30/23 21:30 11/30/23 21:00 11/30/23 21:00 Room Air 11/30/23 21:00 11/30/23 20:30 Room Air 11/30/23 20:30 11/30/23 20:00 Room Air 11/30/23 20:00 11/30/23 19:59 Room Air 11/30/23 19:59 11/30/23 19:59 Laboratory Results 12/01/23 11/30/23 11/30/23 Range/Units 06:38 20:23 18:37 WBC 5.84 (4.8-10.8) K/ul RBC 2.47 L (4.70-6.10) M/uL Hgb 9.0 L (14.0-18.0) g/dl Hct 27.3 L (42.0-52.0) % MCV 110.5 H (80.0-100.0) fL MCH 36.4 H (25.0-34.0) pg MCHC 33.0 (32.0-36.0) g/dL RDW Std Deviation 59.4 H (36.4-46.3) fL RDW Coeff of Claire 14.5 (11.5-14.5) % Plt Count 146 (130-400) K/uL MPV 9.7 (9.4-12.4) fL Immature Gran % (Auto) % Neut % (Auto) % Lymph % (Auto) % [place] % (Auto) % Eos % (Auto) % Baso % (Auto) % Neut # (Auto) (1.40-6.50) K/uL Lymph # (Auto) (1.20-3.40) K/uL [place] # (Auto) (0.11-0.59) K/uL Eos # (Auto) (0.00-0.50) K/uL Baso # (Auto) (0.00-0.20) K/uL Immature Gran # (Auto) (0.01-0.20) K/uL Polychromasia Macrocytosis PT (9.0-12.0) Seconds INR (0.9-1.1) VBG pH 7.47 H (7.36-7.41) VBG pCO2 31 L (38-50) mmHg VBG pO2 40 mmHg VBG HCO3 23 mmol/L VBG O2 Saturation < 60.0 % VBG Base Excess -0.2 mEq/L Sodium 143 (136-145) mmol/L Potassium 3.7 (3.5-5.1) mmol/L Chloride 115 H (98-107) mmol/L Carbon Dioxide 22 (21-32) mmol/L Anion Gap 6 (3-11) BUN 10 (6-23) mg/dl Creatinine 0.72 (0.6-1.4) mg/dl Est Cr Clr Drug Dosing 143.7 ml/min Est GFR ( Amer) 116.7 ml/min Est GFR (Non-Af Amer) 100.7 ml/min BUN/Creatinine Ratio 13.9 (10-20) Glucose 93 (70-99(Fasting)) mg/dl Calcium 8.5 L (8.6-10.3) mg/dl Phosphorus (2.5-4.9) mg/dl Magnesium 1.8 (1.7-2.4) mg/dl Total Bilirubin 1.7 H (0.2-1.0) mg/dl AST 33 (13-39) U/L ALT 20 (7-52) U/L Alkaline Phosphatase 135 H (34-104) U/L Ammonia 83.0 H (18-72) umol/L Total Creatine Kinase (30-223) U/L Troponin I High Sens (0-20) pg/ml Total Protein 5.8 L (6.0-8.3) gm/dl Albumin 2.8 L (3.4-5.0) gm/dl Globulin 3.0 (2.5-4.0) gm/dl Albumin/Globulin Ratio 0.9 (0.9-2) Lipase (11-82) U/L Vitamin B12 (180-914) pg/ml Urine Color Yellow Urine Appearance Clear (Clear) Urine pH 7.5 (4.5-7.5) Ur Specific [place] 1.024 (1.000-1.030) Urine Protein Negative (Negative) Urine Glucose (UA) Negative (Negative) Urine Ketones Negative (Negative) Urine Blood 2+ H (Negative) Urine Nitrite Negative (Negative) Urine Bilirubin Negative (Negative) Urine Urobilinogen Negative (Negative) Ur Leukocyte Esterase Trace H (Negative) Urine WBC (Auto) 10-30 H (0-5) /hpf Urine RBC (Auto) 10-30 H (0-4) /hpf U Hyaline Cast (Auto) 0 (0-5) /lpf U Epithel Cells (Auto) 5-10 H (0-5) /lpf Urine Bacteria (Auto) Negative (Negative) Urine Opiates Screen Neg (Neg) Ur Methadone, Qual Neg (Neg) Urine Barbiturates Neg (Neg) Ur Phencyclidine (PCP) Neg (Neg) U Amphetamin/Meth Scrn Neg (Neg) MDMA (Ecstasy) Screen Neg (Neg) U Benzodiazepines Scrn Neg (Neg) Ur Cocaine Metabolite Neg (Neg) U Marijuana (THC) Screen Neg (Neg) Ethyl Alcohol mg/dL (<10.0) mg/dl 11/30/23 11/30/23 11/30/23 Range/Units 11:27 11:20 11:05 WBC 6.08 (4.8-10.8) K/ul RBC 2.73 L (4.70-6.10) M/uL Hgb 9.7 L (14.0-18.0) g/dl Hct 30.2 L (42.0-52.0) % MCV 110.6 H (80.0-100.0) fL MCH 35.5 H (25.0-34.0) pg MCHC 32.1 (32.0-36.0) g/dL RDW Std Deviation 59.0 H (36.4-46.3) fL RDW Coeff of Claire 14.4 (11.5-14.5) % Plt Count 164 (130-400) K/uL MPV 9.6 (9.4-12.4) fL Immature Gran % (Auto) 0.3 % Neut % (Auto) 69.7 % Lymph % (Auto) 15.3 % [place] % (Auto) 12.7 % Eos % (Auto) 0.8 % Baso % (Auto) 1.2 % Neut # (Auto) 4.24 (1.40-6.50) K/uL Lymph # (Auto) 0.93 L (1.20-3.40) K/uL [place] # (Auto) 0.77 H (0.11-0.59) K/uL Eos # (Auto) 0.05 (0.00-0.50) K/uL Baso # (Auto) 0.07 (0.00-0.20) K/uL Immature Gran # (Auto) 0.02 (0.01-0.20) K/uL Polychromasia 1+ Macrocytosis Present PT 13.5 H (9.0-12.0) Seconds INR 1.2 H (0.9-1.1) VBG pH (7.36-7.41) VBG pCO2 (38-50) mmHg VBG pO2 mmHg VBG HCO3 mmol/L VBG O2 Saturation % VBG Base Excess mEq/L Sodium 142 (136-145) mmol/L Potassium 4.1 (3.5-5.1) mmol/L Chloride 114 H (98-107) mmol/L Carbon Dioxide 21 (21-32) mmol/L Anion Gap 7 (3-11) BUN 12 (6-23) mg/dl Creatinine 0.65 (0.6-1.4) mg/dl Est Cr Clr Drug Dosing 162.5 ml/min Est GFR ( Amer) 121.7 ml/min Est GFR (Non-Af Amer) 105.0 ml/min BUN/Creatinine Ratio 18.5 (10-20) Glucose 107 H (70-99(Fasting)) mg/dl Calcium 8.8 (8.6-10.3) mg/dl Phosphorus 3.5 (2.5-4.9) mg/dl Magnesium 1.6 L (1.7-2.4) mg/dl Total Bilirubin 1.7 H (0.2-1.0) mg/dl AST 35 (13-39) U/L ALT 23 (7-52) U/L Alkaline Phosphatase 189 H (34-104) U/L Ammonia 120.0 H (18-72) umol/L Total Creatine Kinase 151 (30-223) U/L Troponin I High Sens 16.9 (0-20) pg/ml Total Protein 6.5 (6.0-8.3) gm/dl Albumin 3.1 L (3.4-5.0) gm/dl Globulin 3.4 (2.5-4.0) gm/dl Albumin/Globulin Ratio 0.9 (0.9-2) Lipase 22 (11-82) U/L Vitamin B12 906 (180-914) pg/ml Urine Color Yellow Urine Appearance Clear (Clear) Urine pH 7.5 (4.5-7.5) Ur Specific [place] 1.007 (1.000-1.030) Urine Protein Negative (Negative) Urine Glucose (UA) Negative (Negative) Urine Ketones Negative (Negative) Urine Blood Negative (Negative) Urine Nitrite Negative (Negative) Urine Bilirubin Negative (Negative) Urine Urobilinogen Negative (Negative) Ur Leukocyte Esterase Trace H (Negative) Urine WBC (Auto) 1-5 (0-5) /hpf Urine RBC (Auto) 0-4 (0-4) /hpf U Hyaline Cast (Auto) 1-5 (0-5) /lpf U Epithel Cells (Auto) 0-5 (0-5) /lpf Urine Bacteria (Auto) Negative (Negative) Urine Opiates Screen (Neg) Ur Methadone, Qual (Neg) Urine Barbiturates (Neg) Ur Phencyclidine (PCP) (Neg) U Amphetamin/Meth Scrn (Neg) MDMA (Ecstasy) Screen (Neg) U Benzodiazepines Scrn (Neg) Ur Cocaine Metabolite (Neg) U Marijuana (THC) Screen (Neg) Ethyl Alcohol mg/dL < 10.0 (<10.0) mg/dl
[2023-12-01] MEDS ORDERED: THIAMINE HCL 100 MG in SYRINGE 9 ML IV SCH (09:00)
[2023-12-01] MEDS: PANTOprazole 40 MG TAB PO SCH (09:07)
[2023-12-01] MEDS: THIAMINE HCL 100 MG TAB PO SCH (09:07)
[2023-12-01] MEDS: MULTIVITAMIN TAB PO SCH (09:07)
[2023-12-01] MEDS: FOLIC ACID 1 MG in SYRINGE 9.8 ML IV SCH (09:07)
--- NOTE | 2023-12-01 09:12 | Gastrointestinal Consultation ---
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, MELD 18, with diuretic and paracentesis refractory ascites s/p TIPS, recent admission for fall w/ left 8-10 rib fractures, UTI, right proximal humerus fx, right periorbital hemorrhage, vertebral body compression fractures admitted following a fall, hepatic encephalopathy - Rule out infection - UA - Blood culture - Urine culture - Chest XR - Insufficient fluid for paracentesis - Head CT negative - Lactulose titrated to 4-5 BMs daily - Xifaxan 550 BID - MELD labs - US in March for HCC screening - Low NA diet, less than 2 g - ETOH cessation - No NSAIDs - Less than 2 G tylenol - EGD 2024 - Colonoscopy 2023 Thank you for allowing us to participate in the care of this patient. Please call with any acute changes, questions or concerns. Please see addendum below with additional recommendation from my supervising physician. Supervising Physician Co-Signing Physician Notes I performed a history and physical examination of the patient today, including specifically on physical exam - soft abdomen. I have discussed the patient's management with the advanced practitioner. Please refer to the nurse practitioner's note for the documented findings and plan of care. Treat with Xifaxan and Lactulose. Avoid using Ativan or opioids. Recall GI if needed. 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 GI was asked to evaluate, pt was seen and evaluated, chart reviewed. He is awake, alert and oriented this AM. No abd pain. No nausea, vomiting. No diarrhea. No black or bloody stools. No fever, chills, CP, SOB Diagnosis: suspected ETOH cirrhosis last used in October 2023 Decompensations Varices: none Ascites: last para 08/14 10L, no SBP, cytology negative HE: none Screenings: MELD 10 Calculated from: Serum Creatinine: 0.7 Serum Sodium: 143 Total Bilirubin: 1.7 Serum Albumin: 2.8 INR(ratio): 1.2 HCC: due March 2024 Varices: due 2024 Immunizations: due now MRI Liver 2022: Significantly limited study due to a large amount of motion artifact, particularly on the postcontrast sequences. This study is nondiagnostic for evaluation of hepatocellular carcinoma. A contrast enhanced liver protocol CT of the abdomen can be considered, which is less susceptible to motion artifact. LI-RADS NoncategorizableCirrhotic liver with evidence of portal hypertension, manifested by multiple small varices. There is no ascites. ABD US 2021: Coursened liver echotexture and nodularity suggesting chronic liver disease/cirrhosis. Small liver cysts but no concerning liver lesions identified. The TIPS catheter seen on prior exam is not identified on this exam. . 2-3 mm polyp on the anterior wall of the gallbladder. 7 mm echogenic shadowing stone in the gallbladder neck. Interval resolution of ascites. TIPS study 2021: Patent TIPS. Hepatic and perihepatic vascular flow demonstrates a normal pattern and direction Liver MRI 2021: Cirrhosis and portal hypertension evidenced by varices and large volume ascites. No suspicious liver mass. Hepatic Duplex 2020: Enlarged portal vein size suggestive of portal hypertension. Limited duplex examination due to over lying bowel gas and exten sive ascites CT PE 2020: No pulmonary embolism.Moderate left pleural effusion and mild compressive atelectasis in the left lower lung. Pleural fluid is of uncertain etiology. Consider thoracentesis/fluid sampling.Small pericardial effusion.Ascites. ABD US 2020: Cirrhotic liver with moderate ascites.8 mm cyst within the liver which corresponds to the CT abnormality. Diffusely thickened gallbladder wall with trace sludge. This is likely due to the patient's edematous state. CTAP 2020: Interval development of liver cirrhosis and ascites with significant amount of fluid collection within abdominal cavity. Questionable hypoattenuating lesion within subcapsular aspect of the liver, incompletely evaluated on current exam. Further evaluation with liver ultrasound on the nonemergency basis might be considered. Interval development of hypoattenuating lesion within left kidney, was not seen on prior study in 2006. Further evaluation with renal ultrasound the nonemergency basis might be considered. 7 mm pulmonary nodule within the right middle lobe. Further evaluation with CT of the chest without IV contrast on nonemergency basis is suggested. Fluid-containing right inguinal hernia. Nondilated loops of bowel, evaluation is suboptimal due to ascites and lack of oral contrast.Redemonstration of diffuse thickening of urinary bladder wall. Prostate gland is not significantly enlarged. Please correlate above- mentioned findings with laboratory markers of cystitis.Atherosclerosis. The rest of findings as above. EGD 2022: Z-line regular, 43 cm from the incisors. - LA Grade B esophagitis. - No esophageal or gastric varices. - Portal hypertensive gastropathy. - Normal duodenal bulb and second portion of the duodenum. - No specimens collected. EGD 2020: Z-line regular, 40 cm from the incisors. - Portal hypertensive gastropathy. - Normal examined duodenum. - No specimens collected\ Colonoscopy 2020: Two 2 to 3 mm polyps in the ascending colon, removed with a cold snare. Resected and retrieved. - One 6 mm polyp in the transverse colon, removed with a hot snare. Resected and retrieved. - Diverticulosis in the left colon. - Otherwise normal to the terminal ileum, with retroflexed views of the ascending colon and rectum Allergies Allergy/AdvReac Type Severity Reaction Status Date / Time ibuprofen AdvReac Intermediate ugib Verified 11/12/23 05:57 Home Medications Medication Instructions Recorded Confirmed Type diclofenac sodium 1 % topical gel 2 - 4 g topical QID PRN Pain 07/04/21 11/30/23 History lactulose 10 gram/15 mL oral 15 ml PO TID 12/28/21 11/30/23 History solution sildenafil 100 mg tablet 50 - 100 mg PO DAILY PRN Sexual 10/22/23 11/30/23 History Activity bacitracin zinc 500 unit/gram 1 applic topical DAILY 11/12/23 11/30/23 History topical ointment brimonidine 0.2 % eye drops 1 drp OPR BID 11/12/23 11/30/23 History carisoprodol 350 mg tablet 350 mg PO Q6H PRN MUSCLE SPASMS 11/12/23 11/30/23 History docusate sodium 100 mg capsule 100 mg PO BID 11/12/23 11/30/23 History oxycodone 5 mg tablet 5 mg PO Q4H PRN Pain 11/12/23 11/30/23 History pantoprazole 20 mg tablet,delayed 20 mg PO DAILY 11/12/23 11/30/23 History release vit no.95-ferrous 1 tab PO DAILY 11/12/23 11/30/23 History fumarate 28 mg-folic acid 800 mcg tablet () Patient History Medical History (Updated 11/30/23 @ 19:54 by Manan Dooley MD) Proximal humerus fracture Hepatic encephalopathy Right bundle branch block Hypertension Hyperlipidemia Depression Alcoholism Tobacco abuse, in remission HTN (hypertension) NICO (obstructive sleep apnea) GERD (gastroesophageal reflux disease) Anxiety Elevated LFTs Anxiety GERD (gastroesophageal reflux disease) Cirrhosis Surgical History H/O right inguinal hernia repair (12/28/21) Open Incarcerated Right inguinal hernia repair with mesh (Right) - Ezequiel Sewell, 12/28/2021 History of varicose vein stripping History of surgery on arm torn ligament repair History of colonoscopy x3 History of surgery of liver TIPS procedure 12/19/2021 Family History Other Heart disease Social History Smoking Status: Current every day smoker Tobacco Type: Cigarettes Cigarettes Per Day: pt states 2 cigarettes a day; Second Hand Exposure: No; Do You Dip or Chew Tobacco: No; Hx Alcohol Use: Yes Alcohol type: wine Hx Substance Use: No Preferred Language: Other Communication Ability: Effective Communication Ability Comment: pt understands some simple Chinese Communication Tools: Language Line 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 Systems Technology Instructor Computer Systems Technology Instructor Required: Yes Beliefs That Will Affect Care: Cultural Cultural Beliefs: pt is [facility] marital status: Current Living Situation: Alone Feels Safe at Home: Yes Assistive Devices: Glasses and Walker Review of Systems Review of Systems: All systems reviewed & are unremarkable except as noted in HPI & below Physical Exam Constitutional: WD/WN, vitals as above Respiratory: normal respiratory effort, lungs clear to auscultation Cardiovascular: Rate/Rhythm: regular rate Gastrointestinal (Abdomen): Percussion/Palpation: abdomen soft; abdomen nontender, no guarding and abdomen not rigid Skin: no rashes, warm and dry Results & Data Vital Signs (Past 12 Hours) Vital Signs Temp Pulse Pulse Resp BP BP Pulse Ox 12/01/23 08:07 36.8 C 77 20 127/68 97 12/01/23 03:36 36.8 C 78 18 122/70 96 11/30/23 22:30 36.4 C L 95 H 18 172/80 H 100 11/30/23 22:27 36.4 C L 95 H 17 172/80 H 100 11/30/23 22:24 88 11/30/23 22:00 89 21 100 11/30/23 22:00 177/103 H 11/30/23 21:30 89 15 99 11/30/23 21:30 161/90 H O2 Del Method 12/01/23 08:07 Room Air 12/01/23 03:36 Room Air 11/30/23 22:30 Room Air 11/30/23 22:27 Room Air 11/30/23 22:24 11/30/23 22:00 Room Air 11/30/23 22:00 11/30/23 21:30 Room Air 11/30/23 21:30 Laboratory Results 12/01/23 11/30/23 11/30/23 Range/Units 06:38 20:23 18:37 WBC 5.84 (4.8-10.8) K/ul RBC 2.47 L (4.70-6.10) M/uL Hgb 9.0 L (14.0-18.0) g/dl Hct 27.3 L (42.0-52.0) % MCV 110.5 H (80.0-100.0) fL MCH 36.4 H (25.0-34.0) pg MCHC 33.0 (32.0-36.0) g/dL RDW Std Deviation 59.4 H (36.4-46.3) fL RDW Coeff of Claire 14.5 (11.5-14.5) % Plt Count 146 (130-400) K/uL MPV 9.7 (9.4-12.4) fL Immature Gran % (Auto) % Neut % (Auto) % Lymph % (Auto) % [place] % (Auto) % Eos % (Auto) % Baso % (Auto) % Neut # (Auto) (1.40-6.50) K/uL Lymph # (Auto) (1.20-3.40) K/uL [place] # (Auto) (0.11-0.59) K/uL Eos # (Auto) (0.00-0.50) K/uL Baso # (Auto) (0.00-0.20) K/uL Immature Gran # (Auto) (0.01-0.20) K/uL Polychromasia Macrocytosis PT (9.0-12.0) Seconds INR (0.9-1.1) VBG pH 7.47 H (7.36-7.41) VBG pCO2 31 L (38-50) mmHg VBG pO2 40 mmHg VBG HCO3 23 mmol/L VBG O2 Saturation < 60.0 % VBG Base Excess -0.2 mEq/L Sodium 143 (136-145) mmol/L Potassium 3.7 (3.5-5.1) mmol/L Chloride 115 H (98-107) mmol/L Carbon Dioxide 22 (21-32) mmol/L Anion Gap 6 (3-11) BUN 10 (6-23) mg/dl Creatinine 0.72 (0.6-1.4) mg/dl Est Cr Clr Drug Dosing 143.7 ml/min Est GFR ( Amer) 116.7 ml/min Est GFR (Non-Af Amer) 100.7 ml/min BUN/Creatinine Ratio 13.9 (10-20) Glucose 93 (70-99(Fasting)) mg/dl Calcium 8.5 L (8.6-10.3) mg/dl Phosphorus (2.5-4.9) mg/dl Magnesium 1.8 (1.7-2.4) mg/dl Total Bilirubin 1.7 H (0.2-1.0) mg/dl AST 33 (13-39) U/L ALT 20 (7-52) U/L Alkaline Phosphatase 135 H (34-104) U/L Ammonia 83.0 H (18-72) umol/L Total Creatine Kinase (30-223) U/L Troponin I High Sens (0-20) pg/ml Total Protein 5.8 L (6.0-8.3) gm/dl Albumin 2.8 L (3.4-5.0) gm/dl Globulin 3.0 (2.5-4.0) gm/dl Albumin/Globulin Ratio 0.9 (0.9-2) Lipase (11-82) U/L Vitamin B12 (180-914) pg/ml Urine Color Yellow Urine Appearance Clear (Clear) Urine pH 7.5 (4.5-7.5) Ur Specific [place] 1.024 (1.000-1.030) Urine Protein Negative (Negative) Urine Glucose (UA) Negative (Negative) Urine Ketones Negative (Negative) Urine Blood 2+ H (Negative) Urine Nitrite Negative (Negative) Urine Bilirubin Negative (Negative) Urine Urobilinogen Negative (Negative) Ur Leukocyte Esterase Trace H (Negative) Urine WBC (Auto) 10-30 H (0-5) /hpf Urine RBC (Auto) 10-30 H (0-4) /hpf U Hyaline Cast (Auto) 0 (0-5) /lpf U Epithel Cells (Auto) 5-10 H (0-5) /lpf Urine Bacteria (Auto) Negative (Negative) Urine Opiates Screen Neg (Neg) Ur Methadone, Qual Neg (Neg) Urine Barbiturates Neg (Neg) Ur Phencyclidine (PCP) Neg (Neg) U Amphetamin/Meth Scrn Neg (Neg) MDMA (Ecstasy) Screen Neg (Neg) U Benzodiazepines Scrn Neg (Neg) Ur Cocaine Metabolite Neg (Neg) U Marijuana (THC) Screen Neg (Neg) Ethyl Alcohol mg/dL (<10.0) mg/dl 11/30/23 11/30/23 11/30/23 Range/Units 11:27 11:20 11:05 WBC 6.08 (4.8-10.8) K/ul RBC 2.73 L (4.70-6.10) M/uL Hgb 9.7 L (14.0-18.0) g/dl Hct 30.2 L (42.0-52.0) % MCV 110.6 H (80.0-100.0) fL MCH 35.5 H (25.0-34.0) pg MCHC 32.1 (32.0-36.0) g/dL RDW Std Deviation 59.0 H (36.4-46.3) fL RDW Coeff of [place] 14.4 (11.5-14.5) % Plt Count 164 (130-400) K/uL MPV 9.6 (9.4-12.4) fL Immature Gran % (Auto) 0.3 % Neut % (Auto) 69.7 % Lymph % (Auto) 15.3 % [place] % (Auto) 12.7 % Eos % (Auto) 0.8 % Baso % (Auto) 1.2 % Neut # (Auto) 4.24 (1.40-6.50) K/uL Lymph # (Auto) 0.93 L (1.20-3.40) K/uL [place] # (Auto) 0.77 H (0.11-0.59) K/uL Eos # (Auto) 0.05 (0.00-0.50) K/uL Baso # (Auto) 0.07 (0.00-0.20) K/uL Immature Gran # (Auto) 0.02 (0.01-0.20) K/uL Polychromasia 1+ Macrocytosis Present PT 13.5 H (9.0-12.0) Seconds INR 1.2 H (0.9-1.1) VBG pH (7.36-7.41) VBG pCO2 (38-50) mmHg VBG pO2 mmHg VBG HCO3 mmol/L VBG O2 Saturation % VBG Base Excess mEq/L Sodium 142 (136-145) mmol/L Potassium 4.1 (3.5-5.1) mmol/L Chloride 114 H (98-107) mmol/L Carbon Dioxide 21 (21-32) mmol/L Anion Gap 7 (3-11) BUN 12 (6-23) mg/dl Creatinine 0.65 (0.6-1.4) mg/dl Est Cr Clr Drug Dosing 162.5 ml/min Est GFR ( Amer) 121.7 ml/min Est GFR (Non-Af Amer) 105.0 ml/min BUN/Creatinine Ratio 18.5 (10-20) Glucose 107 H (70-99(Fasting)) mg/dl Calcium 8.8 (8.6-10.3) mg/dl Phosphorus 3.5 (2.5-4.9) mg/dl Magnesium 1.6 L (1.7-2.4) mg/dl Total Bilirubin 1.7 H (0.2-1.0) mg/dl AST 35 (13-39) U/L ALT 23 (7-52) U/L Alkaline Phosphatase 189 H (34-104) U/L Ammonia 120.0 H (18-72) umol/L Total Creatine Kinase 151 (30-223) U/L Troponin I High Sens 16.9 (0-20) pg/ml Total Protein 6.5 (6.0-8.3) gm/dl Albumin 3.1 L (3.4-5.0) gm/dl Globulin 3.4 (2.5-4.0) gm/dl Albumin/Globulin Ratio 0.9 (0.9-2) Lipase 22 (11-82) U/L Vitamin B12 906 (180-914) pg/ml Urine Color Yellow Urine Appearance Clear (Clear) Urine pH 7.5 (4.5-7.5) Ur Specific [place] 1.007 (1.000-1.030) Urine Protein Negative (Negative) Urine Glucose (UA) Negative (Negative) Urine Ketones Negative (Negative) Urine Blood Negative (Negative) Urine Nitrite Negative (Negative) Urine Bilirubin Negative (Negative) Urine Urobilinogen Negative (Negative) Ur Leukocyte Esterase Trace H (Negative) Urine WBC (Auto) 1-5 (0-5) /hpf Urine RBC (Auto) 0-4 (0-4) /hpf U Hyaline Cast (Auto) 1-5 (0-5) /lpf U Epithel Cells (Auto) 0-5 (0-5) /lpf Urine Bacteria (Auto) Negative (Negative) Urine Opiates Screen (Neg) Ur Methadone, Qual (Neg) Urine Barbiturates (Neg) Ur Phencyclidine (PCP) (Neg) U Amphetamin/Meth Scrn (Neg) MDMA (Ecstasy) Screen (Neg) U Benzodiazepines Scrn (Neg) Ur Cocaine Metabolite (Neg) U Marijuana (THC) Screen (Neg) Ethyl Alcohol mg/dL < 10.0 (<10.0) mg/dl
--- NOTE | 2023-12-01 09:16 | XRay Report ---
RIGHT SHOULDER 2 VIEWS CLINICAL HISTORY: Humeral fracture. FINDINGS: 2 views of the right shoulder are compared to study is dated 11/30/2023 and 10/22/2023. The s keletal structures are osteopenic. There is unchanged appearance of a comminuted fracture through the left humeral head and neck with numerous displaced fragments. The humeral head remains within the gl enoid fossa. There is overlying soft tissue edema. The humeral shaft is displaced medially by up to 1 .7 cm. Productive degenerative change is noted at the acromioclavicular joint. The imaged right lung parenchyma appears clear. IMPRESSION: Unchanged appearance of a comminuted right humeral head/neck fracture as compared to williamt asif. Electronically signed by: Ruben Go M.D. 12/01/2023 9:14 AM
--- NOTE | 2023-12-01 10:15 | Electrocardiogram Report ---
Test Reason : Blood Pressure : / mmHG Vent. Rate : 111 BPM Atrial Rate : 111 BPM P-R Int : 168 ms QRS Dur : 116 ms QT Int : 380 ms P-R-T Axes : 074 077 059 degrees QTc Int : 516 ms Sinus tachycardia Right bundle branch block Abnormal ECG When compared with ECG of 11-NOV-2023 23:10, QRS duration has decreased Confirmed by Uche Bella ([id number]) on 12/01/2023 10:14:54 AM Referred By: REFERRED SELF Confirmed By:Uche Bella
[2023-12-01] MEDS: AMOXICILLIN/CLAVULANATE 875 MG TAB PO SCH (13:51)
--- NOTE | 2023-12-01 14:50 | Hospitalist Progress Note ---
Date of Service December 01, 2023 Assessment & Plan (1) Hepatic encephalopathy: (2) Decompensated hepatic cirrhosis: (3) AMS (altered mental status): (4) HTN (hypertension): (5) NICO (obstructive sleep apnea): (6) GERD (gastroesophageal reflux disease): (7) Hyperlipidemia: Plan Mr. Davidson is a 63-year-old Mongolian/Ethiopian speaking male presented to the [facility] today after a welfare check was done at home by the police he was found down suspecting hepatic encephalopathy with known alcoholism. Additional past medical history includes alcoholic cirrhosis of liver with ascites, obesity, HTN, HLD, NICO with CPAP, venous insufficiency following vascular, and GERD. No leukocytosis, ammonia level 120, negative troponin and CK levels. Alcohol level less than 10, potassium 4.1 otherwise electrolytes unremarkable. Lipase 22. Patient was recently admitted to [facility] after a mechanical fall on 10/23/2023 he apparently slipped on wet ground in his garage and struck his head with right periorbital ecchymosis. At that time he was hypothermic and hypotensive with an elevated lactate and CK levels with EtOH level greater than 200 troponin mid 40s. Cervical spine CT negative, abdominal pelvis CT negative for ascites. Chest CT: Acute comminuted fracture of the right humerus and compression deformities of the T7 and T11 vertebral bodies, negative for PE Head CT negative for ICH, subdural hematoma or midline shift. Humerus x-ray: Comminuted fracture of the humeral neck with displacement and impaction. MELD score 10. Patient unable to participate in review of systems as he is nearly obtunded. He does moan with turning and is able to say 'yes' to having pain with the psychiatric aide phone but otherwise no meaningful conversation. Patient was incontinent when he entered the room. Patient tender with right arm and tender with abdominal palpation. LLE greater than RLE. Venous Doppler October 2023 negative for DVT. Patient will be admitted for further evaluation and management of his hepatic encephalopathy. Goal for 2-4 stools per day and if no improvement consider Rifaximin. Will consult GI for involvement and evaluation. For humeral head fracture will involve orthopedics. Case management to be involved for consideration of placement. Acute Metabolic/Hepatic encephalopathy Decompensated hepatic cirrhosis Alcohol use, ?UTI could be contributing --CT head:There is no hemorrhage, mass effect, or evidence of acute territorial ischemia by CT criteria. --CT ABD:liver is cirrhotic in morphology and heterogeneous in attenuation. Cholelithiasis. Colonic diverticulosis without CT evidence of acute diverticulitis. --Alcohol level less than 10 --Tox screen negative Elevated ammonia level MELD 10 Continue lactulose: Titrate for 2-3 good bowel movements per day Mental status seem to be back to baseline Consider rifaximin if needed Monitor for alcohol withdrawal Continue thiamine, folic acid Aspiration, fall precautions Ativan as needed for alcohol withdrawal Paroxysmal comminuted humeral fracture T7 and T11 comminuted fractures; also noted on prior imaging Subacute left-sided rib fractures --Shoulder X ray:Comminuted fracture of the humeral neck with displacement and impaction. Pain control as needed Nonoperative management Continue sling for comfort Fall precautions Suspected UTI ? Colonization Urine culture growing probable Enterococcus Empirically started on Augmentin HTN: Chronic Not on any antihypertensive medications BP stable currently Will consider adding antihypertensives if needed NICO: Chronic GERD: Continue PPI DVT Px: SCDs for now CODE STATUS: Full code Disposition PT OT prior to discharge Admission and Anticipated Discharge Date Admission Date: November 30, 2023 Subjective Patient is seen and examined at bedside Admits to have right shoulder pain especially with ambulation Has minimal cough Denies any chest pain, dysuria, nausea, vomiting, abdominal pain Offers no other complaints Mental status seem to be back to baseline Review of Systems Review of Systems: All systems reviewed & are unremarkable except as noted in Subjective Physical Exam Physical Exam: Physical Exam: Vitals signs as noted above General Appearance:Moderately built and nourished, no apparent distress Head: normocephalic, Atraumatic Eyes: normal inspection, EOMI Neck: supple, Trachea midline Respiratory/Chest: Decreased breath sounds, scant wheezes, No accessory muscle use Cardiovascular: S1, S2, No murmur Abdomen/GI:Soft, Non tender, Bowel sounds present Extremities/Musculoskeletal:normal inspection, no edema, R shoulder tender, decreased ROM Neurologic/Psych:AAOX3, grossly no focal neurological deficits Skin: normal color, warm Results & Data Results & Data Vital Signs (Past 12 Hours) Vital Signs Temp Pulse Resp BP Pulse Ox O2 Del Method 12/01/23 10:38 37.1 C 70 16 137/79 96 Room Air 12/01/23 08:07 36.8 C 77 20 127/68 97 Room Air 12/01/23 08:00 Room Air 12/01/23 03:36 36.8 C 78 18 122/70 96 Room Air Laboratory Results Short CBC 12/01/23 Range/Units 06:38 WBC 5.84 (4.8-10.8) K/ul Hgb 9.0 L (14.0-18.0) g/dl Hct 27.3 L (42.0-52.0) % Plt Count 146 (130-400) K/uL BMP 12/01/23 06:38 Sodium 143 Potassium 3.7 Chloride 115 H Carbon Dioxide 22 BUN 10 Creatinine 0.72 Glucose 93 Calcium 8.5 L Liver Function 12/01/23 Range/Units 06:38 Total Bilirubin 1.7 H (0.2-1.0) mg/dl AST 33 (13-39) U/L ALT 20 (7-52) U/L Alkaline Phosphatase 135 H (34-104) U/L Albumin 2.8 L (3.4-5.0) gm/dl Urine 11/30/23 Range/Units 18:37 Urine Color Yellow Urine Appearance Clear (Clear) Urine pH 7.5 (4.5-7.5) Ur Specific [place] 1.024 (1.000-1.030) Urine Protein Negative (Negative) Urine Glucose (UA) Negative (Negative) (3) AMS (altered mental status) Altered mental status type: unspecified Qualified Code(s): R41.82 - Altered mental status, unspecified
[2023-12-02 08:20] LABS: Hematocrit (blood only) 30.6 % (42.0-52.0); Hemoglobin 9.9 g/dl (14.0-18.0); Mean Corpuscular Hemoglobin 35.9 pg (25.0-34.0); Mean Corpuscular Hgb Conc 32.4 g/dL (32.0-36.0); Mean Corpuscular Volume 110.9 fL (80.0-100.0); Mean Platelet Volume 9.9 fL (9.4-12.4); Platelet Count 156 K/uL (130-400); RDW Coefficient of Variation 14.2 % (11.5-14.5); RDW Standard Deviation 58.7 fL (36.4-46.3); Red Blood Count 2.76 M/uL (4.70-6.10); White Blood Count 5.19 K/ul (4.8-10.8)
[2023-12-02] MEDS: FOLIC ACID 1 MG TAB PO SCH (08:37)
[2023-12-02 08:47] LABS: INR 1.3 (0.9-1.1); Prothrombin Time 13.7 Seconds (9.0-12.0)
[2023-12-02 08:57] LABS: Albumin Globulin Ratio 0.9 (0.9-2); BUN Creatinine Ratio 16.2 (10-20); Calcium 8.6 mg/dl (8.6-10.3); Creatinine Clr Calc Pharmacy 139.5 ml/min; Est GFR (African American) 115.4 ml/min; Est GFR (Non-African American) 99.6 ml/min; Globulin 3.2 gm/dl (2.5-4.0); Magnesium 1.5 mg/dl (1.7-2.4); Potassium 3.7 mmol/L (3.5-5.1); Total Protein 6.2 gm/dl (6.0-8.3)
[2023-12-02] MEDS: MAGNESIUM SULFATE / D5W 1 GM/100 ML BAG IV ONE (13:44)
--- NOTE | 2023-12-02 15:04 | Hospitalist Progress Note ---
Date of Service December 02, 2023 Assessment & Plan (1) Hepatic encephalopathy: (2) Decompensated hepatic cirrhosis: (3) AMS (altered mental status): (4) HTN (hypertension): (5) NICO (obstructive sleep apnea): (6) GERD (gastroesophageal reflux disease): (7) Hyperlipidemia: Plan Mr. Davidson is a 63-year-old Sami/Senegalese speaking male presented to the [facility] today after a welfare check was done at home by the police he was found down suspecting hepatic encephalopathy with known alcoholism. Additional past medical history includes alcoholic cirrhosis of liver with ascites, obesity, HTN, HLD, NICO with CPAP, venous insufficiency following vascular, and GERD. No leukocytosis, ammonia level 120, negative troponin and CK levels. Alcohol level less than 10, potassium 4.1 otherwise electrolytes unremarkable. Lipase 22. Patient was recently admitted to [facility] after a mechanical fall on 10/23/2023 he apparently slipped on wet ground in his garage and struck his head with right periorbital ecchymosis. At that time he was hypothermic and hypotensive with an elevated lactate and CK levels with EtOH level greater than 200 troponin mid 40s. Cervical spine CT negative, abdominal pelvis CT negative for ascites. Chest CT: Acute comminuted fracture of the right humerus and compression deformities of the T7 and T11 vertebral bodies, negative for PE Head CT negative for ICH, subdural hematoma or midline shift. Humerus x-ray: Comminuted fracture of the humeral neck with displacement and impaction. MELD score 10. Patient unable to participate in review of systems as he is nearly obtunded. He does moan with turning and is able to say 'yes' to having pain with the instrument lens grinder apprentice phone but otherwise no meaningful conversation. Patient was incontinent when he entered the room. Patient tender with right arm and tender with abdominal palpation. LLE greater than RLE. Venous Doppler October 2023 negative for DVT. Patient will be admitted for further evaluation and management of his hepatic encephalopathy. Goal for 2-4 stools per day and if no improvement consider Rifaximin. Will consult GI for involvement and evaluation. For humeral head fracture will involve orthopedics. Case management to be involved for consideration of placement. Acute Metabolic/Hepatic encephalopathy Decompensated hepatic cirrhosis Alcohol use, ?UTI could be contributing --CT head:There is no hemorrhage, mass effect, or evidence of acute territorial ischemia by CT criteria. --CT ABD:liver is cirrhotic in morphology and heterogeneous in attenuation. Cholelithiasis. Colonic diverticulosis without CT evidence of acute diverticulitis. --Alcohol level less than 10 --Tox screen negative Elevated ammonia level MELD 10 Continue lactulose: Titrate for 2-3 good bowel movements per day Mental status seem to be back to baseline Consider rifaximin if needed Monitor for alcohol withdrawal Continue thiamine, folic acid Aspiration, fall precautions Ativan as needed for alcohol withdrawal Currently no withdrawal symptoms Needs rehab placement Paroxysmal comminuted humeral fracture T7 and T11 comminuted fractures; also noted on prior imaging Subacute left-sided rib fractures --Shoulder X ray:Comminuted fracture of the humeral neck with displacement and impaction. Pain control as needed Nonoperative management Continue sling for comfort Fall precautions Needs follow-up with orthopedics on discharge Suspected UTI ? Colonization Urine culture grew Enterococcus faecalis Empirically started on Augmentin HTN: Chronic Not on any antihypertensive medications BP stable currently Will consider adding antihypertensives if needed NICO: Chronic GERD: Continue PPI DVT Px: Heparin SQ CODE STATUS: Full code Disposition Rehab as able Admission and Anticipated Discharge Date Admission Date: November 30, 2023 Subjective Patient is seen and examined at bedside No new complaints Still has right shoulder pain Discussed with orthopedics today Denies any chest pain, dysuria, nausea, vomiting, abdominal pain Needs rehab placement No obvious withdrawal symptoms Review of Systems Review of Systems: All systems reviewed & are unremarkable except as noted in Subjective Physical Exam Physical Exam: Physical Exam: Vitals signs as noted above General Appearance:Moderately built and nourished, no apparent distress Head: normocephalic, Atraumatic Eyes: normal inspection, EOMI Neck: supple, Trachea midline Respiratory/Chest: Decreased breath sounds, scant wheezes, No accessory muscle use Cardiovascular: S1, S2, No murmur Abdomen/GI:Soft, Non tender, Bowel sounds present Extremities/Musculoskeletal:normal inspection, no edema, R shoulder tender, decreased ROM Neurologic/Psych:AAOX3, grossly no focal neurological deficits Skin: normal color, warm Results & Data Results & Data Vital Signs (Past 12 Hours) Vital Signs Temp Pulse Pulse Resp BP Pulse Ox O2 Del Method 12/02/23 11:34 36.3 C L 72 18 131/64 99 Room Air 12/02/23 07:55 62 12/02/23 07:49 36.8 C 80 18 157/79 H 97 Room Air 12/02/23 03:40 36.7 C 68 18 136/84 96 Room Air Laboratory Results Short CBC 12/02/23 Range/Units 07:54 WBC 5.19 (4.8-10.8) K/ul Hgb 9.9 L (14.0-18.0) g/dl Hct 30.6 L (42.0-52.0) % Plt Count 156 (130-400) K/uL BMP 12/02/23 07:54 Sodium 139 Potassium 3.7 Chloride 111 H Carbon Dioxide 22 BUN 12 Creatinine 0.74 Glucose 123 H Calcium 8.6 Liver Function 12/02/23 Range/Units 07:54 Total Bilirubin 2.0 H (0.2-1.0) mg/dl AST 38 (13-39) U/L ALT 22 (7-52) U/L Alkaline Phosphatase 152 H (34-104) U/L Albumin 3.0 L (3.4-5.0) gm/dl (3) AMS (altered mental status) Altered mental status type: unspecified Qualified Code(s): R41.82 - Altered mental status, unspecified
[2023-12-02] MEDS: LACTULOSE SYRUP 30 GM/45 ML UDP PO SCH (17:11)
--- NOTE | 2023-12-02 17:45 | Orthopedic Progress Note ---
Date of Service December 02, 2023 Assessment & Plan (1) Proximal humerus fracture: Plan: The patient was educated regarding today's findings. He was instructed to avoid placing the arm on top of his abdomen. I corrected him several times, as he continued to move the humerus. He should receive his Hess brace today, which should assist with comfort. Continue with ice and elevation. Continue with oral pain medication as needed. [place] physical therapy once his brace has been placed. Admission and Anticipated Discharge Date Admission Date: November 30, 2023 Subjective This 63-year-old male is seen today in his room. He complains of pain in the shoulder with motion. He denies any numbness or tingling. No new complaints. His Hess brace has not been delivered yet. Physical Exam Physical Exam: General: Well-developed, middle-aged male, in no acute distress. Laying in bed. Conversive. Skin: Warm and dry with good turgor. No rashes. No ecchymosis or erythema. Mild edema generalized to the right arm. Musculoskeletal: The patient has intact motor function to his shoulder, elbow, wrist, and digits. Full flexion extension of the fingers. He is able to make a fist. His wrist has intact supination and pronation. Good flexion extension as well. No pain with palpation of the wrist. The right elbow has intact flexion and extension. He complains of some pain in the proximal humerus with supination and pronation of the elbow. He made numerous attempts of drawing the arm up onto his abdomen, and complaining of pain. He was instructed to move only the elbow and not actively place his arm on his abdomen. There is discomfort with palpation over the proximal humerus. No pain with palpation over his AC joint or glenohumeral joint. Neurologic: Gross sensation is intact across the right arm by soft touch. Peripheral pulses are 2+. Results & Data Vital Signs (Past 12 Hours) Vital Signs Temp Pulse Pulse Resp BP Pulse Ox O2 Del Method 12/02/23 16:01 37.2 C 73 18 138/84 98 Room Air 12/02/23 14:00 79 12/02/23 11:34 36.3 C L 72 18 131/64 99 Room Air 12/02/23 07:55 62 12/02/23 07:49 36.8 C 80 18 157/79 H 97 Room Air
[2023-12-02] MEDS: HEPARIN SOD 5,000 UNIT/0.5 ML VIAL SQ SCH (19:52)
[2023-12-02] MEDS: MAGNESIUM CHLORIDE W/CALCIUM 64MG DELAYED REL TAB PO SCH (19:53)
[2023-12-03 08:25] LABS: Hemoglobin 9.9 g/dl (14.0-18.0); Mean Corpuscular Hemoglobin 35.5 pg (25.0-34.0); Mean Corpuscular Hgb Conc 31.9 g/dL (32.0-36.0); Mean Corpuscular Volume 111.1 fL (80.0-100.0); Mean Platelet Volume 10.1 fL (9.4-12.4); Platelet Count 151 K/uL (130-400); RDW Coefficient of Variation 13.7 % (11.5-14.5); Red Blood Count 2.79 M/uL (4.70-6.10); White Blood Count 4.18 K/ul (4.8-10.8)
[2023-12-03 08:43] LABS: INR 1.3 (0.9-1.1); Prothrombin Time 13.8 Seconds (9.0-12.0)
[2023-12-03 08:48] LABS: Albumin Globulin Ratio 0.9 (0.9-2); BUN Creatinine Ratio 16.9 (10-20); Bilirubin,Total 1.6 mg/dl (0.2-1.0); Calcium 8.6 mg/dl (8.6-10.3); Creatinine Clr Calc Pharmacy 145.3 ml/min; Est GFR (African American) 117.4 ml/min; Est GFR (Non-African American) 101.3 ml/min; Globulin 3.3 gm/dl (2.5-4.0); Magnesium 1.5 mg/dl (1.7-2.4); Potassium 4.1 mmol/L (3.5-5.1); Total Protein 6.3 gm/dl (6.0-8.3)
--- NOTE | 2023-12-03 11:46 | Orthopedic Progress Note ---
Date of Service December 03, 2023 Assessment & Plan (1) Proximal humerus fracture: Plan: Case was discussed 12/02/[address] Dooley. He is recommended patient's start physical therapy now that he has a Hess brace. Order was placed for patient to begin passive range of motion of the shoulder by therapist with pain being his limitation. He can start pendulums as well as active wrist elbow, and finger motion as tolerated. He was advised keeping the brace in place until he is seen in the office in 2 weeks for repeat imaging. He can continue with use of ice over the shoulder/brace x 20 minutes with a towel layer if needed to protect skin. Continue DVT and pain measures per primary. Patient was advised discharge would be depended upon medical team. Patient verbalized understanding and is in agreement plan. Admission and Anticipated Discharge Date Admission Date: November 30, 2023 Subjective Patient is a 63-year-old male who is left-hand dominant. He was seen bedside this a.m. following up for a humeral neck fracture. He has a Hess brace in place. We did utilize translation services during the visit . Patient states his pain seems better controlled and rates about 34/10. He states he is not having any numbness or tingling in the right upper extremity. He states he is able to tolerate moving his fingers and hands without pain. He does have some discomfort when he attempts to move the elbow. He is eager to go home. He offers no other concerns. Review of Systems Review of Systems: Please refer to HPI Physical Exam Physical Exam: General: Patient is alert and oriented x 3 no acute distress Integumentary/musculoskeletal: Hess brace is in place negative for any skin irritation. He is able to actively flex and extend all digits, wrist, limited with elbow flexion due to some discomfort in the shoulder able to fully extend the elbow. Limited with supination due to pain able to fully pronate forearm. He is limited with shoulder range of motion due to pain. Sensation is intact over C5-C6-C7 and C8. Radial pulses 2+ Results & Data Vital Signs (Past 12 Hours) Vital Signs Temp Pulse Pulse Resp BP BP Pulse Ox 12/03/23 10:54 36.8 C 69 18 116/72 98 12/03/23 07:43 68 12/03/23 07:21 36.7 C 62 19 116/73 98 12/03/23 03:12 36.8 C 78 18 140/74 94 O2 Del Method 12/03/23 10:54 Room Air 12/03/23 07:43 12/03/23 07:21 Room Air 12/03/23 03:12 Room Air
[2023-12-03] MEDS: MAGNESIUM SULFATE / D5W 1 GM/100 ML BAG IV SCH (12:22)
[2023-12-03] MEDS: LACTULOSE SYRUP 30 GM/45 ML UDP PO SCH (17:21)
--- NOTE | 2023-12-03 18:22 | Hospitalist Progress Note ---
Date of Service December 03, 2023 Assessment & Plan (1) Hepatic encephalopathy: (2) Decompensated hepatic cirrhosis: (3) AMS (altered mental status): (4) HTN (hypertension): (5) NICO (obstructive sleep apnea): (6) GERD (gastroesophageal reflux disease): (7) Hyperlipidemia: Plan Mr. Davidson is a 63-year-old Jordanian/Wallisian speaking male presented to the [facility] today after a welfare check was done at home by the police he was found down suspecting hepatic encephalopathy with known alcoholism. Additional past medical history includes alcoholic cirrhosis of liver with ascites, obesity, HTN, HLD, NICO with CPAP, venous insufficiency following vascular, and GERD. No leukocytosis, ammonia level 120, negative troponin and CK levels. Alcohol level less than 10, potassium 4.1 otherwise electrolytes unremarkable. Lipase 22. Per admission H &P:"Patient was recently admitted to [facility] after a mechanical fall on 10/23/2023 he apparently slipped on wet ground in his garage and struck his head with right periorbital ecchymosis. At that time he was hypothermic and hypotensive with an elevated lactate and CK levels with EtOH level greater than 200 troponin mid 40s. Cervical spine CT negative, abdominal pelvis CT negative for ascites. Chest CT: Acute comminuted fracture of the right humerus and compression deformities of the T7 and T11 vertebral bodies, negative for PE Head CT negative for ICH, subdural hematoma or midline shift. Humerus x-ray: Comminuted fracture of the humeral neck with displacement and impaction. MELD score 10. Patient unable to participate in review of systems as he is nearly obtunded. He does moan with turning and is able to say 'yes' to having pain with the buffing machine operator phone but otherwise no meaningful conversation. Patient was incontinent when he entered the room. Patient tender with right arm and tender with abdominal palpation. LLE greater than RLE. Venous Doppler October 2023 negative for DVT. Patient will be admitted for further evaluation and management of his hepatic encephalopathy. Goal for 2-4 stools per day and if no improvement consider Rifaximin. Will consult GI for involvement and evaluation. For humeral head fracture will involve orthopedics. Case management to be involved for consideration of placement. " Patient has improved with the introduction of lactulose. Currently titrating his bowel movements for goal of 2-4. Rifaximin added. Patient with brace in place on right arm for support of humeral fracture. Ortho following with final recommendations at this time placed and reviewed. Currently, patient requiring IV electrolyte replacement, however, is medical stable for transition to rehab. Patient is Jordanian speaking. He has high school language based Wallisian--but this is not reliable source of understanding for him especially with his complex medical issues. The ability to obtain a Jordanian buffing machine operator has been limited. Office of Aging involved. Rehab is the next step for the patient in order to help him transition safely home. #Acute Metabolic/Hepatic encephalopathy #Decompensated hepatic cirrhosis #Alcohol use --CT head:There is no hemorrhage, mass effect, or evidence of acute territorial ischemia by CT criteria. --CT ABD:liver is cirrhotic in morphology and heterogeneous in attenuation. Cholelithiasis. Colonic diverticulosis without CT evidence of acute diverticulitis. --Alcohol level less than 10 --Tox screen negative Elevated ammonia level MELD 10 Continue lactulose: Titrate for 2-3 good bowel movements per day Mental status seem to be back to baseline Added rifaximin Monitor for alcohol withdrawal Continue thiamine, folic acid Aspiration, fall precautions Ativan as needed for alcohol withdrawal Currently no withdrawal symptoms #Proximal comminuted humeral fracture T7 and T11 comminuted fractures; also noted on prior imaging Subacute left-sided rib fractures --Shoulder X ray:Comminuted fracture of the humeral neck with displacement and impaction. Pain control as needed Nonoperative management Continue sling for comfort Fall precautions Needs follow-up with orthopedics on discharge -Physical therapy now with Hess brace. Order was placed for patient to begin passive range of motion of the shoulder by therapist with pain being his limitation. - keeping the brace in place until follow up in office in 2 weeks for repeat imaging. - continue with use of ice over the shoulder/brace x 20 minutes with a towel layer if needed to protect skin. #Suspected UTI ? Colonization Urine culture grew Enterococcus faecalis Empirically started on Augmentin, continue for 7 days #HTN: Chronic Not on any antihypertensive medications BP stable currently Will consider adding antihypertensives if needed #NICO: Chronic #GERD: Continue PPI DVT Px: Heparin SQ CODE STATUS: Full code Disposition Rehab as able Admission and Anticipated Discharge Date Admission Date: November 30, 2023 Subjective Patient evaluated at bedside Attempted to get Jordanian buffing machine operator, no success. Tried communication with malawian. Patient studied malawian for brief time in high school and can understand basic conversational malawian, but not in depth complex/medical issues Patient denied acute concerns, reports occasional pain, and reports bowel movements nearly every hour. Discussed decreasing lactulose, patient agreeable Physical Exam Constitutional: WD/WN, vitals as above Respiratory: normal respiratory effort, lungs clear to auscultation Cardiovascular: RRR, no murmur, no edema Gastrointestinal (Abdomen): normal bowel sounds, soft, nontender, no hepatosplenomegaly Musculoskeletal: right brace in place UE Results & Data Results & Data Vital Signs (Past 12 Hours) Vital Signs Temp Pulse Pulse Resp BP Pulse Ox O2 Del Method 12/03/23 16:11 37.1 C 69 126/74 99 Room Air 12/03/23 15:00 66 12/03/23 10:54 36.8 C 69 18 116/72 98 Room Air 12/03/23 07:43 68 12/03/23 07:21 36.7 C 62 19 116/73 98 Room Air (3) AMS (altered mental status) Altered mental status type: unspecified Qualified Code(s): R41.82 - Altered mental status, unspecified
[2023-12-03] MEDS: rifAXIMin 550 MG TABLET PO SCH (20:16)
[2023-12-03] MEDS: ALUMINUM/MAGNESIUM SUSP 30 ML UDC PO PRN (20:36)
--- NOTE | 2023-12-04 07:45 | Hospitalist Progress Note ---
Date of Service December 04, 2023 Assessment & Plan (1) Hepatic encephalopathy: (2) Decompensated hepatic cirrhosis: (3) AMS (altered mental status): (4) HTN (hypertension): (5) NICO (obstructive sleep apnea): (6) GERD (gastroesophageal reflux disease): (7) Hyperlipidemia: Plan Mr. Davidson is a 63-year-old [place]/Latvian speaking male presented to the [facility] today after a welfare check was done at home by the police he was found down suspecting hepatic encephalopathy with known alcoholism. Additional past medical history includes alcoholic cirrhosis of liver with ascites, obesity, HTN, HLD, NICO with CPAP, venous insufficiency following vascular, and GERD. No leukocytosis, ammonia level 120, negative troponin and CK levels. Alcohol level less than 10, potassium 4.1 otherwise electrolytes unremarkable. Lipase 22. Per admission H &P:"Patient was recently admitted to [facility] after a mechanical fall on 10/23/2023 he apparently slipped on wet ground in his garage and struck his head with right periorbital ecchymosis. At that time he was hypothermic and hypotensive with an elevated lactate and CK levels with EtOH level greater than 200 troponin mid 40s. Cervical spine CT negative, abdominal pelvis CT negative for ascites. Chest CT: Acute comminuted fracture of the right humerus and compression deformities of the T7 and T11 vertebral bodies, negative for PE Head CT negative for ICH, subdural hematoma or midline shift. Humerus x-ray: Comminuted fracture of the humeral neck with displacement and impaction. MELD score 10. Patient unable to participate in review of systems as he is nearly obtunded. He does moan with turning and is able to say 'yes' to having pain with the asbestos removal worker phone but otherwise no meaningful conversation. Patient was incontinent when he entered the room. Patient tender with right arm and tender with abdominal palpation. LLE greater than RLE. Venous Doppler October 2023 negative for DVT. Patient will be admitted for further evaluation and management of his hepatic encephalopathy. Goal for 2-4 stools per day and if no improvement consider Rifaximin. Will consult GI for involvement and evaluation. For humeral head fracture will involve orthopedics. Case management to be involved for consideration of placement. " Patient has improved with the introduction of lactulose. Currently titrating his bowel movements for goal of 2-4. Rifaximin added. Patient with brace in place on right arm for support of humeral fracture. Ortho following with final recommendations at this time placed and reviewed. Currently, patient requiring IV electrolyte replacement, however, is medical stable for transition to rehab. Patient is [place] speaking. He has high school language based Latvian--but this is not reliable source of understanding for him especially with his complex medical issues. The ability to obtain a [place] asbestos removal worker has been limited. Office of Aging involved. Rehab is the next step for the patient in order to help him transition safely home. Patient outwardly upset with situation. Requesting to leave. Reminded patient of conversation with Iris from [facility] of [facility] and he vocalized understanding but outward agitation. #Acute Metabolic/Hepatic encephalopathy *resolved #Decompensated hepatic cirrhosis #Alcohol use --CT head:There is no hemorrhage, mass effect, or evidence of acute territorial ischemia by CT criteria. --CT ABD:liver is cirrhotic in morphology and heterogeneous in attenuation. Cholelithiasis. Colonic diverticulosis without CT evidence of acute diverticulitis. --Alcohol level less than 10 --Tox screen negative Elevated ammonia level MELD 10 Continue lactulose: Titrate for 2-3 good bowel movements per day Mental status seem to be back to baseline Added rifaximin Monitor for alcohol withdrawal Continue thiamine, folic acid Aspiration, fall precautions Ativan as needed for alcohol withdrawal Currently no withdrawal symptoms #Proximal comminuted humeral fracture T7 and T11 comminuted fractures; also noted on prior imaging Subacute left-sided rib fractures --Shoulder X ray:Comminuted fracture of the humeral neck with displacement and impaction. Pain control as needed Nonoperative management Continue sling for comfort Fall precautions Needs follow-up with orthopedics on discharge -Physical therapy now with Hess brace. Order was placed for patient to begin passive range of motion of the shoulder by therapist with pain being his limitation. - keeping the brace in place until follow up in office in 2 weeks for repeat imaging. - continue with use of ice over the shoulder/brace x 20 minutes with a towel layer if needed to protect skin. #Suspected UTI ? Colonization Urine culture grew Enterococcus faecalis Empirically started on Augmentin, continue for 4/7 days #HTN: Chronic Not on any antihypertensive medications BP stable currently Will consider adding antihypertensives if needed #NICO: Chronic #GERD: Continue PPI DVT Px: Heparin SQ CODE STATUS: Full code Disposition Rehab as able Admission and Anticipated Discharge Date Admission Date: November 30, 2023 Subjective Patient evaluated at bedside Attempted to get [place] asbestos removal worker once again with no success. Patient requested [place] asbestos removal worker. Patient verbalizes anger over not being allowed to go home Explained that medically things are improved, but he needs rehab. Deferred discharge discussions to CM given involvement of Office of Aging Reports pain is better controlled Reports 4-5 bowel movements, more manageable than day prior Physical Exam Constitutional: WD/WN, vitals as above Respiratory: normal respiratory effort, lungs clear to auscultation Cardiovascular: RRR, no murmur, no edema Gastrointestinal (Abdomen): normal bowel sounds, soft, nontender, no hepatosplenomegaly Results & Data Results & Data Vital Signs (Past 12 Hours) Vital Signs Temp Pulse Pulse Resp BP Pulse Ox O2 Del Method 12/04/23 07:33 37.0 C 62 20 120/77 96 Room Air 12/04/23 02:46 36.6 C 62 16 122/87 97 Room Air 12/03/23 22:43 36.8 C 72 20 129/61 98 Room Air 12/03/23 22:23 Room Air 12/03/23 22:20 62 12/03/23 19:51 36.6 C 69 16 130/80 97 Room Air Laboratory Results Short CBC 12/04/23 Range/Units 07:06 WBC 4.23 L (4.8-10.8) K/ul Hgb 9.4 L (14.0-18.0) g/dl Hct 29.1 L (42.0-52.0) % Plt Count 127 L (130-400) K/uL BMP 12/04/23 07:06 Sodium 136 Potassium 4.2 Chloride 107 Carbon Dioxide 26 BUN 11 Creatinine 0.74 Glucose 112 H Calcium 8.3 L Medications Administered Home Medications Medication Instructions Recorded Confirmed Last Taken diclofenac sodium 1 % topical gel 2 - 4 g topical QID PRN Pain 07/04/21 11/30/23 Unknown lactulose 10 gram/15 mL oral 15 ml PO TID 12/28/21 11/30/23 Unknown solution sildenafil 100 mg tablet 50 - 100 mg PO DAILY PRN Sexual 10/22/23 11/30/23 Unknown Activity bacitracin zinc 500 unit/gram 1 applic topical DAILY 11/12/23 11/30/23 Unknown topical ointment brimonidine 0.2 % eye drops 1 drp OPR BID 11/12/23 11/30/23 Unknown carisoprodol 350 mg tablet 350 mg PO Q6H PRN MUSCLE SPASMS 11/12/23 11/30/23 Unknown docusate sodium 100 mg capsule 100 mg PO BID 11/12/23 11/30/23 Unknown oxycodone 5 mg tablet 5 mg PO Q4H PRN Pain 11/12/23 11/30/23 Unknown pantoprazole 20 mg tablet,delayed 20 mg PO DAILY 11/12/23 11/30/23 Unknown release vit no.95-ferrous 1 tab PO DAILY 11/12/23 11/30/23 Unknown fumarate 28 mg-folic acid 800 mcg tablet () Active Medications Generic Name Dose Route Start Last Admin Trade Name Freq PRN Reason Stop Dose Admin Al Hydrox/Mg Hydrox/Simethicone 15 ml 11/30/23 14:46 12/03/23 20:36 Aluminum/Magnesium Susp 30 Ml Udc PO 12/30/23 14:45 15 ml Q4H PRN Administration Dyspepsia Amoxicillin/Clavulanate Potassium 1 tab 12/01/23 12:00 12/04/23 08:38 Amoxicillin/Clavulanate 875 Mg Tab PO 12/08/23 11:59 1 tab BIDM MARIELLA Administration Protocol Folic Acid 1 mg 12/02/23 09:00 12/04/23 08:38 Folic Acid 1 Mg Tab PO 01/01/24 08:59 1 mg QAM MARIELLA Administration Heparin Sodium (Porcine) 5,000 units 12/02/23 21:00 12/04/23 08:39 Heparin Sod 5,000 Unit/0.5 Ml Vial SQ 01/01/24 20:59 5,000 units Q12 MARIELLA Administration Lactulose 30 gm 12/03/23 21:00 12/04/23 05:40 Lactulose Syrup 30 Gm/45 Ml Udp PO 01/02/24 20:59 30 gm BID MARIELLA Administration Magnesium Chloride 64 mg 12/02/23 21:00 12/04/23 08:39 Magnesium Chloride W/Calcium 64mg Delayed Rel Tab PO 01/01/24 20:59 64 mg BID MARIELLA Administration Multivitamins 1 tab 12/01/23 09:00 12/04/23 08:38 Multivitamin Tab PO 12/31/23 08:59 1 tab QAM MARIELLA Administration Oxycodone HCl 5 mg 11/30/23 22:43 12/04/23 08:48 Oxycodone Hcl Ir 5 Mg Tab (Immediate Release) PO 12/14/23 22:42 5 mg Q4H PRN Administration Pain Pantoprazole Sodium 40 mg 12/01/23 09:00 12/04/23 08:38 Pantoprazole 40 Mg Tab PO 12/31/23 08:59 40 mg BID MARIELLA Administration Rifaximin 550 mg 12/03/23 21:00 12/04/23 08:39 Rifaximin 550 Mg Tablet PO 01/02/24 20:59 550 mg BID MARIELLA Administration Thiamine HCl 100 mg 12/01/23 09:00 12/04/23 08:38 Thiamine Hcl 100 Mg Tab PO 12/31/23 08:59 100 mg QAM MARIELLA Administration (3) AMS (altered mental status) Altered mental status type: unspecified Qualified Code(s): R41.82 - Altered mental status, unspecified
[2023-12-04 07:58] LABS: Hematocrit (blood only) 29.1 % (42.0-52.0); Hemoglobin 9.4 g/dl (14.0-18.0); Mean Corpuscular Hemoglobin 35.7 pg (25.0-34.0); Mean Corpuscular Hgb Conc 32.3 g/dL (32.0-36.0); Mean Corpuscular Volume 110.6 fL (80.0-100.0); Mean Platelet Volume 10.5 fL (9.4-12.4); Platelet Count 127 K/uL (130-400); RDW Coefficient of Variation 13.6 % (11.5-14.5); RDW Standard Deviation 55.8 fL (36.4-46.3); Red Blood Count 2.63 M/uL (4.70-6.10); White Blood Count 4.23 K/ul (4.8-10.8)
[2023-12-04 08:15] LABS: BUN Creatinine Ratio 14.9 (10-20); Calcium 8.3 mg/dl (8.6-10.3); Creatinine Clr Calc Pharmacy 134.9 ml/min; Est GFR (African American) 115.4 ml/min; Est GFR (Non-African American) 99.6 ml/min; Magnesium 1.7 mg/dl (1.7-2.4); Phosphorus 3.2 mg/dl (2.5-4.9); Potassium 4.2 mmol/L (3.5-5.1)
[2023-12-04] MEDS: ACETAMINOPHEN 325 MG TAB PO PRN (18:27)
--- NOTE | 2023-12-05 12:24 | Hospitalist Progress Note ---
Date of Service December 05, 2023 Assessment & Plan (1) Hepatic encephalopathy: (2) Decompensated hepatic cirrhosis: (3) AMS (altered mental status): (4) HTN (hypertension): (5) NICO (obstructive sleep apnea): (6) GERD (gastroesophageal reflux disease): (7) Hyperlipidemia: Plan Mr. Davidson is a 63-year-old Marshallese/Romanian speaking male presented to the [facility] today after a welfare check was done at home by the police he was found down suspecting hepatic encephalopathy with known alcoholism. Additional past medical history includes alcoholic cirrhosis of liver with ascites, obesity, HTN, HLD, NICO with CPAP, venous insufficiency following vascular, and GERD. No leukocytosis, ammonia level 120, negative troponin and CK levels. Alcohol level less than 10, potassium 4.1 otherwise electrolytes unremarkable. Lipase 22. Per admission H &P:"Patient was recently admitted to [facility] after a mechanical fall on 10/23/2023 he apparently slipped on wet ground in his garage and struck his head with right periorbital ecchymosis. At that time he was hypothermic and hypotensive with an elevated lactate and CK levels with EtOH level greater than 200 troponin mid 40s. Cervical spine CT negative, abdominal pelvis CT negative for ascites. Chest CT: Acute comminuted fracture of the right humerus and compression deformities of the T7 and T11 vertebral bodies, negative for PE Head CT negative for ICH, subdural hematoma or midline shift. Humerus x-ray: Comminuted fracture of the humeral neck with displacement and impaction. MELD score 10. Patient unable to participate in review of systems as he is nearly obtunded. He does moan with turning and is able to say 'yes' to having pain with the seismic interpreter phone but otherwise no meaningful conversation. Patient was incontinent when he entered the room. Patient tender with right arm and tender with abdominal palpation. LLE greater than RLE. Venous Doppler October 2023 negative for DVT. Patient will be admitted for further evaluation and management of his hepatic encephalopathy. Goal for 2-4 stools per day and if no improvement consider Rifaximin. Will consult GI for involvement and evaluation. For humeral head fracture will involve orthopedics. Case management to be involved for consideration of placement. " Patient has improved with the introduction of lactulose. Currently titrating his bowel movements for goal of 2-4. Rifaximin added. Patient with brace in place on right arm for support of humeral fracture. Ortho following with final recommendations at this time placed and reviewed. Currently, patient requiring IV electrolyte replacement, however, is medical stable for transition to rehab. Patient is Marshallese speaking. He has high school language based Romanian--but this is not reliable source of understanding for him especially with his complex medical issues. The ability to obtain a [place]ese seismic interpreter has been limited. Office of Aging involved. Rehab is the next step for the patient in order to help him transition safely home. Patient outwardly upset with situation. Requesting to leave. Reminded patient of conversation with Iris from [facility] and he vocalized understanding but outward agitation. Patient awaiting rehab placement. Plan to downgrade. #Acute Metabolic/Hepatic encephalopathy *resolved #Decompensated hepatic cirrhosis #Alcohol use --CT head:There is no hemorrhage, mass effect, or evidence of acute territorial ischemia by CT criteria. --CT ABD:liver is cirrhotic in morphology and heterogeneous in attenuation. Cholelithiasis. Colonic diverticulosis without CT evidence of acute diverticulitis. --Alcohol level less than 10 --Tox screen negative Elevated ammonia level MELD 10 Continue lactulose: Titrate for 2-3 good bowel movements per day Mental status seem to be back to baseline Continue rifaximin Monitor for alcohol withdrawal Continue thiamine, folic acid Aspiration, fall precautions Ativan as needed for alcohol withdrawal Currently no withdrawal symptoms #Proximal comminuted humeral fracture T7 and T11 comminuted fractures; also noted on prior imaging Subacute left-sided rib fractures --Shoulder X ray:Comminuted fracture of the humeral neck with displacement and impaction. Pain control as needed Nonoperative management Continue sling for comfort Fall precautions Needs follow-up with orthopedics on discharge -Physical therapy now with Hess brace. Order was placed for patient to begin passive range of motion of the shoulder by therapist with pain being his limitation. - keeping the brace in place until follow up in office in 2 weeks for repeat imaging. - continue with use of ice over the shoulder/brace x 20 minutes with a towel layer if needed to protect skin. #Suspected UTI ? Colonization Urine culture grew Enterococcus faecalis Empirically started on Augmentin, continue for 5/7 days #HTN: Chronic Not on any antihypertensive medications BP stable currently Will consider adding antihypertensives if needed #NICO: Chronic #GERD: Continue PPI DVT Px: Heparin SQ CODE STATUS: Full code Disposition Rehab as able Admission and Anticipated Discharge Date Admission Date: November 30, 2023 Subjective NAEO Physical Exam Constitutional: Resting in bed comfortably, right arm brace in place Results & Data Results & Data Vital Signs (Past 12 Hours) Vital Signs Temp Pulse Resp BP Pulse Ox O2 Del Method 12/05/23 12:21 37 C 75 17 131/76 100 Room Air 12/05/23 08:19 36.6 C 68 18 118/72 96 Room Air 12/05/23 02:45 36.6 C 65 20 121/67 90 Room Air Medications Administered Home Medications Medication Instructions Recorded Confirmed Last Taken diclofenac sodium 1 % topical gel 2 - 4 g topical QID PRN Pain 07/04/21 11/30/23 Unknown lactulose 10 gram/15 mL oral 15 ml PO TID 12/28/21 11/30/23 Unknown solution sildenafil 100 mg tablet 50 - 100 mg PO DAILY PRN Sexual 10/22/23 11/30/23 Unknown Activity bacitracin zinc 500 unit/gram 1 applic topical DAILY 11/12/23 11/30/23 Unknown topical ointment brimonidine 0.2 % eye drops 1 drp OPR BID 11/12/23 11/30/23 Unknown carisoprodol 350 mg tablet 350 mg PO Q6H PRN MUSCLE SPASMS 11/12/23 11/30/23 Unknown docusate sodium 100 mg capsule 100 mg PO BID 11/12/23 11/30/23 Unknown oxycodone 5 mg tablet 5 mg PO Q4H PRN Pain 11/12/23 11/30/23 Unknown pantoprazole 20 mg tablet,delayed 20 mg PO DAILY 11/12/23 11/30/23 Unknown release vit no.95-ferrous 1 tab PO DAILY 11/12/23 11/30/23 Unknown fumarate 28 mg-folic acid 800 mcg tablet () Active Medications Generic Name Dose Route Start Last Admin Trade Name Freq PRN Reason Stop Dose Admin Acetaminophen 650 mg 11/30/23 14:46 12/04/23 18:27 Acetaminophen 325 Mg Tab PO 12/30/23 14:45 650 mg Q4H PRN Administration Pain or Fever Al Hydrox/Mg Hydrox/Simethicone 15 ml 11/30/23 14:46 12/03/23 20:36 Aluminum/Magnesium Susp 30 Ml Udc PO 12/30/23 14:45 15 ml Q4H PRN Administration Dyspepsia Amoxicillin/Clavulanate Potassium 1 tab 12/01/23 12:00 12/05/23 07:33 Amoxicillin/Clavulanate 875 Mg Tab PO 12/08/23 11:59 1 tab BIDM MARIELLA Administration Protocol Folic Acid 1 mg 12/02/23 09:00 12/05/23 07:33 Folic Acid 1 Mg Tab PO 01/01/24 08:59 1 mg QAM MARIELLA Administration Heparin Sodium (Porcine) 5,000 units 12/02/23 21:00 12/05/23 07:34 Heparin Sod 5,000 Unit/0.5 Ml Vial SQ 01/01/24 20:59 5,000 units Q12 MARIELLA Administration Lactulose 30 gm 12/03/23 21:00 12/05/23 06:50 Lactulose Syrup 30 Gm/45 Ml Udp PO 01/02/24 20:59 30 gm BID MARIELLA Administration Magnesium Chloride 64 mg 12/02/23 21:00 12/05/23 07:33 Magnesium Chloride W/Calcium 64mg Delayed Rel Tab PO 01/01/24 20:59 64 mg BID MARIELLA Administration Multivitamins 1 tab 12/01/23 09:00 12/05/23 07:34 Multivitamin Tab PO 12/31/23 08:59 1 tab QAM MARIELLA Administration Oxycodone HCl 5 mg 11/30/23 22:43 12/05/23 07:31 Oxycodone Hcl Ir 5 Mg Tab (Immediate Release) PO 12/14/23 22:42 5 mg Q4H PRN Administration Pain Pantoprazole Sodium 40 mg 12/01/23 09:00 12/05/23 07:34 Pantoprazole 40 Mg Tab PO 12/31/23 08:59 40 mg BID MARIELLA Administration Rifaximin 550 mg 12/03/23 21:00 12/05/23 07:34 Rifaximin 550 Mg Tablet PO 01/02/24 20:59 550 mg BID MARIELLA Administration Thiamine HCl 100 mg 12/01/23 09:00 12/05/23 07:33 Thiamine Hcl 100 Mg Tab PO 12/31/23 08:59 100 mg QAM MARIELLA Administration (3) AMS (altered mental status) Altered mental status type: unspecified Qualified Code(s): R41.82 - Altered mental status, unspecified
[2023-12-05] MEDS: BRIMONIDINE TARTRATE 0.2% 5ML OPR SCH (16:37)
[2023-12-06 07:16] LABS: Hematocrit (blood only) 32.3 % (42.0-52.0); Hemoglobin 10.7 g/dl (14.0-18.0); Mean Corpuscular Hemoglobin 35.7 pg (25.0-34.0); Mean Corpuscular Hgb Conc 33.1 g/dL (32.0-36.0); Mean Corpuscular Volume 107.7 fL (80.0-100.0); Mean Platelet Volume 10.1 fL (9.4-12.4); Platelet Count 137 K/uL (130-400); RDW Coefficient of Variation 13.2 % (11.5-14.5); RDW Standard Deviation 52.2 fL (36.4-46.3); White Blood Count 5.46 K/ul (4.8-10.8)
[2023-12-06 07:43] LABS: Albumin Globulin Ratio 0.9 (0.9-2); Albumin Level 3.1 gm/dl (3.4-5.0); BUN Creatinine Ratio 13.5 (10-20); Bilirubin,Total 1.3 mg/dl (0.2-1.0); Calcium 8.7 mg/dl (8.6-10.3); Creatinine Clr Calc Pharmacy 134.8 ml/min; Est GFR (African American) 115.4 ml/min; Est GFR (Non-African American) 99.6 ml/min; Globulin 3.5 gm/dl (2.5-4.0); Magnesium 1.5 mg/dl (1.7-2.4); Phosphorus 3.5 mg/dl (2.5-4.9); Potassium 3.8 mmol/L (3.5-5.1); Total Protein 6.6 gm/dl (6.0-8.3)
[2023-12-06 07:51] LABS: INR 1.2 (0.9-1.1); Prothrombin Time 13.4 Seconds (9.0-12.0)
--- NOTE | 2023-12-06 15:14 | Hospitalist Progress Note ---
Date of Service December 06, 2023 Assessment & Plan (1) Hepatic encephalopathy: (2) Decompensated hepatic cirrhosis: (3) AMS (altered mental status): (4) HTN (hypertension): (5) NICO (obstructive sleep apnea): (6) GERD (gastroesophageal reflux disease): (7) Hyperlipidemia: Plan Mr. Davidson is a 63-year-old Citizen Of [place] speaking male presented to the [facility] today after a welfare check was done at home by the police he was found down suspecting hepatic encephalopathy with known alcoholism. Additional past medical history includes alcoholic cirrhosis of liver with ascites, obesity, HTN, HLD, NICO with CPAP, venous insufficiency following vascular, and GERD. No leukocytosis, ammonia level 120, negative troponin and CK levels. Alcohol level less than 10, potassium 4.1 otherwise electrolytes unremarkable. Lipase 22. Per admission H &P:"Patient was recently admitted to [facility] after a mechanical fall on 10/23/2023 he apparently slipped on wet ground in his garage and struck his head with right periorbital ecchymosis. At that time he was hypothermic and hypotensive with an elevated lactate and CK levels with EtOH level greater than 200 troponin mid 40s. Cervical spine CT negative, abdominal pelvis CT negative for ascites. Chest CT: Acute comminuted fracture of the right humerus and compression deformities of the T7 and T11 vertebral bodies, negative for PE Head CT negative for ICH, subdural hematoma or midline shift. Humerus x-ray: Comminuted fracture of the humeral neck with displacement and impaction. MELD score 10. Patient unable to participate in review of systems as he is nearly obtunded. He does moan with turning and is able to say 'yes' to having pain with the concrete stone fabricating supervisor phone but otherwise no meaningful conversation. Patient was incontinent when he entered the room. Patient tender with right arm and tender with abdominal palpation. LLE greater than RLE. Venous Doppler October 2023 negative for DVT. Patient will be admitted for further evaluation and management of his hepatic encephalopathy. Goal for 2-4 stools per day and if no improvement consider Rifaximin. Will consult GI for involvement and evaluation. For humeral head fracture will involve orthopedics. Case management to be involved for consideration of placement. " Patient has improved with the introduction of lactulose. Currently titrating his bowel movements for goal of 2-4. Rifaximin added. Patient with brace in place on right arm for support of humeral fracture. Ortho following with final recommendations at this time placed and reviewed. Currently, patient requiring IV electrolyte replacement, however, is medical stable for transition to rehab. Patient is Citizen [place] speaking. He has high school language based Trinidadian--but this is not reliable source of understanding for him especially with his complex medical issues. The ability to obtain a Citizen [place] concrete stone fabricating supervisor has been limited. Office of Aging involved. Rehab is the next step for the patient in order to help him transition safely home. Patient outwardly upset with situation. Requesting to leave. Reminded patient of conversation with Iris from Office of Aging and he vocalized understanding but outward agitation. Patient awaiting rehab placement; however, PT/OT evaluated and determined no further need for rehab. However given unclear/complex relation with OOA, it was determined organization will cover 2 weeks of PCH for patient Patient ultimately agreeable and plans for discharge tomorrow. #Acute Metabolic/Hepatic encephalopathy *resolved #Decompensated hepatic cirrhosis #Alcohol use --CT head:There is no hemorrhage, mass effect, or evidence of acute territorial ischemia by CT criteria. --CT ABD:liver is cirrhotic in morphology and heterogeneous in attenuation. Cholelithiasis. Colonic diverticulosis without CT evidence of acute diverticulitis. --Alcohol level less than 10 --Tox screen negative Elevated ammonia level MELD 10 Continue lactulose: Titrate for 2-3 good bowel movements per day Mental status seem to be back to baseline Continue rifaximin Monitor for alcohol withdrawal Continue thiamine, folic acid Aspiration, fall precautions Ativan as needed for alcohol withdrawal Currently no withdrawal symptoms #Proximal comminuted humeral fracture T7 and T11 comminuted fractures; also noted on prior imaging Subacute left-sided rib fractures --Shoulder X ray:Comminuted fracture of the humeral neck with displacement and impaction. Pain control as needed Nonoperative management Continue sling for comfort Fall precautions Needs follow-up with orthopedics on discharge -Physical therapy now with Hess brace. Order was placed for patient to begin passive range of motion of the shoulder by therapist with pain being his limitation. - keeping the brace in place until follow up in office in 2 weeks for repeat imaging. - continue with use of ice over the shoulder/brace x 20 minutes with a towel layer if needed to protect skin. #Suspected UTI ? Colonization Urine culture grew Enterococcus faecalis Empirically started on Augmentin, continue for 6/7 days EOT 12/06 #HTN: Chronic Not on any antihypertensive medications BP stable currently Will consider adding antihypertensives if needed #NICO: Chronic #GERD: Continue PPI DVT Px: Heparin SQ CODE STATUS: Full code Disposition [facility] tomorrow Admission and Anticipated Discharge Date Admission Date: November 30, 2023 Subjective Patient evaluated at bedside Resting comfortably Physical Exam Constitutional: Resting in bed comfortably, no acute distress Results & Data Results & Data Vital Signs (Past 12 Hours) Vital Signs Temp Pulse Resp BP Pulse Ox O2 Del Method 12/06/23 08:00 Room Air 12/06/23 07:45 36.9 C 69 18 143/80 H 99 Room Air Laboratory Results Short CBC 12/06/23 Range/Units 07:01 WBC 5.46 (4.8-10.8) K/ul Hgb 10.7 L (14.0-18.0) g/dl Hct 32.3 L (42.0-52.0) % Plt Count 137 (130-400) K/uL BMP 12/06/23 07:01 Sodium 135 L Potassium 3.8 Chloride 106 Carbon Dioxide 25 BUN 10 Creatinine 0.74 Glucose 90 Calcium 8.7 Liver Function 12/06/23 Range/Units 07:01 Total Bilirubin 1.3 H (0.2-1.0) mg/dl AST 38 (13-39) U/L ALT 22 (7-52) U/L Alkaline Phosphatase 171 H (34-104) U/L Albumin 3.1 L (3.4-5.0) gm/dl Medications Administered Home Medications Medication Instructions Recorded Confirmed Last Taken diclofenac sodium 1 % topical gel 2 - 4 g topical QID PRN Pain 07/04/21 11/30/23 Unknown lactulose 10 gram/15 mL oral 15 ml PO TID 12/28/21 11/30/23 Unknown solution sildenafil 100 mg tablet 50 - 100 mg PO DAILY PRN Sexual 10/22/23 11/30/23 Unknown Activity bacitracin zinc 500 unit/gram 1 applic topical DAILY 11/12/23 11/30/23 Unknown topical ointment brimonidine 0.2 % eye drops 1 drp OPR BID 11/12/23 11/30/23 Unknown carisoprodol 350 mg tablet 350 mg PO Q6H PRN MUSCLE SPASMS 11/12/23 11/30/23 Unknown docusate sodium 100 mg capsule 100 mg PO BID 11/12/23 11/30/23 Unknown oxycodone 5 mg tablet 5 mg PO Q4H PRN Pain 11/12/23 11/30/23 Unknown pantoprazole 20 mg tablet,delayed 20 mg PO DAILY 11/12/23 11/30/23 Unknown release vit no.95-ferrous 1 tab PO DAILY 11/12/23 11/30/23 Unknown fumarate 28 mg-folic acid 800 mcg tablet () Active Medications Generic Name Dose Route Start Last Admin Trade Name Freq PRN Reason Stop Dose Admin Acetaminophen 650 mg 11/30/23 14:46 12/04/23 18:27 Acetaminophen 325 Mg Tab PO 12/30/23 14:45 650 mg Q4H PRN Administration Pain or Fever Al Hydrox/Mg Hydrox/Simethicone 15 ml 11/30/23 14:46 12/03/23 20:36 Aluminum/Magnesium Susp 30 Ml Udc PO 12/30/23 14:45 15 ml Q4H PRN Administration Dyspepsia Amoxicillin/Clavulanate Potassium 1 tab 12/01/23 12:00 12/06/23 16:31 Amoxicillin/Clavulanate 875 Mg Tab PO 12/08/23 11:59 1 tab BIDM MARIELLA Administration Protocol Brimonidine Tartrate 1 drops 12/05/23 15:39 12/06/23 08:57 Brimonidine Tartrate 0.2% 5ml OPR 01/04/24 15:38 1 drops BID MARIELLA Administration Folic Acid 1 mg 12/02/23 09:00 12/06/23 08:57 Folic Acid 1 Mg Tab PO 01/01/24 08:59 1 mg QAM MARIELLA Administration Heparin Sodium (Porcine) 5,000 units 12/02/23 21:00 12/06/23 08:57 Heparin Sod 5,000 Unit/0.5 Ml Vial SQ 01/01/24 20:59 5,000 units Q12 MARIELLA Administration Magnesium Sulfate/Dextrose 1 gm in 100 mls @ 50 mls/hr 12/06/23 15:15 12/06/23 15:29 Magnesium Sulfate / D5w IV 12/06/23 23:14 50 mls/hr Q2H MARIELLA Administration Lactulose 30 gm 12/03/23 21:00 12/06/23 08:57 Lactulose Syrup 30 Gm/45 Ml Udp PO 01/02/24 20:59 30 gm BID MARIELLA Administration Magnesium Chloride 64 mg 12/02/23 21:00 12/06/23 08:56 Magnesium Chloride W/Calcium 64mg Delayed Rel Tab PO 01/01/24 20:59 64 mg BID MARIELLA Administration Multivitamins 1 tab 12/01/23 09:00 12/06/23 08:57 Multivitamin Tab PO 12/31/23 08:59 1 tab QAM MARIELLA Administration Oxycodone HCl 5 mg 11/30/23 22:43 12/06/23 15:12 Oxycodone Hcl Ir 5 Mg Tab (Immediate Release) PO 12/14/23 22:42 5 mg Q4H PRN Administration Pain Pantoprazole Sodium 40 mg 12/01/23 09:00 12/06/23 08:56 Pantoprazole 40 Mg Tab PO 12/31/23 08:59 40 mg BID MARIELLA Administration Rifaximin 550 mg 12/03/23 21:00 12/06/23 08:56 Rifaximin 550 Mg Tablet PO 01/02/24 20:59 550 mg BID MARIELLA Administration Thiamine HCl 100 mg 12/01/23 09:00 12/06/23 08:58 Thiamine Hcl 100 Mg Tab PO 12/31/23 08:59 100 mg QAM AMRIELLA Administration (3) AMS (altered mental status) Altered mental status type: unspecified Qualified Code(s): R41.82 - Altered mental status, unspecified
[2023-12-06] MEDS: MAGNESIUM SULFATE / D5W 1 GM/100 ML BAG IV SCH (15:29)
--- NOTE | 2023-12-07 12:27 | Discharge Summary ---
Discharge Summary Date of Service December 07, 2023 Notes For Next Care Provider Medication Changes From Visit Lactulose 30g two times daily with a goal of 3 to 4 bowel movements. -Xifaxan 550mg two times a day -Magnesium supplement two times a day -Pantoprazole 40mg two times a day Admission HPI Per Admitting Provider Mr. Davidson is a 63-year-old [place]ese/Citizen [place] speaking male presented to the [facility] today after a welfare check was done at home by the police he was found down suspecting hepatic encephalopathy with known alcoholism. Additional past medical history includes alcoholic cirrhosis of liver with ascites, obesity, HTN, HLD, NICO with CPAP, venous insufficiency following vascular, and GERD. No leukocytosis, ammonia level 120, negative troponin and CK levels. Alcohol level less than 10, potassium 4.1 otherwise electrolytes unremarkable. Lipase 22. Cervical spine CT negative, abdominal pelvis CT negative for ascites. Chest CT: Acute comminuted fracture of the right humerus and compression deformities of the T7 and T11 vertebral bodies, negative for PE. Head CT negative for ICH, subdural hematoma or midline shift. Humerus x-ray: Comminuted fracture of the humeral neck with displacement and impaction. Patient was recently admitted to [facility] after a mechanical fall on 10/23/2023 he apparently slipped on wet ground in his garage and struck his head with right periorbital ecchymosis. At that time he was hypothermic and hypotensive with an elevated lactate and CK levels with EtOH level greater than 200 troponin mid 40s. MELD score 10. Patient unable to participate in review of systems as he is obtunded. He does moan with turning and is able to say yes to having pain with the core loader phone but otherwise no meaningful conversation. Patient was incontinent when he entered the room. Patient tender with right arm and tender with abdominal palpation. LLE greater than RLE. Venous Doppler October 2023 negative for DVT. I was able to talk with his friend and neighbor Manuel nguyen to have durable medical power of insurance defense attorney stated that yesterday when he was home from work; he saw the patient had walked across the street and was mumbling and stating that he needed help. He had trouble with his utensils and had a hard time holding a cup to his mouth. He wears on a split level house. He is unemployed and applied for disability. He has a medical bed in his room from when his about three years ago. In general, prior to that he was a tidy person and very respectful. Since last year, he has declined considerably. He has become more disheveled. He has one daughter who lives in [facility]. He came to [facility] in the . He does not have any friends in the area. Patient will be admitted for further evaluation and management of his hepatic encephalopathy. Goal for 2-4 stools per day and if no improvement consider Rifaximin. Will consult GI for involvement and evaluation. For humeral head fracture will involve orthopedics. Case management to be involved for consideration of placement. Has been working with [employer]; does not have any meals on wheels or services. Admission Exam Per Admitting Provider Neuro: AAOx1, does respond to tactile and verbal stimuli; however, very limited ROS and just answering yes to some questions; unsure of reliability. PERRLA, no aphagia, memory changes, unable to assess CN HEENT: head normocephalic, atraumatic, moist mucus membranes CV: S1/S2, (-) M/G/R, (-) edema, cap refill < 3 seconds Resp: Lungs decreased. On RA GI: Abdomen large, soft, (-) guarding (-) rebound tenderness, Ax4 bowel sounds, (-) CVA tenderness Musculoskeletal: Unable to assess strength due to decreased consciousness. LLE > RLE increase in size. Skin: (-) rashes , (-) erythema. Psych: unable to assess; agitated with moving Principal Dx & Hospital Course #1 = Principal Diagnosis (1) Hepatic encephalopathy: (2) Decompensated hepatic cirrhosis: (3) AMS (altered mental status): (4) HTN (hypertension): (5) NICO (obstructive sleep apnea): (6) GERD (gastroesophageal reflux disease): (7) Hyperlipidemia: Plan Mr. Davidson is a 63-year-old Faroese/Citizen [place] speaking male presented to the [facility] today after a welfare check was done at home by the police he was found down suspecting hepatic encephalopathy with known alcoholism. Additional past medical history includes alcoholic cirrhosis of liver with ascites, obesity, HTN, HLD, NICO with CPAP, venous insufficiency following vascular, and GERD. No leukocytosis, ammonia level 120, negative troponin and CK levels. Alcohol level less than 10, potassium 4.1 otherwise electrolytes unremarkable. Lipase 22. Per admission H &P:"Patient was recently admitted to [facility] after a mechanical fall on 10/23/2023 he apparently slipped on wet ground in his garage and struck his head with right periorbital ecchymosis. At that time he was hypothermic and hypotensive with an elevated lactate and CK levels with EtOH level greater than 200 troponin mid 40s. Cervical spine CT negative, abdominal pelvis CT negative for ascites. Chest CT: Acute comminuted fracture of the right humerus and compression deformities of the T7 and T11 vertebral bodies, negative for PE Head CT negative for ICH, subdural hematoma or midline shift. Humerus x-ray: Comminuted fracture of the humeral neck with displacement and impaction. MELD score 10. Patient unable to participate in review of systems as he is nearly obtunded. He does moan with turning and is able to say 'yes' to having pain with the core loader phone but otherwise no meaningful conversation. Patient was incontinent when he entered the room. Patient tender with right arm and tender with abdominal palpation. LLE greater than RLE. Venous Doppler October 2023 negative for DVT. Patient will be admitted for further evaluation and management of his hepatic encephalopathy. Goal for 2-4 stools per day and if no improvement consider Rifaximin. Will consult GI for involvement and evaluation. For humeral head fracture will involve orthopedics. Case management to be involved for consideration of placement. " Patient has improved with the introduction of lactulose. Currently titrating his bowel movements for goal of 2-4. Rifaximin added. Patient with brace in place on right arm for support of humeral fracture. Ortho following with final recommendations at this time placed and reviewed. Currently, patient requiring IV electrolyte replacement, however, is medical stable for transition to rehab. Patient is Faroese speaking. He has high school language based Citizen [place]--but this is not reliable source of understanding for him especially with his complex medical issues. The ability to obtain a Faroese core loader has been limited. Office of Aging involved. Rehab is the next step for the patient in order to help him transition safely home. Patient outwardly upset with situation. Requesting to leave. Reminded patient of conversation with Iris from Office of Aging and he vocalized understanding but outward agitation. Patient awaiting rehab placement; however, PT/OT evaluated and determined no further need for rehab. However given unclear/complex relation with OOA, it was determined organization will cover 2 weeks of PCH for patient Patient without acute concerns and plans to discharge to [facility] today per directive of O. #Acute Metabolic/Hepatic encephalopathy *resolved #Decompensated hepatic cirrhosis #Alcohol use --CT head:There is no hemorrhage, mass effect, or evidence of acute territorial ischemia by CT criteria. --CT ABD:liver is cirrhotic in morphology and heterogeneous in attenuation. Cholelithiasis. Colonic diverticulosis without CT evidence of acute diverti culitis. --Alcohol level less than 10 --Tox screen negative Elevated ammonia level MELD 10 Continue lactulose: Titrate for 2-3 good bowel movements per day Mental status seem to be back to baseline Continue rifaximin Monitor for alcohol withdrawal Continue thiamine, folic acid Aspiration, fall precautions Ativan as needed for alcohol withdrawal Currently no withdrawal symptoms #Proximal comminuted humeral fracture T7 and T11 comminuted fractures; also noted on prior imaging Subacute left-sided rib fractures --Shoulder X ray:Comminuted fracture of the humeral neck with displacement and impaction. Pain control as needed Nonoperative management Continue sling for comfort Fall precautions Needs follow-up with orthopedics on discharge -Physical therapy now with Hess brace. Order was placed for patient to begin passive range of motion of the shoulder by therapist with pain being his limitation. - keeping the brace in place until follow up in office in 2 weeks for repeat imaging. - continue with use of ice over the shoulder/brace x 20 minutes with a towel layer if needed to protect skin. #Suspected UTI ? Colonization Urine culture grew Enterococcus faecalis Empirically started on Augmentin, completed course EOT 12/06 #HTN: Chronic Not on any antihypertensive medications BP stable currently #NICO: Chronic #GERD: Continue PPI Discharge Exam Constitutional WD/WN, vitals as above Respiratory normal respiratory effort, lungs clear to auscultation Cardiovascular RRR, no murmur, no edema Musculoskeletal brace in place Updated Medication List Medication Instructions Recorded Confirmed Type diclofenac sodium 1 % topical gel 2 - 4 g topical QID PRN Pain 07/04/21 11/30/23 History sildenafil 100 mg tablet 50 - 100 mg PO DAILY PRN Sexual 10/22/23 11/30/23 History Activity bacitracin zinc 500 unit/gram 1 applic topical DAILY 11/12/23 11/30/23 History topical ointment brimonidine 0.2 % eye drops 1 drp OPR BID 11/12/23 11/30/23 History carisoprodol 350 mg tablet 350 mg PO Q6H PRN MUSCLE SPASMS 11/12/23 11/30/23 History vit no.95-ferrous 1 tab PO DAILY 11/12/23 11/30/23 History fumarate 28 mg-folic acid 800 mcg tablet () lactulose 10 gram/15 mL (15 mL) 30 g (45 mL) PO BID #1,440 mL 12/07/23 Rx oral solution magnesium chloride 64 mg 64 mg PO BID #60 tabs 12/07/23 Rx (magnesium chloride) tablet,delayed release (Mag 64) pantoprazole 40 mg tablet,delayed 40 mg PO BID #60 tabs 12/07/23 Rx release rifaximin 550 mg tablet (Xifaxan) 550 mg PO BID #60 tabs 12/07/23 Rx Hospital Stay Data Consultations 11/30/23 13:53 ED Decision to Admit Stat 11/30/23 14:46 Consult Gastroenterology Routine 11/30/23 15:20 Consult Orthopedic Surgery Routine Diagnostic Imagining Performed 11/30/23 11:15 CT abd pelvis IV con only Stat CT cervical spine wo con Stat CT chest diagnostic w con Stat CT head/brain wo con Stat 11/30/23 19:39 US venous doppler LE BI Routine Pending Results Patient Have Any Pending Studies at Discharge: No Discharge Instructions Given to Patient (Per Discharging Provider) You were admitted for confusion and found to have decompensation of cirrhosis. You were restarted on lactulose. Please continue to take 30mg two times daily with a goal of 3 to 4 bowel movements. Please continue the following: -Xifaxan 550mg two times a day -Magnesium supplement two times a day -Pantoprazole 40mg two times a day Jus buvote paguldytas del painiavos ir jums buvo nustatyta cirozes dekompensacija. Jus anthony pradejote vartoti laktulioze. Toliau vartokite 30 mg du kartus per diena, siekdami 34 tutinimosi. Praome testi iuos veiksmus: - Xifaxan 550 mg du kartus per diena - Magnio papildas du kartus per diena - Pantoprazolas 40 mg du kartus per diena Total Time Total Time Spent Total Time Spent (In Minutes): 45
== END 2023-12-07 13:00 | disposition home or self-care (01) | DRG 442 ==
LOC: ED 10:29 → SUATTDRO 14:46 → EDINP 14:46 → 2S 16:22 → 3N 12-05 17:46

== ENCOUNTER 2024-05-15 23:09 | Inpatient (IN) ==
--- NOTE | 2024-05-15 23:33 | Emergency Department Note ---
Impression & Plan Fall, Alcohol intoxication, Chronic pain in right shoulder, Elevated troponin ED Provider Note Provider: Juan Mckeon MD DATE OF SERVICE: 05/15/2024 CHIEF COMPLAINT: Fall HISTORY OF PRESENT ILLNESS: Patient is a 64-year-old gentleman history of hepatic cirrhosis with prior history of hepatic cephalopathy, fall, prior humerus fracture presenting here today from his home. Patient states he was in his bathroom got dizzy and fell. Could not get up so activate his medical alert device. EMS states he fallen towards the side of the bathtub and was not in the bathtub. Patient denies hitting his head or loss conscious. Denies significant head neck chest or abdominal pain. Some soreness in his right arm and it does not lift the whole way but he states this has been ongoing since he broke it in the past. States intact feeling everywhere and denies any dizziness now. States has had on and off dizziness for some time and was in the hospital before for it. Did have a little bit of alcohol this evening by his report. Lives alone as his several years ago. Does have a neighbor who provides support. Denies the use of blood thinners to me. Denies nausea vomiting. Denies recent illness. Denies fever. Denies significant recent falls. [place]ican translation service utilized in addition to his broken Beninese. Patient states he really just called the ambulance to help him up and was not sure if he needed to be at the hospital. Agreeable to some basic evaluation here today. PAST MEDICAL HISTORY: As noted above MEDICATIONS: Reviewed on medication list SOCIAL HISTORY: , regular alcohol use reported PHYSICAL EXAM: GENERAL: alert and oriented in no acute distress on stretcher Head: normocephalic and atraumatic EYES: No injection, discharge or icterus. PERRL, EOMI. NECK: Trachea midline. Supple without posterior midline tenderness ENT: Mucous membranes pink and moist. Pharynx without erythema or exudate. Smell of alcohol on breath LUNGS: Airway patent. No retractions. Breath sounds clear with good air entry bilaterally. HEART: Regular rate and rhythm. No chest wall tenderness ABDOMEN: Soft and non-tender, without guarding or rebound. No flank tenderness. Stable pelvis. Nontender periumbilical hernia appreciated. SKIN: Acyanotic, warm, dry, without rashes approximately 2 cm healing contusion over the right anterior chest without crepitus or erythema or wound. EXTREMITIES: Without swelling, tenderness or deformity with some healed scattered faint contusion on bilateral arenas and some soreness with abduction or raising the right shoulder. No significant point tenderness or erythema or open wound noted. NEUROLOGICAL: No focal deficits moves all extremities. No aphasia. No facial droop with perhaps some slight slurred speech. Normal strength and tone in the extremities. Sensation to gross touch normal. Able to stand and use bedside urinal. Not tremulous. EK bpm normal sinus rhythm with right bundle branch block. No PVC or PAC with a right bundle branch block notable. No acute ST segment elevation with some anterior T wave versions QTc of 504. CONTINUOUS CARDIAC MONITORING: was ordered and showed a heart rate of 80s to 90s bpm in normal sinus rhythm GCS 15. 1 view chest x-ray per my interpretation: No obvious pneumonia, pneumothorax, hemothorax or pleural effusion, or obvious rib fracture. 2 view right shoulder x-ray per my interpretation: Old fracture without clear new fracture of the right proximal humerus. No obvious dislocation but subluxation noted Patient's laboratory studies and imaging reviewed. Differential includes Fracture, dislocation, contusion, intra-abdominal, pneumothorax, intrathoracic, intracranial, neurologic, hepatic encephalopathy, compartment syndrome, rhabdomyolysis, as well as other pathologies. IMPRESSION/MEDICAL DECISION MAKING: Does dorsal alcohol use and smells of some alcohol. Will obtain medical alcohol level as well as CT of the head and cervical spine imaging given his fall report and reported some transient dizziness. Denies striking his head and denies use of blood thinners. Is have a hepatic and alcohol use history. Ammonia to be checked as well as basic blood work. EKG and troponin checked but denies any chest pain or palpitations. Dizziness has been ongoing at times. On trauma this may be related to his alcohol use as well. No significant evidence of new acute trauma on exam he does appear unstable or in any distress at this time. No believe any further CT imaging beyond the head or neck at this time. X-ray of the shoulder obtained but doubt new acute fracture and x-ray reviewed by myself. X-rays without obvious new acute trauma with old fracture of the right shoulder. Do not believe any of this is new. Patient without significant focal tenderness. Chest x-ray on evidence of pneumothorax/hemothorax or obvious fracture. No severe electrolyte abnormalities with some mild bilirubin AST and alkaline phosphatase elevation not far off previous. Troponin just above normal at 24 but not far off previous values; low suspicion for acute PA but will repeat to ensure no trend. INR 1.2. Alcohol severely elevated 385. No leukocytosis with a mildly worsened thrombocytopenia of 83. Ammonia not elevated at 36. No evidence of rhabdomyolysis with a normal CK. Did receive a small mount of gentle IV fluid hydration here. CT head and cervical spine per radiology without acute traumatic injury. Given his significant alcohol intoxication, we will let him rest here overnight until he is more sober in the morning neighbor/friend can get him then. Arm sling ordered for his shoulder. Tolerating oral intake here without issue and does not appear to be withdrawing at this time. Will repeat the troponin given the slight elevation in repeat troponin is more elevated at 38.9. Given this discussed with the hospitalist team for further observation. DIAGNOSIS: Fall, chronic right humerus fracture, alcohol intoxication, elevated troponin DISPOSITION: Evaluated by the hospitalist for further observation. Past Med/Surg History Problem List (Updated 05/16/24 @ 03:19 by Juan Mckeon M.D.) Elevated troponin (Acute) Chronic pain in right shoulder (Acute) Alcohol intoxication (Acute) Proximal humerus fracture Anemia (Acute) Hyperlipidemia GERD (gastroesophageal reflux disease) Hepatic encephalopathy Fall (Acute) AMS (altered mental status) (Acute) Anemia AMS (altered mental status) Decompensated hepatic cirrhosis Abrasion of leg, right (Acute) Status post inguinal hernia repair Right bundle branch block Alcoholic cirrhosis of liver with ascites (Acute) Obesity DVT prophylaxis Incarcerated right inguinal hernia (Acute) Anticoagulated (Acute) Abdominal ascites (Acute) Medical History Acute hepatic encephalopathy Hypertension Depression Alcoholism Tobacco abuse, in remission HTN (hypertension) NICO (obstructive sleep apnea) GERD (gastroesophageal reflux disease) Anxiety Elevated LFTs Anxiety Cirrhosis Surgical History H/O right inguinal hernia repair (12/28/21) Open Incarcerated Right inguinal hernia repair with mesh (Right) - Ezequiel Sewell DO 12/28/2021 History of varicose vein stripping History of surgery on arm torn ligament repair History of colonoscopy x3 History of surgery of liver TIPS procedure 12/19/2021 Family History Other Heart disease Social History Smoking Status: Current every day smoker Tobacco Type: Cigarettes Cigarettes Per Day: pt states 2 cigarettes a day; Second Hand Exposure: No; Do You Dip or Chew Tobacco: No; Hx Alcohol Use: Yes Alcohol type: wine Hx Substance Use: No Preferred Language: Puerto Rican Communication Ability: Effective Communication Ability Comment: pt understands some simple Beninese Communication Tools: IPad Spiral Weaver Required: Yes Beliefs That Will Affect Care: Cultural Cultural Beliefs: pt is [facility] marital status: Current Living Situation: Alone Feels Safe at Home: Yes Assistive Devices: Glasses and Walker Allergies Allergies Allergy/AdvReac Type Severity Reaction Status Date / Time ibuprofen AdvReac Intermediate ugib Verified 11/12/23 05:57 Home Meds Home Medications Medication Instructions Recorded Confirmed diclofenac sodium 1 % topical gel 2 - 4 g topical QID PRN Pain 07/04/21 05/16/24 sildenafil 100 mg tablet 50 - 100 mg PO DAILY PRN Sexual 10/22/23 11/30/23 Activity bacitracin zinc 500 unit/gram 1 applic topical DAILY 11/12/23 11/30/23 topical ointment brimonidine 0.2 % eye drops 1 drp OPR BID 11/12/23 05/16/24 carisoprodol 350 mg tablet 350 mg PO Q6H PRN MUSCLE SPASMS 11/12/23 05/16/24 vit no.95-ferrous 1 tab PO DAILY 11/12/23 05/16/24 fumarate 28 mg-folic acid 800 mcg tablet () Previous Rx's Medication Instructions Recorded lactulose 10 gram/15 mL (15 mL) 30 g (45 mL) PO BID #1,440 mL 12/07/23 oral solution magnesium chloride 64 mg 64 mg PO BID #60 tabs 12/07/23 (magnesium chloride) tablet,delayed release (Mag 64) pantoprazole 40 mg tablet,delayed 40 mg PO BID #60 tabs 12/07/23 release rifaximin 550 mg tablet (Xifaxan) 550 mg PO BID #60 tabs 12/07/23 Results & Data (ED) Vital Signs Vital Signs - 24 hr 05/15/24 23:22 05/15/24 23:22 05/15/24 23:22 Temperature 36.8 C Temperature Source Oral Pulse Rate 89 Pulse Rate [Finger] Pulse Rhythm Regular Pulse Rhythm [Finger] Pulse Strength Normal Pulse Strength [Finger] Respiratory Rate 20 Respiratory Effort / Characteristics Non-Labored Spontaneous Respiratory Depth Normal Normal Respiratory Pattern Regular Blood Pressure 148/90 H Blood Pressure [Right Arm] Blood Pressure Mean 109 Blood Pressure Mean [Right Arm] Blood Pressure Position Lying Blood Pressure Position [Right Arm] Pulse Oximetry 96 Oxygen Delivery Method Room Air Room Air Sepsis Recent Fever Within 48 Hours No Sepsis New/Unexplained Change in Mental Status N/A Sepsis Action Taken by Nursing No Action Required 05/15/24 23:24 05/16/24 01:00 05/16/24 03:00 Temperature Temperature Source Pulse Rate 87 Pulse Rate [Finger] 98 H 85 Pulse Rhythm Pulse Rhythm [Finger] Regular Pulse Strength Pulse Strength [Finger] Normal Respiratory Rate 20 20 Respiratory Effort / Characteristics Non-Labored Spontaneous Non-Labored Spontaneous Respiratory Depth Normal Normal Respiratory Pattern Regular Regular Blood Pressure Blood Pressure [Right Arm] 153/92 H 132/83 Blood Pressure Mean Blood Pressure Mean [Right Arm] 112 99 Blood Pressure Position Blood Pressure Position [Right Arm] Lying Pulse Oximetry 97 97 Oxygen Delivery Method Room Air Room Air Sepsis Recent Fever Within 48 Hours Sepsis New/Unexplained Change in Mental Status Sepsis Action Taken by Nursing 05/16/24 03:21 Temperature Temperature Source Pulse Rate 92 H Pulse Rate [Finger] Pulse Rhythm Pulse Rhythm [Finger] Pulse Strength Pulse Strength [Finger] Respiratory Rate Respiratory Effort / Characteristics Respiratory Depth Respiratory Pattern Blood Pressure Blood Pressure [Right Arm] Blood Pressure Mean Blood Pressure Mean [Right Arm] Blood Pressure Position Blood Pressure Position [Right Arm] Pulse Oximetry Oxygen Delivery Method Sepsis Recent Fever Within 48 Hours Sepsis New/Unexplained Change in Mental Status Sepsis Action Taken by Nursing Laboratory Data 05/15/24 23:35 05/15/24 23:35 Lab Results 05/15/24 05/16/24 05/16/24 Range/Units 23:35 00:07 00:45 WBC 6.18 (4.8-10.8) K/ul RBC 3.98 L (4.70-6.10) M/uL Hgb 14.9 (14.0-18.0) g/dl Hct 42.7 (42.0-52.0) % MCV 107.3 H (80.0-100.0) fL MCH 37.4 H (25.0-34.0) pg MCHC 34.9 (32.0-36.0) g/dL RDW Std Deviation 54.6 H (36.4-46.3) fL RDW Coeff of Claire 13.7 (11.5-14.5) % Plt Count 83 L (130-400) K/uL MPV 10.5 (9.4-12.4) fL Immature Gran % (Auto) 0.3 % Neut % (Auto) 66.5 % Lymph % (Auto) 19.7 % Trigg % (Auto) 9.5 % Eos % (Auto) 2.4 % Baso % (Auto) 1.6 % Neut # (Auto) 4.10 (1.40-6.50) K/uL Lymph # (Auto) 1.22 (1.20-3.40) K/uL Trigg # (Auto) 0.59 (0.11-0.59) K/uL Eos # (Auto) 0.15 (0.00-0.50) K/uL Baso # (Auto) 0.10 (0.00-0.20) K/uL Immature Gran # (Auto) 0.02 (0.01-0.20) K/uL Platelet Estimate Decreased L (Normal) RBC Morphology Unremarkable PT 12.5 H (9.0-12.0) Seconds INR 1.2 H (0.9-1.1) Sodium 143 (136-145) mmol/L Potassium 3.8 (3.5-5.1) mmol/L Chloride 109 H (98-107) mmol/L Carbon Dioxide 25 (21-32) mmol/L Anion Gap 9 (3-11) BUN 10 (6-23) mg/dl Creatinine 0.77 (0.6-1.4) mg/dl Est Cr Clr Drug Dosing 129.6 ml/min Est GFR ( Amer) 112.7 ml/min Est GFR (Non-Af Amer) 97.3 ml/min BUN/Creatinine Ratio 13.0 (10-20) Glucose 123 H (70-99(Fasting)) mg/dl Calcium 8.8 (8.6-10.3) mg/dl Total Bilirubin 2.0 H (0.2-1.0) mg/dl AST 109 H (13-39) U/L ALT 47 (7-52) U/L Alkaline Phosphatase 210 H (34-104) U/L Ammonia 36.0 (18-72) umol/L Total Creatine Kinase 108 (30-223) U/L Troponin I High Sens 24.3 H (0-20) pg/ml Total Protein 7.4 (6.0-8.3) gm/dl Albumin 3.6 (3.4-5.0) gm/dl Globulin 3.8 (2.5-4.0) gm/dl Albumin/Globulin Ratio 0.9 (0.9-2) Urine Color Yellow Urine Appearance Clear (Clear) Urine pH 6.5 (4.5-7.5) Ur Specific [place] 1.009 (1.000-1.030) Urine Protein 1+ H (Negative) Urine Glucose (UA) Negative (Negative) Urine Ketones Negative (Negative) Urine Blood Negative (Negative) Urine Nitrite Negative (Negative) Urine Bilirubin Negative (Negative) Urine Urobilinogen Negative (Negative) Ur Leukocyte Esterase Negative (Negative) Urine WBC (Auto) 0-5 (0-5) /hpf Urine RBC (Auto) 0-2 (0-2) /hpf U Hyaline Cast (Auto) 3-5 H (0-2) /lpf U Epithel Cells (Auto) 0-2 (0-2) /hpf Urine Bacteria (Auto) 4+ H (None Seen) Ethyl Alcohol mg/dL 385.6 H (<10.0) mg/dl 05/16/24 Range/Units 01:29 WBC (4.8-10.8) K/ul RBC (4.70-6.10) M/uL Hgb (14.0-18.0) g/dl Hct (42.0-52.0) % MCV (80.0-100.0) fL MCH (25.0-34.0) pg MCHC (32.0-36.0) g/dL RDW Std Deviation (36.4-46.3) fL RDW Coeff of Claire (11.5-14.5) % Plt Count (130-400) K/uL MPV (9.4-12.4) fL Immature Gran % (Auto) % Neut % (Auto) % Lymph % (Auto) % Trigg % (Auto) % Eos % (Auto) % Baso % (Auto) % Neut # (Auto) (1.40-6.50) K/uL Lymph # (Auto) (1.20-3.40) K/uL Trigg # (Auto) (0.11-0.59) K/uL Eos # (Auto) (0.00-0.50) K/uL Baso # (Auto) (0.00-0.20) K/uL Immature Gran # (Auto) (0.01-0.20) K/uL Platelet Estimate (Normal) RBC Morphology PT (9.0-12.0) Seconds INR (0.9-1.1) Sodium (136-145) mmol/L Potassium (3.5-5.1) mmol/L Chloride (98-107) mmol/L Carbon Dioxide (21-32) mmol/L Anion Gap (3-11) BUN (6-23) mg/dl Creatinine (0.6-1.4) mg/dl Est Cr Clr Drug Dosing ml/min Est GFR ( Amer) ml/min Est GFR (Non-Af Amer) ml/min BUN/Creatinine Ratio (10-20) Glucose (70-99(Fasting)) mg/dl Calcium (8.6-10.3) mg/dl Total Bilirubin (0.2-1.0) mg/dl AST (13-39) U/L ALT (7-52) U/L Alkaline Phosphatase (34-104) U/L Ammonia (18-72) umol/L Total Creatine Kinase (30-223) U/L Troponin I High Sens 38.9 H D (0-20) pg/ml Total Protein (6.0-8.3) gm/dl Albumin (3.4-5.0) gm/dl Globulin (2.5-4.0) gm/dl Albumin/Globulin Ratio (0.9-2) Urine Color Urine Appearance (Clear) Urine pH (4.5-7.5) Ur Specific [place] (1.000-1.030) Urine Protein (Negative) Urine Glucose (UA) (Negative) Urine Ketones (Negative) Urine Blood (Negative) Urine Nitrite (Negative) Urine Bilirubin (Negative) Urine Urobilinogen (Negative) Ur Leukocyte Esterase (Negative) Urine WBC (Auto) (0-5) /hpf Urine RBC (Auto) (0-2) /hpf U Hyaline Cast (Auto) (0-2) /lpf U Epithel Cells (Auto) (0-2) /hpf Urine Bacteria (Auto) (None Seen) Ethyl Alcohol mg/dL (<10.0) mg/dl Administered Medications Discontinued Medications Sodium Chloride (Nss) 500 mls @ 999 mls/hr IV .Q31M MARIELLA Stop: 05/16/24 00:00 Last Infusion: 05/16/24 00:47 Dose: Infused Documented By: Admin: 05/16/24 00:06 Dose: 999 mls/hr Documented By: GONZALES Imaging Data Radiologist's Impression: Cervical Spine CT 05/15/24 23:22 Exam(s): CT C SPINE EXAM: CT Cervical Spine Without Intravenous Contrast CLINICAL HISTORY: Reason for exam: fall. TECHNIQUE: Axial computed tomography images of the cervical spine without intravenous contrast. CTDI is 26.96 mGy and DLP is 576.66 mGy-cm. Automated exposure control was utilized for the study. A dose lowering technique was utilized adhering to the principles of ALARA. Mild motion/shoulder artifact. COMPARISON: CT cervical spine 11/30/23. FINDINGS: Vertebrae: No acute fracture. Discs/spinal canal/neural foramina: Moderate to severe degenerative disc disease, most notable C5-6 and C6-7, stable. Soft tissues: Bilateral carotid atherosclerosis, stable. IMPRESSION: 1. No fracture or acute bony abnormality. Electronically signed by: Barbara Guzmán M.D. 05/16/24 01:[address] 05/15/24 23:22 Exam(s): CT HEAD Without Contrast EXAM: CT Head Without Intravenous Contrast CLINICAL HISTORY: Reason for exam: fall, dizzy. TECHNIQUE: Axial computed tomography images of the head/brain without intravenous contrast. CTDI is 36.43 mGy and DLP is 624.11 mGy-cm. Automated exposure control was utilized for the study. A dose lowering technique was utilized adhering to the principles of ALARA. Moderate motion artifact. COMPARISON: Head CT 11/12/23. FINDINGS: Brain: No mass effect or acute infarct. No acute hemorrhage. Moderate atrophy and mild, chronic white matter disease. Ventricles: No hydrocephalus or midline shift. Bones/joints: No acute finding. Soft tissues: No scalp hematoma. Visualized Sinuses: Clear. Mastoid air cells: No mastoid effusion. IMPRESSION: 1. Stable age-related findings. 2. No acute infarct, bleed, or acute intracranial abnormality. Electronically signed by: Barbara Guzmán M.D. 05/16/24 01:12 AM Discharge Plan Visit Data Chief Complaint: Fall Stated Complaint: FELL INTO BATHTUB, ETOH ED Provider: Juan Mckeon Discharge Problem: Fall, Alcohol intoxication, Chronic pain in right shoulder, Elevated troponin Patient Disposition: Being Evaluated by Hospitalist Condition: Fair Prescriptions Prescriptions: No Action diclofenac sodium 1 % Gel 2 - 4 g TOPICAL QID PRN (Reason: Pain) Rx Instructions: 2 GRAMS FOR SMALLER JOINTS, THEN 4 GRAMS FOR LARGER JOINTS. sildenafil 100 mg Tablet 50 - 100 mg PO DAILY PRN (Reason: Sexual Activity) Rx Instructions: TAKE 1/2 OR 1 TAB 1-4 HRS PRIOR TO INTERCOURSE, NO MORE THAN 1 DOSE IN 24 HOURS. carisoprodol 350 mg Tablet 350 mg PO Q6H PRN (Reason: MUSCLE SPASMS) bacitracin zinc 500 unit/gram ointment 1 applic TOPICAL DAILY Rx Instructions: APPLY TO KNEE ABRASIONS brimonidine 0.2 % drops 1 drp OPR BID PNV cmb#[id number] fumarate-FA [] 28 mg iron- 800 mcg Tablet 1 tab PO DAILY Xifaxan 550 mg Tablet 550 mg PO BID Qty: 60 0RF lactulose 10 gram/15 mL (15 mL) Solution 30 g PO BID Qty: 1440 0RF magnesium chloride [Mag 64] 64 mg Tablet,Delayed Release (Dr/Ec) 64 mg PO BID Qty: 60 0RF pantoprazole 40 mg Tablet,Delayed Release (Dr/Ec) 40 mg PO BID Qty: 60 0RF Referrals Referrals: Jovani Chávez MD [Primary Care Provider] - Discharge Problem: Fall Qualifiers: Encounter type: initial encounter Qualified Code(s): W19.XXXA - Unspecified fall, initial encounter Alcohol intoxication Qualifiers: Complication of substance-induced condition: uncomplicated Qualified Code(s): F 10.920 - Alcohol use, unspecified with intoxication, uncomplicated
[2024-05-16] MEDS: SODIUM CHLORIDE 0.9% 500 ML IV SCH (00:06)
[2024-05-16 00:10] LABS: Albumin Globulin Ratio 0.9 (0.9-2); Albumin Level 3.6 gm/dl (3.4-5.0); Calcium 8.8 mg/dl (8.6-10.3); Creatinine Clr Calc Pharmacy 129.6 ml/min; Est GFR (African American) 112.7 ml/min; Est GFR (Non-African American) 97.3 ml/min; Globulin 3.8 gm/dl (2.5-4.0); Potassium 3.8 mmol/L (3.5-5.1); Total Protein 7.4 gm/dl (6.0-8.3)
[2024-05-16 00:17] LABS: Troponin I High Sensitivity 24.3 pg/ml (0-20)
[2024-05-16 00:27] LABS: INR 1.2 (0.9-1.1); Prothrombin Time 12.5 Seconds (9.0-12.0)
[2024-05-16 00:47] LABS: Hematocrit (blood only) 42.7 % (42.0-52.0); Hemoglobin 14.9 g/dl (14.0-18.0); Mean Corpuscular Hemoglobin 37.4 pg (25.0-34.0); Mean Corpuscular Hgb Conc 34.9 g/dL (32.0-36.0); Mean Corpuscular Volume 107.3 fL (80.0-100.0); Mean Platelet Volume 10.5 fL (9.4-12.4); Platelet Count 83 K/uL (130-400); RDW Coefficient of Variation 13.7 % (11.5-14.5); RDW Standard Deviation 54.6 fL (36.4-46.3); Red Blood Count 3.98 M/uL (4.70-6.10); White Blood Count 6.18 K/ul (4.8-10.8)
[2024-05-16 00:48] LABS: Basophils % (auto) 1.6 %; Eosinophils # (auto) 0.15 K/uL (0.00-0.50); Eosinophils % (auto) 2.4 %; Immature Granulocytes # (auto) 0.02 K/uL (0.01-0.20); Immature Granulocytes % (auto) 0.3 %; Lymphocytes # (auto) 1.22 K/uL (1.20-3.40); Lymphocytes % (auto) 19.7 %; Monocytes # (auto) 0.59 K/uL (0.11-0.59); Monocytes % (auto) 9.5 %; Neutrophils % (auto) 66.5 %; Platelet Estimate Decreased (Normal); RBC Morphology Unremarkable
[2024-05-16 01:01] LABS: Appearance Urine Clear (Clear); Bacteria Urine Automated 4+ (None Seen); Bilirubin Urine Negative (Negative); Blood Urine Negative (Negative); Color Urine Yellow; Epithelial Cell Urine Auto 0-2 /hpf (0-2); Glucose Urine UA Negative (Negative); Ketones Urine Negative (Negative); Leukocyte Esterase Urine Negative (Negative); Nitrite Urine Negative (Negative); Protein Urine 1+ (Negative); RBC Urine Automated 0-2 /hpf (0-2); Specific Gravity Urine 1.009 (1.000-1.030); Urobilinogen Urine Negative (Negative); WBC Urine Automated 0-5 /hpf (0-5); pH Urine 6.5 (4.5-7.5)
--- NOTE | 2024-05-16 01:13 | CT Scan Report ---
Exam(s): CT HEAD Without Contrast EXAM: CT Head Without Intravenous Contrast CLINICAL HISTORY: Reason for exam: fall, dizzy. TECHNIQUE: Axial computed tomography images of the head/brain without intravenous contrast. CTDI is 36.43 mGy and DLP is 624.11 mGy-cm. Automated exposure control was utilized for the study. A dose lowering technique was utilized adhering to the principles of ALARA. Moderate motion artifact. COMPARISON: Head CT 11/12/23. FINDINGS: Brain: No mass effect or acute infarct. No acute hemorrhage. Moderate atrophy and mild, chronic white matter disease. Ventricles: No hydrocephalus or midline shift. Bones/joints: No acute finding. Soft tissues: No scalp hematoma. Visualized Sinuses: Clear. Mastoid air cells: No mastoid effusion. IMPRESSION: 1. Stable age-related findings. 2. No acute infarct, bleed, or acute intracranial abnormality. Electronically signed by: Barbara Guzmán M.D. 05/16/24 01:12 AM
--- NOTE | 2024-05-16 01:24 | CT Scan Report ---
Exam(s): CT C SPINE EXAM: CT Cervical Spine Without Intravenous Contrast CLINICAL HISTORY: Reason for exam: fall. TECHNIQUE: Axial computed tomography images of the cervical spine without intravenous contrast. CTDI is 26.96 mGy and DLP is 576.66 mGy-cm. Automated exposure control was utilized for the study. A dose lowering technique was utilized adhering to the principles of ALARA. Mild motion/shoulder artifact. COMPARISON: CT cervical spine 11/30/23. FINDINGS: Vertebrae: No acute fracture. Discs/spinal canal/neural foramina: Moderate to severe degenerative disc disease, most notable C5-6 and C6-7, stable. Soft tissues: Bilateral carotid atherosclerosis, stable. IMPRESSION: 1. No fracture or acute bony abnormality. Electronically signed by: Barbara Guzmán M.D. 05/16/24 01:23 AM
--- NOTE | 2024-05-16 04:40 | History & Physical Report ---
Date of Service May 16, 2024 Assessment & Plan (1) Elevated troponin: Plan: 64-year-old male [facility] speaking but can also speak Paraguayan and some Kuwaiti with past medical history significant for alcohol liver cirrhosis, status post TIPS, GERD, obstructive sleep apnea currently not using CPAP, prediabetes, dyslipidemia, acquired cyst of kidney, history of tobacco use disorder, presents with fall at home. Currently could not able to get a Paraguayan dog sitter. History was obtained by talking to the patient as he can speak some broken Kuwaiti.. Patient states he felt dizzy and fell in the bathroom. pullboat engineer was activated. Denies any headache. Denies chest pain or shortness of breath. Denies abdominal pain. No nausea. No cough. Afebrile. States normal bowel and bladder movements. States he can ambulate fine and he wants to go home. He states his neighbor goes to work at 7 and he can come and pick him at 6 AM. But when advised to stay in hospital for workup he agreed to stay though seems not happy. Patient was admitted in December of this year when during welfare check patient was found down with hepatic encephalopathy. Patient at the time improved with lactulose and Xifaxan was added and was placed brace on his right arm for support of humeral fracture. Was discharged to [facility] . At that time he also treated for UTI with Augmentin for Enterococcus faecalis. Patient states he drank little wine today. He states he is not drinking alcohol regularly. Alcohol level 385 in the ER.Initial troponin 24 and repeat is 38. Elevated troponin Denies chest pain EKG no acute findings Initial troponin 24 and repeat is 38 Will follow serial cardiac enzymes and echo Close monitor Fall Mostly from alcoholism CT head and CT cervical spine okay PT OT when stable Possible UTI hx of enterococcus in the past placed on zosyn will follow cultures. if positive can consider urology consult Alcoholism Alcohol level 385 Patient says currently is not drinking regularly Will place him alcohol withdrawal protocol gabapentin and IV Ativan as needed Banana bag IV thiamine and IV folic acid Needs counseling Close monitor Alcohol liver cirrhosis S/p TIPS On lactulose and Xifaxan Ammonia level 36 Sleep apnea Patient states not using CPAP. GERD On Protonix Prediabetes Check HbA1c levels Thrombocytopenia Platelets 83 Follow repeat labs DVT prophylaxis SCDs for now Disposition Med/telemetry Full code. History of Present Illness Chief Complaint: Status post fall, alcoholism Primary Care Provider: Jovani Chávez MD 64-year-old male [facility] speaking but can also speak Paraguayan and some Kuwaiti with past medical history significant for alcohol liver cirrhosis, status post TIPS, GERD, obstructive sleep apnea currently not using CPAP, prediabetes, dyslipidemia, acquired cyst of kidney, history of tobacco use disorder, presents with fall at home. Currently could not able to get a Paraguayan dog sitter. History was obtained by talking to the patient as he can speak some broken Kuwaiti.. Patient states he felt dizzy and fell in the bathroom. pullboat engineer was activated. Denies any headache. Denies chest pain or shortness of breath. Denies abdominal pain. No nausea. No cough. Afebrile. States normal bowel and bladder movements. States he can ambulate fine and he wants to go home. He states his neighbor goes to work at 7 and he can come and pick him at 6 AM. But when advised to stay in hospital for workup he agreed to stay though seems not happy. Patient was admitted in December of this year when during welfare check patient was found down with hepatic encephalopathy. Patient at the time improved with lactulose and Xifaxan was added and was placed brace on his right arm for support of humeral fracture. Was discharged to [facility] . At that time he also treated for UTI with Augmentin for Enterococcus faecalis. Patient states he drank little wine today. He states he is not drinking alcohol regularly. Alcohol level 385 in the ER.Initial troponin 24 and repeat is 38. Past medical history. As mentioned above Past surgical history. Colonoscopy. Cystoscopy. Cystourethroscopy with biopsy. EGD. EGD with biopsy. TIPS procedure. Nasal endoscopy Inguinal hernia repair. Tonsillectomy. Vein ablation extremity. Social history. . Currently smoking 2 to 2 cigarettes daily. History of smoking 0.5 pack a day for 41 years. History of alcohol use. No drug use Family history. Sister has anxiety disorder. Sister has hypertension. Mother had diabetes. Heart disorder. Father had renal cell cancer. Allergies Allergy/AdvReac Type Severity Reaction Status Date / Time ibuprofen AdvReac Intermediate ugib Verified 11/12/23 05:57 Home Medications Medication Instructions Recorded Confirmed Type diclofenac sodium 1 % topical gel 2 - 4 g topical QID PRN Pain 07/04/21 05/16/24 History sildenafil 100 mg tablet 50 - 100 mg PO DAILY PRN Sexual 10/22/23 11/30/23 History Activity bacitracin zinc 500 unit/gram 1 applic topical DAILY 11/12/23 11/30/23 History topical ointment brimonidine 0.2 % eye drops 1 drp OPR BID 11/12/23 05/16/24 History carisoprodol 350 mg tablet 350 mg PO Q6H PRN MUSCLE SPASMS 11/12/23 05/16/24 History vit no.95-ferrous 1 tab PO DAILY 11/12/23 05/16/24 History fumarate 28 mg-folic acid 800 mcg tablet () lactulose 10 gram/15 mL (15 mL) 30 g (45 mL) PO BID #1,440 mL 12/07/23 05/16/24 Rx oral solution magnesium chloride 64 mg 64 mg PO BID #60 tabs 12/07/23 05/16/24 Rx (magnesium chloride) tablet,delayed release (Mag 64) pantoprazole 40 mg tablet,delayed 40 mg PO BID #60 tabs 12/07/23 05/16/24 Rx release rifaximin 550 mg tablet (Xifaxan) 550 mg PO BID #60 tabs 12/07/23 05/16/24 Rx Past Med/Surg History Problem List (Updated 05/16/24 @ 03:19 by Juan Mckeon M.D.) Elevated troponin (Acute) Chronic pain in right shoulder (Acute) Alcohol intoxication (Acute) Proximal humerus fracture Anemia (Acute) Hyperlipidemia GERD (gastroesophageal reflux disease) Hepatic encephalopathy Fall (Acute) AMS (altered mental status) (Acute) Anemia AMS (altered mental status) Decompensated hepatic cirrhosis Abrasion of leg, right (Acute) Status post inguinal hernia repair Right bundle branch block Alcoholic cirrhosis of liver with ascites (Acute) Obesity DVT prophylaxis Incarcerated right inguinal hernia (Acute) Anticoagulated (Acute) Abdominal ascites (Acute) Medical History Acute hepatic encephalopathy Hypertension Depression Alcoholism Tobacco abuse, in remission HTN (hypertension) NICO (obstructive sleep apnea) GERD (gastroesophageal reflux disease) Anxiety Elevated LFTs Anxiety Cirrhosis Surgical History H/O right inguinal hernia repair (12/28/21) Open Incarcerated Right inguinal hernia repair with mesh (Right) - Ezequiel Sewell DO 12/28/2021 History of varicose vein stripping History of surgery on arm torn ligament repair History of colonoscopy x3 History of surgery of liver TIPS procedure 12/19/2021 Family History Other Heart disease Social History Smoking Status: Current every day smoker Tobacco Type: Cigarettes Cigarettes Per Day: 2-3; Second Hand Exposure: No; Do You Dip or Chew Tobacco: No; Hx Alcohol Use: Yes Alcohol type: wine Hx Substance Use: No Preferred Language: Other Communication Ability: Effective Communication Ability Comment: pt understands some simple Kuwaiti Communication Tools: IPad Goat Herder Required: Yes Beliefs That Will Affect Care: Cultural Cultural Beliefs: pt is [facility] marital status: Current Living Situation: Alone Other Information That Helps Us Care for You: No Feels Safe at Home: Yes Safety Concerns: Feels Safe At This Time Assistive Devices: Cane and Glasses Review of Systems Review of Systems: Other Constitutional: as per HPI. Could not get dog sitter online. Patient speak broken lithuanian Physical Exam Physical Exam: General- Not in distress. Head- atraumatic Eyes- PERRL. ENT- oropharynx clear Neck- supple, no JVD. Lungs- clear to auscultation no wheezing or crackles Heart- regular rhythm; tachycardia no murmur, no gallop Abdomen- normal bowel sounds, soft, nontender, no distension Extremities-mild pretibial edema, mild erythema seen Neuro- alert, oriented PERRL, no facial palsy; no dysarthria; moves extremities Results & Data Results & Data Vital Signs (Past 12 Hours) Vital Signs Temp Pulse Pulse Resp BP BP Pulse Ox 05/16/24 03:21 92 H 05/16/24 03:00 85 20 132/83 97 05/16/24 01:00 98 H 20 153/92 H 97 05/15/24 23:24 87 05/15/24 23:22 05/15/24 23:22 36.8 C 89 20 148/90 H 96 O2 Del Method 05/16/24 03:21 05/16/24 03:00 Room Air 05/16/24 01:00 Room Air 05/15/24 23:24 05/15/24 23:22 Room Air 05/15/24 23:22 Room Air Diagnostic Findings Laboratory Results WBC 6.18 K/ul (4.8-10.8) 05/15/24 23:35 RBC 3.98 M/uL (4.70-6.10) L 05/15/24 23:35 Hgb 14.9 g/dl (14.0-18.0) 05/15/24 23:35 Hct 42.7 % (42.0-52.0) 05/15/24 23:35 MCV 107.3 fL (80.0-100.0) H 05/15/24 23:35 MCH 37.4 pg (25.0-34.0) H 05/15/24 23:35 MCHC 34.9 g/dL (32.0-36.0) 05/15/24 23:35 RDW Std Deviation 54.6 fL (36.4-46.3) H 05/15/24 23:35 RDW Coeff of Claire 13.7 % (11.5-14.5) 05/15/24 23:35 Plt Count 83 K/uL (130-400) L 05/15/24 23:35 MPV 10.5 fL (9.4-12.4) 05/15/24 23:35 Immature Gran % (Auto) 0.3 % 05/15/24 23:35 Neut % (Auto) 66.5 % 05/15/24 23:35 Lymph % (Auto) 19.7 % 05/15/24 23:35 [place] % (Auto) 9.5 % 05/15/24 23:35 Eos % (Auto) 2.4 % 05/15/24 23:35 Baso % (Auto) 1.6 % 05/15/24 23:35 Neut # (Auto) 4.10 K/uL (1.40-6.50) 05/15/24 23:35 Lymph # (Auto) 1.22 K/uL (1.20-3.40) 05/15/24 23:35 [place] # (Auto) 0.59 K/uL (0.11-0.59) 05/15/24 23:35 Eos # (Auto) 0.15 K/uL (0.00-0.50) 05/15/24 23:35 Baso # (Auto) 0.10 K/uL (0.00-0.20) 05/15/24 23:35 Immature Gran # (Auto) 0.02 K/uL (0.01-0.20) 05/15/24 23:35 Platelet Estimate Decreased (Normal) L 05/15/24 23:35 RBC Morphology Unremarkable 05/15/24 23:35 PT 12.5 Seconds (9.0-12.0) H 05/15/24 23:35 INR 1.2 (0.9-1.1) H 05/15/24 23:35 Sodium 143 mmol/L (136-145) 05/15/24 23:35 Potassium 3.8 mmol/L (3.5-5.1) 05/15/24 23:35 Chloride 109 mmol/L (98-107) H 05/15/24 23:35 Carbon Dioxide 25 mmol/L (21-32) 05/15/24 23:35 Anion Gap 9 (3-11) 05/15/24 23:35 BUN 10 mg/dl (6-23) 05/15/24 23:35 Creatinine 0.77 mg/dl (0.6-1.4) 05/15/24 23:35 Est Cr Clr Drug Dosing 129.6 ml/min 05/15/24 23:35 Est GFR ( Amer) 112.7 ml/min 05/15/24 23:35 Est GFR (Non-Af Amer) 97.3 ml/min 05/15/24 23:35 BUN/Creatinine Ratio 13.0 (10-20) 05/15/24 23:35 Glucose 123 mg/dl (70-99(Fasting)) H 05/15/24 23:35 Calcium 8.8 mg/dl (8.6-10.3) 05/15/24 23:35 Total Bilirubin 2.0 mg/dl (0.2-1.0) H 05/15/24 23:35 AST 109 U/L (13-39) H 05/15/24 23:35 ALT 47 U/L (7-52) 05/15/24 23:35 Alkaline Phosphatase 210 U/L (34-104) H 05/15/24 23:35 Ammonia 36.0 umol/L (18-72) 05/16/24 00:07 Total Creatine Kinase 108 U/L (30-223) 05/15/24 23:35 Troponin I High Sens 38.9 pg/ml (0-20) H D 05/16/24 01:29 Total Protein 7.4 gm/dl (6.0-8.3) 05/15/24 23:35 Albumin 3.6 gm/dl (3.4-5.0) 05/15/24 23:35 Globulin 3.8 gm/dl (2.5-4.0) 05/15/24 23:35 Albumin/Globulin Ratio 0.9 (0.9-2) 05/15/24 23:35 Urine Color Yellow 05/16/24 00:45 Urine Appearance Clear (Clear) 05/16/24 00:45 Urine pH 6.5 (4.5-7.5) 05/16/24 00:45 Ur Specific [place] 1.009 (1.000-1.030) 05/16/24 00:45 Urine Protein 1+ (Negative) H 05/16/24 00:45 Urine Glucose (UA) Negative (Negative) 05/16/24 00:45 Urine Ketones Negative (Negative) 05/16/24 00:45 Urine Blood Negative (Negative) 05/16/24 00:45 Urine Nitrite Negative (Negative) 05/16/24 00:45 Urine Bilirubin Negative (Negative) 05/16/24 00:45 Urine Urobilinogen Negative (Negative) 05/16/24 00:45 Ur Leukocyte Esterase Negative (Negative) 05/16/24 00:45 Urine WBC (Auto) 0-5 /hpf (0-5) 05/16/24 00:45 Urine RBC (Auto) 0-2 /hpf (0-2) 05/16/24 00:45 U Hyaline Cast (Auto) 3-5 /lpf (0-2) H 05/16/24 00:45 U Epithel Cells (Auto) 0-2 /hpf (0-2) 05/16/24 00:45 Urine Bacteria (Auto) 4+ (None Seen) H 05/16/24 00:45 Ethyl Alcohol mg/dL 385.6 mg/dl (<10.0) H 05/15/24 23:[address] 05/15/24 23:22 Exam(s): CT C SPINE EXAM: CT Cervical Spine Without Intravenous Contrast CLINICAL HISTORY: Reason for exam: fall. TECHNIQUE: Axial computed tomography images of the cervical spine without intravenous contrast. CTDI is 26.96 mGy and DLP is 576.66 mGy-cm. Automated exposure control was utilized for the study. A dose lowering technique was utilized adhering to the principles of ALARA. Mild motion/shoulder artifact. COMPARISON: CT cervical spine 11/30/23. FINDINGS: Vertebrae: No acute fracture. Discs/spinal canal/neural foramina: Moderate to severe degenerative disc disease, most notable C5-6 and C6-7, stable. Soft tissues: Bilateral carotid atherosclerosis, stable. IMPRESSION: 1. No fracture or acute bony abnormality. Electronically signed by: Barbara Guzmán M.D. 05/16/24 01:[address] 05/15/24 23:22 Exam(s): CT HEAD Without Contrast EXAM: CT Head Without Intravenous Contrast CLINICAL HISTORY: Reason for exam: fall, dizzy. TECHNIQUE: Axial computed tomography images of the head/brain without intravenous contrast. CTDI is 36.43 mGy and DLP is 624.11 mGy-cm. Automated exposure control was utilized for the study. A dose lowering technique was utilized adhering to the principles of ALARA. Moderate motion artifact. COMPARISON: Head CT 11/12/23. FINDINGS: Brain: No mass effect or acute infarct. No acute hemorrhage. Moderate atrophy and mild, chronic white matter disease. Ventricles: No hydrocephalus or midline shift. Bones/joints: No acute finding. Soft tissues: No scalp hematoma. Visualized Sinuses: Clear. Mastoid air cells: No mastoid effusion. IMPRESSION: 1. Stable age-related findings. 2. No acute infarct, bleed, or acute intracranial abnormality. Electronically signed by: Barbara Guzmán M.D. 05/16/24 01:12 AM ECG Additional Comments: ECG. Normal sinus rhythm at a rate of 82. Right bundle branch block. QTc 504 Code Status & VTE Plan VTE Prophylaxis Plan VTE Prophylaxis will be ordered: Yes
[2024-05-16] MEDS ORDERED: GABAPENTIN 1200MG ALCOHOL WITHDRAWAL LOAD PO STA (05:44)
[2024-05-16] MEDS ORDERED: CARISOPRODOL 350 MG TABLET PO PRN (05:44)
[2024-05-16] MEDS ORDERED: Ativan IV Alcohol Withdrawal--Active Protocol IV PRN (05:44)
[2024-05-16] MEDS ORDERED: LORazepam 3 MG in SYRINGE 1.5 ML IV PRN (05:44)
[2024-05-16] MEDS ORDERED: NITROGLYCERIN SL 0.4 MG/TAB TAB SL PRN (05:44)
[2024-05-16] MEDS ORDERED: DICLOFENAC SOD 1% GEL 100 GM TUBE EXT PRN (05:44)
[2024-05-16] MEDS ORDERED: ONDANSETRON INJ 2 MG/ML 2 ML VIAL IV PRN (05:44)
[2024-05-16] MEDS ORDERED: LORazepam 2 MG in SYRINGE 1 ML IV PRN (05:44)
[2024-05-16] MEDS: PIPER/TAZO 4.5g in D5W MINI-B 100 ML IV ONE (06:15)
[2024-05-16] MEDS: GABAPENTIN 600 MG TAB PO ONE (06:21)
[2024-05-16] MEDS: MULTI-VITAMIN INFUSION 10 ML, THIAMINE HCL 100 MG, FOLIC ACID 1 MG in SODIUM CHLORIDE 0... IV ONE (06:49)
--- NOTE | 2024-05-16 06:55 | XRay Report ---
XR shoulder RT min 2V routine HISTORY: 64 years-old Male fall acute right shoulder pain status post fall COMPARISON: 02/23/2024 TECHNIQUE: 3 views of the right shoulder FINDINGS: Subacute to chronic appearing comminuted and displaced proximal right humeral fracture with incomplet e bony bridging demonstrates similar alignment to the prior study. Chronic remodeling changes of the glenohumeral joint redemonstrated. Demineralized appearance of the bones. No acute fracture or disloc ation is identified. IMPRESSION: 1. Unchanged alignment of the subacute to chronic comminuted and displaced fracture deformity of the proximal right humerus demonstrating incomplete bony bridging. 2. Chronic remodeling of the glenohumeral joint. ACT 112: Negative or not required by law. The above report was generated using voice recognition software. It may contain grammatical, syntax o r spelling errors. Electronically signed by: Jm Blair M.D. 05/16/2024 6:54 AM
[2024-05-16 07:11] LABS: Basophils % (auto) 1.6 %; Eosinophils # (auto) 0.08 K/uL (0.00-0.50); Eosinophils % (auto) 1.3 %; Hematocrit (blood only) 40.6 % (42.0-52.0); Hemoglobin 14.2 g/dl (14.0-18.0); Immature Granulocytes # (auto) 0.01 K/uL (0.01-0.20); Immature Granulocytes % (auto) 0.2 %; Lymphocytes # (auto) 1.33 K/uL (1.20-3.40); Lymphocytes % (auto) 21.8 %; Mean Corpuscular Hemoglobin 37.5 pg (25.0-34.0); Mean Corpuscular Volume 107.1 fL (80.0-100.0); Mean Platelet Volume 10.4 fL (9.4-12.4); Monocytes # (auto) 0.78 K/uL (0.11-0.59); Monocytes % (auto) 12.8 %; Neutrophils # (auto) 3.81 K/uL (1.40-6.50); Neutrophils % (auto) 62.3 %; Platelet Count 87 K/uL (130-400); RDW Coefficient of Variation 13.7 % (11.5-14.5); RDW Standard Deviation 54.6 fL (36.4-46.3); Red Blood Count 3.79 M/uL (4.70-6.10); White Blood Count 6.11 K/ul (4.8-10.8)
[2024-05-16 07:25] LABS: BUN Creatinine Ratio 15.4 (10-20); Calcium 8.5 mg/dl (8.6-10.3); Creatinine Clr Calc Pharmacy 154.8 ml/min; Est GFR (African American) 120.8 ml/min; Est GFR (Non-African American) 104.3 ml/min; Magnesium 1.5 mg/dl (1.7-2.4); Potassium 4.2 mmol/L (3.5-5.1)
[2024-05-16 07:39] LABS: Troponin I High Sensitivity 48.9 pg/ml (0-20)
[2024-05-16 07:48] LABS: Estimated Average Glucose 91 mg/dl; Hemoglobin A1C 4.8 % (4.5-5.6)
[2024-05-16 07:50] LABS: Folate (Folic Acid),Ser orPlas > 22.30 ng/ml (>5.38)
[2024-05-16 07:51] LABS: Vitamin B12 1004 pg/ml (180-914)
--- NOTE | 2024-05-16 08:00 | Communication Note ---
Date of Service: May 16, 2024 Pt was seen in the AM. Was asleep, deeply, snoring. Not easily awakened. +murmur Echo reviewed, no wall motion abnormalities noted in setting of elevated troponin Urine Cx still pending. Hgba1c normal Continue AWSS protocol, continue to monitor on telemetry. For full plan of care, please see History and Physical from same date of serv ice.
--- NOTE | 2024-05-16 08:28 | XRay Report ---
XR chest 1V portable HISTORY: fall COMPARISON: Chest 11/12/2023. FINDINGS: No pneumothorax. No pleural effusions. There are low lung volumes. The heart remains mildly enlarged. No new focal lung consolidations to suggest a pneumonia. No evidence for pulmonary edema. Subacute to chronic right humeral neck fracture again noted. IMPRESSION: 1. No acute process within the chest. 2. Stable cardiomegaly. 3. Subacute to chronic right humeral neck fracture again noted. ACT 112: Negative or not required by law. Electronically signed by: Juan Moreno M.D. 05/16/2024 8:27 AM
[2024-05-16] MEDS: BRIMONIDINE TARTRATE 0.2% 5ML OPR SCH (08:42)
[2024-05-16] MEDS: PANTOprazole 40 MG TAB PO SCH (08:42)
[2024-05-16] MEDS: MULTIVITAMIN TAB PO SCH (08:42)
[2024-05-16] MEDS: MAGNESIUM CHLORIDE W/CALCIUM 64MG DELAYED REL TAB PO SCH (08:42)
[2024-05-16] MEDS: FOLIC ACID 1 MG in SYRINGE 9.8 ML IV SCH (08:42)
[2024-05-16] MEDS: THIAMINE HCL 100 MG in SYRINGE 9 ML IV SCH (08:42)
[2024-05-16] MEDS: LACTULOSE SYRUP 30 GM/45 ML UDP PO SCH (08:42)
[2024-05-16] MEDS: rifAXIMin 550 MG TABLET PO SCH (08:42)
--- NOTE | 2024-05-16 10:41 | Electrocardiogram Report ---
Test Reason : Blood Pressure : */* mmHG Vent. Rate : 82 BPM Atrial Rate : 82 BPM P-R Int : 194 ms QRS Dur : 148 ms QT Int : 432 ms P-R-T Axes : 35 -18 23 degrees QTcB Int : 504 ms Normal sinus rhythm Right bundle branch block Abnormal ECG When compared with ECG of 30-Nov-2023 11:16, QRS duration has increased Confirmed by Uche Bella ([id number]) on 05/16/2024 10:41:10 AM Referred By: REFERRED SELF Confirmed By: Uche Bella
[2024-05-16] MEDS: PIPERACILLIN/TAZOBACTAM 4.5 GM in DEXTROSE 5% MINI-B 100 ML IV SCH (11:10)
[2024-05-16] MEDS: GABAPENTIN 600 MG TAB PO SCH (12:20)
[2024-05-16] MEDS: LORazepam 1 MG in SYRINGE 0.5 ML IV PRN (20:35)
[2024-05-17] MEDS: GABAPENTIN 600 MG TAB PO SCH (06:17)
[2024-05-17 06:30] LABS: Basophils # (auto) 0.08 K/uL (0.00-0.20); Basophils % (auto) 1.3 %; Eosinophils % (auto) 3.4 %; Hematocrit (blood only) 38.1 % (42.0-52.0); Hemoglobin 13.1 g/dl (14.0-18.0); Immature Granulocytes # (auto) 0.01 K/uL (0.01-0.20); Immature Granulocytes % (auto) 0.2 %; Lymphocytes # (auto) 1.04 K/uL (1.20-3.40); Lymphocytes % (auto) 17.5 %; Mean Corpuscular Hemoglobin 36.7 pg (25.0-34.0); Mean Corpuscular Hgb Conc 34.4 g/dL (32.0-36.0); Mean Corpuscular Volume 106.7 fL (80.0-100.0); Mean Platelet Volume 10.5 fL (9.4-12.4); Monocytes # (auto) 0.76 K/uL (0.11-0.59); Monocytes % (auto) 12.8 %; Neutrophils # (auto) 3.85 K/uL (1.40-6.50); Neutrophils % (auto) 64.8 %; Platelet Count 80 K/uL (130-400); RDW Coefficient of Variation 13.1 % (11.5-14.5); RDW Standard Deviation 51.5 fL (36.4-46.3); Red Blood Count 3.57 M/uL (4.70-6.10); White Blood Count 5.94 K/ul (4.8-10.8)
[2024-05-17 06:52] LABS: Bilirubin,Total 3.3 mg/dl (0.2-1.0)
[2024-05-17 06:53] LABS: Albumin Globulin Ratio 0.9 (0.9-2); BUN Creatinine Ratio 18.1 (10-20); Calcium 8.1 mg/dl (8.6-10.3); Creatinine Clr Calc Pharmacy 139.8 ml/min; Est GFR (African American) 115.9 ml/min; Globulin 3.2 gm/dl (2.5-4.0); Magnesium 1.4 mg/dl (1.7-2.4); Phosphorus 2.7 mg/dl (2.5-4.9); Potassium 3.4 mmol/L (3.5-5.1); Total Protein 6.2 gm/dl (6.0-8.3)
--- NOTE | 2024-05-17 07:37 | Hospitalist Progress Note ---
Date of Service May 17, 2024 Assessment & Plan (1) Elevated troponin: Plan: Mr. Davidson is a 64-year-old male Hungarian speaking gentleman with past medical history significant for alcohol liver cirrhosis, status post TIPS, GERD, obstructive sleep apnea currently not using CPAP, prediabetes, dyslipidemia, acquired cyst of kidney, history of tobacco use disorder admitted for mechanical fall. Patient difficult to get history given reluctance to participate in certified court interpreter guided discussion and mistrust of forensic medical examiner. Discussed patient is requiring IV medications and that he is not safe for discharge. Patient states that he will leave tomorrow. No active concerns elucidated from exam. Denies chest pain. Reports chronic shoulder pain. Alert to self and situation, confusion noted about day--but notes that he has appointments he "needs to make" #Elevated troponin 2/2 demand perhaps iso infection/fall/HTN Denies chest pain EKG no acute findings Peaked to 48.9, down trending ECHO without WMA, LVH noted, aortic stenosis #HTN blood pressures in 150s mostly start lisinopril 5mg daily Will need pcp follow up #Thrombcytopenia #Chronic Macrocytic Anemia B12 1004, >22 folate Trend CBC #Hypomagnesiemia #Hypokalemia IV replacement Continue PO #Mechanical fall Mostly from alcoholism CT head and CT cervical spine okay PT OT: recommends rehab, refused, will discuss HH #abnormal UA hx of enterococcus in the past placed on zosyn, deescalate to amoxil q 12, plan for 5 days #Alcohol misuse Alcohol level 385 Patient says currently is not drinking regularly Will place him alcohol withdrawal protocol gabapentin and IV Ativan as needed Banana bag IV thiamine and IV folic acid Needs counseling Close monitor #Alcohol liver cirrhosis #S/p TIPS On lactulose and Xifaxan Ammonia level 36 #Sleep apnea Patient states not using CPAP. #GERD On Protonix #History of Prediabetes A1C 4.8% DVT prophylaxis SCDs for now Disposition Med/telemetry Full code. Admission and Anticipated Discharge Date Admission Date: May 16, 2024 Subjective NAEO Able to connect with Hungarian Phone American Sign Language Interpreter Patient declines to utilize service appropriately as he feels his tristanian is good, however, emphasis made to use given concerns for breakdown in communication Patient states he "will leave home tomorrow" and will not stay any longer Denies abdominal or chest pain States he "walks just fine" Physical Exam Constitutional: WD/WN, vitals as above agitated in general, but noted to have capacity--recalls prior admission and circumstances of events, minimizes condition but otherwise verbalizes u nderstanding even with limited tristanian/use of certified court interpreter Respiratory: normal respiratory effort, lungs clear to auscultation Cardiovascular: RRR, no murmur, no edema Gastrointestinal (Abdomen): normal bowel sounds, soft, nontender, no hepatosplenomegaly Musculoskeletal: right arm in sling, utilizes from prior admission Results & Data Results & Data Vital Signs (Past 12 Hours) Vital Signs Temp Pulse Pulse Resp BP Pulse Ox O2 Del Method 05/17/24 02:47 37.5 C 74 22 177/92 H 96 Room Air 05/17/24 00:31 36.8 C 65 18 177/97 H 98 Room Air 05/16/24 23:00 83 05/16/24 19:56 36.7 C 84 20 165/84 H 96 Room Air Laboratory Results Short CBC 05/17/24 Range/Units 06:10 WBC 5.94 (4.8-10.8) K/ul Hgb 13.1 L (14.0-18.0) g/dl Hct 38.1 L (42.0-52.0) % Plt Count 80 L (130-400) K/uL BMP 05/17/24 06:10 Sodium 138 Potassium 3.4 L Chloride 106 Carbon Dioxide 27 BUN 13 Creatinine 0.72 Glucose 122 H Calcium 8.1 L Liver Function 05/17/24 Range/Units 06:10 Total Bilirubin 3.3 H D (0.2-1.0) mg/dl AST 88 H (13-39) U/L ALT 36 (7-52) U/L Alkaline Phosphatase 138 H (34-104) U/L Albumin 3.0 L (3.4-5.0) gm/dl Medications Administered Home Medications Medication Instructions Recorded Confirmed Last Taken diclofenac sodium 1 % topical gel 2 - 4 g topical QID PRN Pain 07/04/21 05/16/24 Unknown sildenafil 100 mg tablet 50 - 100 mg PO DAILY PRN Sexual 10/22/23 11/30/23 Unknown Activity bacitracin zinc 500 unit/gram 1 applic topical DAILY 11/12/23 11/30/23 Unknown topical ointment brimonidine 0.2 % eye drops 1 drp OPR BID 11/12/23 05/16/24 Unknown carisoprodol 350 mg tablet 350 mg PO Q6H PRN MUSCLE SPASMS 11/12/23 05/16/24 05/15/24 09:00 vit no.95-ferrous 1 tab PO DAILY 11/12/23 05/16/24 05/15/24 09:00 fumarate 28 mg-folic acid 800 mcg tablet () lactulose 10 gram/15 mL (15 mL) 30 g (45 mL) PO BID #1,440 mL 12/07/23 05/16/24 05/16/24 oral solution magnesium chloride 64 mg 64 mg PO BID #60 tabs 12/07/23 05/16/24 05/15/24 09:00 (magnesium chloride) tablet,delayed release (Mag 64) pantoprazole 40 mg tablet,delayed 40 mg PO BID #60 tabs 12/07/23 05/16/24 05/15/24 09:00 release rifaximin 550 mg tablet (Xifaxan) 550 mg PO BID #60 tabs 12/07/23 05/16/24 05/15/24 09:00 Active Medications Generic Name Dose Route Start Last Admin Trade Name Freq PRN Reason Stop Dose Admin Brimonidine Tartrate 1 drops 05/16/24 09:00 05/17/24 07:59 Brimonidine Tartrate 0.2% 5ml OPR 06/15/24 08:59 1 drops BID MARIELLA Administration Gabapentin 600 mg 05/17/24 06:00 05/17/24 13:21 Gabapentin 600 Mg Tab PO 05/17/24 22:01 600 mg Q8H MARIELLA Administration Thiamine HCl 100 mg/ Syringe 10 mls @ 2 mls/min 05/16/24 09:00 05/17/24 07:59 IV 06/15/24 08:59 2 mls/min QAM MARIELLA Administration Folic Acid 1 mg/ Syringe 10 mls @ 5 mls/min 05/16/24 09:00 05/17/24 07:59 IV 06/15/24 08:59 5 mls/min QAM MARIELLA Administration Lorazepam 1 mg/ Syringe 1 mls @ 2 mls/min 05/16/24 05:44 05/17/24 03:01 IV 06/15/24 05:43 2 mls/min UD PRN Administration EtOH Withdrawal AWSS Score 6,7 Protocol Lactulose 30 gm 05/16/24 09:00 05/17/24 08:00 Lactulose Syrup 30 Gm/45 Ml Udp PO 06/15/24 08:59 30 gm BID MARIELLA Administration Lisinopril 5 mg 05/17/24 09:00 05/17/24 10:09 Lisinopril 5 Mg Tab PO 06/16/24 08:59 5 mg QAM MARIELLA Administration Magnesium Chloride 64 mg 05/16/24 09:00 05/17/24 08:00 Magnesium Chloride W/Calcium 64mg Delayed Rel Tab PO 06/15/24 08:59 64 mg BID MARIELLA Administration Multivitamins 1 tab 05/16/24 09:00 05/17/24 08:00 Multivitamin Tab PO 06/15/24 08:59 1 tab DAILY MARIELLA Administration Pantoprazole Sodium 40 mg 05/16/24 09:00 05/17/24 08:00 Pantoprazole 40 Mg Tab PO 06/15/24 08:59 40 mg BID MARIELLA Administration Rifaximin 550 mg 05/16/24 09:00 05/17/24 08:01 Rifaximin 550 Mg Tablet PO 06/15/24 08:59 550 mg BID MARIELLA Administration
[2024-05-17] MEDS: MAGNESIUM SULFATE / D5W 1 GM/100 ML BAG IV SCH (07:59)
[2024-05-17] MEDS: POTASSIUM CHLORIDE CRTAB 20 MEQ TABCR PO STA (08:04)
--- NOTE | 2024-05-17 09:25 | Electrocardiogram Report ---
Test Reason : Blood Pressure : */* mmHG Vent. Rate : 69 BPM Atrial Rate : 69 BPM P-R Int : 184 ms QRS Dur : 154 ms QT Int : 482 ms P-R-T Axes : 0 -13 24 degrees QTcB Int : 516 ms Normal sinus rhythm Right bundle branch block Abnormal ECG When compared with ECG of 15-May-2024 23:57, No significant change was found Confirmed by Uche Bella ([id number]) on 05/17/2024 9:24:48 AM Referred By: REFERRED SELF Confirmed By: Uche Bella
[2024-05-17] MEDS: lisinopril 5 MG TAB PO SCH (10:09)
[2024-05-17] MEDS: AMOXICILLIN 875 MG TAB PO SCH (19:14)
[2024-05-17] MEDS: METOPROLOL TARTRATE 25 MG TAB PO SCH (19:14)
[2024-05-17 23:23] VITALS: RESP 18
[2024-05-18] MEDS ORDERED: PIPERACILLIN/TAZOBACTAM 4.5 GM/100 ML BAG IV SCH (02:00)
[2024-05-18] MEDS: MELATONIN 3 MG TAB PO PRN (02:01)
[2024-05-18] MEDS: ACETAMINOPHEN 500 MG TAB PO PRN (06:26)
[2024-05-18 07:14] LABS: Basophils # (auto) 0.08 K/uL (0.00-0.20); Basophils % (auto) 1.2 %; Eosinophils # (auto) 0.23 K/uL (0.00-0.50); Eosinophils % (auto) 3.5 %; Hemoglobin 13.4 g/dl (14.0-18.0); Immature Granulocytes # (auto) 0.01 K/uL (0.01-0.20); Immature Granulocytes % (auto) 0.2 %; Lymphocytes % (auto) 16.7 %; Mean Corpuscular Hemoglobin 36.6 pg (25.0-34.0); Mean Corpuscular Hgb Conc 34.4 g/dL (32.0-36.0); Mean Corpuscular Volume 106.6 fL (80.0-100.0); Mean Platelet Volume 11.4 fL (9.4-12.4); Monocytes # (auto) 0.84 K/uL (0.11-0.59); Monocytes % (auto) 12.7 %; Neutrophils # (auto) 4.33 K/uL (1.40-6.50); Neutrophils % (auto) 65.7 %; Platelet Count 84 K/uL (130-400); RDW Standard Deviation 50.8 fL (36.4-46.3); Red Blood Count 3.66 M/uL (4.70-6.10); White Blood Count 6.59 K/ul (4.8-10.8)
[2024-05-18 07:33] LABS: Albumin Level 3.1 gm/dl (3.4-5.0); BUN Creatinine Ratio 19.2 (10-20); Bilirubin,Total 3.6 mg/dl (0.2-1.0); Calcium 8.3 mg/dl (8.6-10.3); Creatinine Clr Calc Pharmacy 137.4 ml/min; Est GFR (African American) 115.2 ml/min; Est GFR (Non-African American) 99.4 ml/min; Globulin 3.2 gm/dl (2.5-4.0); Magnesium 1.6 mg/dl (1.7-2.4); Phosphorus 2.2 mg/dl (2.5-4.9); Potassium 3.6 mmol/L (3.5-5.1); Total Protein 6.3 gm/dl (6.0-8.3)
[2024-05-18 07:40] LABS: INR 1.3 (0.9-1.1); Prothrombin Time 13.4 Seconds (9.0-12.0)
[2024-05-18] MEDS ORDERED: POTASSIUM PHOS 3 MMOL/1 ML INFUSION IV STA (07:48)
[2024-05-18] MEDS: POTASSIUM PHOSPHATE 21 MMOL in SODIUM CHLORIDE 0.9% 500 ML IV ONE (08:39)
[2024-05-18] MEDS: METOPROLOL SUCC 25MG EXT REL TAB PO SCH (09:29)
[2024-05-18] MEDS: GABAPENTIN 600 MG TAB PO SCH (09:30)
[2024-05-18 11:29] VITALS: PULSE 64; TEMP 98.2; O2SAT 97
--- NOTE | 2024-05-18 11:51 | Discharge Summary ---
Discharge Summary Date of Service May 18, 2024 Principal Dx & Hospital Course #1 = Principal Diagnosis (1) Elevated troponin: Mr. Davidson is a 64-year-old male Russian speaking gentleman with past medical history significant for alcohol liver cirrhosis, status post TIPS, GERD, obstructive sleep apnea currently not using CPAP, prediabetes, dyslipidemia, acquired cyst of kidney, history of tobacco use disorder admitted for mechanical fall. Patient difficult to get history given reluctance to participate in diplomatic interpreter/translator guided discussion and mistrust of certified medical dosimetrist. On 05/17, discussed patient is requiring IV medications and that he is not safe for discharge. Reports chronic shoulder pain. Alert to self and situation, confusion noted about day--but notes that he has appointments he "needs to make" On 05/18, patient alert to self and situation. He verbalizes understanding and declines to engage with diplomatic interpreter/translator service appropriately stating that his "surinamese is too good." Patient states he will leave and delines rehab, however, patient agreeable to Home Health services. Case management present and coordinating for discharge. Discharge instructions copied in to Russian and printed for patient #Elevated troponin 2/2 demand perhaps iso infection/fall/HTN Denies chest pain EKG no acute findings Peaked to 48.9, down trending ECHO without WMA, LVH noted, aortic stenosis #PAT 11 min run of PAT on tele 05/17 afternoon, risk factors for a fib appreciated and patient started on Metoprolol XL 25mg daily over lisinopril Recommended follow up with PCP #HTN discontinued lisinopril in favor if metoprolol for labile pressures and for PAT noted above Recommend possible holter monitor as op if patient follows up #Thrombcytopenia #Chronic Macrocytic Anemia B12 1004, >22 folate stable #Hypomagnesiemia #Hypokalemia IV replacement Continue PO at home #Mechanical fall Mostly from alcoholism CT head and CT cervical spine okay PT OT: recommends rehab, refused; agreed to home health #abnormal UA hx of enterococcus in the past placed on zosyn, deescalate to amoxil q 12, plan for 5 days #Alcohol misuse Alcohol level 385 Patient says currently is not drinking regularly Will place him alcohol withdrawal protocol gabapentin and IV Ativan as needed s/p Banana bag, IV thiamine and IV folic acid declines resources Complete gabapentin taper at home #Alcohol liver cirrhosis #S/p TIPS On lactulose and Xifaxan Ammonia level 36 #Sleep apnea Patient states not using CPAP. #GERD On Protonix #History of Prediabetes A1C 4.8% Notes For Next Care Provider Recommend monitoring BP and perhaps holter monitor, run of PAT inpatient, prompting initiation of metoprolol XL Needs GI follow up Medication Changes From Visit Metoprolol XL 25mg daily Admission HPI Per Admitting Provider 64-year-old male Lithuan[place] speaking but can also speak English and some Jamaican with past medical history significant for alcohol liver cirrhosis, status post TIPS, GERD, obstructive sleep apnea currently not using CPAP, prediabetes, dysl ipidemia, acquired cyst of kidney, history of tobacco use disorder, presents with fall at home. Currently could not able to get a English secretary [employer] commissioners. History was obtained by talking to the patient as he can speak some broken Jamaican.. Patient states he felt dizzy and fell in the bathroom. in class special education teacher was activated. Denies any headache. Denies chest pain or shortness of breath. Denies abdominal pain. No nausea. No cough. Afebrile. States normal bowel and bladder movements. States he can ambulate fine and he wants to go home. He states his neighbor goes to work at 7 and he can come and pick him at 6 AM. But when advised to stay in hospital for workup he agreed to stay though seems not happy. Patient was admitted in December of this year when during welfare check patient was found down with hepatic encephalopathy. Patient at the time improved with lactulose and Xifaxan was added and was placed brace on his right arm for support of humeral fracture. Was discharged to [facility] . At that time he also treated for UTI with Augmentin for Enterococcus faecalis. Patient states he drank little wine today. He states he is not drinking alcohol regularly. Alcohol level 385 in the ER.Initial troponin 24 and repeat is 38. Past medical history. As mentioned above Past surgical history. Colonoscopy. Cystoscopy. Cystourethroscopy with biopsy. EGD. EGD with biopsy. TIPS procedure. Nasal endoscopy Inguinal hernia repair. Tonsillectomy. Vein ablation extremity. Social history. . Currently smoking 2 to 2 cigarettes daily. History of smoking 0.5 pack a day for 41 years. History of alcohol use. No drug use Family history. Sister has anxiety disorder. Sister has hypertension. Mother had diabetes. Heart disorder. Father had renal cell cancer. Admission Exam Per Admitting Provider General- Not in distress. Head- atraumatic Eyes- PERRL. ENT- oropharynx clear Neck- supple, no JVD. Lungs- clear to auscultation no wheezing or crackles Heart- regular rhythm; tachycardia no murmur, no gallop Abdomen- normal bowel sounds, soft, nontender, no distension Extremities-mild pretibial edema, mild erythema seen Neuro- alert, oriented PERRL, no facial palsy; no dysarthria; moves extremities Discharge Exam Constitutional WD/WN, vitals as above Respiratory normal respiratory effort, lungs clear to auscultation Cardiovascular RRR, no murmur, no edema Gastrointestinal (Abdomen) normal bowel sounds, soft, nontender, no hepatosplenomegaly Neurologic PERRL, EOMI, accommodation nl, no face palsy, no dysarthria Updated Medication List Medication Instructions Recorded Confirmed Type diclofenac sodium 1 % topical gel 2 - 4 g topical QID PRN Pain 07/04/21 05/16/24 History sildenafil 100 mg tablet 50 - 100 mg PO DAILY PRN Sexual 10/22/23 11/30/23 History Activity bacitracin zinc 500 unit/gram 1 applic topical DAILY 11/12/23 11/30/23 History topical ointment brimonidine 0.2 % eye drops 1 drp OPR BID 11/12/23 05/16/24 History carisoprodol 350 mg tablet 350 mg PO Q6H PRN MUSCLE SPASMS 11/12/23 05/16/24 History vit no.95-ferrous 1 tab PO DAILY 11/12/23 05/16/24 History fumarate 28 mg-folic acid 800 mcg tablet () lactulose 10 gram/15 mL (15 mL) 30 g (45 mL) PO BID #1,440 mL 12/07/23 05/16/24 Rx oral solution magnesium chloride 64 mg 64 mg PO BID #60 tabs 12/07/23 05/16/24 Rx (magnesium chloride) tablet,delayed release (Mag 64) pantoprazole 40 mg tablet,delayed 40 mg PO BID #60 tabs 12/07/23 05/16/24 Rx release rifaximin 550 mg tablet (Xifaxan) 550 mg PO BID #60 tabs 12/07/23 05/16/24 Rx amoxicillin 875 mg tablet 875 mg PO Q12H #10 tabs 05/18/24 Rx gabapentin 600 mg tablet 600 mg PO Q12H #3 tabs 05/18/24 Rx metoprolol succinate 25 mg capsule 25 mg PO DAILY #30 ea 05/18/24 Rx tanya, ext. release 24 hr Hospital Stay Data Consultations 05/16/24 03:17 ED Decision to Admit Stat Diagnostic Imagining Performed 05/15/24 23:22 CT cervical spine wo con Stat CT head/brain wo con Stat Pending Results Patient Have Any Pending Studies at Discharge: No Discharge Instructions Given to Patient (Per Discharging Provider) You were admitted for a fall. You were noted to have no new fractures you were treated with gabapentin for alcohol withdrawal symptoms Please take your next dose this evening for gabapentin. You have 3 more doses left Please avoid further alcohol use. Cessation is absolutely mckeon to help protect you from coming to the hospital again. You were noted to have some abnormal beats on the heart monitor therefore you were started on Metoprolol XL 25mg daily Your urine was also suspicious for infection Please continue to take Amoxicillin 875mg two times daily. Your next dose is this evening Total Time Total Time Spent Total Time Spent (In Minutes): 45
[2024-05-18 12:03] VITALS: BP 121/67
[2024-05-19] MEDS ORDERED: FOLIC ACID 1 MG TAB PO SCH (09:00)
[2024-05-19] MEDS ORDERED: THIAMINE HCL 100 MG TAB PO SCH (09:00)
[2024-05-19] MEDS ORDERED: GABAPENTIN 600 MG TAB PO SCH (22:00)
== END 2024-05-18 12:50 | disposition home or self-care (01) | DRG 311 ==
LOC: ED 23:09 → SUATTDRO 05-16 04:16 → 2N 05-16 04:16

== ENCOUNTER 2024-12-12 13:49 | Inpatient (IN) ==
[2024-12-12 14:13] LABS: Basophils # (auto) 0.04 K/uL (0.00-0.20); Basophils % (auto) 0.6 %; Eosinophils # (auto) 0.01 K/uL (0.00-0.50); Eosinophils % (auto) 0.2 %; Hematocrit (blood only) 37.4 % (42.0-52.0); Hemoglobin 13.4 g/dl (14.0-18.0); Immature Granulocytes # (auto) 0.03 K/uL (0.01-0.20); Immature Granulocytes % (auto) 0.5 %; Lymphocytes # (auto) 0.97 K/uL (1.20-3.40); Mean Corpuscular Hemoglobin 37.5 pg (25.0-34.0); Mean Corpuscular Hgb Conc 35.8 g/dL (32.0-36.0); Mean Corpuscular Volume 104.8 fL (80.0-100.0); Mean Platelet Volume 11.5 fL (9.4-12.4); Monocytes # (auto) 0.73 K/uL (0.11-0.59); Monocytes % (auto) 11.3 %; Neutrophils # (auto) 4.69 K/uL (1.40-6.50); Neutrophils % (auto) 72.4 %; Platelet Count 79 K/uL (130-400); RDW Coefficient of Variation 13.3 % (11.5-14.5); RDW Standard Deviation 51.3 fL (36.4-46.3); Red Blood Count 3.57 M/uL (4.70-6.10); White Blood Count 6.47 K/ul (4.8-10.8)
[2024-12-12 14:28] LABS: Albumin Level 2.8 gm/dl (3.4-5.0); BUN Creatinine Ratio 12.7 (10-20); Bilirubin Direct 1.8 mg/dl (0-0.2); Bilirubin,Total 5.1 mg/dl (0.2-1.0); Calcium 8.2 mg/dl (8.6-10.3); Creatinine Clr Calc Pharmacy 118.5 ml/min; Potassium 3.5 mmol/L (3.5-5.1); Total Protein 7.1 gm/dl (6.0-8.3)
[2024-12-12] MEDS: OPTIRAY 320 100ml IV ONE (15:06)
--- NOTE | 2024-12-12 15:35 | CT Scan Report ---
CT head/brain wo con CLINICAL HISTORY: Fall, alcoholic, head trauma. Mental status change TECHNIQUE: Multiple axial CT images of the head were obtained without contrast. Sagittal and coronal reconstructions were done. A dose lowering technique was utilized adhering to the principles of VICKIE Mora. CT DOSE: 3132.02mGy*cm COMPARISON: 11/14/2024 FINDINGS: The CT findings are unchanged. There is no intra-axial or extra-axial fluid collection, hem orrhage, or mass. Moderate, generalized global atrophy and diminished attenuation in the periventricu lar and subcortical white matter are redemonstrated. There is no evidence of skull fracture. IMPRESSION: Stable exam; no acute intracranial process. ACT 112: Negative or not required by law. The above report was generated using voice recognition software. It may contain grammatical, syntax o r spelling errors. Electronically signed by: Trini Keane M.D. 12/12/2024 3:33 PM
--- NOTE | 2024-12-12 15:38 | CT Scan Report ---
CT OF THE CERVICAL SPINE WITHOUT CONTRAST CLINICAL HISTORY: fall, alcoholic, head trauma COMPARISON STUDY: Cervical spine CT May 15, 2024. TECHNIQUE: Helical axial images of the cervical spine were obtained without IV contrast. Sagittal a nd coronal reconstructions were viewed. Automated exposure control was utilized for the study. A do se lowering technique was utilized adhering to the principles of ALARA. FINDINGS: Alignment of the cervical spine is anatomic. Vertebral body heights are maintained. No acut e cervical spine fracture or subluxation is present. There is no prevertebral edema. Facet joints are intact. Moderate multilevel degenerative changes within the cervical spine are present. IMPRESSION: No acute cervical spine fracture or subluxation. ACT 112: Negative or not required by law. Electronically signed by: Stefan Metzger M.D. 12/12/2024 3:37 PM
--- NOTE | 2024-12-12 15:46 | CT Scan Report ---
CT OF THE ABDOMEN AND PELVIS WITH CONTRAST CLINICAL HISTORY: RLQ pain, elevated bilirubin, abdominal pain, trauma. COMPARISON STUDY: CT of the abdomen and pelvis November 30, 2023. TECHNIQUE: Following IV administration of 90 mL of Optiray, axial images of the abdomen and pelvis we re obtained from the lung bases to the proximal femurs. Images were reviewed in the axial, sagittal, and coronal planes. IV contrast was administered without complication. Automated exposure control wa s utilized for the study. A dose lowering technique was utilized adhering to the principles of ALARA . FINDINGS: The heart is moderately enlarged. Several old bilateral rib fractures are noted within the lower chest. No hemoperitoneum or pneumoperitoneum is present. There is no evidence for traumatic inj ury to the liver, spleen, adrenal glands, kidneys or pancreas. This study is mildly compromised by mo tion artifact. The TIPS appears patent. The liver is cirrhotic. No suspicious hepatic lesions are bruna ntified on portal venous phase exam. 1.2 cm hepatic cyst is again noted. There is no biliary or pancr eatic ductal dilatation. There is a 2.4 cm left renal cyst. There is no hydronephrosis. Mild splenome eyad is unchanged. There is no ascites. Multiple calcific gallstones within the gallbladder are prese nt. There is no pericholecystic infiltration. There is no evidence for a bowel obstruction. The calib er and wall thickness of small and large bowel are normal. Fat-containing umbilical hernia is again n oted. No acute lumbar spine, pelvis or hip fractures are identified. Old T11 and L1 compression fract ures are unchanged. Bladder wall thickening is likely chronic. IMPRESSION: 1. No acute traumatic findings within the abdomen or pelvis. Mild motion artifact. 2. Cirrhotic liver. Patent TIPS. 3. Cholelithiasis. 4. No acute fractures. Old T11 and L1 compression fractures, unchanged. ACT 112: Negative or not required by law. Electronically signed by: Stefan Metzger M.D. 12/12/2024 3:44 PM
--- NOTE | 2024-12-12 17:16 | Emergency Department Note ---
Impression & Plan Acute hepatic encephalopathy, Decompensated hepatic cirrhosis, AMS (altered mental status) ED Provider Note NAME: ALONDRA NEAL AGE: 64 SEX: M : 1960 ARRIVES VIA: Ambulance INFORMANT: Patient, ED PROVIDER(S): Priscilla Armstrong MD CHIEF COMPLAINT: Confusion, fall HPI: This is a 64-year-old male presenting for confusion/fall. Patient was reportedly found at home by adjunct nursing faculty. They found him in bed. They thought he was more confused than his usual baseline. Patient is not member seeing the adjunct nursing faculty here. He states he speaks Bhutanese. Initially declines blackjack supervisor. Otherwise he does not know where he got his procedure for his liver. States he stopped drinking about a month ago. He reports no nausea or vomiting. He otherwise has limited history and is not why he is here. ROS: See above HPI for pertinent positives & negatives. A total of 10 systems reviewed and were otherwise negative. PAST MEDICAL HISTORY: See Below PAST SURGICAL HISTORY: See Below FAMILY HISTORY: See Below SOCIAL HISTORY: See Below HOME MEDICATIONS: See Below ALLERGIES: See Below VITALS: See Below PHYSICAL EXAMINATION: General: resting comfortably in no acute distress Head: Normocephalic and atraumatic Eyes: Normal inspection, extraocular muscles intact Ear, nose, throat: Normal external exam Neck: Normal range of motion Respiratory: lungs clear to auscultation bilaterally Cardiovascular: Regular rate/rhythm, no murmur GI: No distention, fluid wave Extremities: nontender, moves all extremities Neuro: Awake, alert, no focal deficits Skin: Warm, dry, and intact MEDICAL DECISION MAKING: This is a 64-year-old presents with confusion/fall. Patient reportedly had a fall last for EMS/home nurse aide. Patient has not remember this. He does appear somewhat confused and is slow to answer. Cutter Gas was used without much success. Patient otherwise had blood work and CT imaging of the head, C- spine and abdomen pelvis due to reported history of right lower quadrant pain which patient now denies -No traumatic injuries on head and neck -CT abdomen does not show any new findings. -Patient's ammonia level is elevated however this appears to be occasionally elevated previously. -Patient is bilirubin is elevated at 5.1 -Alcohol level currently negative -Based on discussion with the patient, he does appear significantly altered. He does speak Lithiuanian, was initially declining blackjack supervisor. He states he does not member significant parts of history and is currently slow to respond without clear understanding. Attempted blackjack supervisor without success. -With elevated ammonia, slow to respond and appearing altered, will admit for suspected hepatic encephalopathy Differential diagnosis: Intracranial hemorrhage, hepatic encephalopathy, alcohol desiccation Diagnostics interpreted by me: ECG: ECG independently interpreted by me with sinus tachycardia, rate of 114, , right bundle branch block, normal QTc, no ST segment elevations consistent with STEMI criteria Cardiac Monitoring: An order was placed for continuous cardiac monitoring. The monitor shows a rate of 94 with sinus rhythm. Past Med/Surg History Problem List (Updated 12/06/24 @ 10:50 by Melba Sarah) Tobacco use (Acute) Alcoholic cirrhosis (Acute) Prediabetes (Acute) Chronic pain of right knee Chronic pain in right shoulder (Acute) Alcohol intoxication (Acute) Proximal humerus fracture Anemia (Acute) Hyperlipidemia GERD (gastroesophageal reflux disease) Hepatic encephalopathy Fall (Acute) AMS (altered mental status) (Acute) Anemia AMS (altered mental status) Decompensated hepatic cirrhosis Abrasion of leg, right (Acute) Status post inguinal hernia repair Right bundle branch block Alcoholic cirrhosis of liver with ascites (Acute) Obesity DVT prophylaxis Incarcerated right inguinal hernia (Acute) Anticoagulated (Acute) Abdominal ascites (Acute) Medical History Elevated troponin Acute hepatic encephalopathy Hypertension Depression Alcoholism Tobacco abuse, in remission HTN (hypertension) NICO (obstructive sleep apnea) GERD (gastroesophageal reflux disease) Anxiety Elevated LFTs Anxiety Cirrhosis Surgical History H/O right inguinal hernia repair (12/28/21) History of varicose vein stripping History of surgery on arm History of colonoscopy History of surgery of liver Family History (Updated 12/06/24 @ 08:46 by Rita Melgar LPN) Father Kidney disease Parkinson disease Other Heart disease Ovarian cancer Denies family history of Prostate cancer Myocardial infarction Breast cancer Lung cancer Colorectal cancer Stroke Social History Smoking Status: Never smoker Tobacco Type: Cigarettes Age Started Using Tobacco: 24; packs per day: 0.25; Cigarettes Per Day: 2-3; Second Hand Exposure: No; Do You Dip or Chew Tobacco: No; Hx Alcohol Use: Yes Alcohol type: wine Hx Substance Use: No Preferred Language: Bolivian Communication Ability: Impaired Communication Ability Comment: pt understands some simple Indonesian Communication Tools: IPad Machine Sander Required: Yes Beliefs That Will Affect Care: Cultural Cultural Beliefs: pt is Bhutanese marital status: Current Living Situation: Alone Feels Safe at Home: Yes Assistive Devices: None Allergies Allergies Allergy/AdvReac Type Severity Reaction Status Date / Time ibuprofen AdvReac Intermediate ugib Verified 12/12/24 16:05 Home Meds Home Medications Medication Instructions Recorded Confirmed diclofenac sodium 1 % topical gel 2 - 4 g topical QID PRN Pain 07/04/21 12/12/24 sildenafil 100 mg tablet 50 - 100 mg PO DAILY PRN Sexual 10/22/23 12/12/24 Activity bacitracin zinc 500 unit/gram 1 applic topical DAILY 11/12/23 12/12/24 topical ointment brimonidine 0.2 % eye drops 1 drp OPR BID 11/12/23 12/12/24 carisoprodol 350 mg tablet 350 mg PO Q6H PRN MUSCLE SPASMS 11/12/23 12/12/24 vit no.95-ferrous 1 tab PO DAILY 11/12/23 12/12/24 fumarate 28 mg-folic acid 800 mcg tablet () lactulose 10 gram/15 mL oral 30 g PO BID 12/12/24 12/12/24 solution Previous Rx's Medication Instructions Recorded magnesium chloride 64 mg 64 mg PO BID #60 tabs 12/07/23 (magnesium chloride) tablet,delayed release (Mag 64) pantoprazole 40 mg tablet,delayed 40 mg PO BID #60 tabs 12/07/23 release rifaximin 550 mg tablet (Xifaxan) 550 mg PO BID #60 tabs 12/07/23 gabapentin 600 mg tablet 600 mg PO Q12H #3 tabs 05/18/24 metoprolol succinate 25 mg capsule 25 mg PO DAILY #30 ea 05/18/24 sprinkle, ext. release 24 hr meloxicam 15 mg tablet 15 mg PO DAILY #30 tabs 12/06/24 Results & Data (ED) Vital Signs Vital Signs - 24 hr 12/12/24 13:58 12/12/24 13:59 12/12/24 14:30 Temperature 37.3 C Temperature Source Oral Pulse Rate 113 H Pulse Rate from SpO2 Sensor Respiratory Rate 22 Respiratory Effort / Characteristics Non-Labored Spontaneous Respiratory Depth Normal Blood Pressure 144/92 H 162/87 H Blood Pressure Mean 109 106 Pulse Oximetry 95 95 Oxygen Delivery Method Room Air Room Air Oxygen Flow Rate 0 Sepsis Recent Fever Within 48 Hours No Sepsis New/Unexplained Change in Mental Status Yes Sepsis Action Taken by Nursing No Action Required 12/12/24 14:30 12/12/24 14:39 12/12/24 15:00 Temperature Temperature Source Pulse Rate 105 H 107 H Pulse Rate from SpO2 Sensor 105 H 107 H Respiratory Rate 18 16 Respiratory Effort / Characteristics Respiratory Depth Blood Pressure 162/87 H Blood Pressure Mean 106 Pulse Oximetry 95 94 Oxygen Delivery Method Oxygen Flow Rate Sepsis Recent Fever Within 48 Hours Sepsis New/Unexplained Change in Mental Status Sepsis Action Taken by Nursing 12/12/24 15:00 12/12/24 15:00 12/12/24 15:33 Temperature Temperature Source Pulse Rate 96 H Pulse Rate from SpO2 Sensor Respiratory Rate 15 Respiratory Effort / Characteristics Respiratory Depth Blood Pressure 150/93 H 150/93 H Blood Pressure Mean 115 115 Pulse Oximetry Oxygen Delivery Method Oxygen Flow Rate Sepsis Recent Fever Within 48 Hours Sepsis New/Unexplained Change in Mental Status Sepsis Action Taken by Nursing 12/12/24 15:54 12/12/24 16:01 12/12/24 16:12 Temperature Temperature Source Pulse Rate 92 H 108 H Pulse Rate from SpO2 Sensor 93 H Respiratory Rate 18 Respiratory Effort / Characteristics Respiratory Depth Blood Pressure 172/99 H Blood Pressure Mean 138 Pulse Oximetry 94 Oxygen Delivery Method Oxygen Flow Rate Sepsis Recent Fever Within 48 Hours Sepsis New/Unexplained Change in Mental Status Sepsis Action Taken by Nursing 12/12/24 16:12 12/12/24 16:21 12/12/24 16:39 Temperature Temperature Source Pulse Rate 98 H 94 H 94 H Pulse Rate from SpO2 Sensor 98 H 95 H 94 H Respiratory Rate 15 17 23 Respiratory Effort / Characteristics Respiratory Depth Blood Pressure Blood Pressure Mean Pulse Oximetry 95 95 96 Oxygen Delivery Method Oxygen Flow Rate Sepsis Recent Fever Within 48 Hours Sepsis New/Unexplained Change in Mental Status Sepsis Action Taken by Nursing Laboratory Data 12/12/24 13:58 12/12/24 13:58 Lab Results 12/12/24 12/12/24 12/12/24 Range/Units 13:58 14:39 15:49 WBC 6.47 (4.8-10.8) K/ul RBC 3.57 L (4.70-6.10) M/uL Hgb 13.4 L (14.0-18.0) g/dl Hct 37.4 L (42.0-52.0) % MCV 104.8 H (80.0-100.0) fL MCH 37.5 H (25.0-34.0) pg MCHC 35.8 (32.0-36.0) g/dL RDW Std Deviation 51.3 H (36.4-46.3) fL RDW Coeff of Claire 13.3 (11.5-14.5) % Plt Count 79 L (130-400) K/uL MPV 11.5 (9.4-12.4) fL Immature Gran % (Auto) 0.5 % Neut % (Auto) 72.4 % Lymph % (Auto) 15.0 % Gray % (Auto) 11.3 % Eos % (Auto) 0.2 % Baso % (Auto) 0.6 % Neut # (Auto) 4.69 (1.40-6.50) K/uL Lymph # (Auto) 0.97 L (1.20-3.40) K/uL Gray # (Auto) 0.73 H (0.11-0.59) K/uL Eos # (Auto) 0.01 (0.00-0.50) K/uL Baso # (Auto) 0.04 (0.00-0.20) K/uL Immature Gran # (Auto) 0.03 (0.01-0.20) K/uL PT 15.1 H (9.0-12.0) Seconds INR 1.4 H (0.9-1.1) APTT 35 H (21-31) Seconds PTT Ratio 1.3 Sodium 139 (136-145) mmol/L Potassium 3.5 (3.5-5.1) mmol/L Chloride 106 (98-107) mmol/L Carbon Dioxide 25 (21-32) mmol/L Anion Gap 8 (3-11) BUN 9 (6-23) mg/dl Creatinine 0.71 (0.6-1.4) mg/dl Est Cr Clr Drug Dosing 118.5 ml/min eGFR 103.73 BUN/Creatinine Ratio 12.7 (10-20) Glucose 122 H (70-99(Fasting)) mg/dl Calcium 8.2 L (8.6-10.3) mg/dl Magnesium 1.2 L (1.7-2.4) mg/dl Total Bilirubin 5.1 H (0.2-1.0) mg/dl Direct Bilirubin 1.8 H (0-0.2) mg/dl AST 108 H (13-39) U/L ALT 65 H (7-52) U/L Alkaline Phosphatase 156 H (34-104) U/L Ammonia 100.0 H (18-72) umol/L Total Protein 7.1 (6.0-8.3) gm/dl Albumin 2.8 L (3.4-5.0) gm/dl Ethyl Alcohol mg/dL < 10.0 (<10.0) mg/dl Administered Medications Discontinued Medications Ioversol (Optiray 320 100ml) 90 ml IV ONCE ONE Stop: 12/12/24 15:07 Last Admin: 12/12/24 15:06 Dose: 90 ml Documented By: [facility] Imaging Data Radiologist's Impression: Abdomen/Pelvis CT 12/12/24 14:55 CT OF THE ABDOMEN AND PELVIS WITH CONTRAST CLINICAL HISTORY: RLQ pain, elevated bilirubin, abdominal pain, trauma. COMPARISON STUDY: CT of the abdomen and pelvis November 30, 2023. TECHNIQUE: Following IV administration of 90 mL of Optiray, axial images of the abdomen and pelvis were obtained from the lung bases to the proximal femurs. Images were reviewed in the axial, sagittal, and coronal planes. IV contrast was administered without complication. Automated exposure control was utilized for the study. A dose lowering technique was utilized adhering to the principles of ALARA. FINDINGS: The heart is moderately enlarged. Several old bilateral rib fractures are noted within the lower chest. No hemoperitoneum or pneumoperitoneum is present. There is no evidence for traumatic injury to the liver, spleen, adrenal glands, kidneys or pancreas. This study is mildly compromised by motion artifact. The TIPS appears patent. The liver is cirrhotic. No suspicious hepatic lesions are identified on portal venous phase exam. 1.2 cm hepatic cyst is again noted. There is no biliary or pancreatic ductal dilatation. There is a 2.4 cm left renal cyst. There is no hydronephrosis. Mild splenomegaly is unchanged. There is no ascites. Multiple calcific gallstones within the gallbladder are present. There is no pericholecystic infiltration. There is no evidence for a bowel obstruction. The caliber and wall thickness of small and large bowel are normal. Fat-containing umbilical hernia is again noted. No acute lumbar spine, pelvis or hip fractures are identified. Old T11 and L1 compression fractures are unchanged. Bladder wall thickening is likely chronic. IMPRESSION: 1. No acute traumatic findings within the abdomen or pelvis. Mild motion artifact. 2. Cirrhotic liver. Patent TIPS. 3. Cholelithiasis. 4. No acute fractures. Old T11 and L1 compression fractures, unchanged. ACT 112: Negative or not required by law. Electronically signed by: Stefan Metzger M.D. 12/12/2024 3:[address] 12/12/24 14:55 CT OF THE CERVICAL SPINE WITHOUT CONTRAST CLINICAL HISTORY: fall, alcoholic, head trauma COMPARISON STUDY: Cervical spine CT May 15, 2024. TECHNIQUE: Helical axial images of the cervical spine were obtained without IV contrast. Sagittal and coronal reconstructions were viewed. Automated exposure control was utilized for the study. A dose lowering technique was utilized adhering to the principles of ALARA. FINDINGS: Alignment of the cervical spine is anatomic. Vertebral body heights are maintained. No acute cervical spine fracture or subluxation is present. There is no prevertebral edema. Facet joints are intact. Moderate multilevel degenerative changes within the cervical spine are present. IMPRESSION: No acute cervical spine fracture or subluxation. ACT 112: Negative or not required by law. Electronically signed by: Stefan Metzger M.D. 12/12/2024 3:[address] 12/12/24 14:55 CT head/brain wo con CLINICAL HISTORY: Fall, alcoholic, head trauma. Mental status change TECHNIQUE: Multiple axial CT images of the head were obtained without contrast. Sagittal and coronal reconstructions were done. A dose lowering technique was utilized adhering to the principles of ALARA. CT DOSE: 3132.02mGy*cm COMPARISON: 11/14/2024 FINDINGS: The CT findings are unchanged. There is no intra-axial or extra-axial fluid collection, hemorrhage, or mass. Moderate, generalized global atrophy and diminished attenuation in the periventricular and subcortical white matter are redemonstrated. There is no evidence of skull fracture. IMPRESSION: Stable exam; no acute intracranial process. ACT 112: Negative or not required by law. The above report was generated using voice recognition software. It may contain grammatical, syntax or spelling errors. Electronically signed by: Trini Keane M.D. 12/12/2024 3:33 PM Discharge Plan Visit Data Chief Complaint: Confusion Stated Complaint: CONFUSION, FALL YESTERDAY, R LOWER QAUD TENDERNESS ED Provider: Priscilla Armstrong Discharge Problem: Acute hepatic encephalopathy, Decompensated hepatic cirrhosis, AMS (altered mental status) Forms Stand Alone Forms: My [facility] [place] Prescriptions Prescriptions: No Action meloxicam 15 mg tablet 15 mg PO DAILY Qty: 30 2RF diclofenac sodium 1 % Gel 2 - 4 g TOPICAL QID PRN (Reason: Pain) Rx Instructions: 2 GRAMS FOR SMALLER JOINTS, THEN 4 GRAMS FOR LARGER JOINTS. sildenafil 100 mg Tablet 50 - 100 mg PO DAILY PRN (Reason: Sexual Activity) Rx Instructions: TAKE 1/2 OR 1 TAB 1-4 HRS PRIOR TO INTERCOURSE, NO MORE THAN 1 DOSE IN 24 HOURS. carisoprodol 350 mg Tablet 350 mg PO Q6H PRN (Reason: MUSCLE SPASMS) bacitracin zinc 500 unit/gram ointment 1 applic TOPICAL DAILY Rx Instructions: APPLY TO KNEE ABRASIONS brimonidine 0.2 % drops 1 drp OPR BID PNV cmb#[id number]-ferrous fumarate-FA [] 28 mg iron- 800 mcg Tablet 1 tab PO DAILY Xifaxan 550 mg Tablet 550 mg PO BID Qty: 60 0RF magnesium chloride [Mag 64] 64 mg Tablet,Delayed Release (Dr/Ec) 64 mg PO BID Qty: 60 0RF pantoprazole 40 mg Tablet,Delayed Release (Dr/Ec) 40 mg PO BID Qty: 60 0RF metoprolol succinate 25 mg capsule,sprinkle,ER 24hr 25 mg PO DAILY Qty: 30 0RF gabapentin 600 mg Tablet 600 mg PO Q12H Qty: 3 0RF lactulose 10 gram/15 mL solution 30 g PO BID Referrals Referrals: Yuly Workman CRNP [Primary Care Provider] -
[2024-12-12 18:02] LABS: INR 1.4 (0.9-1.1); Partial Thromboplastin Ratio 1.3; Partial Thromboplastin Time 35 Seconds (21-31); Prothrombin Time 15.1 Seconds (9.0-12.0)
--- NOTE | 2024-12-12 18:15 | History & Physical Report ---
Date of Service December 12, 2024 Assessment & Plan (1) Hepatic encephalopathy: (2) Alcoholic cirrhosis: (3) S/P TIPS (transjugular intrahepatic portosystemic shunt): (4) GERD (gastroesophageal reflux disease): (5) Tobacco use: (6) Hypertension: (7) Prediabetes: (8) Right bundle branch block: (9) Glaucoma: (10) Hypomagnesemia: Plan 64 [facility]yrgyz speaking male PMHx alcoholic cirrhosis s/p TIPS procedure, hepatic encephalopathy, prediabetes, HLD, GERD, RBBB, tobacco use, and glaucoma admitted due to confusion. #Hepatic Encephalopathy/Alcoholic cirrhosis s/p TIPS procedure Acute exacerbation Denies current EtOH use, EtOH level negative on admission Pt apparently with some degree of confusion at baseline Ammonia elevated on admission, continue to to trend Lactulose 30g QID, titrate to 3-4 stools per day Continue Xifaxan #Hypomagnesemia Mag low on admission 4g IV mag ordered Trend mag level, replete as indicated #GERD Continue Protonix BID #HTN/RBBB EKG unchanged from prior, mild tachycardia on admission Continue metoprolol #Glaucoma Continue brimonidine #Tobacco Use Encourage Cessation FENGI: regular diet Code status: full DVT prophylaxis: heparin Isolation: none Disposition: med/tele History of Present Illness Primary Care Provider: VICENTE Lamb 64 yo [facility]/Kyrgyz speaking male PMHx alcoholic cirrhosis s/p TIPS procedure, hepatic encephalopathy, prediabetes, HLD, GERD, RBBB, tobacco use, and glaucoma admitted due to confusion. He was found at home, in bed, by director nursing service today where he appeared more confused than his baseline. He apparently had a fall with head strike yesterday. History from patient is extremely limited due to language barrier and lack of cooperation with quality control checker. He states that he has not had any alcohol in about a month. States that he is taking all of his medications as prescribed. He does have home health that visits in his home. He does indicate some vague abdominal pain but is not able fully localize. Of note, patient has a friend/neighbor Manuel whose information is in the chart. During previous admissions, Manuel was contacted and claims to have durable medical power of managing attorney. ED Course: Head, C-spine, and AP without acute changes Labs reveal: Ammonia elevated, coags elevated, otherwise labs unremarkable Allergies Allergy/AdvReac Type Severity Reaction Status Date / Time ibuprofen AdvReac Intermediate ugib Verified 12/12/24 16:05 Home Medications Medication Instructions Recorded Confirmed Type diclofenac sodium 1 % topical gel 2 - 4 g topical QID PRN Pain 07/04/21 12/12/24 History sildenafil 100 mg tablet 50 - 100 mg PO DAILY PRN Sexual 10/22/23 12/12/24 History Activity bacitracin zinc 500 unit/gram 1 applic topical DAILY 11/12/23 12/12/24 History topical ointment brimonidine 0.2 % eye drops 1 drp OPR BID 11/12/23 12/12/24 History carisoprodol 350 mg tablet 350 mg PO Q6H PRN MUSCLE SPASMS 11/12/23 12/12/24 History vit no.95-ferrous 1 tab PO DAILY 11/12/23 12/12/24 History fumarate 28 mg-folic acid 800 mcg tablet () magnesium chloride 64 mg 64 mg PO BID #60 tabs 12/07/23 12/12/24 Rx (magnesium chloride) tablet,delayed release (Mag 64) pantoprazole 40 mg tablet,delayed 40 mg PO BID #60 tabs 12/07/23 12/12/24 Rx release rifaximin 550 mg tablet (Xifaxan) 550 mg PO BID #60 tabs 12/07/23 12/12/24 Rx gabapentin 600 mg tablet 600 mg PO Q12H #3 tabs 05/18/24 12/12/24 Rx metoprolol succinate 25 mg capsule 25 mg PO DAILY #30 ea 05/18/24 12/12/24 Rx sprinkle, ext. release 24 hr meloxicam 15 mg tablet 15 mg PO DAILY #30 tabs 12/06/24 12/12/24 Rx lactulose 10 gram/15 mL oral 30 g PO BID 12/12/24 12/12/24 History solution Past Med/Surg History Problem List (Updated 12/12/24 @ 19:25 by Neel Lopez DO) Hypomagnesemia Glaucoma S/P TIPS (transjugular intrahepatic portosystemic shunt) Tobacco use (Acute) Alcoholic cirrhosis (Acute) Prediabetes (Acute) Chronic pain of right knee Chronic pain in right shoulder (Acute) Alcohol intoxication (Acute) Proximal humerus fracture Anemia (Acute) Hyperlipidemia GERD (gastroesophageal reflux disease) Hepatic encephalopathy Fall (Acute) AMS (altered mental status) (Acute) Anemia AMS (altered mental status) Decompensated hepatic cirrhosis Abrasion of leg, right (Acute) Status post inguinal hernia repair Right bundle branch block Alcoholic cirrhosis of liver with ascites (Acute) Obesity DVT prophylaxis Incarcerated right inguinal hernia (Acute) Anticoagulated (Acute) Abdominal ascites (Acute) Medical History Elevated troponin Acute hepatic encephalopathy Hypertension Depression Alcoholism Tobacco abuse, in remission HTN (hypertension) NICO (obstructive sleep apnea) GERD (gastroesophageal reflux disease) Anxiety Elevated LFTs Anxiety Cirrhosis Surgical History H/O right inguinal hernia repair (12/28/21) History of varicose vein stripping History of surgery on arm History of colonoscopy History of surgery of liver Family History (Updated 12/06/24 @ 08:46 by Rita Melgar LPN) Father Kidney disease Parkinson disease Other Heart disease Ovarian cancer Denies family history of Prostate cancer Myocardial infarction Breast cancer Lung cancer Colorectal cancer Stroke Social History Smoking Status: Current every day smoker Tobacco Type: Cigarettes Age Started Using Tobacco: 24; packs per day: 0.25; Cigarettes Per Day: 2; Second Hand Exposure: No; Do You Dip or Chew Tobacco: No; Tobacco Cessation Education Requested by Patient: No Hx Alcohol Use: Yes Alcohol type: wine Hx Substance Use: No Preferred Language: Other Communication Ability: Impaired Communication Ability Comment: pt understands some simple Algerian Communication Tools: IPad, Picture Board, Physical Gestures and Other Site Acquisition Manager Required: Yes Beliefs That Will Affect Care: Cultural Cultural Beliefs: pt is Nepali marital status: Current Living Situation: Alone Other Information That Helps Us Care for You: No Feels Safe at Home: Yes Safety Concerns: Feels Safe At This Time Assistive Devices: Cane Review of Systems Review of Systems: reviewed, per HPI Physical Exam Physical Exam: Constitutional: ill-appearing, no acute distress HEENT: NCAT, no conjunctival injection, no scleral icterus CV: tachycardic, regular rhythm, no murmur appreciated, extremities well- perfused, no LE edema Resp: CTABL, no wheezes/rales/rhonchi appreciated, no increased work of breathing GI: nondistended, does have protrusion at the umbilicus MSK: no gross deformities appreciated Skin: warm, dry, no rash appreciated Neuro: alert, oriented, no focal neurologic deficit appreciated Results & Data Results & Data Vital Signs (Past 12 Hours) Vital Signs Temp Pulse Resp BP Pulse Ox O2 Del Method O2 Flow Rate 12/12/24 16:39 94 H 23 96 12/12/24 16:21 94 H 17 95 12/12/24 16:12 98 H 15 95 12/12/24 16:12 108 H 12/12/24 16:01 172/99 H 12/12/24 15:54 92 H 18 94 12/12/24 15:33 96 H 15 12/12/24 15:00 150/93 H 12/12/24 15:00 150/93 H 12/12/24 15:00 107 H 16 94 12/12/24 14:39 105 H 18 95 12/12/24 14:30 162/87 H 12/12/24 14:30 162/87 H 12/12/24 13:59 37.3 C 113 H 22 144/92 H 95 Room Air 12/12/24 13:58 95 Room Air 0 Supervising Physician Co-Signing Physician Notes Attending addendum: I have physically seen this patient, have supervised the medical residents activities, and agree with the H&P unless as otherwise noted. Assessment and Plan: The patient is a 64-year-old Nepali/Kyrgyz-speaking male, with past medical history including alcoholic cirrhosis status post TIPS procedure, hepatic encephalopathy, prediabetes, hyperlipidemia, GERD, RBBB, tobacco use disorder, ankle,, who presents to the emergency department due to acute on chronic worsening of confusion over the past several days. Hepatic encephalopathy/alcoholic cirrhosis status post TIPS procedure- Acute on chronic exacerbation of confusion- Current alcohol use, alcohol level negative on admission Acute on chronic worsening of baseline confusion Total bilirubin 5.1, direct bilirubin 1.8, AST 108, ALT 65, alkaline phosphatase 156, albumin 2.8 Ammonia level 100 on admission Unclear but not likely the patient is actually taking lactulose as directed Placed on lactulose 30 g p.o. 4 times daily, titrate to 3-4 stools per day Continue Xifaxan Follow daily CBC with differential, chemistry profile, magnesium and ammonia levels Add PT/INR/PTT/for coagulopathy, currently 1.4, up from 1.3 Hypomagnesemia- Magnesium level 1.2 Give 4 g of mag sulfate IV, recheck laboratories in the a.m. T11/L1 compression fractures- Likely old Chronic stable medical conditions Thrombocytopenia-Chronically low but stable at 79 GERD-continue Protonix 40 mg twice daily Hypertension/right bundle branch block-stable EKG, continue metoprolol Glaucoma-continue famotidine Tobacco use disorder-cessation encouraged Resident Activity Tracking Resident Involvement: Resident Care Provided Care Provided: Adult Hospital Medicine
[2024-12-12 18:50] LABS: Magnesium 1.2 mg/dl (1.7-2.4)
[2024-12-12] MEDS: MAGNESIUM SULFATE / D5W 1 GM/100 ML BAG IV SCH (19:37)
[2024-12-12] MEDS ORDERED: POLYETHYLENE (MIRALAX) 17 GM PACK PO PRN (21:20)
[2024-12-12] MEDS ORDERED: ACETAMINOPHEN 325 MG TAB PO PRN (21:20)
[2024-12-12] MEDS ORDERED: ALUMINUM/MAGNESIUM SUSP 30 ML UDC PO PRN (21:20)
[2024-12-12] MEDS ORDERED: ONDANSETRON INJ 2 MG/ML 2 ML VIAL IV PRN (21:20)
[2024-12-12] MEDS ORDERED: MAGNESIUM HYDROXIDE SUSP 30 ML UDC PO PRN (21:20)
[2024-12-12] MEDS: HEPARIN SOD 5,000 UNIT/0.5 ML VIAL SQ SCH (21:56)
[2024-12-12] MEDS: BRIMONIDINE TARTRATE 0.2% 5ML OPR SCH (21:57)
[2024-12-12] MEDS: LACTULOSE SYRUP 30 GM/45 ML UDP PO SCH (21:57)
[2024-12-12] MEDS: rifAXIMin 550 MG TABLET PO SCH (21:58)
[2024-12-12] MEDS: PANTOprazole 40 MG TAB PO SCH (21:58)
[2024-12-12] MEDS: GABAPENTIN 600 MG TAB PO SCH (21:58)
[2024-12-12] MEDS: ACETAMINOPHEN 500 MG TAB PO PRN (23:46)
[2024-12-13] MEDS: HYDROmorphone INJ 0.5 MG/0.5 ML SYR IV STA (02:36)
--- NOTE | 2024-12-13 06:28 | Billing Data ---
Date of Service December 13, 2024 Coding Level of Care Code 79326 INT INP/OBS CARE
--- NOTE | 2024-12-13 06:57 | Hospitalist Progress Note ---
Date of Service December 13, 2024 Assessment & Plan (1) Hepatic encephalopathy: (2) Alcoholic cirrhosis: (3) S/P TIPS (transjugular intrahepatic portosystemic shunt): (4) GERD (gastroesophageal reflux disease): (5) Tobacco use: (6) Hypertension: (7) Prediabetes: (8) Right bundle branch block: (9) Glaucoma: (10) Hypomagnesemia: Plan 64 yo [place] speaking male PMHx alcoholic cirrhosis s/p TIPS procedure, hepatic encephalopathy, prediabetes, HLD, GERD, RBBB, tobacco use, and glaucoma admitted due to confusion. #Hepatic Encephalopathy/Alcoholic cirrhosis s/p TIPS procedure Acute exacerbation Denies current EtOH use, EtOH level negative on admission Pt apparently with some degree of confusion at baseline, A& O x 3 this morning Ammonia elevated on admission, is 100 today Continue Lactulose 30g QID, titrate to 3-4 stools per day Continue Xifaxan #Hypomagnesemia Mag low on admission, received 4g IV Mag is 1.9 on 12/13 Trend mag level, replete as indicated #GERD Continue Protonix BID #HTN/RBBB EKG unchanged from prior, mild tachycardia on admission Continue metoprolol #Glaucoma Continue brimonidine #Tobacco Use Encourage Cessation FENGI: regular diet Code status: full DVT prophylaxis: heparin Isolation: none Disposition: med/tele Admission and Anticipated Discharge Date Admission Date: December 12, 2024 Subjective Attempted to find a Greenlandic tractor operator battery but none available, had to use [employer] translation via service. This morning, pt reports he is feeling better. He continues with pain generally throughout his abdomen and bilateral feet and ankles. Pt has loose stools while taking lactulose. He states he does not feel confused any more. Pt denies CP, SOB, nausea, vomiting, headache, changes in vision, unusual joint pains, or rash Review of Systems Review of Systems: reviewed, per HPI Physical Exam Physical Exam: Constitutional: ill-appearing, no acute distress HEENT: NCAT, no conjunctival injection, no scleral icterus CV: tachycardic, regular rhythm, no murmur appreciated, extremities well- perfused, no LE edema Resp: CTABL, no wheezes/rales/rhonchi appreciated, no increased work of breathing GI: nondistended, does have protrusion at the umbilicus, general tenderness in R and L upper quadrant MSK: no gross deformities appreciated. Tender with palpation at anterior ankles bilaterally Skin: warm, dry, no rash appreciated Neuro: alert, oriented, no focal neurologic deficit appreciated Results & Data Results & Data Vital Signs (Past 12 Hours) Vital Signs Temp Pulse Pulse Resp BP BP Pulse Ox 12/13/24 03:41 36.7 C 90 20 158/83 H 95 12/13/24 00:29 36.7 C 92 H 20 170/96 H 96 12/12/24 21:50 102 H 12/12/24 21:20 12/12/24 21:09 12/12/24 21:09 36.7 C 100 H 20 168/94 H 95 12/12/24 20:54 12/12/24 20:10 88 12/12/24 20:06 88 16 93 12/12/24 20:00 168/94 H 12/12/24 20:00 168/94 H 12/12/24 20:00 168/94 H 12/12/24 20:00 168/94 H 12/12/24 20:00 168/94 H 12/12/24 20:00 168/94 H 12/12/24 20:00 168/94 H 12/12/24 19:48 94 H 14 95 12/12/24 19:30 162/98 H 12/12/24 19:30 162/98 H 12/12/24 19:30 162/98 H 12/12/24 19:30 162/98 H 12/12/24 19:30 162/98 H 12/12/24 19:30 162/98 H 12/12/24 19:12 96 H 16 94 12/12/24 19:00 99 H 16 94 12/12/24 19:00 174/98 H 12/12/24 19:00 174/98 H 12/12/24 19:00 174/98 H Pulse Ox O2 Del Method O2 Del Method 12/13/24 03:41 Room Air 12/13/24 00:29 Room Air 12/12/24 21:50 12/12/24 21:20 95 Room Air 12/12/24 21:09 Room Air 12/12/24 21:09 Room Air 12/12/24 20:54 Room Air 12/12/24 20:10 12/12/24 20:06 12/12/24 20:00 12/12/24 20:00 12/12/24 20:00 12/12/24 20:00 12/12/24 20:00 12/12/24 20:00 12/12/24 20:00 12/12/24 19:48 12/12/24 19:30 12/12/24 19:30 12/12/24 19:30 12/12/24 19:30 12/12/24 19:30 12/12/24 19:30 12/12/24 19:12 12/12/24 19:00 12/12/24 19:00 12/12/24 19:00 12/12/24 19:00 Resident Activity Tracking Resident Involvement: Resident Care Provided Care Provided: Adult Hospital Medicine
[2024-12-13 06:59] LABS: Basophils # (auto) 0.03 K/uL (0.00-0.20); Basophils % (auto) 0.4 %; Eosinophils # (auto) 0.08 K/uL (0.00-0.50); Eosinophils % (auto) 1.1 %; Hematocrit (blood only) 36.3 % (42.0-52.0); Hemoglobin 13.3 g/dl (14.0-18.0); Immature Granulocytes # (auto) 0.03 K/uL (0.01-0.20); Immature Granulocytes % (auto) 0.4 %; Lymphocytes # (auto) 1.16 K/uL (1.20-3.40); Lymphocytes % (auto) 15.3 %; Mean Corpuscular Hemoglobin 38.2 pg (25.0-34.0); Mean Corpuscular Hgb Conc 36.6 g/dL (32.0-36.0); Mean Corpuscular Volume 104.3 fL (80.0-100.0); Mean Platelet Volume 11.7 fL (9.4-12.4); Monocytes # (auto) 0.99 K/uL (0.11-0.59); Neutrophils % (auto) 69.8 %; Platelet Count 80 K/uL (130-400); RDW Coefficient of Variation 13.4 % (11.5-14.5); RDW Standard Deviation 50.7 fL (36.4-46.3); Red Blood Count 3.48 M/uL (4.70-6.10); White Blood Count 7.59 K/ul (4.8-10.8)
[2024-12-13 07:43] LABS: Albumin Globulin Ratio 0.6 (0.9-2); Albumin Level 2.6 gm/dl (3.4-5.0); BUN Creatinine Ratio 11.8 (10-20); Bilirubin,Total 5.8 mg/dl (0.2-1.0); Creatinine Clr Calc Pharmacy 114.6 ml/min; Globulin 4.2 gm/dl (2.5-4.0); Magnesium 1.9 mg/dl (1.7-2.4); Potassium 3.4 mmol/L (3.5-5.1); Total Protein 6.8 gm/dl (6.0-8.3)
[2024-12-13] MEDS: POTASSIUM CHLORIDE CRTAB 20 MEQ TABCR PO STA (10:16)
[2024-12-13] MEDS: METOPROLOL SUCC 25MG EXT REL TAB PO SCH (10:17)
[2024-12-13] MEDS: PRENATAL VITAMIN 1 TAB PO SCH (10:23)
[2024-12-13] MEDS: HYDROmorphone INJ 0.5 MG/0.5 ML SYR IV PRN (11:53)
--- NOTE | 2024-12-13 17:29 | Discharge Summary ---
Date of Service December 13, 2024 Admission HPI Per Admitting Provider 64 yo [place]/Mexican speaking male PMHx alcoholic cirrhosis s/p TIPS procedure, hepatic encephalopathy, prediabetes, HLD, GERD, RBBB, tobacco use, and glaucoma admitted due to confusion. He was found at home, in bed, by certified nursing assistant instructor today where he appeared more confused than his baseline. He apparently had a fall with head strike yesterday. History from patient is extremely limited due to language barrier and lack of cooperation with breed to wean production technician. He states that he has not had any alcohol in about a month. States that he is taking all of his medications as prescribed. He does have home health that visits in his home. He does indicate some vague abdominal pain but is not able fully localize. Of note, patient has a friend/neighbor Manuel whose information is in the chart. During previous admissions, Manuel was contacted and claims to have durable medical power of block feeder. ED Course: Head, C-spine, and AP without acute changes Labs reveal: Ammonia elevated, coags elevated, otherwise labs unremarkable Principal Diagnosis Hepatic encephalopathy Discharge Exam Constitutional: ill-appearing, no acute distress HEENT: NCAT, no conjunctival injection, no scleral icterus CV: tachycardic, regular rhythm, no murmur appreciated, extremities well- perfused, no LE edema Resp: CTABL, no wheezes/rales/rhonchi appreciated, no increased work of breathing GI: nondistended, does have protrusion at the umbilicus, general tenderness in R and L upper quadrant MSK: no gross deformities appreciated. Tender with palpation at anterior ankles bilaterally Skin: warm, dry, no rash appreciated Neuro: alert, oriented, no focal neurologic deficit appreciated Discharge Data Allergies Allergy/AdvReac Type Severity Reaction Status Date / Time ibuprofen AdvReac Intermediate ugib Verified 12/12/24 16:05 Consultations 12/12/24 17:32 ED Decision to Admit Stat Ordered Studies 12/12/24 14:55 CT abd pelvis IV con only Stat CT cervical spine wo con Stat CT head/brain wo con Stat Hospital Course (1) Hepatic encephalopathy: (2) Alcoholic cirrhosis: (3) S/P TIPS (transjugular intrahepatic portosystemic shunt): (4) GERD (gastroesophageal reflux disease): (5) Tobacco use: (6) Hypertension: (7) Prediabetes: (8) Right bundle branch block: (9) Glaucoma: (10) Hypomagnesemia: Plan 64 yo [place]/Mexican speaking male PMHx alcoholic cirrhosis s/p TIPS procedure, hepatic encephalopathy, prediabetes, HLD, GERD, RBBB, tobacco use, and glaucoma admitted due to confusion. #Hepatic Encephalopathy/Alcoholic cirrhosis s/p TIPS procedure Acute exacerbation Denies current EtOH use, EtOH level negative on admission Pt apparently with some degree of confusion at baseline, A& O x 3 this morning Ammonia elevated on admission, is 100 today Continue Lactulose 30g QID, titrate to 3-4 stools per day At discharge, increase lactulose to 45mg BID Continue Xifaxan #Hypomagnesemia Mag low on admission, received 4g IV Mag is 1.9 on 12/13 Trend mag level, replete as indicated #GERD Continue Protonix BID #HTN/RBBB EKG unchanged from prior, mild tachycardia on admission Continue metoprolol #Glaucoma Continue brimonidine #Tobacco Use Encourage Cessation FENGI: regular diet Code status: full DVT prophylaxis: heparin Isolation: none Disposition: med/tele Total Time Total Time Spent Total Time Spent (In Minutes): <30 Discharge Plan Discharge Items Patient Disposition: Home - Self-Care Reason For Visit: HEPATIC ENCEPHALOPATHY Discharge Diagnosis: Hepatic encephalopathy Activity: Resume your previous activity Non-emergency contact: Primary Care Provider Call non-emergency contact if: your symptoms worsen Follow-up/Referrals: Yuly Workman CRNP [Primary Care Provider] - Diet: Regular Addtl Attending Provider Instructions: You were admitted to the hospital for altered mental status due to ammonia build up due to liver cirrhosis. We increased your dose of lactulose to 45mg twice daily to clear the ammonia more effectively. The new dose was sent to your pharmacy. Please pick your prescription and start your new dose as soon as possible. Please follow up with your primary care physician within 5-7 days. Pending Studies at Discharge: No Stand-Alone Forms: My [employer], Smoking Cessation Medications and DC Order Prescriptions: New lactulose 10 gram/15 mL solution 45 ml PO BID Qty: 3785 0RF Continued meloxicam 15 mg tablet 15 mg PO DAILY Qty: 30 2RF diclofenac sodium 1 % Gel 2 - 4 g TOPICAL QID PRN (Reason: Pain) Rx Instructions: 2 GRAMS FOR SMALLER JOINTS, THEN 4 GRAMS FOR LARGER JOINTS. sildenafil 100 mg Tablet 50 - 100 mg PO DAILY PRN (Reason: Sexual Activity) Rx Instructions: TAKE 1/2 OR 1 TAB 1-4 HRS PRIOR TO INTERCOURSE, NO MORE THAN 1 DOSE IN 24 HOURS. carisoprodol 350 mg Tablet 350 mg PO Q6H PRN (Reason: MUSCLE SPASMS) bacitracin zinc 500 unit/gram ointment 1 applic TOPICAL DAILY Rx Instructions: APPLY TO KNEE ABRASIONS brimonidine 0.2 % drops 1 drp OPR BID PNV cmb#95-ferrous fumarate-FA [] 28 mg iron- 800 mcg Tablet 1 tab PO DAILY Xifaxan 550 mg Tablet 550 mg PO BID Qty: 60 0RF magnesium chloride [Mag 64] 64 mg Tablet,Delayed Release (Dr/Ec) 64 mg PO BID Qty: 60 0RF pantoprazole 40 mg Tablet,Delayed Release (Dr/Ec) 40 mg PO BID Qty: 60 0RF metoprolol succinate 25 mg capsule,sprinkle,ER 24hr 25 mg PO DAILY Qty: 30 0RF gabapentin 600 mg Tablet 600 mg PO Q12H Qty: 3 0RF Discontinued lactulose 10 gram/15 mL solution 30 g PO BID Discharge Orders: Discharge Order (Routine); Ordered 12/13/24 Ordered By: Dorothy Allen Admission Data Admit Date/Time: 12/12/24 18:44 Attending Provider: Jad Crawley Admit Provider: Neel Lopez Primary Care Provider: Yuly Workman Other Providers: Bradford Parish Supervising Physician Co-Signing Physician Notes I personally examined the patient and verified all mckeon points of history and exam, discussed case, and agree with decision making with Dr Allen feeling better and wants to go home. eritrean case management director present by ipad. communication still difficult though, as pt understands and speaks some greek - and therefore talks over case management director some. is clearly oriented. jokes that i think he's stupid when i ask where he is, expresses understanding that he has bad liver disease. relates that he takes his lactulose regularly vitals ntoed nad heent nc at mmm breathing unlabored no accessory muscles good effort skin no rashes no pallor or icterus neuro no focal deficits hepatic encephalopathy - no ascites so SBP not culprit. did have TIPS which raises risk. claimes he takes lactulose regularly -> increase dose. encouraged adherence. safe/stable for home. outpt f/u. Resident Activity Tracking Resident Involvement: Resident Care Provided Care Provided: Adult [facility] Medicine
--- NOTE | 2024-12-13 18:27 | Billing Data ---
Date of Service December 13, 2024 Coding Level of Care Code 51298 IN/OBS DISCH 30 MIN/LESS
--- NOTE | 2024-12-13 18:27 | Hospitalist Progress Note ---
Date of Service December 13, 2024 Assessment & Plan (1) Hepatic encephalopathy: (2) Alcoholic cirrhosis: (3) S/P TIPS (transjugular intrahepatic portosystemic shunt): (4) GERD (gastroesophageal reflux disease): (5) Tobacco use: (6) Hypertension: (7) Prediabetes: (8) Right bundle branch block: (9) Glaucoma: (10) Hypomagnesemia: Plan 64 yo [place] speaking male PMHx alcoholic cirrhosis s/p TIPS procedure, hepatic encephalopathy, prediabetes, HLD, GERD, RBBB, tobacco use, and glaucoma admitted due to confusion. #Hepatic Encephalopathy/Alcoholic cirrhosis s/p TIPS procedure Acute exacerbation Denies current EtOH use, EtOH level negative on admission Pt apparently with some degree of confusion at baseline, A& O x 3 this morning Ammonia elevated on admission, is 100 today Continue Lactulose 30g QID, titrate to 3-4 stools per day At discharge, increase lactulose to 45mg BID Continue Xifaxan #Hypomagnesemia Mag low on admission, received 4g IV Mag is 1.9 on 12/13 Trend mag level, replete as indicated #GERD Continue Protonix BID #HTN/RBBB EKG unchanged from prior, mild tachycardia on admission Continue metoprolol #Glaucoma Continue brimonidine #Tobacco Use Encourage Cessation FENGI: regular diet Code status: full DVT prophylaxis: heparin Isolation: none Disposition: med/tele Admission and Anticipated Discharge Date Admission Date: December 12, 2024 Supervising Physician Co-Signing Physician Notes I personally examined the patient and verified all mckeon points of history and exam, discussed case, and agree with decision making with Dr Allen feeling better and wants to go home. macedonian staff occupational therapist present by ipad. communication still difficult though, as pt understands and speaks some bengali - and therefore talks over staff occupational therapist some. is clearly oriented. jokes that i think he's stupid when i ask where he is, expresses understanding that he has bad liver disease. relates that he takes his lactulose regularly vitals ntoed nad heent nc at mmm breathing unlabored no accessory muscles good effort skin no rashes no pallor or icterus neuro no focal deficits hepatic encephalopathy - no ascites so SBP not culprit. did have TIPS which raises risk. claimes he takes lactulose regularly -> increase dose. encouraged adherence. safe/stable for home but no transportation - hopefully in AM Subjective Pt reports general abdominal pain and bilateral ankle pain. He states he is taking his lactulose daily and has loose stools. He denies nausea, vomiting, diarrhea, chest pain, SOB, fever/chills or headache. Review of Systems Review of Systems: As per HPI Physical Exam Physical Exam: Constitutional: ill-appearing, no acute distress HEENT: NCAT, no conjunctival injection, no scleral icterus CV: tachycardic, regular rhythm, no murmur appreciated, extremities well- perfused, no LE edema Resp: CTABL, no wheezes/rales/rhonchi appreciated, no increased work of breathing GI: nondistended, does have protrusion at the umbilicus, general tenderness in R and L upper quadrant MSK: no gross deformities appreciated. Tender with palpation at anterior ankles bilaterally Skin: warm, dry, no rash appreciated Neuro: alert, oriented, no focal neurologic deficit appreciated Results & Data Results & Data Vital Signs (Past 12 Hours) Vital Signs Temp Pulse Pulse Pulse Resp BP BP 12/13/24 15:43 36.6 C 96 H 18 131/86 12/13/24 14:53 80 12/13/24 12:56 36.8 C 77 20 144/90 H 12/13/24 12:38 36.8 C 77 20 144/90 H 12/13/24 11:36 95 H 12/13/24 08:37 37.0 C 94 H 19 176/86 H 12/13/24 08:22 12/13/24 07:28 36.6 C 96 H 20 172/99 H Pulse Ox O2 Del Method 12/13/24 15:43 97 Room Air 12/13/24 14:53 12/13/24 12:56 96 Room Air 12/13/24 12:38 96 Room Air 12/13/24 11:36 12/13/24 08:37 95 Room Air 12/13/24 08:22 Room Air 12/13/24 07:28 94 Room Air Resident Activity Tracking Resident Involvement: Resident Care Provided Care Provided: Adult Hospital Medicine
--- NOTE | 2024-12-13 18:44 | Billing Data ---
Date of Service December 13, 2024 Coding Level of Care Code 44981 SUB INP/OBS CARE MIN Comment disregard [id number] - did not go home 12/13
[2024-12-13 22:39] VITALS: RESP 18; TEMP 98.8; O2SAT 96
[2024-12-14] MEDS: DICLOFENAC SOD 1% GEL 100 GM TUBE EXT SCH (01:08)
--- NOTE | 2024-12-14 06:04 | Electrocardiogram Report ---
Test Reason : Blood Pressure : */* mmHG Vent. Rate : 114 BPM Atrial Rate : 114 BPM P-R Int : 154 ms QRS Dur : 118 ms QT Int : 402 ms P-R-T Axes : 37 -5 12 degrees QTcB Int : 554 ms Sinus tachycardia with fusion complex Right bundle branch block Abnormal ECG When compared with ECG of 14-Nov-2024 23:08, QRS duration has decreased Confirmed by Yassine Bonilla ([id number]) on 12/14/2024 6:04:36 AM Referred By: REFERRED SELF Confirmed By: Yassine Bonilla
--- NOTE | 2024-12-14 06:50 | Discharge Summary ---
Date of Service December 14, 2024 Admission HPI Per Admitting Provider 64 yo [place] speaking male PMHx alcoholic cirrhosis s/p TIPS procedure, hepatic encephalopathy, prediabetes, HLD, GERD, RBBB, tobacco use, and glaucoma admitted due to confusion. He was found at home, in bed, by nursing manager today where he appeared more confused than his baseline. He apparently had a fall with head strike yesterday. 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 He states that he has not had any alcohol in about a month. States that he is taking all of his medications as prescribed. He does have home health that visits in his home. He does indicate some vague abdominal pain but is not able fully localize. Of note, patient has a friend/neighbor Manuel whose information is in the chart. During previous admissions, Manuel was contacted and claims to have durable medical power of trial attorney. ED Course: Head, C-spine, and AP without acute changes Labs reveal: Ammonia elevated, coags elevated, otherwise labs unremarkable Principal Diagnosis Hepatic encephalopathy Discharge Exam Constitutional: ill-appearing, no acute distress HEENT: NCAT, no conjunctival injection, no scleral icterus CV: tachycardic, regular rhythm, no murmur appreciated, extremities well- perfused, no LE edema Resp: CTABL, no wheezes/rales/rhonchi appreciated, no increased work of breathing GI: nondistended, does have protrusion at the umbilicus, Minimal tenderness at R and L upper quadrant MSK: no gross deformities appreciated. Tender with palpation at anterior ankles bilaterally Skin: warm, dry, no rash appreciated Neuro: alert, oriented, no focal neurologic deficit appreciated Discharge Data Allergies Allergy/AdvReac Type Severity Reaction Status Date / Time ibuprofen AdvReac Intermediate ugib Verified 12/12/24 16:05 Consultations 12/12/24 17:32 ED Decision to Admit Stat Ordered Studies 12/12/24 14:55 CT abd pelvis IV con only Stat CT cervical spine wo con Stat CT head/brain wo con Stat Hospital Course (1) Hepatic encephalopathy: (2) Alcoholic cirrhosis: (3) S/P TIPS (transjugular intrahepatic portosystemic shunt): (4) GERD (gastroesophageal reflux disease): (5) Tobacco use: (6) Hypertension: (7) Prediabetes: (8) Right bundle branch block: (9) Glaucoma: (10) Hypomagnesemia: Plan 64 yo [place] speaking male PMHx alcoholic cirrhosis s/p TIPS procedure, hepatic encephalopathy, prediabetes, HLD, GERD, RBBB, tobacco use, and glaucoma admitted due to confusion. #Hepatic Encephalopathy/Alcoholic cirrhosis s/p TIPS procedure Acute exacerbation Denies current EtOH use, EtOH level negative on admission Pt apparently with some degree of confusion at baseline, A& O x 3 this morning Ammonia elevated on admission, is 100 today Continue Lactulose 30g QID, titrate to 3-4 stools per day At discharge, increase lactulose to 45mg BID Continue Xifaxan #Hypomagnesemia Mag low on admission, received 4g IV Mag is 1.9 on 12/13 Trend mag level, replete as indicated #GERD Continue Protonix BID #HTN/RBBB EKG unchanged from prior, mild tachycardia on admission Continue metoprolol #Glaucoma Continue brimonidine #Tobacco Use Encourage Cessation FENGI: regular diet Code status: full DVT prophylaxis: heparin Isolation: none Disposition: med/tele Total Time Total Time Spent Total Time Spent (In Minutes): As per attending physician's attestation. Discharge Plan Discharge Items Patient Disposition: Home - Self-Care Reason For Visit: HEPATIC ENCEPHALOPATHY Discharge Diagnosis: Hepatic encephalopathy Activity: Resume your previous activity Non-emergency contact: Primary Care Provider Call non-emergency contact if: your symptoms worsen Follow-up/Referrals: Yuly Workman CRNP [Primary Care Provider] - 12/20/24 10:00 am (hospital follow up scheduled on 12/20/24 at 10:00 with Yuly ZHANG) Diet: Regular Addtl Attending Provider Instructions: You were admitted to the hospital for altered mental status due to ammonia build up due to liver cirrhosis. We increased your dose of lactulose to 45mg twice daily to clear the ammonia more effectively. The new dose was sent to your pharmacy. Please pick your prescription and start your new dose as soon as possible. Please follow up with your primary care physician within 5-7 days. Pending Studies at Discharge: No Stand-Alone Forms: My VFA, Smoking Cessation Medications and DC Order Prescriptions: New lactulose 10 gram/15 mL solution 45 ml PO BID Qty: 3785 0RF Continued meloxicam 15 mg tablet 15 mg PO DAILY Qty: 30 2RF diclofenac sodium 1 % Gel 2 - 4 g TOPICAL QID PRN (Reason: Pain) Rx Instructions: 2 GRAMS FOR SMALLER JOINTS, THEN 4 GRAMS FOR LARGER JOINTS. sildenafil 100 mg Tablet 50 - 100 mg PO DAILY PRN (Reason: Sexual Activity) Rx Instructions: TAKE 1/2 OR 1 TAB 1-4 HRS PRIOR TO INTERCOURSE, NO MORE THAN 1 DOSE IN 24 HOURS. carisoprodol 350 mg Tablet 350 mg PO Q6H PRN (Reason: MUSCLE SPASMS) bacitracin zinc 500 unit/gram ointment 1 applic TOPICAL DAILY Rx Instructions: APPLY TO KNEE ABRASIONS brimonidine 0.2 % drops 1 drp OPR BID PNV cmb#[id number] fumarate-FA [] 28 mg iron- 800 mcg Tablet 1 tab PO DAILY Xifaxan 550 mg Tablet 550 mg PO BID Qty: 60 0RF magnesium chloride [Mag 64] 64 mg Tablet,Delayed Release (Dr/Ec) 64 mg PO BID Qty: 60 0RF pantoprazole 40 mg Tablet,Delayed Release (Dr/Ec) 40 mg PO BID Qty: 60 0RF metoprolol succinate 25 mg capsule,sprinkle,ER 24hr 25 mg PO DAILY Qty: 30 0RF gabapentin 600 mg Tablet 600 mg PO Q12H Qty: 3 0RF Discontinued lactulose 10 gram/15 mL solution 30 g PO BID Discharge Orders: Discharge Order (Routine); Ordered 12/14/24 Ordered By: Cherry Cortes Admission Data Admit Date/Time: 12/12/24 18:44 Attending Provider: Jad Crawley Admit Provider: Neel Lopez Primary Care Provider: Yuly Workman Other Providers: Bradford Parish Other Interventions: Discharge Summary Assessment (RN) Last Done: 12/14/24 09:08 Supervising Physician Co-Signing Physician Notes I personally examined the patient and verified all mckeon points of history and exam, discussed case, and agree with decision making with Dr Allen no new issues - dc was held up due to lack of transportation. anxiously awaiting getting home. no new complaints. vitals ntoed nad heent nc at mmm breathing unlabored no accessory muscles good effort skin no rashes no pallor or icterus neuro no focal deficits hepatic encephalopathy - no ascites so SBP not culprit. did have TIPS which raises risk. claims he takes lactulose regularly -> increase dose. encouraged adherence. safe/stable for home, outpt f/u Resident Activity Tracking Resident Involvement: Resident Care Provided Care Provided: Adult Hospital Medicine
[2024-12-14 08:11] LABS: Albumin Globulin Ratio 0.7 (0.9-2); Albumin Level 2.4 gm/dl (3.4-5.0); BUN Creatinine Ratio 12.4 (10-20); Bilirubin,Total 5.9 mg/dl (0.2-1.0); Calcium 7.9 mg/dl (8.6-10.3); Creatinine Clr Calc Pharmacy 80.5 ml/min; Globulin 3.6 gm/dl (2.5-4.0); Potassium 3.4 mmol/L (3.5-5.1)
[2024-12-14 08:15] LABS: Basophils # (auto) 0.04 K/uL (0.00-0.20); Basophils % (auto) 0.7 %; Eosinophils # (auto) 0.16 K/uL (0.00-0.50); Eosinophils % (auto) 2.7 %; Hematocrit (blood only) 32.6 % (42.0-52.0); Hemoglobin 11.4 g/dl (14.0-18.0); Immature Granulocytes # (auto) 0.03 K/uL (0.01-0.20); Immature Granulocytes % (auto) 0.5 %; Lymphocytes # (auto) 1.67 K/uL (1.20-3.40); Lymphocytes % (auto) 28.4 %; Mean Corpuscular Hemoglobin 37.7 pg (25.0-34.0); Mean Corpuscular Volume 107.9 fL (80.0-100.0); Monocytes # (auto) 0.87 K/uL (0.11-0.59); Monocytes % (auto) 14.8 %; Neutrophils # (auto) 3.12 K/uL (1.40-6.50); Neutrophils % (auto) 52.9 %; Platelet Count 78 K/uL (130-400); RDW Coefficient of Variation 13.2 % (11.5-14.5); RDW Standard Deviation 52.9 fL (36.4-46.3); Red Blood Count 3.02 M/uL (4.70-6.10); White Blood Count 5.89 K/ul (4.8-10.8)
[2024-12-14 08:22] LABS: INR 1.6 (0.9-1.1); Prothrombin Time 17.1 Seconds (9.0-12.0)
[2024-12-14 09:09] VITALS: BP 131/86; PULSE 96
[2024-12-14] MEDS: POTASSIUM CHLORIDE CRTAB 20 MEQ TABCR PO STA (09:25)
--- NOTE | 2024-12-14 13:01 | Billing Data ---
Date of Service December 14, 2024 Coding Level of Care Code 91213 IN/OBS DISCH 30 MIN/LESS
== END 2024-12-14 11:55 | disposition home or self-care (01) | DRG 443 ==
LOC: ED 13:49 → SUATTDRO 18:44 → 2N 18:44